=== PATIENT | male | born 1970 | race Caucasian/White ===

== ENCOUNTER → 2021-05-28 13:49 | Outpatient (CLI) | payer OTHER, SELFPAY ==
[2021-05-28 09:13] LABS: Hematocrit 41.7 % (40-54); Hemoglobin 13.6 g/dL (13.0-16.5); Mean Corp Hgb Conc 32.6 g/dL (32-36); Mean Corpuscular Hgb 29.5 pg (27.0-32.0); Mean Corpuscular Volume 90.5 fL (80-94); Mean Platelet Vol. 9.5 fl (6.2-12.0); Platelet Count 374 K/mm3 (150-450); RBC Distribution Width CV 13.1 % (11.6-14.6); RBC Distribution Width SD 43.2 fl (35.1-43.9); Red Blood Count 4.61 M/mm3 (4.6-6.2); White Blood Count 12.2 K/mm3 (4.4-11.0)
[2021-05-28 09:46] LABS: Hemoglobin A1c 10.2 % (3.8-5.6)
[2021-05-28 09:53] LABS: Anion Gap 8 (5-15); BUN 18 mg/dL (7-18); BUN/Creat Ratio 23.9 RATIO (10-20); Chloride 101 mmol/L (98-107); Creatinine, Serum 0.75 mg/dL (0.70-1.30); EST Glomerular Filtration Rate 116 mL/min (>60); Est Glom Filt Rate - Afr Amer 140 mL/min (>60); Glucose 185 mg/dL (74-106); Potassium 4.1 mmol/L (3.5-5.1); Sodium Level 137 mmol/L (136-145)
== END ==
PROVIDERS: Physician Assistant; PCP Preventive Medicine Occupational Medicine; Referring Provider Orthopaedic Surgery; Visit Provider Orthopaedic Surgery
DX: Z01.818 Encounter for other preprocedural examination (principal)
CPT/HCPCS: 36415; 80048; 83036; 85027

== ENCOUNTER → 2021-07-14 13:01 | Outpatient (CLI) | payer OTHER, SELFPAY ==
[2021-07-14 13:59] LABS: Hemoglobin A1c 8.3 % (3.8-5.6)
== END ==
LOC: LAB.FUTURE 13:03 → LAB 13:03
PROVIDERS: PCP Preventive Medicine Occupational Medicine; Referring Provider Physician Assistant; Visit Provider Physician Assistant
DX: Z01.818 Encounter for other preprocedural examination (principal)
CPT/HCPCS: 36415; 83036

== ENCOUNTER → 2021-09-25 07:26 | Outpatient (CLI) | payer OTHER, SELFPAY ==
[2021-09-25 08:27] LABS: Hemoglobin A1c 8.1 % (3.8-5.6)
== END ==
PROVIDERS: PCP Preventive Medicine Occupational Medicine; Referring Provider Physician Assistant; Visit Provider Physician Assistant
DX: E11.9 Type 2 diabetes mellitus without complications (principal); Z68.42 Body mass index [BMI] 45.0-49.9, adult
CPT/HCPCS: 36415; 83036

== ENCOUNTER → 2024-01-09 | Outpatient (CLI) | payer OTHER, SELFPAY ==
[2024-01-09 10:58] LABS: Microalbumin:Creatinine Ratio 17.5 mg/g CRE (<30 mg/g CRE)
[2024-01-09 10:59] LABS: AST(SGOT) 29 U/L (15-37); Alanine Aminotransfer ALT/SGPT 38 U/L (16-61); Albumin, Serum 3.5 g/dL (3.2-5.0); Alkaline Phosphatase 59 U/L (45-117); Anion Gap 5 (5-15); BUN 15 mg/dL (7-18); BUN/Creat Ratio 19.7 RATIO (10-20); Calcium,Total 8.9 mg/dL (8.5-10.1); Chloride 103 mmol/L (98-107); Cholesterol 204 mg/dL (200); Creatinine, Serum 0.76 mg/dL (0.70-1.30); EST Glomerular Filtration Rate 113 mL/min (>60); Est Glom Filt Rate - Afr Amer 137 mL/min (>60); Globulin 3.5 g/dL (2.2-4.2); Glucose 164 mg/dL (74-106); High Density Lipoprotein 46 mg/dL; Sodium Level 137 mmol/L (136-145); Thyroid Stim Hormone (TSH) 1.93 uIU/mL (0.358-3.74); Triglycerides 288 mg/dL; Very Low Density Lipoprotein 58 mg/dL (5-40)
== END | disposition home or self-care (01) ==
PROVIDERS: PCP Preventive Medicine Occupational Medicine; Referring Provider Internal Medicine Endocrinology, Diabetes & Metabolism; Visit Provider Internal Medicine Endocrinology, Diabetes & Metabolism
DX: I10 Essential (primary) hypertension (principal); E11.9 Type 2 diabetes mellitus without complications; E78.5 Hyperlipidemia, unspecified
CPT/HCPCS: 36415; 80053; 80061; 82043; 82570; 84443

== ENCOUNTER 2025-08-18 17:20 | Inpatient (IN) | payer OTHER, MEDICAID, SELFPAY ==
[2025-08-18] VITALS (11 sets, daily range): BP systolic 126–180; BP diastolic 68–109; PULSE 85–109; RESP 16–25; TEMP 36.6–36.8; O2SAT 94–100; BMI 44.5; BMI 43.4
--- NOTE | 2025-08-18 18:08 | EKG12_ITS ---
Test Reason : HEARTBURN Blood Pressure : */* mmHG Vent. Rate : 125 BPM Atrial Rate : 125 BPM P-R Int : 136 ms QRS Dur : 146 ms QT Int : 340 ms P-R-T Axes : 29 81 -11 degrees QTcB Int : 490 ms Sinus tachycardia Right bundle branch block T wave abnormality, consider inferior ischemia Abnormal ECG Confirmed by Atif Espinal ([id number]), supervising film or videotape editor AZALEA PRIEST ([id number]) on 08/19/2025 10:28:37 AM Referred By: ADORE/RUTHANN Confirmed By: Atif Espinal
--- NOTE | 2025-08-18 18:09 | EX.ED.DYSGE1 ---
HPI History of Present Illness Chief Complaint: General Illness Informant: patient Onset/Context/Timing Onset: Days (6) Context: Gradual Onset Timing: Continuous Quality: Thirsty Location: Generalized Worsened by: Nothing Relieved by: Nothing Narrative Narrative: Patient presents with nausea and vomiting that has been getting worse over the past 6 days. Patient states he feels very thirsty. Patient states he has been having difficulty keeping things down. Patient denies any diarrhea. Patient also admits to some shortness of breath. Patient states he has been noncompliant with his insulin. Patient denies any polyuria. Patient denies any chest pain or shortness of breath. Patient denies any fevers or chills. Patient denies any diarrhea. [facility] Medical History (Updated 08/18/25 @ 20:[address] Connie Smalls, ) Abrasion of abdominal wall, initial encounter Benign essential HTN Depression HLD (hyperlipidemia) Obesity Diabetes Other specified disorders of tendon, right hand Home Medications ?Medication ?Instructions ?Recorded ?Last Taken ?Type atorvastatin 20 mg tablet 20 mg PO DAILY 03/29/22 08/18/25 History lisinopril 20 mg tablet 20 mg PO DAILY 03/29/22 08/18/25 History metformin 1,000 mg tablet 1,000 mg PO BID #60 tabs 10/14/23 08/18/25 Rx blood-glucose sensor (FreeStyle #2 ea 03/22/25 Unknown Rx Sera 3 Sensor device) Tresiba FlexTouch U-200 200 100 unit (0.5 mL) subcut QDAY #45 05/06/25 Unknown Rx unit/mL (3 mL) subcutaneous pen mL (insulin degludec) insulin lispro 200 unit/mL (3 mL) 60 unit (0.3 mL) subcut TID #81 mL 05/06/25 Unknown Rx subcutaneous pen (Humalog KwikPen U-200 Insulin) trazodone 50 mg tablet 50 mg PO QHS PRN sleep 05/06/25 Unknown History pen needle, diabetic 32 gauge x #100 ea 07/03/25 Unknown Rx 5/32 blood-glucose sensor (FreeStyle #6 ea 07/10/25 Unknown Rx Sera 3 Plus Sensor device) glimepiride 4 mg tablet 4 mg PO DAILY 08/18/25 08/18/25 History Allergy/AdvReac Type Severity Reaction Status Date / Time loratadine (From Claritin) AdvReac Intermediate headache Verified 08/18/25 17:23 Family History Other Depression Diabetes High cholesterol Hypertension Severe allergy Surgical History H/O facial fracture repair Social History (Updated 08/18/25 @ 22:[address] 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 other: Going through divorce Smoking Status: Former smoker alcohol intake: current alcohol intake frequency: 0-2 drinks per day substance use type: does not use what type of physical activity do you participate in: other details: treadmill frequency: daily ROS ROS ED Constitutional Constitutional ED: Denies chills or fever(s) Eyes Eyes: Denies blurry vision or change in vision ENT ENT ED: Denies rhinorrhea or sore throat Cardiovascular Cardiovascular: Denies chest pain or palpitations Respiratory/Chest Respiratory/Chest: Reports dyspnea; Denies cough Gastrointestinal Gastrointestinal: Reports nausea and vomiting; Denies diarrhea Genitourinary Genitourinary ED: Denies dysuria or hematuria Musculoskeletal Musculoskeletal: Denies back pain or neck pain Integumentary Denies abscess or rash Neurologic Neurologic: Denies headache(s) or weakness Endocrine Endocrinology: Reports polydipsia Allergic/Immunologic Allergic/Immunologic ED: Denies mouth swelling or urticaria EXAM Physical Exam Const Vital Signs: 08/18/25 17:20 08/18/25 17:23 08/18/25 17:55 Temperature 98.2 F Temperature Source Oral Pulse Rate 102 H 109 H Respiratory Rate 20 H 20 H Respiratory Effort Normal Non-Labored Respiratory Pattern Normal Blood Pressure 141/68 H 169/109 H Blood Pressure Mean 92 129 Pulse Ox 97 97 Oxygen Delivery Method Room Air Room Air 08/18/25 19:44 Temperature Temperature Source Pulse Rate 95 Respiratory Rate 18 Respiratory Effort Respiratory Pattern Blood Pressure 164/97 H Blood Pressure Mean 119 Pulse Ox 98 Oxygen Delivery Method Room Air Positive well nourished and well developed Constitutional Narrative: BMI is 44.5. General Appearance ED: well developed and NAD HEENT Reports dry mucous membranes Mouth ED: Yes dry mucous membranes Mouth: dry mucous membranes Neck supple and no JVD Resp normal respiratory effort and clear to auscultation bilaterally Cardio regular rate and regular rhythm GI non-distended Palpation: soft and tender epigastric; Negative for guarding or rebound tenderness present Neuro oriented x3, CN's II-XII intact bilaterally and no sensory deficits noted Sensorium / Orientation: alert Motor Exam: strength 5/5 throughout Psych mental status grossly normal MDM MDM MDM Narrative Medical decision making narrative: Differential diagnosis includes but is not limited to diabetic ketoacidosis, hyperosmolar hyperglycemic nonketotic state, gastroenteritis, gastritis, peptic ulcer disease, pancreatitis, and viral illness. CBC will be obtained to assess for leukocytosis and anemia. Comprehensive metabolic profile will be obtained to assess for hepatic function, renal function, and electrolyte abnormality. Lipase will be obtained to assess for pancreatitis. Urinalysis will be obtained to assess for urinary tract infection and hematuria. EKG will be obtained to assess for cardiac dysrhythmia and cardiac ischemia. History & Record Review Additional record(s) reviewed:: Prior outpatient record and Prior labs Lab Data Attestation: I reviewed the patient's lab results. Lab results narrative: CBC was reviewed. There is a mild leukocytosis of 13.9. Hemoglobin was 17.2. Comprehensive metabolic profile was reviewed. Glucose was elevated at 448, CO2 was low at 12.9 and anion gap was elevated at 24. Lipase was reviewed and was normal at 24. Beta hydroxybutyrate was reviewed and was elevated at 6.5. Urinalysis was reviewed. Urine ketones were 150. There is no evidence of urinary tract infection. Labs: Laboratory Results - last 24 hr 08/18/25 08/18/25 08/18/25 18:16 18:20 20:20 WBC 13.9 H RBC 5.80 Hgb 17.2 H Hct 49.7 MCV 85.7 MCH 29.7 MCHC 34.6 RDW Std Deviation 42.3 RDW Coeff of Mica 13.6 Plt Count 413 MPV 9.5 Immature Gran % (Auto) 0.900 Neut % (Auto) 60.9 Lymph % (Auto) 27.7 Harvey % (Auto) 8.6 Eos % (Auto) 1.2 Baso % (Auto) 0.7 Absolute Neuts (auto) 8.5 H Absolute Lymphs (auto) 3.85 Nucleated RBC % 0 Sodium 131 L 133 Potassium 4.3 4.2 Chloride 94 L 94 L Carbon Dioxide 12.9 L 14.1 L Anion Gap 24 H 25 H BUN 15 Creatinine 0.99 Estim Creat Clear Calc 121.52 Est GFR (MDRD) Non-Af 89 BUN/Creatinine Ratio 14.6 Glucose 448 H Hemoglobin A1c 12.6 H Calcium 9.9 Phosphorus 3.3 Magnesium 1.9 Total Bilirubin 0.74 AST 13 ALT 12 Alkaline Phosphatase 95 Total Protein 8.0 Albumin 4.6 Globulin 3.4 Albumin/Globulin Ratio 1.4 Lipase 24 b-Hydroxybutyric mmol/L 6.5 H Urine Color Straw Urine Clarity Clear Urine pH 6.0 Ur Specific Carlock 1.025 Urine Protein 30 H Urine Glucose (UA) 1000 H Urine Ketones 150 A* Urine Occult Blood 10 H Urine Nitrite Negative Urine Bilirubin Negative Urine Urobilinogen Normal Ur Leukocyte Esterase Negative Urine RBC 0-5 SEEN Urine WBC 0-5 SEEN Ur Squamous Epith Cells 0-5 SEEN Amorphous Sediment 1+ Urine Bacteria 2+ Hyaline Casts 0-5 SEEN Coarse Granular Casts 0-5 SEEN Urine Mucus 0 SEEN ABG Data Attestation: I personally reviewed and interpreted this ABG as follows: Interpretation: Venous blood gas was obtained. pH was 7.325, pCO2 was 18.6, pO2 75.3, bicarb was low at 9.7. ABG results: ABG 08/18/25 19:28 Specimen Type FELTON Sample Site Not entered VBG pH 7.33 VBG pO2 75 H VBG HCO3 10 L VBG Total CO2 10 L VBG O2 Sat (Calc) 94 H VBG Base Excess -16 L POC Mix VBG pCO2 Pt Tmp 18.6 L* O2 Delivery Device Room Air Crit Call To/Read Back Yes Blood Gas Notified [facility] Blood [facility] Notified Time 19:30:29 EKG Initial EKG: Attestation: I personally reviewed and interpreted this EKG as follows: Interpretation: Sinus Tachycardia (125) and Non-Specific ST Changes Comments: EKG was obtained. On my independent interpretation, shows sinus tachycardia with a rate of 125. NH interval was normal at 136 ms. QRS interval was slightly prolonged at 146 ms. QTc interval was 490 ms. [place] was normal at 81. There are nonspecific ST-T wave changes noted. There is a right bundle branch block pattern noted. Prior EKG tracings: available for review Prior: Changed (Compared to EKG dated 10/05/2015, the right bundle branch block pattern is new.) Management Discussion w/another healthcare provider: Hospitalist Additional Tests and Interventions Additional Tests or Interventions: Because of the elevated blood sugar and anion gap, beta hydroxybutyrate will be obtained to assess for diabetic ketoacidosis and venous blood gas will be obtained to assess for metabolic acidosis. Treatment and Re-Evaluation :: Patient was given IV fluids. Patient was advised of his findings. Patient was advised he is in diabetic ketoacidosis. Patient was advised of the need for admission to the hospital. Patient was started on insulin drip. Case was discussed with the hospitalist. She will admit the patient to ICU. Patient understood and was agreeable with the plan. All questions were answered. Discharge Plan Dx/Rx/DC Orders Clinical Impression: Diabetic ketoacidosis, Benign essential HTN, Obesity Disposition Disposition: Acute Care Hospital [facility] Discharge Date/Time: 08/18/25 21:28
[2025-08-18] MEDS: 0.9% Normal Saline (1000mL) 1,000 ML 1000 ML IV ×2 (18:15→22:14)
[2025-08-18 18:23] LABS: Mucous, Urine 0 SEEN /hpf (<or=2+)
[2025-08-18 18:24] LABS: Color, Urine Straw (Yellow); Glucose, Dipstick 1000 mg/dl (Normal); Leukocyte Esterase-Dipstick Negative /ul (Negative); Nitrite-Dipstick Negative (Negative); Occult Blood-Urine 10 /ul (Negative); Protein-Dipstick 30 mg/dl (Negative); Specific Gravity, Urine 1.025 (1.002-1.030); Urine Bilirubin Dipstick Negative (Negative)
[2025-08-18 18:25] LABS: Hematocrit 49.7 % (40-54); Hemoglobin 17.2 g/dL (13.0-16.5); Immature Granulocytes Count 0.120 X10^3/uL (0.0-0.0); Mean Corp Hgb Conc 34.6 g/dL (32-36); Mean Corpuscular Volume 85.7 fL (80-94); Mean Platelet Vol. 9.5 fl (6.2-12.0); NRBC Flagged by Analyzer 0 % (0-5); Platelet Count 413 K/mm3 (150-450); RBC Distribution Width CV 13.6 % (11.6-14.6); RBC Distribution Width SD 42.3 fl (35.1-43.9); Red Blood Count 5.80 M/mm3 (4.6-6.2); White Blood Count 13.9 K/mm3 (4.4-11.0)
[2025-08-18 18:26] LABS: Ketone-Dipstick 150 mg/dl (Negative)
--- OUTSIDE RECORDS SUMMARY | 2025-08-18 18:32 | XMS RPT_ITS | CCD ---
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 [place] Hgoue Primary Care Provider Dr. [place] Hgoue Referring Provider [phone] Dr. Daniel Granda Attending Provider [phone] SHIRA CHAPA PA-C Attending Unavailab le JAMAICA HOGUE DO Primary Care Unavailable MYLENE ANDERSON MD Attending Unavailable JAMAICA HOGUE DO Primary Care Unavailable SHEFALI KEVIN, DR OVIDIO aDvila Attending Unavailable JAMAICA HOGUE DO Primary Care Unavailable JAMAICA HOGUE DO Primary Care Unavailable JAMAICA HOGUE DO Attending Unavailable JAMAICA HOGUE DO Primary Care Unavailable JAMAICA HOGUE DO Attending Unavailable SHEFALI KEVIN, DR OVIDIO Davila Attending Unavailable JAMAICA HOGUE DO Primary Care Unavailable SHEFALI KEVIN, DR OVIDIO Davila Attending Unavailable JAMAICA HOGUE DO Primary Care Unavailable CLYDE TUTTLE MD Attending Unavail able JAMAICA HOGUE DO Primary Care Unavailable PATRICIA PEARSON Attending Unavailable JAMAICA HOGUE DO Primary Care Unavailable Dr. [place] Hogue DO Primary Care Provider [phone] Dr. [place] Hogue DO Referring Provider Mayuri Foley Attending Provider Dr. Daniel Granda MD Attending Provider [phone] Jamaica Hogue Referring Unavailable Jamaica Hogue Primary Care Unavailable Daniel Granda Attending Unavailable Jamaica Hogue Primary Care Unavailable Mayuri Hines Attending Unavailable Jamaica Hogue Referring Unavailable Jamaica Hogue Primary Care Unavailable Daniel Granda Attending Unavailable Jamaica Hogue Referring Unavailable Jamaica Hogue Referring Unavailable Jamaica Hogue Primary Care Unavailable Daniel Granda Attending Unavailable Jamaica Hogue Referring Unavailable Ajit Montenegro Attending Unavailable Jamaica Hogue Primary Care Unavailable Jamaica Hogue Referring Unavailable Jamaica Hogue Primary Care Unavailable Ajit Montenegro Attending Unavailable Allergies Allergy Classification Reported Allergen(s) Allergy Type Date of Onset Reaction(s) Facility (17 sources) Loratadine; Translations: [loratadine] Drug Allergy 3 Headache (finding) [facility] (1 source) Loratadine Drug Allergy [address] [facility] Repository Medications Current Medications Medication Drug Class(es) Dates Sig (Normalized) Sig (Original) 0.5 ML tirzepatide 5 MG/ML Auto-Injector [Mounjaro] (3 sources) Start: 11-09-2023 inject 1 dose by subcutaneous injection every week Mounjaro 2.5 mg/0.5 mL subcutaneous solution Dose : 2.5 mg =, Subcutaneous, qWeek, rotate injection sites, # 4 EA, 0 Refill(s) Start Date: 11/09/23 Status: Ordered acetaminophen 325 mg / HYDROcodone bitartrate 5 mg oral tablet (5 sources) Opioid Agonist Start: 08-01-2024 End: 08-06-2024 take 1 tablet by mouth every six hours as needed for pain [place] 325- 5 mg oral tablet Dose = 1 tab(s), Oral, q6h, PRN for pain, X 5 day(s), # 20 tab(s), 0 Refill(s), Groin pain, 171.7 Start Date: 08/01/24 Stop Date: 08/06/24 Status: Ordered Start: 10-01-2015 End: 09-20-2022 Hydrocodone-Acetaminophen 1 TABLET tablet Discontinued 1 - 2 {tbl} PO EVERY 4 HOURS NEEDED as needed for Pain 12 0 October 05, 2015 1:00am September 20, 2022 11:19am Start: 10-01-2015 End: 09-20-2022 take 1 tablet by mouth every four hours as needed Hydrocodone-Acetaminophen Discontinued 1 - 2 TABLET PO EVERY 4 HOURS NEEDED October 05, 2015 1:00am September 20, 2022 11:19am acyclovir 0.05 mg/mg topical ointment (1 source) Herpesvirus Nucleoside Analog DNA Polymerase Inhibitor, Herpes Simplex Virus Nucleoside Analog DNA Polymerase Inhibitor, Herpes Zoster Virus Nucleoside Analog DNA Polymerase Inhibitor Start: 08-16-2023 End: 08-30-2023 acyclovir 5% topical ointment Apply 1 jeffrey, Topical, q3h, PRN cold sore outbreak, X 7 day(s), # 15 gram(s), 1 Refill(s), Pharmacy: [id number], Ointment, 181, cm, 08/16/23 13:28:00 EST, Height, 163.6, kg, 08/16/23 13:28:00 EST, Dosing Weight Start Date: 08/16/23 Stop Date: 08/30/23 Status: Ordered albuterol MDI (90 mcg/inh) CFC free inhalation aerosol (7 sources) Start: 01-19-2024 take 1 puff(s) by inhalation every four hours as needed for wheezing albuterol MDI (90 mcg/inh) CFC free inhalation aerosol 1 puff(s), Inhalation, q4h, PRN as needed for wheezing, # 8.5 gram(s), 0 Refill(s), Pharmacy: [facility] #[id number], Acute bronchitis, 180, cm, 01/19/24 9:57:00 EDT, Height, kg, 01/19/24 9:57:00 EDT, Dosing Weight Start Date: 01/19/24 Status: Ordered Quantity: 8.5 Unit: g Repeat number: 1 Indications: Acute bronchitis, unspecified; Start: 01-19-2024 take 1 puff(s) by in halation every four hours as needed for wheezing albuterol MDI (90 mcg/inh) CFC free inhalation aerosol 1 puff(s), Inhalation, q4h, PRN as needed for wheezing, # 8.5 gram(s), 0 Refill(s), Pharmacy: [facility] #[id number], Acute bronchitis, 180, cm, 01/19/24 9:57:00 EDT, Height, kg, 01/19/24 9:57:00 EDT, Dosing Weight Start Date: 01/19/24 Status: Ordered Quantity: 8.5 Unit: g Repeat number: 1 Indication: Acute bronchitis, unspecified Start: 01-19-2024 take 1 puff(s) by in halation every four hours as needed for wheezing albuterol MDI (90 mcg/inh) CFC free inhalation aerosol 1 puff(s), Inhalation, q4h, PRN as needed for wheezing, # 8.5 gram(s), 0 Refill(s), Pharmacy: [facility] #[id number], Acute bronchitis, 180, cm, 01/19/24 9:57:00 EDT, Height, kg, 01/19/24 9:57:00 EDT, Dosing Weight Start Date: 01/19/24 Status: Ordered Start: 09-28-2023 take 1 puff(s) by in halation every four hours as needed for wheezing albuterol MDI (90 mcg/inh) CFC free inhalation aerosol 1 puff(s), Inhalation, q4h, PRN as needed for wheezing, # 8.5 gram(s), 0 Refill(s), Pharmacy: [facility] #[id number], Acute bronchitis, 180, cm, 09/28/23 13:19:00 EST, Height, kg, 09/28/23 13:19:00 EST, Dosing Weight Start Date: 09/28/23 Status: Ordered azithromycin 250 mg oral tablet (2 sources) Macrolide Antimicrobial Start: 09-20-2022 End: 09-25-2022 Zithromax 250 mg oral tablet Dose : 250 mg = 1 tab(s), Oral, qDay, follow directions on Z-Erlin, X 5 day(s), # 6 tab(s), 0 Refill(s), 09/25/22 8:52:00 EST, Pharmacy: [facility] #[facility], 181, cm, 09/20/22 7:48:00 EST, Height, 158.6 Start Date: 09/20/22 Stop Date: 09/25/22 Status: Ordered Start: 06-25-2022 End: 06-30-2022 Zithromax 250 mg oral tablet Dose : 250 mg = 1 tab(s), Oral, qDay, follow directions on Z-Erlin, X 5 day(s), # 6 tab(s), 0 Refill(s), 06/30/22 8:12:00 EDT, Pharmacy: [facility] #[facility], 181, cm, 06/22/22 8:38:00 EDT, Height, 170.4 Start Date: 06/25/22 Stop Date: 06/30/22 Status: Ordered benzonatate 100 mg oral capsule (9 sources) Non-narcotic Antitussive Start: 09-28-2023 Tessalon Perles 100 mg oral capsule Dose : 100 mg = 1 cap(s), Oral, q8h, PRN as needed for cough, # 30 cap(s), 0 Refill(s), Pharmacy: [facility] #[id number], Acute bronchitis, 180, cm, 09/28/23 13:19:00 EST, Height, kg, 09/28/23 13:19:00 EST, Dosing Weight Start Date: 09/28/23 Status: Ordered Start: 06-22-2022 End: 09-29-2022 take 1-2 capsules by mouth three times daily as needed for cough benzonatate 100 mg oral capsule Take 1 - 2 capsules three times daily as needed for cough. This is to last 10 days. Start Date: 06/22/22 Status: Ordered Blood-Glucose Sensor (Freest yle Sera 3 Sensor) device (8 sources) Start: 03-22-2025 Blood-Glucose Sensor (Freestyle Sera 3 Sensor) device Active 0 .Route 2 March 22, 2025 10:02am Diabetes mellitus Type 2 diabetes mellitus without complications 1 sensor q 14 days Start: 05-16-2024 End: 03-22-2025 Blood-Glucose Sensor (Freest yle Sera 3 Sensor) device Discontinued 0 .Route 2 May 16, 2024 8:18am March 22, 2025 10:02am Diabetes mellitus Type 2 diabetes mellitus without complications 1 sensor q 14 days Start: 12-05-2023 End: 05-16-2024 Blood-Glucose Sensor (Freest yle Sera 3 Sensor) device Discontinued 0 .Route 2 December 05, 2023 10:20am May 16, 2024 8:18am Diabetes mellitus Type 2 diabetes mellitus without complications 1 sensor q 14 days Start: 12-05-2023 Blood-Glucose Sensor (Freestyle Sera 3 Sensor) device Active 0 .Route 2 December 05, 2023 10:20am 1 sensor q 14 days Start: 08-24-2023 End: 12-05-2023 Blood-Glucose Sensor (Freest yle Sera 3 Sensor) device Discontinued 0 .Route 2 August 24, 2023 12:35pm December 05, 2023 10:20am Diabetes mellitus Type 2 diabetes mellitus without complications 1 sensor q 14 days Start: 08-24-2023 End: 12-05-2023 Blood-Glucose Sensor (Freest yle Sera 3 Sensor) device Discontinued 0 .Route 2 August 24, 2023 12:35pm December 05, 2023 10:20am 1 sensor q 14 days Start: 06-20-2023 End: 08-24-2023 Blood-Glucose Sensor (Freest yle Sera 3 Sensor) device Discontinued 0 .Route 2 June 20, 2023 12:00am August 24, 2023 12:35pm Diabetes mellitus Type 2 diabetes mellitus without complications 1 sensor q 14 days Start: 06-20-2023 End: 08-24-2023 Blood-Glucose Sensor (Freest yle Sera 3 Sensor) device Discontinued 0 .Route 2 June 20, 2023 12:00am August 24, 2023 12:35pm 1 sensor q 14 days busPIRone hydrochloride 5 mg oral tablet (5 sources) Start: 05-06-2025 take 1 tablet by mouth twice daily Buspirone 5 mg tablet Active 5 mg PO TWICE A DAY May 06, 2025 12:00am Start: 08-04-2023 take 1-2 tablets by mouth twice daily, then take 1 tablet by mouth twice daily busPIRone 15 mg oral tablet 1 to 2 tab(s), Oral, BID, Start with one third tab p.o. twice daily and increase dose as tolerated., # 60 tab(s), 1 Refill(s), Pharmacy: [facility] #[id number], Anxiety state, 181, cm, 08/04/23 7:58:00 EDT, Height, kg, 08/04/23 7:58:00 EDT, Dosing Weight Start Date: 08/04/23 Status: Ordered celecoxib 200 mg oral capsule (1 source) Nonsteroidal Anti-inflammatory Drug Start: 02-14-2024 CeleBREX 200 mg oral capsule Dose : 200 mg = 1 cap(s), Oral, BID, PRN as needed for pain, # 60 cap(s), 1 Refill(s), Pharmacy: [facility] #[id number], Abdominal wall pain in right upper quadrant, 179.5, cm, 02/14/24 13:04:00 EDT, Height, kg, 02/14/24 13:04:00 EDT, Dosing Weight Start Date: 02/14/24 Status: Ordered clonazePAM 1 mg oral tablet (1 source) Benzodiazepine Start: 08-18-2023 End: 08-25-2023 clonazePAM 1 mg oral tablet Dose : 1 mg = 1 tab(s), Oral, BID, PRN Anxiety, # 14 tab(s), 0 Refill(s), Pharmacy: [facility] #[facility], Anxiety state, 181, cm, 08/16/23 13:28:00 EST, Height, 163.6, kg, 08/16/23 13:28:00 EST, Dosing Weight Start Date: 08/18/23 Stop Date: 08/25/23 Status: Ordered cyclobenzaprine hydrochloride 10 mg oral tablet (8 sources) Muscle Relaxant Start: 11-09-2023 cyclobenzaprine 10 mg oral tablet Dose : 10 mg = 1 tab(s), Oral, TID, PRN for spasm, # 30 tab(s), 0 Refill(s), Pharmacy: [facility] #[id number], Cervicalgia, 180, cm, 11/09/23 7:28:00 EST, Height, kg, 11/09/23 7:28:00 EST, Dosing Weight Start Date: 11/09/23 Status: Ordered Quantity: 30.0 Unit: tab(s) Repeat number: 1 Indications: Cervicalgia; Start: 08-10-2021 End: 08-17-2021 cyclobenzaprine 10 mg oral t ablet Dose : 10 mg = 1 tab(s), Oral, TID, X 7 day(s), # 21 tab(s), 0 Refill(s), 08/17/21 5:54:00 EST Start Date: 08/10/21 Stop Date: 08/17/21 Status: Ordered dextromethorphan hydrobromide 3 mg/ml / promethazine hydrochloride 1.25 mg/ml oral solution (1 source) Phenothiazine, Uncompetitive C-ipuhnf-S-aspartate Receptor Antagonist, Sigma-1 Agonist Start: 09-22-2022 End: 10-02-2022 take 1 dose by mouth every six hours as needed for cough dextromethorphan-promethazine 15 mg-6.25 mg/5 mL oral syrup Dose = 5 mL, Oral, q6h, PRN for cough, X 10 day(s), # 180 mL, 0 Refill(s), Pharmacy: [facility], Cough, 181, cm, 09/20/22 7:48:00 EST, Height Start Date: 09/22/22 Stop Date: 10/02/22 Status: Ordered diclofenac sodium 0.01 mg/mg topical gel (5 sources) Nonsteroidal Anti-inflammatory Drug Start: 03-04-2021 diclofenac 1% topical gel 4 = gram(s), Topical, QID, # 100 gram(s), 3 Refill(s), Pharmacy: [facility] #[facility], Gel, 182, cm, 02/10/21 16:55:00 EDT, Height, 149.5, kg, 02/10/21 16:55:00 EDT, Dosing Weight Start Date: 03/04/21 Status: Ordered Start: 03-04-2021 diclofenac 1% topical gel 4 = gram(s), Topical, QID, # 100 gram(s), 3 Refill(s), Pharmacy: [facility] #[facility], Gel, 182, cm, 02/10/21 16:55:00 EDT, Height, 149.5, kg, 02/10/21 16:55:00 EDT, Dosing Weight Start Date: 03/04/21 Status: Ordered DULoxetine 30 mg delayed release oral capsule (8 sources) Serotonin and Norepinephrine Reuptake Inhibitor Start: 02-19-2025 take 1 capsule by mouth once daily DULoxetine 30 mg oral delayed release capsule Dose : 30 mg = 1 cap(s), Oral, qDay, Take with a duloxetine 60 mg cap to equal 90 mg daily., # 90 cap(s), 1 Refill(s), Pharmacy: [facility], Major depression, recurrent, chronic, 180.5, cm, 02/18/25 16:21:00 EDT, Height, kg, 02/18/25 16:21:00 EDT, Dosing Weight Start Date: 02/19/25 Status: Ordered Quantity: 90.0 Unit: cap(s) Repeat number: 2 Indications: Major depressive disorder, recurrent, unspecified; Start: 02-19-2025 take 1 capsule by [facility] once daily DULoxetine 60 mg oral delayed release capsule Dose : 60 mg = 1 cap(s), Oral, qDay, Take with a duloxetine 30 mg cap to equal 90 mg daily., # 90 cap(s), 1 Refill(s), Pharmacy: [facility], Major depression, recurrent, chronic, 180.5, cm, 02/18/25 16:21:00 EDT, Height, kg, 02/18/25 16:21:00 EDT, Dosing Weight Start Date: 02/19/25 Status: Ordered Quantity: 90.0 Unit: cap(s) Repeat number: 2 Indications: Major depressive disorder, recurrent, unspecified; Start: 09-28-2023 DULoxetine 40 mg oral delayed release capsule Dose : 80 mg = 2 cap(s), Oral, qDay, 0 Refill(s) Start Date: 09/28/23 Status: Ordered Repeat number: 1 glimepiride 4 mg oral tablet (20 sources) Sulfonylurea Start: 04-16-2024 End: 05-21-2025 glimepiride 4 mg oral tablet Dose : 4 mg = 1 tab(s), Oral, qDay, # 100 tab(s), 3 Refill(s), Pharmacy: [facility], 179, cm, 03/26/24 14:06:00 EDT, Height, kg, 03/26/24 14:06:00 EDT, Dosing Weight Start Date: 04/16/24 Stop Date: 05/21/25 Status: Ordered Quantity: 100.0 Unit: tab(s) Repeat number: 4 Start: 10-25-2023 glimepiride 4 mg oral tablet Dose : 4 mg = 1 tab(s), Oral, qDay, # 30 tab(s), 11 Refill(s), Pharmacy: [facility] #[id number], 180, cm, 10/21/23 14:24:00 EST, Height, kg, 10/21/23 14:24:00 EST, Dosing Weight Start Date: 10/25/23 Status: Ordered Start: 11-04-2021 End: 11-04-2021 take 2 tablets by mouth once daily Glimepiride 4 mg tablet Discontinued 8 mg PO DAILY November 04, 2021 1:00am November 04, 2021 4:12pm Start: 11-04-2021 End: 10-14-2023 take 1 tablet by mouth once daily Glimepiride 4 mg tablet Discontinued 4 mg PO DAILY July 28, 2022 8:06am October 14, 2023 12:58pm Start: 11-04-2021 End: 11-04-2021 take 8 mg by mouth once daily Glimepiride Discontinued 8 MG PO DAILY November 04, 2021 1:00am November 04, 2021 4:12pm Hydrocortisone (5 sources) Corticosteroid Start: 08-21-2020 hydrocortisone 1% topical cream Apply 1 jeffrey, Topical, BID, # 14 gram(s), 0 Refill(s), Pharmacy: [facility] #[id number], Cream, 182.9, cm, 08/21/20 14:27:00 EST, Height, 143.1, kg, 08/21/20 14:27:00 EST, Dosing Weight Start Date: 08/21/20 Status: Ordered ibuprofen 600 mg oral tablet (1 source) Nonsteroidal Anti-inflammatory Drug Start: 07-20-2024 End: 08-19-2024 ibuprofen 600 mg oral tablet Dose : 600 mg = 1 tab(s), Oral, BID, PRN as needed for pain, X 30 day(s), # 60 tab(s), 0 Refill(s), 08/19/24 10:13:00 AM EST, Pharmacy: [facility], 180.3, cm, 07/20/24 9:55:00 EDT, Height, kg, 07/20/24 9:55:00 EDT, Dosing Weight Start Date: 07/20/24 Stop Date: 08/19/24 Status: Ordered 3 ml insulin degludec 200 unt/ml pen injector (5 sources) Insulin Analog Start: 02-18-2025 Tresiba FlexTo uch 200 units/mL 3 mL subcutaneous solution 100, Subcutaneous, Daily, 0 Refill(s) Start Date: 02/18/25 Status: Ordered Repeat number: 1 Start: 07-30-2024 End: 05-06-2025 Insulin Degludec (Tresiba Fl extouch U-200) 200 unit/mL (3 mL) insulin pen Active 100 U SC daily 45 May 06, 2025 3:07pm 3 ml insulin lispro 200 unt/ml pen injector (3 sources) Insulin Analog Start: 07-30-2024 End: 05-06-2025 Insulin Lispro (Humalog Kwikpen Insulin) 200 unit/mL (3 mL) insulin pen Active 60 U SC THREE TIMES A DAY 81 May 06, 2025 3:07pm 30 units with snacks Sliding Scale 180 +12; 221 20 units; 260 30 units; > 300 40 units levoFLOXacin 750 mg oral tablet (1 source) Quinolone Antimicrobial Start: 01-19-2024 End: 01-26-2024 levoFLOXacin 750 mg oral tablet Dose : 750 mg = 1 tab(s), Oral, q24h, X 7 day(s), # 7 tab(s), 0 Refill(s), 01/26/24 10:28:00 AM EDT, Pharmacy: [facility] #[id number], Sinusitis Dyspnea, 180, cm, 01/19/24 9:57:00 EDT, Height, 171.7, kg, 01/19/24 9:57:00 EDT, Dosing Weight Start Date: 01/19/24 Stop Date: 01/26/24 Status: Ordered lidocaine 0.05 mg/mg medicated patch (1 source) Antiarrhythmic, Amide Local Anesthetic Start: 12-07-2024 End: 12-14-2024 Lidoderm 5% topical patch Apply 1 patch(es), Topical, Daily, X 7 day(s), # 7 patch(es), 0 Refill(s), 174.3 Start Date: 12/07/24 Stop Date: 12/14/24 Status: Ordered Quantity: 7.0 Unit: patch(es) Repeat number: 1 lisinopril 20 mg oral tablet (19 sources) Angiotensin Converting Enzyme Inhibitor Start: 07-03-2021 End: 05-21-2025 lisinopril 20 mg oral tablet Dose : 20 mg = 1 tab(s), Oral, qDay, # 100 tab(s), 3 Refill(s), Pharmacy: [facility], 179, cm, 03/26/24 14:06:00 EDT, Height, kg, 03/26/24 14:06:00 EDT, Dosing Weight Start Date: 04/16/24 Stop Date: 05/21/25 Status: Ordered Quantity: 100.0 Unit: tab(s) Repeat number: 4 Start: 07-29-2015 End: 03-29-2022 take 2 tablets by mouth once daily Lisinopril 10 MG tablet Discontinued 20 mg PO DAILY July 29, 2015 12:00am March 29, 2022 9:08am Start: 07-29-2015 End: 03-29-2022 take 20 mg by mouth once daily Lisinopril Discontinued 20 MG PO DAILY July 29, 2015 12:00am March 29, 2022 9:08am lurasidone hydrochloride 20 mg oral tablet (1 source) Atypical Antipsychotic Start: 05-06-2025 take 1 tablet by mouth once daily in the evening Lurasidone (Latuda) 20 mg tablet Active 20 mg PO EVERY EVENING May 06, 2025 12:00am meloxicam 15 mg oral tablet (6 sources) Nonsteroidal Anti-inflammatory Drug Start: 11-09-2023 Mobic 15 mg oral tablet Dose : 15 mg = 1 tab(s), Oral, qDay, # 30 tab(s), 0 Refill(s), Pharmacy: [facility] #[id number], Strain of rotator cuff of right shoulder Cervicalgia, 180, cm, 11/09/23 7:28:00 EST, Height, kg, 11/09/23 7:28:00 EST, Dosing Weight Start Date: 11/09/23 Status: Ordered Start: 11-03-2020 End: 11-10-2020 meloxicam 7.5 mg oral tablet Dose : 7.5 mg = 1 tab(s), Oral, qDay, Take with food/milk, # 7 tab(s), 0 Refill(s) Start Date: 11/03/20 Stop Date: 11/10/20 Status: Ordered metFORMIN hydrochloride 1000 mg oral tablet (20 sources) Biguanide Start: 09-30-2023 End: 05-21-2025 take 1 tablet by mouth twice daily Metformin 1,000 mg tablet Active 1000 mg PO TWICE A DAY 60 5 October 14, 2023 1:00am Start: 09-20-2022 End: 10-14-2023 take 1 tablet by mouth twice daily Metformin 500 mg tablet,ER ibrahima.retention 24 hr Discontinued 500 mg PO TWICE A DAY September 20, 2022 1:00am October 14, 2023 12:58pm Start: 07-29-2022 metFORMIN 1000 mg oral tablet (IR) Dose : 1,000 mg = 1 tab(s), Oral, BID, # 180 tab(s), 3 Refill(s), Pharmacy: [facility], 181, cm, 06/22/22 8:38:00 EDT, Height, kg, 06/25/22 7:51:00 EDT, Dosing Weight Start Date: 07/29/22 Status: Ordered Start: 07-29-2015 End: 11-04-2021 take 1 tablet by mouth twice daily at mealtime Metformin 1,000 MG tablet Discontinued 1000 mg PO TWICE DAILY WITH MEALS July 29, 2015 12:00am November 04, 2021 4:11pm methylPREDNISolone 4 mg oral tablet (1 source) Corticosteroid Start: 01-19-2024 End: 01-25-2024 Medrol Dosepak 4 mg oral tablet 1 packet(s), Oral, qDay, as directed on package labeling, X 6 day(s), # 21 tab(s), 0 Refill(s), 01/25/24 10:28:00 AM EDT, Pharmacy: [facility] #[id number], Sinusitis Dyspnea, 180, cm, 01/19/24 9:57:00 EDT, Height, kg, 01/19/24 9:57:00 EDT, Dosing Weight Start Date: 01/19/24 Stop Date: 01/25/24 Status: Ordered Pen needles 4 mm (15 sources) Start: 04-16-2024 Pen needles 4 mm See Instructions, Dispense UltraFine 4 mm pen needles, #200, use 1 pen needle twice daily to inject insulin, # 200 EA, 3 Refill(s), Pharmacy: [facility], Uncontrolled type 2 diabetes mellitus, 179, cm, 03/26/24 14:06:00 EDT, Height, 174.9, kg, 03/26/24 14:06:00 EDT, Dosing Weight Start Date: 04/16/24 Status: Ordered Quantity: 200.0 Unit: EA Repeat number: 4 Indications: Type 2 diabetes mellitus with hyperglycemia; Start: 04-16-2024 Pen needles 4 mm See Instructions, Dispense UltraFine 4 mm pen needles, #200, use 1 pen needle twice daily to inject insulin, # 200 EA, 3 Refill(s), Pharmacy: [facility], Uncontrolled type 2 diabetes mellitus, 179, cm, 03/26/24 14:06:00 EDT, Height, 174.9, kg, 03/26/24 14:06:00 EDT, Dosing Weight Start Date: 04/16/24 Status: Ordered Quantity: 200.0 Unit: EA Repeat number: 4 Indication: Type 2 diabetes mellitus with hyperglycemia Start: 04-16-2024 Pen needles 4 mm See Instructions, Dispense UltraFine 4 mm pen needles, #200, use 1 pen needle twice daily to inject insulin, # 200 EA, 3 Refill(s), Pharmacy: [facility], Uncontrolled type 2 diabetes mellitus, 179, cm, 03/26/24 14:06:00 EDT, Height, 174.9, kg, 03/26/24 14:06:00 EDT, Dosing Weight Start Date: 04/16/24 Status: Ordered Start: 07-06-2021 Pen needles 4 mm See Instructions, Dispense UltraFine 4 mm pen needles, #200, use 1 pen needle twice daily to inject insulin, # 200 EA, 3 Refill(s), Pharmacy: [facility], Uncontrolled type 2 diabetes mellitus, 182, cm, 05/13/21 15:45:00 EDT, Height, 159.2, kg, 05/13/21 15:45:00 EDT, Dosing Weight Start Date: 07/06/21 Status: Ordered Start: 07-06-2021 Pen needles 4 mm See Instructions, Dispense UltraFine 4 mm pen needles, #200, use 1 pen needle twice daily to inject insulin, # 200 EA, 3 Refill(s), Pharmacy: [facility], Uncontrolled type 2 diabetes mellitus, 182, cm, 05/13/21 15:45:00 EDT, Height,... Start Date: 07/06/21 Status: Ordered Promethazine with Codeine 6.25 mg-10 mg/5 mL oral syrup (1 source) Start: 06-25-2022 End: 06-30-2022 take 1 dose by mouth every six hours as needed for cough Promethazine with Codeine 6.25 mg-10 mg/5 mL oral syrup Dose = 5 mL, Oral, q6h, PRN as needed for cough, not to exceed 30 mL/24 hours, X 5 day(s), # 120 mL, 0 Refill(s), Pharmacy: [facility], Cough Upper respiratory infection, 181, cm, 06/22/22 8:38:00 EDT, Height, 170.4, kg, 06/25/22 7:5... Start Date: 06/25/22 Stop Date: 06/30/22 Status: Ordered sertraline 100 mg oral tablet (10 sources) Serotonin Reuptake Inhibitor Start: 06-06-2023 sertraline 100 mg oral tablet Dose : 200 mg = 2 tab(s), Oral, Daily, # 180 tab(s), 3 Refill(s), Pharmacy: [facility], 181, cm, 06/06/23 7:55:00 EDT, Height, kg, 06/06/23 7:55:00 EDT, Dosing Weight Start Date: 06/06/23 Status: Ordered Start: 11-08-2022 sertraline 100 mg oral tablet Dose : 100 mg = 1 tab(s), Oral, Daily, # 90 tab(s), 3 Refill(s), Pharmacy: [facility], 183, cm, 11/08/22 7:57:00 EST, Height, kg, 11/08/22 7:57:00 EST, Dosing Weight Start Date: 11/08/22 Status: Ordered Start: 06-15-2022 sertraline 100 mg oral tablet Dose : 100 mg = 1 tab(s), Oral, Daily, # 90 tab(s), 3 Refill(s), Pharmacy: [facility], 180.3, cm, 05/26/22 8:20:00 EDT, Height, kg, 05/26/22 8:20:00 EDT, Dosing Weight Start Date: 06/15/22 Status: Ordered Start: 07-07-2021 sertraline 100 mg oral tablet Dose : 100 mg = 1 tab(s), Oral, Daily, # 90 tab(s), 3 Refill(s), Pharmacy: [facility], 182, cm, 05/13/21 15:45:00 EDT, Height, kg, 05/13/21 15:45:00 EDT, Dosing Weight Start Date: 07/07/21 Status: Ordered Start: 07-29-2015 take [address] [facility] once daily Sertraline 100 MG tablet Active 200 mg PO DAILY July 29, 2015 12:00am Start: 07-29-2015 take 200 mg by mouth once yana y Sertraline Active 200 MG PO DAILY July 29, 2015 12:00am sildenafil 100 mg oral tablet (9 sources) Phosphodiesterase 5 Inhibitor Start: 02-29-2020 sildenafil 100 mg oral tablet Dose : 100 mg = 1 tab(s), Oral, qDay, # 5 tab(s), 3 Refill(s), Pharmacy: [facility]/pharmacy #[id number], ED (erectile dysfunction) of organic origin, 182, cm, 02/29/20 14:46:00 EDT, Height, kg, 02/29/20 14:46:00 EDT, Dosing Weight Start Date: 02/29/20 Status: Ordered traMADol hydrochloride 50 mg oral tablet (1 source) Opioid Agonist Start: 02-17-2024 End: 02-22-2024 traMADol 50 mg oral tablet Dose : 50 mg = 1 tab(s), Oral, q6h, PRN for pain, X 5 day(s), # 20 tab(s), 0 Refill(s), 02/22/24 10:45:00 AM EDT, [facility]acy: [facility] #[id number], Abdominal wall pain in right upper quadrant, 179.5, cm, 02/14/24 13:04:00 EDT, Height, 167.5, kg, 02/14/24 13:04:00 EDT, Dosing Weight Start Date: 02/17/24 Stop Date: 02/22/24 Status: Ordered traZODone hydrochloride 50 mg oral tablet (1 source) Serotonin Reuptake Inhibitor Start: 05-06-2025 take 1 tablet by mouth at bedtime as needed Trazodone 50 mg tablet Active 50 mg PO AT BEDTIME as needed May 06, 2025 12:00am Completed/Discontinued Medications Medication Drug Class(es) Dates Sig (Normalized) Sig (Original) acetaminophen 325 mg / oxyCODONE hydrochloride 5 mg oral tablet (2 sources) Opioid Agonist Start: 03-29-2022 End: 09-20-2022 Oxycodone-Acetamino phen 5-325 mg tablet Discontinued 1 {tbl} PO 0 March 29, 2022 12:00am September 20, 2022 11:20am Start: 03-29-2022 End: 09-20-2022 Oxycodone-Acetaminophen Disc ontinued 1 TABLET PO March 29, 2022 12:00am September 20, 2022 11:20am atorvastatin 80 mg oral tablet (20 sources) HMG-CoA Reductase Inhibitor Start: 11-04-2021 End: 09-20-2022 Atorvastatin 80 mg tablet Discontinued 40 mg PO AT BEDTIME November 04, 2021 9:32am September 20, 2022 11:21am Start: 11-04-2021 End: 09-20-2022 take 40 mg by mouth at bedtime Atorvastatin Discontinu ed 40 MG PO AT BEDTIME November 04, 2021 9:32am September 20, 2022 11:21am Start: 07-03-2021 End: 05-21-2025 Atorvastatin 20 mg tablet Ac tive 20 mg PO March 29, 2022 12:00am Start: 10-01-2015 End: 11-04-2021 take 1 tablet by mouth at bedtime Atorvastatin 80 MG tablet Discontinued 80 mg PO AT BEDTIME October 01, 2015 1:00am November 04, 2021 9:34am baclofen 20 mg oral tablet (5 sources) gamma-Aminobutyric Acid-ergic Agonist Start: 12-07-2024 End: 12-12-2024 baclofen 20 mg oral tablet Dose : 20 mg = 1 tab(s), Oral, TID, # 15 tab(s), 0 Refill(s) Start Date: 12/07/24 Stop Date: 12/12/24 Status: Ordered Quantity: 15.0 Unit: tab(s) Repeat number: 1 Start: 01-07-2024 End: 01-12-2024 baclofen 20 mg oral tablet D ose : 20 mg = 1 tab(s), Oral, TID, # 15 tab(s), 0 Refill(s) Start Date: 01/07/24 Stop Date: 01/12/24 Status: Ordered dapagliflozin 10 mg oral tablet (17 sources) Sodium-Glucose Cotransporter 2 Inhibitor Start: 11-04-2021 End: 10-14-2023 take 1 tablet by mouth once daily Dapagliflozin Propanediol (Farxiga) 10 mg tablet Discontinued 10 mg PO DAILY 30 September 05, 2023 8:25am October 14, 2023 12:25pm Dulaglutide (20 sources) GLP-1 Receptor Agonist Start: 06-27-2023 End: 10-14-2023 Dulaglutide (Trulicity) 4.5 mg/0.5 mL pen injector Discontinued 4.5 mg SC EVERY WEEK 6 June 27, 2023 4:12pm October 14, 2023 12:25pm Diabetes mellitus Type 2 diabetes mellitus with hyperglycemia crm technical lead (current) use of insulin Start: 06-27-2023 End: 10-14-2023 Dulaglutide (Trulicity) 4.5 mg/0.5 mL pen injector Discontinued 4.5 MG SC EVERY WEEK 6 June 27, 2023 4:12pm October 14, 2023 12:25pm Start: 03-24-2023 End: 06-27-2023 Dulaglutide (Trulicity) 4.5 mg/0.5 mL pen injector Discontinued 4.5 mg SC EVERY WEEK 6 0 March 24, 2023 8:38am June 27, 2023 4:13pm Start: 03-24-2023 End: 06-27-2023 Dulaglutide (Trulicity) 4.5 mg/0.5 mL pen injector Discontinued 4.5 MG SC EVERY WEEK 6 March 24, 2023 8:38am June 27, 2023 4:13pm Start: 02-14-2023 End: 03-24-2023 Dulaglutide (Trulicity) 4.5 mg/0.5 mL pen injector Discontinued 4.5 mg SC EVERY WEEK 6 February 14, 2023 8:08am March 24, 2023 8:38am Start: 02-14-2023 End: 03-24-2023 Dulaglutide (Trulicity) 4.5 mg/0.5 mL pen injector Discontinued 4.5 MG SC EVERY WEEK February 14, 2023 8:08am March 24, 2023 8:38am Start: 12-20-2022 End: 02-14-2023 Dulaglutide (Trulicity) 4.5 mg/0.5 mL pen injector Discontinued 4.5 mg SC EVERY WEEK 6 1 December 20, 2022 10:22am February 14, 2023 8:08am Start: 12-20-2022 End: 02-14-2023 Dulaglutide (Trulicity) 4.5 mg/0.5 mL pen injector Discontinued 4.5 MG SC EVERY WEEK 6 December 20, 2022 10:22am February 14, 2023 8:08am Start: 12-06-2022 End: 12-20-2022 Dulaglutide (Trulicity) 4.5 mg/0.5 mL pen injector Discontinued 4.5 mg SC EVERY WEEK 6 1 December 06, 2022 8:52am December 20, 2022 10:22am Start: 12-06-2022 End: 12-20-2022 Dulaglutide (Trulicity) 4.5 mg/0.5 mL pen injector Discontinued 4.5 MG SC EVERY WEEK 6 December 06, 2022 8:52am December 20, 2022 10:22am Start: 06-05-2022 End: 12-06-2022 Dulaglutide (Trulicity) 4.5 mg/0.5 mL pen injector Discontinued 4.5 mg SC EVERY WEEK 6 1 June 05, 2022 8:43pm December 06, 2022 8:52am Start: 06-05-2022 End: 12-06-2022 Dulaglutide (Trulicity) 4.5 mg/0.5 mL pen injector Discontinued 4.5 MG SC EVERY WEEK 6 June 05, 2022 8:43pm December 06, 2022 8:52am Start: 03-29-2022 End: 06-05-2022 Dulaglutide (Trulicity) 4.5 mg/0.5 mL pen injector Discontinued 4.5 mg SC EVERY WEEK 2 March 29, 2022 12:00am June 05, 2022 8:43pm Start: 03-29-2022 End: 06-05-2022 Dulaglutide (Trulicity) 4.5 mg/0.5 mL pen injector Discontinued 4.5 MG SC EVERY WEEK 2 March 29, 2022 12:00am June 05, 2022 8:43pm Start: 02-17-2022 End: 03-29-2022 Dulaglutide (Trulicity) 3 mg /0.5 mL pen injector Discontinued 3 mg SC EVERY WEEK 6 February 17, 2022 7:35pm March 29, 2022 9:07am Start: 02-17-2022 End: 03-29-2022 Dulaglutide (Trulicity) 3 mg /0.5 mL pen injector Discontinued 3 MG SC EVERY WEEK 6 February 17, 2022 7:35pm March 29, 2022 9:07am Start: 12-03-2021 End: 02-17-2022 Dulaglutide (Trulicity) 3 mg /0.5 mL pen injector Discontinued 3 mg SC EVERY WEEK 2 December 03, 2021 1:00am February 17, 2022 7:35pm Start: 12-03-2021 End: 02-17-2022 Dulaglutide (Trulicity) 3 mg /0.5 mL pen injector Discontinued 3 MG SC EVERY WEEK 2 December 03, 2021 1:00am February 17, 2022 7:35pm Start: 10-21-2021 End: 10-16-2022 Dulaglutide (Trulicity) 1.5 mg/0.5 mL pen injector Discontinued 1.5 mg SC EVERY WEEK 2 November 04, 2021 1:00am December 03, 2021 8:53am famotidine 40 mg oral tablet (2 sources) Histamine-2 Receptor Antagonist Start: 10-05-2015 End: 09-20-2022 take 1 tablet by mouth once daily Famotidine (Pepcid) 40 MG tablet Discontinued 40 mg PO DAILY October 05, 2015 1:00am September 20, 2022 11:19am fluticasone propionate 0.05 mg/actuat metered dose nasal spray (4 sources) Corticosteroid Start: 07-20-2024 End: 08-19-2024 take 50 ug nasal route once daily in the morning Flonase 50 mcg/inh nasal spray 50 mcg Dose = 1 spray(s), Nostril, each, qAM, # 16 gram(s), 0 Refill(s), Pharmacy: [facility], Rhinitis, 180.3, cm, 07/20/24 9:55:00 EDT, Height, kg, 07/20/24 9:55:00 EDT, Dosing Weight Start Date: 07/20/24 Stop Date: 08/19/24 Status: Ordered Quantity: 16.0 Unit: g Repeat number: 1 Indications: Chronic rhinitis; gabapentin 300 mg oral capsule (2 sources) Anti-epileptic Agent Start: 05-26-2022 End: 06-25-2022 gabapentin 300 mg oral capsule Dose : 300 mg = 1 cap(s), Oral, qHS, # 30 cap(s), 0 Refill(s), Pharmacy: [facility] #[id number], Restless leg Peripheral neuropathy, 180.3, cm, 05/26/22 8:20:00 EDT, Height, 169.9 Start Date: 05/26/22 Stop Date: 06/25/22 Status: Ordered HumaLOG Mix 75/25 KwikPen 3 mL PEN (3 sources) Start: 10-21-2021 HumaLOG Mix 75/25 KwikPen 3 mL PEN See Instructions, inject 60 units in AM and 30 units in the PM, # 81 mL, 3 Refill(s), Pharmacy: [facility] #[id number], Type 2 diabetes mellitus, 181, cm, 10/21/21 8:31:00 EST, Height, kg, 10/21/21 8:31:00 EST, Dosing Weight Start Date: 10/21/21 Status: Ordered Start: 07-07-2021 End: 01-03-2022 HumaLOG Mix 75/25 KwikPen 3 mL PEN 40 unit(s), Subcutaneous, BIDAC, # 72 mL, 1 Refill(s), Pharmacy: [facility], Type 2 diabetes mellitus, 182, cm, 05/13/21 15:45:00 EDT, Height, kg, 05/13/21 15:45:00 EDT, Dosing Weight Start Date: 07/07/21 Stop Date: 01/03/22 Status: Ordered hydrOXYzine pamoate 25 mg oral capsule (2 sources) Antihistamine Start: 07-29-2015 End: 09-20-2022 take 1 capsule by mouth three times daily as needed Hydroxyzine Pamoate 25 MG capsule Discontinued 1 - 2 {tbl} PO 3 TIMES DAILY NEEDED as needed for Anxiety 30 0 July 29, 2015 10:22am September 20, 2022 11:20am 3 ml insulin lispro 50 unt/ml / insulin lispro protamine, human 50 unt/ml pen injector (20 sources) Insulin Analog Start: 07-20-2024 HumaLOG Mix 50 /50 KwikPen 3 mL PEN 90 unit(s), Subcutaneous, BID, does flucuate, 0 Refill(s) Start Date: 07/20/24 Status: Ordered Repeat number: 1 Start: 10-14-2023 End: 07-30-2024 Insulin Lispro Protamin-Lisp ro (Humalog Mix 50-50 Kwikpen) 100 unit/mL (50-50) insulin pen Discontinued 90 U SC .tid w meals 81 April 18, 2024 5:14pm July 30, 2024 11:31am Diabetes mellitus Type 2 diabetes mellitus without complications Start: 09-20-2022 End: 10-14-2023 Insulin Lispro Protamin-Lisp ro (Humalog Mix 50-50 Kwikpen) 100 unit/mL (50-50) insulin pen Discontinued 50 U SC .tid w meals 135 September 20, 2022 11:54am October 14, 2023 12:59pm Diabetes mellitus Type 2 diabetes mellitus without complications Start: 11-04-2021 End: 09-20-2022 Insulin Lispro Protamin-Lisp ro (Humalog Mix 50-50 Kwikpen) 100 unit/mL (50-50) insulin pen Discontinued 35 U SC .tid w meals 90 March 17, 2022 12:33pm September 20, 2022 11:54am Start: 11-04-2021 End: 11-04-2021 Insulin Lispro Protamin-Lisp ro 100 unit/mL (75-25) insulin pen Discontinued mL SC November 04, 2021 1:00am November 04, 2021 4:11pm Start: 10-21-2021 End: 11-04-2021 HumaLOG Mix 75/25 KwikPen 3 mL PEN 35 unit(s), Subcutaneous, TIDAC, # 1 mL, 3 Refill(s), Pharmacy: [facility] #[id number], Type 2 diabetes mellitus, 181, cm, 10/21/21 8:31:00 EST, Height, kg, 10/21/21 8:31:00 EST, Dosing Weight Start Date: 10/21/21 Status: Ordered LORazepam 1 mg oral tablet (4 sources) Benzodiazepine Start: 04-24-2025 Ativan 1 mg or al tablet Dose : 1 mg = 1 tab(s), Oral, BID, PRN as needed for anxiety, 0 Refill(s), 165.9 Start Date: 04/24/25 Status: Ordered Repeat number: 1 Start: 06-06-2023 End: 06-20-2023 LORazepam 0.5 mg oral tablet Dose : 0.5 mg = 1 tab(s), Oral, BID, Do not drive for at least 4 hours after taking a dose lorazepam., X 14 day(s), # 28 tab(s), 0 Refill(s), 06/20/23 8:43:00 AM EDT, [facility]acy: [facility] #[id number], Stress response, 181, cm, 06/06/23 7:55:00 EDT, Height, 160.3, kg, 06/06/23 7:55:00 EDT, Dosing Weight Start Date: 06/06/23 Stop Date: 06/20/23 Status: Ordered Start: 07-29-2015 take 1 mg by mouth t hree times daily as needed for anxiety Lorazepam (Ativan) 2 MG tablet Active 1 mg PO 3 TIMES DAILY NEEDED as needed for Anxiety July 29, 2015 12:00am ondansetron 4 mg disintegrating oral tablet (4 sources) Serotonin-3 Receptor Antagonist Start: 10-01-2015 End: 09-20-2022 take 1 tablet by mouth every eight hours as needed for nausea Ondansetron 4 MG tablet Discontinued 4 mg PO EVERY 8 HOURS NEEDED as needed for Nausea October 05, 2015 1:00am September 20, 2022 11:20am pioglitazone 45 mg oral tablet (7 sources) Peroxisome Proliferator Receptor alpha Agonist, Peroxisome Proliferator Receptor gamma Agonist, Thiazolidinedione Start: 11-04-2021 End: 03-29-2022 take 1 tablet by mouth once daily Pioglitazone 45 mg tablet Discontinued 45 mg PO DAILY 30 November 04, 2021 1:00am March 29, 2022 9:07am Start: 11-04-2021 End: 11-04-2021 Pioglitazone 45 mg tablet Discontinued NMA PO November 04, 2021 1:00am November 04, 2021 4:12pm Start: 07-03-2021 take 0.5 tablet by m outh once daily pioglitazone 45 mg oral tablet 0.5 tab, Oral, Daily, # 45 tab(s), 3 Refill(s), Pharmacy: [facility], 182, cm, 05/13/21 15:45:00 EDT, Height, kg, 05/13/21 15:45:00 EDT, Dosing Weight Start Date: 07/03/21 Status: Ordered Semaglutide (2 sources) Start: 12-20-2023 End: 02-04-2025 Semaglutide (Ozempic) 0.25 m g or 0.5 mg (2 mg/3 mL) pen injector Discontinued 0.25 mg SC EVERY WEEK 3 December 20, 2023 12:00am February 04, 2025 8:28am for 4 weeks Start: 12-20-2023 Semaglutide (O zempic) 0.25 mg or 0.5 mg (2 mg/3 mL) pen injector Active 0.25 MG SC EVERY WEEK 3 December 20, 2023 12:00am for 4 weeks Tirzepatide (Mounjaro) 2.5 mg/0.5 mL pen injector (2 sources) Start: 10-14-2023 End: 12-20-2023 Tirzepatide (Mounjaro) 2.5 mg/0.5 mL pen injector Discontinued 2.5 mg SC EVERY WEEK 2 04 01October 14, 2023 1:00am December 20, 2023 7:17am Start: 10-14-2023 End: 12-20-2023 Tirzepatide (Mounjaro) 2.5 m g/0.5 mL pen injector Discontinued 2.5 MG SC EVERY WEEK 12 07October 14, 2023 1:00am December 20, 2023 7:17am Problems Problem Classification Problem Date Documented Date Episodic/Chronic Abdominal pain (8 sources) Abdominal wall pain; Translations: [Lower abdominal pain] Onset: 08-01-2024 02-14-2024 Episodic Anxiety disorders (20 sources) Acute stress disorder; Translations: [Anxiety state] 06-06-2023 Chronic Diabetes mellitus with complications (19 sources) Hyperglycemia due to type 2 diabetes mellitus; Translations: [Type 2 diabetes mellitus in obese] Onset: 05-06-2025 02-14-2023 Chronic Diabetes mellitus without complication (13 sources) Type 2 diabetes mellitus; Translations: [Diabetes mellitus] Onset: 07-30-2024 05-29-2021 Chronic Diabetes mellitus without complication (2 sources) Hyperglycemia; Translations: [Hyperglycemia, unspecified] Onset: 02-07-2025 Episodic Diseases of white blood cells (8 sources) Leukocytosis 06-09-2023 Chronic Disorders of lipid metabolism (20 sources) Hyperlipidemia; Translations: [Hyperlipidemia, unspecified] Onset: 07-30-2024 06-12-2019 Chronic Essential hypertension (20 sources) Hypertensive disorder; Translations: [Benign essential hypertension] Onset: 05-06-2025 06-12-2019 Chronic Mood disorders (20 sources) Depressive disorder; Translations: [Recurrent major depression] Onset: 08-24-2023 06-12-2019 Chronic Other aftercare (1 source) crm technical lead (current) use of insulin; Translations: [crm technical lead (current) use of insulin] Onset: 05-06-2025 Episodic Other connective tissue disease (15 sources) Injury of tendon of the rotator cuff of shoulder 02-25-2021 Episodic Other connective tissue disease (15 sources) Stenosing tenosynovitis 07-15-2020 Episodic Other connective tissue disease (5 sources) Synovitis/tenosynovi tis - hand 02-29-2020 Episodic Other injuries and conditions due to external causes (3 sources) Concussion injury of body structure 03-13-2024 Episodic Other lower respiratory disease (2 sources) Cough 06-22-2022 Episodic Other male genital disorders (15 sources) 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 Chronic Other non-traumatic joint disorders (6 sources) Shoulder pain 02-10-2021 Episodic Other non-traumatic joint disorders (3 sources) Hip pain 08-07-2024 Episodic Other nutritional; endocrine; and metabolic disorders (9 sources) Obesity; Translations: [Obesity, unspecified] 06-12-2019 Chronic Other nutritional; endocrine; and metabolic disorders (1 source) Severe obesity 11-08-2022 Chronic Other nutritional; endocrine; and metabolic disorders (9 sources) Body mass index 40+ - severely obese 02-14-2023 Chronic Other nutritional; endocrine; and metabolic disorders (2 sources) Obesity, unspecified; Translations: [Obesity, unspecified] 10-14-2023 Chronic Other nutritional; endocrine; and metabolic disorders (1 source) Morbid (severe) obesity due to excess calories; Translations: [Morbid (severe) obesity due to excess calories] Onset: 05-06-2025 Chronic Other nutritional; endocrine; and metabolic disorders (1 source) Body mass index (BMI) 50.0-59.9, adult; Translations: [Body mass index [BMI] 50.0-59.9, adult] Onset: 05-06-2025 Chronic Other nutritional; endocrine; and metabolic disorders (1 source) H/O: Disorder; Translations: [Personal history of other endocrine, nutritional and metabolic disease] Onset: 02-07-2025 Episodic Other nutritional; endocrine; and metabolic disorders (1 source) Personal history of other endocrine, nutritional and metabolic disease; Translations: [Personal history of other endocrine, nutritional and metabolic disease] Onset: 02-07-2025 Episodic Other skin disorders (6 sources) Skin tag 11-08-2022 Episodic Other skin disorders (1 source) Generalized hyperhidrosis; Translations: [Generalized hyperhidrosis] Onset: 02-07-2025 Episodic Other skin disorders (1 source) Generalized hyperhidrosis; Translations: [Generalized hyperhidrosis] Onset: 02-07-2025 Episodic Other upper respiratory disease (9 sources) Allergic rhinitis 02-14-2023 Chronic Other upper respiratory infections (2 sources) Sinusitis 09-20-2022 Chronic Other upper respiratory infections (3 sources) Upper respiratory infection; Translations: [Acute upper respiratory infection] Onset: 09-22-2022 06-22-2022 Episodic Otitis media and related conditions (10 sources) Dysfunction of eustachian tube; Translations: [Perforation of tympanic membrane] 02-14-2023 Episodic Residual codes; unclassified (20 sources) Tobacco user 06-12-2019 Episodic Spondylosis; intervertebral disc disorders; other back problems (7 sources) Neck pain 11-09-2023 Episodic Suicide and intentional self-inflicted injury (4 sources) Suicidal thoughts 08-16-2023 Episodic Superficial injury; contusion (2 sources) Abrasion of abdominal wall, initial encounter; Translations: [Abrasion of abdominal wall, initial encounter] 03-28-2023 Episodic Unclassified (14 sources) Patient encounter status 10-21-2021 Unclassified (9 sources) Finding of hand region 06-06-2023 Unclassified (7 sources) Right rotator cuff strain 11-09-2023 Viral infection (8 sources) Herpes labialis 08-16-2023 Episodic Results Test Name Value Interpretation Reference Range Facility Endocrinology Visit Reporton 05-06-2025 Endocrinology Visit Report [facility] [address] [place] [address] OFFICE VISIT Date of Service: 05/06/25 MR#: [id number] Acct: [id number] Name: SAQIB DAMICO Rep #: [id number] : 1970 Provider: Jaylen Padilla Age/Sex: 55/M [place] [facility] [place] Signed Intake Vital Signs 02/04/25 08:24 05/06/25 14:23 Height 5 ft 11 in 5 ft 11 in Weight: 386 lb 377 lb BMI 53.8 52.5 BP 143/75 H 149/97 H Blood Pressure Location Lt brachial Rt brachial Position Sitting Sitting Pulse 106 H 91 Pulse Source Monitor Monitor Pulse Oximetry (%) 96 95 Oxygen Delivery Method room air room air Intake Visit Reasons: 3 M FU Chief Complaint: f/u diabetes Is patient in pain?: Yes Allergies loratadine (From [facility]) Adverse Reaction (Intermediate, Verified 05/06/25 14:28) headache Medications ???Medication ???Instructions ???Recorded ???Confirmed ???Type lorazepam 2 mg tablet (Ativan) 1 mg PO TID PRN PRN Anxiety 05/06/25 History sertraline 100 mg tablet 200 mg PO DAILY 07/29/15 05/06/25 History atorvastatin 20 mg tablet 20 mg PO 03/29/22 05/06/25 History lisinopril 20 mg tablet 20 mg PO 03/29/22 05/06/25 History metformin 1,000 mg tablet 1,000 mg PO BID #60 tabs 10/14/23 05/06/25 Rx BD Ultra-Fine Saundra Pen Needle 32 #100 ea 07/30/24 05/06/25 Rx gauge x 5/32 (pen needle, diabetic) insulin lispro 200 unit/mL (3 mL) 60 unit (0.3 mL) subcut TID #81 m L 01/15/25 05/06/25 Rx subcutaneous pen (Humalog KwikPen U-200 Insulin) Tresiba FlexTouch U-200 200 100 unit (0.5 mL) subcut QDAY #45 02/05/25 05/06/25 Rx unit/mL (3 mL) subcutaneous pen mL (insulin degludec) blood-glucose sensor (FreeStyle #2 ea 03/22/25 05/06/25 Rx Sera 3 Sensor device) buspirone 5 mg tablet 5 mg PO BID 05/06/25 05/06/25 Hist ory lurasidone 20 mg tablet (Latuda) 20 mg PO QPM 05/06/25 05/06/25 His tory trazodone 50 mg tablet 50 mg PO QHS PRN 05/06/25 05/06/25 History PFSH Medical History Obesity Diabetes Other specified disorders of tendon, right hand Surgical History H/O facial fracture repair Family History Other Depression Diabetes High cholesterol Hypertension Severe allergy Social History Smoking Status: Never smoker alcohol intake: current alcohol intake frequency: 0-2 drinks per day substance use type: does not use what type of physical activity do you participate in: other details: treadmill frequency: daily HPI HPI Chief Complaint: f/u diabetes Details: SAQIB DAMICO, is a 55 M who presents to the office today for follow up. A1C is 8.4% down from 9.7% He is taking basal bolus He is using Sera 3 CGM He is getting a divorce, he was pink slipped in [place]. He states that he supposedly took 30 ativan and a bunch of Tylenol. He doesn't really believe it happened because he doesn't remember doing it. I explained retrograde amnesia. ROS Const Constitutional: No fatigue, weight change or change in appetite Eyes Eyes: No change in vision ENT ENT: No dizziness/vertigo or difficulty swallowing Cardio Cardiology: No chest pain at rest, chest pain with exertion, shortness of breath or palpitations Musc Musculoskeletal: No abnormal gait, joint pain, numbness or tingling Neuro Neurology: Positive for memory loss; No abnormal gait, numbness or tingling Psych Psychiatric: No change in appetite, Positive for depression, Positive for irritability, Positive for memory loss and No Thoughts of harming yourself/Others Resp Respiratory: No cough, chest congestion or shortness of breath Gastro GI: No abdominal pain, constipation, diarrhea or difficulty swallowing Genitourinary Male: No burning urination Skin Skin: No itchy eyes or wounds Endo Endocrine: No fatigue or weight change Aller/Imm Allergy/Immunologic: No itchy eyes Exam Const General: cooperative, healthy appearing, comfortable, no acute distress, well developed and not cushingoid Nutritional Appearance: obese Orientation: alert, awake and oriented x3 HENMT Head: normal to inspection Ears: hearing grossly normal bilaterally Nose: external nose normal Mouth: oral mucosae normal Eyes General: appearance normal, both eyes and all related structures Alignment and Position: alignment normal Periorbital: periorbital findings normal Eyelids: eyelids normal Conjunctivae: conjunctivae normal Neck Neck: normal visual inspection Neck mass: No Chest Chest palpation inspection: normal inspection of the chest Resp Effort Inspection: n (more content not included)... Normal [facility] UFENTSon 04-25-2025 Fentanyl (u) Negative Normal Negative [facility] Comment on above: Result Comment: Test ing has been performed FOR MEDICAL PURPOSES ONLY. Performed By: #### U DRUG, UADIP #### [address] [address] #### UFENTS, UOXYS #### [place] [address] UOXYSon 04-25-2025 Oxycodone (u) Negative Normal Negative [facility] Comment on above: Result Comment: Test ing has been performed FOR MEDICAL PURPOSES ONLY. Performed By: #### U DRUG, UADIP #### [address] [address] #### UFENTS, UOXYS #### [place] [address] .Auto Diffon 04-24-2025 Basophil, Absolute 0.1 10 3/mcL Normal 0.0-0.3 [facility] Comment on above: Performed By: #### U DRUG, UADIP #### [place] [address] #### UFENTS, UOXYS #### [address] [address] Basophils/100 WBC (Bld) 0.8 % Normal 0.0-2.5 [facility] Comment on above: Performed By: #### U DRUG, UADIP #### [place] [address] #### UFENTS, UOXYS #### [address] [address] Eosinophil, Absolute 0.3 10 3/mcL Normal 0.0-0.7 [facility] Comment on above: Performed By: #### U DRUG, UADIP #### [place] [address] #### UFENTS, UOXYS #### [address] [address] Eosinophils/100 WBC (Bld) 2.0 % Normal 0.0-6.0 [facility] Comment on above: Performed By: #### U DRUG, UADIP #### [place] [address] #### UFENTS, UOXYS #### [address] [address] Lymphocyte, Absolute 3.1 10 3/mcL Normal 0.9-4.3 [facility] Comment on above: Performed By: #### U DRUG, UADIP #### [address] [address] #### UFENTS, UOXYS #### [address] [address] Lymphocytes/100 WBC (Bld) 19.5 % Low 20.0-40.0 [facility] Comment on above: Performed By: #### U DRUG, UADIP #### [place] [address] #### UFENTS, UOXYS #### [facility] [address] [place] [id number] Monocyte, Absolute 1.6 10 3/mcL High 0.1-1.4 [facility] Comment on above: Performed By: #### U DRUG, UADIP #### [address] [address] #### UFENTS, UOXYS #### [facility] [address] [place] [id number] Monocytes/100 WBC (Bld) 10.2 % Normal 2.0-13.0 [facility] Comment on above: Performed By: #### U DRUG, UADIP #### [address] [address] #### UFENTS, UOXYS #### [address] [address] Neutrophils/100 WBC (Bld) 67.5 % Normal 50.0-75.0 [facility] Comment on above: Performed By: #### U DRUG, UADIP #### [address] [address] #### UFENTS, UOXYS #### [address] [address] .GFRon 04-24-2025 Estimated Glomerular Filtration Rate 103 ml/min/1.73sqm Normal [facility] Comment on above: Result Comment: Stages of Chronic Kidney Disease (CKD) Stage Description eGFR(ml/min/1.73 sq.m.) CKD 1 Normal kidney function or >=90 normal kindney function with possible kidney damage (ex. Proteinuria) CKD 2 Kidney damage with mild loss 60-89 of kidney function CKD 3a Mild to moderate loss of kidney 45-59 function CKD 3b Moderate to severe loss of 30-44 of kindey function CKD 4 Severe loss of kidney function 15-29 CKD 5 Kidney failure <15 Note: (go live 2024) the eGFR calculation was updated to the 2020 CKD-EPI creatinine equation without a race factor to calculate the eGFR results. Performed By: #### U DRUG, UADIP #### [address] [address] #### UFENTS, UOXYS #### [address] [address] .MDWon 04-24-2025 Monocyte Distribution Width 15.95 Normal 0.00-20.00 [facility] Comment on above: Result Comment: For ED adult patients suspected of sepsis, MDW<=20.0 does not rule out sepsis or risk of sepsis Performed By: #### U DRUG, UADIP #### [place] [address] #### UFENTS, UOXYS #### [place] [address] .NEUABSon 04-24-2025 Neutrophil, Absolute 10.5 10 3/mcL High 2.3-8.1 [facility] Comment on above: Performed By: #### U DRUG, UADIP #### [place] [address] #### UFENTS, UOXYS #### [place] [address] ACETAon 04-24-2025 Acetaminophen [Mass/Vol] 0.0 ug/mL Low 10.0-30.0 [facility] Comment on above: Performed By: #### U DRUG, UADIP #### [place] [address] #### UFENTS, UOXYS #### [place] [address] Rosario 04-24-2025 Ethanol Level <3 Normal [facility] Comment on above: Performed By: #### U DRUG, UADIP #### [place] [address] #### UFENTS, UOXYS #### [place] [address] CBCon 04-24-2025 Erythrocyte distribution width (RBC) [Ratio] 13.7 % Normal 11.5-15.5 [facility] Comment on above: Performed By: #### U DRUG, UADIP #### [place] [address] #### UFENTS, UOXYS #### [address] [address] Hematocrit (Bld) [Volume fraction] 43.7 % Normal 40.0-52.0 [facility] Comment on above: Performed By: #### U DRUG, UADIP #### [place] [address] #### UFENTS, UOXYS #### [address] [address] Hgb 14.5 G/dL Normal 13.0-17.5 [facility] Comment on above: Performed By: #### U DRUG, UADIP #### [place] [address] #### UFENTS, UOXYS #### [address] [address] MCH (RBC) [Entitic mass] 29.7 pg Normal 27.0-33.0 [facility] Comment on above: Performed By: #### U DRUG, UADIP #### [place] [address] #### UFENTS, UOXYS #### [place] [address] MCHC 33.2 G/dL Normal 32.0-36.0 [facility] Comment on above: Performed By: #### U DRUG, UADIP #### [place] [address] #### UFENTS, UOXYS #### [place] [id number] MCV (RBC) [Entitic vol] 89.4 fL Normal 81.0-100.0 [facility] Comment on above: Performed By: #### U DRUG, UADIP #### [place] [address] #### UFENTS, UOXYS #### [address] [address] Platelet 402 10 3/mcL Normal 150-450 [facility] Comment on above: Performed By: #### U DRUG, UADIP #### [address] [address] #### UFENTS, UOXYS #### [address] [address] Platelet mean volume (Bld) [Entitic vol] 7.2 fL Normal 6.4-10.5 [facility] Comment on above: Performed By: #### U DRUG, UADIP #### [place] [address] #### UFENTS, UOXYS #### [place] [address] RBC 4.89 10 6/mcL Normal 4.50-6.00 [facility] Comment on above: Performed By: #### U DRUG, UADIP #### [place] [address] #### UFENTS, UOXYS #### [address] [address] WBC 15.6 10 3/mcL High 4.5-10.8 [facility] Comment on above: Performed By: #### U DRUG, UADIP #### [place] [address] #### UFENTS, UOXYS #### [address] [address] CMPon 04-24-2025 Albumin Level 4.2 G/dL Normal 3.5-5.0 [facility] Comment on above: Performed By: #### U DRUG, UADIP #### [place] [address] #### UFENTS, UOXYS #### [place] [address] Albumin/Globulin [Mass ratio] 1.2 {ratio} Normal 1.1-2.5 [facility] Comment on above: Performed By: #### U DRUG, UADIP #### [place] [address] #### UFENTS, UOXYS #### [address] [address] ALP [Catalytic activity/Vol] 66 U/L Normal 40-135 [facility] Comment on above: Performed By: #### U DRUG, UADIP #### [place] [address] #### UFENTS, UOXYS #### [address] [address] ALT [Catalytic activity/Vol] 36 U/L Normal 16-63 [facility] Comment on above: Performed By: #### U DRUG, UADIP #### [place] [address] #### UFENTS, UOXYS #### [place] [address] AST [Catalytic activity/Vol] 26 U/L Normal 10-40 [facility] Comment on above: Performed By: #### U DRUG, UADIP #### [place] [address] #### UFENTS, UOXYS #### [address] [address] Bili Total 0.8 mg/dL Normal 0.2-1.0 [facility] Comment on above: Result Comment: Use of this assay is not recommended for patients undergoing treatment with eltrombopag due to the potential for falsely elevated results. Performed By: #### U DRUG, UADIP #### [place] [address] #### UFENTS, UOXYS #### [place] [id number] BUN/Creatinine Ratio 16 ratio Normal 7-27 [facility] Comment on above: Performed By: #### U DRUG, UADIP #### [address] [address] #### UFENTS, UOXYS #### [address] [address] Calcium [Mass/Vol] 9.3 mg/dL Normal 8.4-10.2 [facility] Comment on above: Performed By: #### U DRUG, UADIP #### [place] [address] #### UFENTS, UOXYS #### [address] [address] Chloride [Moles/Vol] 100 mmol/L Normal 98-107 [facility] Comment on above: Performed By: #### U DRUG, UADIP #### [place] [address] #### UFENTS, UOXYS #### [place] [address] CO2 [Moles/Vol] 24 mmol/L Normal 22-29 [facility] Comment on above: Performed By: #### U DRUG, UADIP #### [place] [address] #### UFENTS, UOXYS #### [address] [address] Creatinine [Mass/Vol] 0.81 mg/dL Normal 0.67-1.17 [facility] Comment on above: Performed By: #### U DRUG, UADIP #### [place] [address] #### UFENTS, UOXYS #### [address] [address] Electrolyte Balance 10.0 mEq/L Normal 4.0-15.0 [facility] Comment on above: Performed By: #### U DRUG, UADIP #### [place] [address] #### UFENTS, UOXYS #### [place] [address] Globulin 3.5 G/dL Normal 2.7-4.4 [facility] Comment on above: Performed By: #### U DRUG, UADIP #### [address] [address] #### UFENTS, UOXYS #### [address] [address] Glucose [Mass/Vol] 191 mg/dL High 70-105 [facility] Comment on above: Performed By: #### U DRUG, UADIP #### [address] [address] #### UFENTS, UOXYS #### [address] [address] Potassium [Moles/Vol] 3.8 mmol/L Normal 3.5-5.1 [facility] Comment on above: Performed By: #### U DRUG, UADIP #### [address] [address] #### UFENTS, UOXYS #### [address] [address] Sodium [Moles/Vol] 134 mmol/L Low 136-145 [facility] Comment on above: Performed By: #### U DRUG, UADIP #### [address] [address] #### UFENTS, UOXYS #### [address] [address] Total Protein 7.7 G/dL Normal 6.4-8.2 [facility] Comment on above: Performed By: #### U DRUG, UADIP #### [address] [address] #### UFENTS, UOXYS #### [address] [address] Urea nitrogen [Mass/Vol] 13 mg/dL Normal 7-18 [facility] Comment on above: Performed By: #### U DRUG, UADIP #### [address] [address] #### UFENTS, UOXYS #### [place] [address] CVFLURVon 04-24-2025 FLU A PCR Negative Normal Negative [facility] Comment on above: Performed By: #### U DRUG, UADIP #### [address] [address] #### UFENTS, UOXYS #### [place] [address] FLU B PCR Negative Normal Negative [facility] Comment on above: Performed By: #### U DRUG, UADIP #### [place] [address] #### UFENTS, UOXYS #### [place] [address] RSV PCR Negative Normal Negative [facility] Comment on above: Performed By: #### U DRUG, UADIP #### [place] [address] #### UFENTS, UOXYS #### [place] [address] SARS-CoV-2 (COVID-19) RNA MALVIN+probe Ql (Unsp spec) Negative Normal Negative [facility] Comment on above: Result Comment: Resu lts from the Xpert Xpress CoV-2/Flu/RSV plus test should be correlated with the clinical history, epidemiological data, and other data available to the clinical evaluating the patient. Performance of the Xpert Xpress CoV-2/Flu/RSV plus test has only been established in nasopharyngeal swab specimen. Erroneous test results might occur from improper specimen collection, failure to follow the recommended sample collection, handling and storage procedures, technical error, or sample mix-up. False negative results may occur if a virus is present at a level below the analytical limit of detection. Viral nucleic acid may persist in vivo, independent of virus viability. Detection of analyte target(s) does not imply that the corresponding virus(es) are infectious or are the causative agents for clinical symptoms. Recent patient exposure to FluMist or other live attenuated influenza vaccines may cause inaccurate positive results. Performed By: #### U DRUG, UADIP #### [facility] [address] [place], [place] [address] #### UFENTS, UOXYS #### [address] [address] LABORATORYOrdered By: Wale Hatfield on 04-24-2025 Amphetamines Screen Ql (U) Negative *NA* (04/24/25 8:19 PM) Invalid Interpretation Code Negative AO ADM SS Appearance (U) Clear (04/24/25 8:19 PM) Normal Clear AO Auto Urine SS Barbiturates Screen Ql (U) Negative *NA* (04/24/25 8:19 PM) Invalid Interpretation Code Negative AO ADM SS Benzodiazepines Ql (U) Negative *NA* (04/24/25 8:19 PM) Invalid Interpretation Code Negative AO ADM SS Benzoylecgonine Screen Ql (U) Negative *NA* (04/24/25 8:19 PM) Invalid Interpretation Code Negative AO ADM SS Bilirubin Ql (U) Negative (04/24/25 8:19 PM) Normal Negative AO Auto Urine SS Cannabinoids Screen Ql (U) Negative *NA* (04/24/25 8:19 PM) Invalid Interpretation Code Negative AO ADM SS Color (U) Yellow (04/24/25 8:19 PM) Normal AO Auto Urine SS Glucose Test strip (U) [Mass/Vol] Negative Normal Negative AO Auto Urine SS Hemoglobin Auto test strip (U) [Mass/Vol] Negative (04/24/25 8:19 PM) Normal Negative AO Auto Urine SS Ketones Ql (U) Trace mg/dL Invalid Interpretation Code Negative AO Auto Urine SS Methadone Screen Ql (U) Negative *NA* (04/24/25 8:19 PM) Invalid Interpretation Code Negative AO ADM SS Opiates Screen Ql (U) Negative *NA* (04/24/25 8:19 PM) Invalid Interpretation Code Negative AO ADM SS Phencyclidine Ql (U) Negative *NA* (04/24/25 8:19 PM) Invalid Interpretation Code Negative AO ADM SS UA Leuk Est Negative (04/24/25 8:19 PM) Normal Negative AO Auto Urine SS UA Nitrite Negative (04/24/25 8:19 PM) Normal Negative AO Auto Urine SS UA pH 5.5 (04/24/25 8:19 PM) Normal 5.0 - 8.0 AO Auto Urine SS UA Protein Trace mg/dL Normal Negative AO Auto Urine SS UA Spec Grav 1.020 (04/24/25 8:19 PM) Normal 1.015-1.025 AO Auto Urine SS UA Specimen Type Void (04/24/25 8:19 PM) Normal AO Auto Urine SS UA Urobilinogen 0.2 E.U./dL Normal 0.2-1.0 AO Auto Urine SS Urine Drugs screened: See Below 5 (04/24/25 8:19 PM) Normal AO Chemistry S Comment on above: Interpretive Data: T his drug screen is a presumptive screening only. No confirmation will be performed unless requested. Drugs screened include: Threshold Amphetamines/Methamphetamines 1,000 ng/mL Barbiturates 200 ng/mL Benzodiazepine metabolites 200 ng/mL Cannabinoids (THC metabolites) 50 ng/mL Cocaine 300 ng/mL Opiates 300 ng/mL Methadone 300 ng/mL Phencyclidine (PCP) 25 ng/mL Testing has been performed FOR MEDICAL PURPOSES ONLY. Acetaminophen [Mass/Vol] 0.0 ug/mL Low 10.0 - 30.0 mcg/mL AO Chemistry S FLUAV RNA MALVIN+probe Ql (Resp) Negative (04/24/25 7:50 PM) Normal Negative AO Auto Urine SS FLUBV RNA MALVIN+probe Ql (Resp) Negative (04/24/25 7:50 PM) Normal Negative AO Auto Urine SS RSV RNA MALVIN+probe Ql (Resp) Negative (04/24/25 7:50 PM) Normal Negative AO Auto Urine SS SARS-CoV-2 (COVID-19) RNA MALVIN+probe Ql (Resp) Negative 7 (04/24/25 7:50 PM) Normal Negative AO Auto Urine SS Comment on above: Interpretive Data: R esults from the Xpert Xpress CoV-2/Flu/RSV plus test should be correlated with the clinical history, epidemiological data, and other data available to the clinical evaluating the patient. Performance of the Xpert Xpress CoV-2/Flu/RSV plus test has only been established in nasopharyngeal swab specimen. Erroneous test results might occur from improper specimen collection, failure to follow the recommended sample collection, handling and storage procedures, technical error, or sample mix-up. False negative results may occur if a virus is present at a level below the analytical limit of detection. Viral nucleic acid may persist in vivo, independent of virus viability. Detection of analyte target(s) does not imply that the corresponding virus(es) are infectious or are the causative agents for clinical symptoms. Recent patient exposure to FluMist or other live attenuated influenza vaccines may cause inaccurate positive results. LABORATORYOrdered By: Ren Isbell on 04-24-2025 fentaNYL Screen Ql (U) Negative 2 *NA* (04/24/25 8:19 PM) Invalid Interpretation Code Negative AH ADM SS Comment on above: Interpretive Data: T esting has been performed FOR MEDICAL PURPOSES ONLY. oxyCODONE Ql (U) Negative 3 *NA* (04/24/25 8:19 PM) Invalid Interpretation Code Negative AH ADM SS Comment on above: Interpretive Data: T esting has been performed FOR MEDICAL PURPOSES ONLY. LABORATORYOrdered By: SYSTEM SYSTEM on 04-24-2025 Albumin BCP dye [Mass/Vol] 4.2 G/dL Normal 3.5 - 5.0 G/dL AO ADM SS Albumin/Globulin [Mass ratio] 1.2 {ratio} Normal 1.1 - 2.5 ratio AO ADM SS ALP [Catalytic activity/Vol] 66 U/L Normal 40 - 135 U/L AO ADM SS ALT With P-5'-P [Catalytic activity/Vol] 36 U/L Normal 16 - 63 U/L AO ADM SS AST With P-5'-P [Catalytic activity/Vol] 26 U/L Normal 10 - 40 U/L AO ADM SS Basophils (Bld) [#/Vol] 0.1 103/mcL Normal 0.0 - 0.3 10^3/mcL AO Workflow SS Basophils/100 WBC (Bld) 0.8 % Normal 0.0 - 2.5 % AO Workflow SS Bilirubin [Mass/Vol] 0.8 mg/dL Normal 0.2 - 1 .0 mg/dL AO ADM SS Comment on above: Interpretive Data: U se of this assay is not recommended for patients undergoing treatment with eltrombopag due to the potential for falsely elevated results. Calcium [Mass/Vol] 9.3 mg/dL Normal 8.4 - 10. 2 mg/dL AO ADM SS Chloride [Moles/Vol] 100 mmol/L Normal 98 - 10 7 mmol/L AO ADM SS CO2 [Moles/Vol] 24 mmol/L Normal 22 - 29 mmol/L AO ADM SS Creatinine [Mass/Vol] 0.81 mg/dL Normal 0.67 - 1.17 mg/dL AO ADM SS Electrolyte Balance 10.0 mEq/L Normal 4.0 - 15 .0 mEq/L AO ADM SS Eosinophil, Absolute 0.3 103/mcL Normal 0.0 - 0 .7 10^3/mcL AO Workflow SS Eosinophils/100 WBC (Bld) 2.0 % Normal 0.0 - 6.0 % AO Workflow SS Erythrocyte distribution width (RBC) [Ratio] 13.7 % Normal 11.5 - 15.5 % AO Workflow SS Estimated Glomerular Filtration Rate 103 ml/min/1.73sqm Invalid Interpretation Code AO Chemistry S Comment on above: Interpretive Data: Stages of Chronic Kidney Disease (CKD) Stage Description eGFR(ml/min/1.73 sq.m.) CKD 1 Normal kidney function or >=90 normal kindney function with possible kidney damage (ex. Proteinuria) CKD 2 Kidney damage with mild loss 60-89 of kidney function CKD 3a Mild to moderate loss of kidney 45-59 function CKD 3b Moderate to severe loss of 30-44 of kindey function CKD 4 Severe loss of kidney function 15-29 CKD 5 Kidney failure <15 Note: (go live 2024) the eGFR calculation was updated to the 2020 CKD-EPI creatinine equation without a race factor to calculate the eGFR results. Ethanol [Mass/Vol] mg/dL Invalid Interpretation Code AO ADM SS Globulin 3.5 G/dL Normal 2.7 - 4.4 G/dL AO ADM SS Glucose [Mass/Vol] 191 mg/dL High 70 - 105 mg/dL AO ADM SS Hematocrit (Bld) [Volume fraction] 43.7 % Normal 40.0 - 52.0 % AO Workflow SS Hemoglobin (Bld) [Mass/Vol] 14.5 G/dL Normal 13.0 - 17.5 G/dL AO Workflow SS Lymphocytes (Bld) [#/Vol] 3.1 103/mcL Normal 0.9 - 4.3 10^3/mcL AO Workflow SS Lymphocytes/100 WBC (Bld) 19.5 % Low 20.0 - 40.0 % AO Workflow SS MCH (RBC) [Entitic mass] 29.7 pg Normal 27.0 - 33.0 pg AO Workflow SS MCHC 33.2 G/dL Normal 32.0 - 36.0 G/dL AO Workflow SS MCV (RBC) [Entitic vol] 89.4 fL Normal 81.0 - 100.0 fL AO Workflow SS Monocyte distribution width Auto (Bld) [Entitic vol] 15.95 1 Normal 0.00 - 20.00 AO Workflow SS Comment on above: Result Comment: For ED adult patients suspected of sepsis, MDW<=20.0 does not rule out sepsis or risk of sepsis Monocytes (Bld) [#/Vol] 1.6 103/mcL High 0.1 - 1.4 10^3/mcL AO Workflow SS Monocytes/100 WBC (Bld) 10.2 % Normal 2.0 - 13.0 % AO Workflow SS Neutrophils (Bld) [#/Vol] 10.5 103/mcL High 2.3 - 8.1 10^3/mcL AO Workflow SS Neutrophils/100 WBC (Bld) 67.5 % Normal 50.0 - 75.0 % AO Workflow SS Platelet mean volume (Bld) [Entitic vol] 7.2 fL Normal 6.4 - 10.5 fL AO Workflow SS Platelets (Bld) [#/Vol] 402 103/mcL Normal 150 - 450 10^3/mcL AO Workflow SS Potassium [Moles/Vol] 3.8 mmol/L Normal 3.5 - 5.1 mmol/L AO ADM SS Protein [Mass/Vol] 7.7 G/dL Normal 6.4 - 8.2 G/dL AO ADM SS RBC (Bld) [#/Vol] 4.89 106/mcL Normal 4.50 - 6.0 0 10^6/mcL AO Workflow SS Salicylates [Mass/Vol] 0.7 mg/dL Low 2.8 - 20.0 mg/dL AO ADM SS Sodium [Moles/Vol] 134 mmol/L Low 136 - 145 mmol/L AO ADM SS Urea nitrogen [Mass/Vol] 13 mg/dL Normal 7 - 18 mg/dL AO ADM SS Urea nitrogen/Creatinine [Mass ratio] 16 ratio Normal 7 - 27 ratio AO ADM SS WBC (Bld) [#/Vol] 15.6 103/mcL High 4.5 - 10.8 10^3/mcL AO Workflow SS LABORATORYOrdered By: Ananth Gil on 04-24-2025 Glucose [Mass/Vol] 180 mg/dL High 70 - 110 mg/dL [facility] 04-24-2025 Salicylate Level 0.7 mg/dL Low 2.8-20.0 [facility] Comment on above: Performed By: #### U DRUG, UADIP #### [place] [address] #### UFENTS, UOXYS #### [address] [address] UDRUGon 04-24-2025 Amphetamine (u) Negative Normal Negative [facility] Comment on above: Performed By: #### U DRUG, UADIP #### [place] [address] #### UFENTS, UOXYS #### [place] [address] Barbiturate (u) Negative Normal Negative [facility] Comment on above: Performed By: #### U DRUG, UADIP #### [place] [address] #### UFENTS, UOXYS #### [address] [address] Benzodiazepine (u) Negative Normal Negative [facility] Comment on above: Performed By: #### U DRUG, UADIP #### [place] [address] #### UFENTS, UOXYS #### [address] [address] Cannabinoid (u) Negative Normal Negative [facility] Comment on above: Performed By: #### U DRUG, UADIP #### [address] [address] #### UFENTS, UOXYS #### [address] [address] Cocaine Ql (U) Negative Normal Negative [facility] Comment on above: Performed By: #### U DRUG, UADIP #### [place] [address] #### UFENTS, UOXYS #### [address] [address] Methadone Ql (U) Negative Normal Negative [facility] Comment on above: Performed By: #### U DRUG, UADIP #### [address] [address] #### UFENTS, UOXYS #### [address] [address] Opiate (u) Negative Normal Negative [facility] Comment on above: Performed By: #### U DRUG, UADIP #### [address] [address] #### UFENTS, UOXYS #### [address] [address] PCP (u) Negative Normal Negative [facility] Comment on above: Performed By: #### U DRUG, UADIP #### [address] [address] #### UFENTS, UOXYS #### [place] [address] Urine Drugs screened: See Below [facility] Comment on above: Result Comment: This drug screen is a presumptive screening only. No confirmation will be performed unless requested. Drugs screened include: Threshold Amphetamines/Methamphetamines 1,000 ng/mL Barbiturates 200 ng/mL Benzodiazepine metabolites 200 ng/mL Cannabinoids (THC metabolites) 50 ng/mL Cocaine 300 ng/mL Opiates 300 ng/mL Methadone 300 ng/mL Phencyclidine (PCP) 25 ng/mL Testing has been performed FOR MEDICAL PURPOSES ONLY. Performed By: #### U DRUG, UADIP #### [address] [address] #### UFENTS, UOXYS #### [place] [id number] URINon 04-24-2025 Color (U) Yellow Normal [facility] Comment on above: Performed By: #### U DRUG, UADIP #### [place] [address] #### UFENTS, UOXYS #### [facility] [address] [place] [address] Glucose (U) [Mass/Vol] Negative Normal Negative [facility] Comment on above: Performed By: #### U DRUG, UADIP #### [address] [address] #### UFENTS, UOXYS #### [address] [address] Ketones Ql (U) Trace Abnormal Negative [facility] Comment on above: Performed By: #### U DRUG, UADIP #### [address] [address] #### UFENTS, UOXYS #### [address] [address] UA Appear Clear Normal Clear [facility] Comment on above: Performed By: #### U DRUG, UADIP #### [address] [address] #### UFENTS, UOXYS #### [address] [address] UA Blood Negative Normal Negative [facility] Comment on above: Performed By: #### U DRUG, UADIP #### [address] [address] #### UFENTS, UOXYS #### [address] [address] UA Leuk Est Negative Normal Negative [facility] Comment on above: Performed By: #### U DRUG, UADIP #### [address] [address] #### UFENTS, UOXYS #### [address] [address] UA Nitrite Negative Normal Negative [facility] Comment on above: Performed By: #### U DRUG, UADIP #### [address] [address] #### UFENTS, UOXYS #### [address] [address] UA pH 5.5 Normal 5.0 - 8.0 [facility] Comment on above: Performed By: #### U DRUG, UADIP #### [place] [address] #### UFENTS, UOXYS #### [place] [address] UA Protein Trace Normal Negative [facility] Comment on above: Performed By: #### U DRUG, UADIP #### [place] [address] #### UFENTS, UOXYS #### [place] [address] UA Spec Grav 1.020 Normal 1.015-1.025 [facility] Comment on above: Performed By: #### U DRUG, UADIP #### [place] [address] #### UFENTS, UOXYS #### [place] [address] UA Specimen Type Void Normal [facility] Comment on above: Performed By: #### U DRUG, UADIP #### [place] [address] #### UFENTS, UOXYS #### [place] [address] UA Urobilinogen 0.2 E.U./dL Normal 0.2-1.0 [facility] Comment on above: Performed By: #### U DRUG, UADIP #### [place] [address] #### UFENTS, UOXYS #### [place] [address] Urobilinogen (U) [Mass/Vol] Negative Normal Negative [facility] Comment on above: Performed By: #### U DRUG, UADIP #### [place] [address] #### UFENTS, UOXYS #### [address] [address] XR ANKLE AND FOOT 6 VIEWS LE FTon 04-24-2025 XR ANKLE AND FOOT 6 VIEWS LEFT ORIGINAL EXAMINATION: 3XRAY VIEWS OF THE ANKLE AND FOOT LEFT 04/24/2025 8:06 pm COMPARISON: None. HISTORY: ORDERING SYSTEM PROVIDED HISTORY: Reason for Exam: pain FINDINGS: No fracture or dislocation. Soft tissue swelling. No radiopaque foreign body. Calcaneal spurring. IMPRESSION: No fracture or dislocation. Interpreted by: Aditya Mcgee Preliminary Report By: Aditya Mcgee Electronically signed By Aditya Mcgee Dictated Date: 04/24/2025 8:16:13 PM Prelim Date: 04/24/2025 8:17:28 PM Sign Date: 04/24/2025 8:17:28 PM Ordering Provider: OVIDIO Olivas [facility] .Auto Diffon 02-07-2025 Basophil, Absolute 0.1 10 3/mcL Normal 0.0-0.3 [facility] Comment on above: Performed By: #### U DRUG, UADIP #### [address] [address] #### UFENTS, UOXYS #### [address] [address] Basophils/100 WBC (Bld) 0.7 % Normal 0.0-2.5 [facility] Comment on above: Performed By: #### U DRUG, UADIP #### [address] [address] #### UFENTS, UOXYS #### [address] [address] Eosinophil, Absolute 0.6 10 3/mcL Normal 0.0-0.7 [facility] Comment on above: Performed By: #### U DRUG, UADIP #### [address] [address] #### UFENTS, UOXYS #### [address] [address] Eosinophils/100 WBC (Bld) 4.3 % Normal 0.0-6.0 [facility] Comment on above: Performed By: #### U DRUG, UADIP #### [place] [address] #### UFENTS, UOXYS #### [address] [address] Lymphocyte, Absolute 3.8 10 3/mcL Normal 0.9-4.3 [facility] Comment on above: Performed By: #### U DRUG, UADIP #### [place] [address] #### UFENTS, UOXYS #### [address] [address] Lymphocytes/100 WBC (Bld) 29.0 % Normal 20.0-40.0 [facility] Comment on above: Performed By: #### U DRUG, UADIP #### [place] [address] #### UFENTS, UOXYS #### [address] [address] Monocyte, Absolute 1.2 10 3/mcL Normal 0.1-1.4 [facility] Comment on above: Performed By: #### U DRUG, UADIP #### [place] [address] #### UFENTS, UOXYS #### [address] [address] Monocytes/100 WBC (Bld) 9.6 % Normal 2.0-13.0 [facility] Comment on above: Performed By: #### U DRUG, UADIP #### [place] [address] #### UFENTS, UOXYS #### [address] [address] Neutrophils/100 WBC (Bld) 56.4 % Normal 50.0-75.0 [facility] Comment on above: Performed By: #### U DRUG, UADIP #### [place] [address] #### UFENTS, UOXYS #### [address] [address] .GFRon 02-07-2025 Estimated Glomerular Filtration Rate 109 ml/min/1.73sqm Normal [facility] Comment on above: Result Comment: Stages of Chronic Kidney Disease (CKD) Stage Description eGFR(ml/min/1.73 sq.m.) CKD 1 Normal kidney function or >=90 normal kindney function with possible kidney damage (ex. Proteinuria) CKD 2 Kidney damage with mild loss 60-89 of kidney function CKD 3a Mild to moderate loss of kidney 45-59 function CKD 3b Moderate to severe loss of 30-44 of kindey function CKD 4 Severe loss of kidney function 15-29 CKD 5 Kidney failure <15 Note: (go live 2024) the eGFR calculation was updated to the 2020 CKD-EPI creatinine equation without a race factor to calculate the eGFR results. Performed By: #### M DW, ANEU, GFR, CBC, ADIFF, BMP #### [address] [address] .MDWon 02-07-2025 Monocyte Distribution Width 17.69 Normal 0.00-20.00 [facility] Comment on above: Result Comment: For ED adult patients suspected of sepsis, MDW<=20.0 does not rule out sepsis or risk of sepsis Performed By: #### U DRUG, UADIP #### [place] [address] #### UFENTS, UOXYS #### [place] [address] .NEUABSon 02-07-2025 Neutrophil, Absolute 7.3 10 3/mcL Normal 2.3-8.1 [facility] Comment on above: Performed By: #### U DRUG, UADIP #### [place] [address] #### UFENTS, UOXYS #### [place] [address] ACTONon 02-07-2025 Acetone (s) Negative Normal Negative [facility] Comment on above: Performed By: #### U DRUG, UADIP #### [place] [address] #### UFENTS, UOXYS #### [address] [address] CBCon 02-07-2025 Erythrocyte distribution width (RBC) [Ratio] 14.1 % Normal 11.5-15.5 [facility] Comment on above: Performed By: #### U DRUG, UADIP #### [place] [address] #### UFENTS, UOXYS #### [place] [address] Hematocrit (Bld) [Volume fraction] 40.8 % Normal 40.0-52.0 [facility] Comment on above: Performed By: #### U DRUG, UADIP #### [place] [address] #### UFENTS, UOXYS #### [place] [address] Hgb 13.7 G/dL Normal 13.0-17.5 [facility] Comment on above: Performed By: #### U DRUG, UADIP #### [place] [address] #### UFENTS, UOXYS #### [place] [address] MCH (RBC) [Entitic mass] 30.4 pg Normal 27.0-33.0 [facility] Comment on above: Performed By: #### U DRUG, UADIP #### [place] [address] #### UFENTS, UOXYS #### [place] [address] MCHC 33.6 G/dL Normal 32.0-36.0 [facility] Comment on above: Performed By: #### U DRUG, UADIP #### [place] [address] #### UFENTS, UOXYS #### [address] [address] MCV (RBC) [Entitic vol] 90.6 fL Normal 81.0-100.0 [facility] Comment on above: Performed By: #### U DRUG, UADIP #### [place] [address] #### UFENTS, UOXYS #### [place] [address] Platelet 373 10 3/mcL Normal 150-450 [facility] Comment on above: Performed By: #### U DRUG, UADIP #### [place] [address] #### UFENTS, UOXYS #### [place] [address] Platelet mean volume (Bld) [Entitic vol] 7.4 fL Normal 6.4-10.5 [facility] Comment on above: Performed By: #### U DRUG, UADIP #### [place] [address] #### UFENTS, UOXYS #### [place] [address] RBC 4.50 10 6/mcL Normal 4.50-6.00 [facility] Comment on above: Performed By: #### U DRUG, UADIP #### [place] [address] #### UFENTS, UOXYS #### [place] [address] WBC 13.0 10 3/mcL High 4.5-10.8 [facility] Comment on above: Performed By: #### U DRUG, UADIP #### [place] [address] #### UFENTS, UOXYS #### [address] 02-07-2025 Albumin Level 4.1 G/dL Normal 3.5-5.0 [facility] Comment on above: Performed By: #### U DRUG, UADIP #### [place] [address] #### UFENTS, UOXYS #### [address] [address] Albumin/Globulin [Mass ratio] 1.1 {ratio} Normal 1.1-2.5 [facility] Comment on above: Performed By: #### U DRUG, UADIP #### [place] [address] #### UFENTS, UOXYS #### [address] [address] ALP [Catalytic activity/Vol] 90 U/L Normal 40-135 [facility] Comment on above: Performed By: #### U DRUG, UADIP #### [place] [address] #### UFENTS, UOXYS #### [address] [address] ALT [Catalytic activity/Vol] 38 U/L Normal 16-63 [facility] Comment on above: Performed By: #### U DRUG, UADIP #### [place] [address] #### UFENTS, UOXYS #### [address] [address] AST [Catalytic activity/Vol] 17 U/L Normal 10-40 [facility] Comment on above: Performed By: #### U DRUG, UADIP #### [place] [address] #### UFENTS, UOXYS #### [address] [address] Bili Total 0.4 mg/dL Normal 0.2-1.0 [facility] Comment on above: Result Comment: Use of this assay is not recommended for patients undergoing treatment with eltrombopag due to the potential for falsely elevated results. Performed By: #### U DRUG, UADIP #### [address] [address] #### UFENTS, UOXYS #### [address] [address] BUN/Creatinine Ratio 21 ratio Normal 7-27 [facility] Comment on above: Performed By: #### U DRUG, UADIP #### [place] [address] #### UFENTS, UOXYS #### [address] [address] Calcium [Mass/Vol] 9.5 mg/dL Normal 8.4-10.2 [facility] Comment on above: Performed By: #### U DRUG, UADIP #### [place] [address] #### UFENTS, UOXYS #### [address] [address] Chloride [Moles/Vol] 102 mmol/L Normal 98-107 [facility] Comment on above: Performed By: #### U DRUG, UADIP #### [place] [address] #### UFENTS, UOXYS #### [address] [address] CO2 [Moles/Vol] 29 mmol/L Normal 22-29 [facility] Comment on above: Performed By: #### U DRUG, UADIP #### [place] [address] #### UFENTS, UOXYS #### [address] [address] Creatinine [Mass/Vol] 0.70 mg/dL Normal 0.67-1.17 [facility] Comment on above: Performed By: #### U DRUG, UADIP #### [address] [address] #### UFENTS, UOXYS #### [address] [address] Electrolyte Balance 9.0 mEq/L Normal 4.0-15.0 [facility] Comment on above: Performed By: #### U DRUG, UADIP #### [address] [address] #### UFENTS, UOXYS #### [address] [address] Globulin 3.8 G/dL Normal 2.7-4.4 [facility] Comment on above: Performed By: #### U DRUG, UADIP #### [address] [address] #### UFENTS, UOXYS #### [address] [address] Glucose [Mass/Vol] 311 mg/dL High 70-105 [facility] Comment on above: Performed By: #### U DRUG, UADIP #### [place] [address] #### UFENTS, UOXYS #### [address] [address] Potassium [Moles/Vol] 4.4 mmol/L Normal 3.5-5.1 [facility] Comment on above: Performed By: #### U DRUG, UADIP #### [address] [address] #### UFENTS, UOXYS #### [address] [address] Sodium [Moles/Vol] 140 mmol/L Normal 136-145 [facility] Comment on above: Performed By: #### U DRUG, UADIP #### [address] [address] #### UFENTS, UOXYS #### [address] [address] Total Protein 7.9 G/dL Normal 6.4-8.2 [facility] Comment on above: Performed By: #### U DRUG, UADIP #### [address] [place], [place] [address] #### UFENTS, UOXYS #### [address] [address] Urea nitrogen [Mass/Vol] 15 mg/dL Normal 7-18 [facility] Comment on above: Performed By: #### U DRUG, UADIP #### [place] [address] [place], [place] [address] #### UFENTS, UOXYS #### [address] [address] LABORATORYOrdered By: Tereza Giles on 02-07-2025 Glucose [Mass/Vol] 247 mg/dL High 70 - 110 mg/dL [facility] LABORATORYOrdered By: SYSTEM SYSTEM on 02-07-2025 Albumin BCP dye [Mass/Vol] 4.1 G/dL Normal 3.5 - 5.0 G/dL AO ADM SS Albumin/Globulin [Mass ratio] 1.1 {ratio} Normal 1.1 - 2.5 ratio AO ADM SS ALP [Catalytic activity/Vol] 90 U/L Normal 40 - 135 U/L AO ADM SS ALT With P-5'-P [Catalytic activity/Vol] 38 U/L Normal 16 - 63 U/L AO ADM SS AST With P-5'-P [Catalytic activity/Vol] 17 U/L Normal 10 - 40 U/L AO ADM SS Basophils (Bld) [#/Vol] 0.1 103/mcL Normal 0.0 - 0.3 10^3/mcL AO Workflow SS Basophils/100 WBC (Bld) 0.7 % Normal 0.0 - 2.5 % AO Workflow SS Bilirubin [Mass/Vol] 0.4 mg/dL Normal 0.2 - 1 .0 mg/dL AO ADM SS Comment on above: Interpretive Data: U se of this assay is not recommended for patients undergoing treatment with eltrombopag due to the potential for falsely elevated results. Calcium [Mass/Vol] 9.5 mg/dL Normal 8.4 - 10. 2 mg/dL AO ADM SS Chloride [Moles/Vol] 102 mmol/L Normal 98 - 10 7 mmol/L AO ADM SS CO2 [Moles/Vol] 29 mmol/L Normal 22 - 29 mmol/L AO ADM SS Creatinine [Mass/Vol] 0.70 mg/dL Normal 0.67 - 1.17 mg/dL AO ADM SS Electrolyte Balance 9.0 mEq/L Normal 4.0 - 15 .0 mEq/L AO ADM SS Eosinophil, Absolute 0.6 103/mcL Normal 0.0 - 0 .7 10^3/mcL AO Workflow SS Eosinophils/100 WBC (Bld) 4.3 % Normal 0.0 - 6.0 % AO Workflow SS Erythrocyte distribution width (RBC) [Ratio] 14.1 % Normal 11.5 - 15.5 % AO Workflow SS Estimated Glomerular Filtration Rate 109 ml/min/1.73sqm Invalid Interpretation Code AO Chemistry S Comment on above: Interpretive Data: Stages of Chronic Kidney Disease (CKD) Stage Description eGFR(ml/min/1.73 sq.m.) CKD 1 Normal kidney function or >=90 normal kindney function with possible kidney damage (ex. Proteinuria) CKD 2 Kidney damage with mild loss 60-89 of kidney function CKD 3a Mild to moderate loss of kidney 45-59 function CKD 3b Moderate to severe loss of 30-44 of kindey function CKD 4 Severe loss of kidney function 15-29 CKD 5 Kidney failure <15 Note: (go live 2024) the eGFR calculation was updated to the 2020 CKD-EPI creatinine equation without a race factor to calculate the eGFR results. Globulin 3.8 G/dL Normal 2.7 - 4.4 G/dL AO ADM SS Glucose [Mass/Vol] 311 mg/dL High 70 - 105 mg/dL AO ADM SS Hematocrit (Bld) [Volume fraction] 40.8 % Normal 40.0 - 52.0 % AO Workflow SS Hemoglobin (Bld) [Mass/Vol] 13.7 G/dL Normal 13.0 - 17.5 G/dL AO Workflow SS Lipase [Catalytic activity/Vol] 34 U/L Normal 16 - 77 U/L AO ADM SS Lymphocytes (Bld) [#/Vol] 3.8 103/mcL Normal 0.9 - 4.3 10^3/mcL AO Workflow SS Lymphocytes/100 WBC (Bld) 29.0 % Normal 20.0 - 40.0 % AO Workflow SS MCH (RBC) [Entitic mass] 30.4 pg Normal 27.0 - 33.0 pg AO Workflow SS MCHC 33.6 G/dL Normal 32.0 - 36.0 G/dL AO Workflow SS MCV (RBC) [Entitic vol] 90.6 fL Normal 81.0 - 100.0 fL AO Workflow SS Monocyte distribution width Auto (Bld) [Entitic vol] 17.69 1 Normal 0.00 - 20.00 AO Workflow SS Comment on above: Result Comment: For ED adult patients suspected of sepsis, MDW<=20.0 does not rule out sepsis or risk of sepsis Monocytes (Bld) [#/Vol] 1.2 103/mcL Normal 0.1 - 1.4 10^3/mcL AO Workflow SS Monocytes/100 WBC (Bld) 9.6 % Normal 2.0 - 13.0 % AO Workflow SS Neutrophils (Bld) [#/Vol] 7.3 103/mcL Normal 2.3 - 8.1 10^3/mcL AO Workflow SS Neutrophils/100 WBC (Bld) 56.4 % Normal 50.0 - 75.0 % AO Workflow SS Platelet mean volume (Bld) [Entitic vol] 7.4 fL Normal 6.4 - 10.5 fL AO Workflow SS Platelets (Bld) [#/Vol] 373 103/mcL Normal 150 - 450 10^3/mcL AO Workflow SS Potassium [Moles/Vol] 4.4 mmol/L Normal 3.5 - 5.1 mmol/L AO ADM SS Protein [Mass/Vol] 7.9 G/dL Normal 6.4 - 8.2 G/dL AO ADM SS RBC (Bld) [#/Vol] 4.50 106/mcL Normal 4.50 - 6.0 0 10^6/mcL AO Workflow SS Sodium [Moles/Vol] 140 mmol/L Normal 136 - 145 mmol/L AO ADM SS Troponin I.cardiac DL <= 0.01 ng/mL [Mass/Vol] 13 ng/L Normal 0 - 76 ng/L AO ADM SS Comment on above: Interpretive Data: H igh Sensitive Troponin I Reference Ranges: Female: 0-51 ng/L Male: 0-76 ng/L Testing performed on [employer] using a homogeneous sandwich chemiluminescent immunoassay based on [employer] technology. Urea nitrogen [Mass/Vol] 15 mg/dL Normal 7 - 18 mg/dL AO ADM SS Urea nitrogen/Creatinine [Mass ratio] 21 ratio Normal 7 - 27 ratio AO ADM SS WBC (Bld) [#/Vol] 13.0 103/mcL High 4.5 - 10.8 10^3/mcL AO Workflow SS LABORATORYOrdered By: Nirmala Garcia on 02-07-2025 Ketones [Mass/Vol] Negative Normal Negative AO Rap id Testing SS Appearance (U) Clear (02/07/25 11:13 PM) Normal Clear AO Auto Urine SS Bilirubin Ql (U) Negative (02/07/25 11:13 PM) Normal Negative AO Auto Urine SS Color (U) Yellow (02/07/25 11:13 PM) Normal AO Auto Urine SS Glucose Test strip (U) [Mass/Vol] 500 mg/dL Invalid Interpretation Code Negative AO Auto Urine SS Hemoglobin Auto test strip (U) [Mass/Vol] Trace (02/07/25 11:13 PM) Normal Negative AO Auto Urine SS Ketones Ql (U) Negative Normal Negative AO Auto Ur ine SS UA Leuk Est Negative (02/07/25 11:13 PM) Normal Negative AO Auto Urine SS UA Nitrite Negative (02/07/25 11:13 PM) Normal Negative AO Auto Urine SS UA pH 6.0 (02/07/25 11:13 PM) Normal 5.0 - 8.0 AO Auto Urine SS UA Protein Trace mg/dL Normal Negative AO Auto Urine SS UA Spec Grav 1.015 (02/07/25 11:13 PM) Normal 1.015-1.025 AO Auto Urine SS UA Specimen Type Void (02/07/25 11:13 PM) Normal AO Auto Urine SS UA Urobilinogen 0.2 E.U./dL Normal 0.2-1.0 AO Auto Urine SS pH (Bld) 7.348 [pH] Low 7.380 - 7.460 AO Rapid Comm SS LABORATORYOrdered By: Courtney Bolivar on 02-07-2025 Glucose [Mass/Vol] 294 mg/dL High 70 - 110 mg/dL [facility] LIPon 02-07-2025 Lipase Level 34 U/L Normal 16-77 [facility] Comment on above: Performed By: #### U DRUG, UADIP #### [place] [address] #### UFENTS, UOXYS #### [address] [address] PHVon 02-07-2025 pH Venous 7.348 Low 7.380-7.460 [facility] Comment on above: Performed By: #### U DRUG, UADIP #### [address] [address] #### UFENTS, UOXYS #### [address] [address] TROPHSon 02-07-2025 High Sensitivity Troponin I 13 ng/L Normal 0-76 [facility] Comment on above: Result Comment: High Sensitive Troponin I Reference Ranges: Female: 0-51 ng/L Male: 0-76 ng/L Testing performed on [employer] using a homogeneous sandwich chemiluminescent immunoassay based on [employer] technology. Performed By: #### M DW, ANEU, GFR, CBC, ADIFF, BMP #### [address] [address] UAon 02-07-2025 Color (U) Yellow Normal [facility] Comment on above: Order Comment: manua l reading performed for urine reagent strip Performed By: #### U DRUG, UADIP #### [place] [address] #### UFENTS, UOXYS #### [address] [address] Glucose (U) [Mass/Vol] 500 mg/dL Abnormal Negative [facility] Comment on above: Order Comment: manua l reading performed for urine reagent strip Performed By: #### U DRUG, UADIP #### [address] [address] #### UFENTS, UOXYS #### [address] [address] Ketones Ql (U) Negative Normal Negative [facility] Comment on above: Order Comment: manua l reading performed for urine reagent strip Performed By: #### U DRUG, UADIP #### [place] [address] #### UFENTS, UOXYS #### [facility] [address] [place] [address] UA Appear Clear Normal Clear [facility] Comment on above: Order Comment: manua l reading performed for urine reagent strip Performed By: #### U DRUG, UADIP #### [address] [address] #### UFENTS, UOXYS #### [facility] [address] [place] [address] UA Blood Trace Normal Negative [facility] Comment on above: Order Comment: manua l reading performed for urine reagent strip Performed By: #### U DRUG, UADIP #### [address] [address] #### UFENTS, UOXYS #### [facility] [address] [place] [address] UA Leuk Est Negative Normal Negative [facility] Comment on above: Order Comment: manua l reading performed for urine reagent strip Performed By: #### U DRUG, UADIP #### [address] [address] #### UFENTS, UOXYS #### [place] [address] UA Nitrite Negative Normal Negative [facility] Comment on above: Order Comment: manua l reading performed for urine reagent strip Performed By: #### U DRUG, UADIP #### [address] [address] #### UFENTS, UOXYS #### [address] [address] UA pH 6.0 Normal 5.0 - 8.0 [facility] Comment on above: Order Comment: manua l reading performed for urine reagent strip Performed By: #### U DRUG, UADIP #### [address] [address] #### UFENTS, UOXYS #### [address] [address] UA Protein Trace Normal Negative [facility] Comment on above: Order Comment: manua l reading performed for urine reagent strip Performed By: #### U DRUG, UADIP #### [place] [address] #### UFENTS, UOXYS #### [place] [address] UA Spec Grav 1.015 Normal 1.015-1.025 [facility] Comment on above: Order Comment: manua l reading performed for urine reagent strip Performed By: #### U DRUG, UADIP #### [place] [address] #### UFENTS, UOXYS #### [place] [address] UA Specimen Type Void Normal [facility] Comment on above: Order Comment: manua l reading performed for urine reagent strip Performed By: #### U DRUG, UADIP #### [place] [address] #### UFENTS, UOXYS #### [place] [address] UA Urobilinogen 0.2 E.U./dL Normal 0.2-1.0 [facility] Comment on above: Order Comment: manua l reading performed for urine reagent strip Performed By: #### U DRUG, UADIP #### [place] [address] #### UFENTS, UOXYS #### [place] [address] Urobilinogen (U) [Mass/Vol] Negative Normal Negative [facility] Comment on above: Order Comment: manua l reading performed for urine reagent strip Performed By: #### U DRUG, UADIP #### [place] [address] #### UFENTS, UOXYS #### [place] [address] Endocrinology Visit Reporton 02-04-2025 Endocrinology Visit Report [facility] [address] [place] [address]. [address] [place] [address] OFFICE VISIT Date of Service: 02/04/25 MR#: [id number] Acct: [id number] Name: SAQIB DAMICO Rep #: [id number] : 1970 Provider: STAS martinez Age/Sex: 54/M Location: [facility] Status: Signed Intake Vital Signs 07/30/24 10:50 02/04/25 08:24 Height 5 ft 11 in 5 ft 11 in Weight: 383 lb 386 lb BMI 53.4 53.8 BP 134/78 H 143/75 H Blood Pressure Location Rt brachial Lt brachial Position Sitting Sitting Pulse 100 106 H Pulse Source Monitor Monitor Pulse Oximetry (%) 94 96 Oxygen Delivery Method room air room air Intake Visit Reasons: 6 M FU, NS 11/06 Chief Complaint: f/u diabetes Is patient in pain?: No Allergies loratadine (From Claritin) Adverse Reaction (Intermediate, Verified 02/04/25 08:27) headache Medications ???Medication ???Instructions ???Recorded ???Confirmed ???Type lorazepam 2 mg tablet (Ativan) 1 mg PO TID PRN PRN Anxiety 02/04/25 History sertraline 100 mg tablet 200 mg PO DAILY 07/29/15 02/04/25 History atorvastatin 20 mg tablet 20 mg PO 03/29/22 02/04/25 History lisinopril 20 mg tablet 20 mg PO 03/29/22 02/04/25 History metformin 1,000 mg tablet 1,000 mg PO BID #60 tabs 10/14/23 02/04/25 Rx blood-glucose sensor (FreeStyle #2 ea 05/16/24 07/30/24 Rx Sera 3 Sensor device) BD Ultra-Fine Saundra Pen Needle 32 #100 ea 07/30/24 07/30/24 Rx gauge x 5/32 (pen needle, diabetic) Tresiba FlexTouch U-200 200 100 unit (0.5 mL) subcut QDAY #18 09/17/24 02/04/25 Rx unit/mL (3 mL) subcutaneous pen mL (insulin degludec) insulin lispro 200 unit/mL (3 mL) 60 unit (0.3 mL) subcut TID #81 m L 01/15/25 02/04/25 Rx subcutaneous pen (Humalog KwikPen U-200 Insulin) [facility] Medical History Obesity Diabetes Other specified disorders of tendon, right hand Surgical History H/O facial fracture repair Family History Other Depression Diabetes High cholesterol Hypertension Severe allergy Social History Smoking Status: Never smoker alcohol intake: current alcohol intake frequency: 0-2 drinks per day substance use type: does not use what type of physical activity do you participate in: other details: treadmill frequency: daily HPI HPI Chief Complaint: f/u diabetes Details: SAQIB DAMICO, is a 54 M who presents to the office today for evaluation and management of diabetes. A1C today is 9.7%, improved slightly from 07/30/24 at 10.3%. He has gained 3 lbs since that time. He is supposed to be taking Tresiba daily, he states I don't really take it too often, maybe once a week. When asked why, he states I really don't think of it, I don't put me first. He is taking is taking lispro 30 u TIDCM +SSI. He reports compliance with meal time insulin. He states it isn't my fault that my blood sugars are high, it's my 's because of what she cooks. He has a lot of excuses as to why he is not controlling his blood sugars. He is unable to stay on topic. He admits that his asked him why he never took the insulin in the back of the fridge (Tresiba), I lied and told her it was just as needed. When he is confronted with the potential for complications d/t diabetes such as a heart attack or stroke, he points to his head and states that wont happen to me because I'm strong as a bull. BP is stable. Currently taking lisinopril 20 mg once daily. He takes a daily statin. He is due for labs. He brings papers to be completed for potential employer requesting signature of provider to state he does not have a medical condition, or physical condition, including vision impairment (not corrected), which could interfere with safe driving, passenger assistance, the provision of emergency treatment activity, or could jeopardize the health and welfare of a client and/or the general public. Denies any acute concerns. ROS Const Constitutional: No fatigue or weight change ENT ENT: No dizziness/vertigo Cardio Cardiology: No chest pain at rest, chest pain with exertion, shortness of breath or palpitations Skin Skin: No wounds Endo Endocrine: No fatigue or weight change Exam Const General: cooperative, healthy appearing, comfortable and no acute distress Nutritional Appearance: obese Orientation: alert, awake and oriented x3 HENMT Head: normal to inspection Ears: hearing grossly normal bilaterally Nose: external nose normal Face and sinus: normal facial exam Eyes General: appearance normal, both eyes and all related stru (more content not included)... Normal [facility] - Hematology and Cell countsOrdered By: Mayuri Hines on 02-04-2025 HbA1c (Bld) [Mass fraction] 9.7 % High 4.2-6.[address] [facility] .Auto Diffon 12-07-2024 Basophil, Absolute 0.2 10 3/mcL Normal 0.0-0.2 [facility] Comment on above: Performed By: #### U DRUG, UADIP #### [address] [address] #### UFENTS, UOXYS #### [address] [address] Basophils/100 WBC (Bld) 0.8 % Normal 0.0-2.5 [facility] Comment on above: Performed By: #### U DRUG, UADIP #### [address] [address] #### UFENTS, UOXYS #### [address] [address] Eosinophil, Absolute 0.8 10 3/mcL High 0.0-0.7 [facility] Comment on above: Performed By: #### U DRUG, UADIP #### [address] [address] #### UFENTS, UOXYS #### [address] [address] Eosinophils/100 WBC (Bld) 3.4 % Normal 0.0-7.0 [facility] Comment on above: Performed By: #### U DRUG, UADIP #### [address] [address] #### UFENTS, UOXYS #### [address] [address] Lymphocyte, Absolute 3.7 10 3/mcL Normal 0.9-4.3 [facility] Comment on above: Performed By: #### U DRUG, UADIP #### [place] [address] #### UFENTS, UOXYS #### [address] [address] Lymphocytes/100 WBC (Bld) 16.4 % Low 20.0-40.0 [facility] Comment on above: Performed By: #### U DRUG, UADIP #### [place] [address] #### UFENTS, UOXYS #### [address] [address] Monocyte, Absolute 1.2 10 3/mcL Normal 0.1-1.4 [facility] Comment on above: Performed By: #### U DRUG, UADIP #### [place] [address] #### UFENTS, UOXYS #### [address] [address] Monocytes/100 WBC (Bld) 5.5 % Normal 2.0-13.0 [facility] Comment on above: Performed By: #### U DRUG, UADIP #### [place] [address] #### UFENTS, UOXYS #### [address] [address] Neutrophils/100 WBC (Bld) 73.9 % Normal 50.0-75.0 [facility] Comment on above: Performed By: #### U DRUG, UADIP #### [address] [address] #### UFENTS, UOXYS #### [address] [address] .GFRon 12-07-2024 Estimated Glomerular Filtration Rate 104 ml/min/1.73sqm Normal [facility] Comment on above: Result Comment: Stages of Chronic Kidney Disease (CKD) Stage Description eGFR(ml/min/1.73 sq.m.) CKD 1 Normal kidney function or >=90 normal kindney function with possible kidney damage (ex. Proteinuria) CKD 2 Kidney damage with mild loss 60-89 of kidney function CKD 3a Mild to moderate loss of kidney 45-59 function CKD 3b Moderate to severe loss of 30-44 of kindey function CKD 4 Severe loss of kidney function 15-29 CKD 5 Kidney failure <15 Note: (go live 2024) the eGFR calculation was updated to the 2020 CKD-EPI creatinine equation without a race factor to calculate the eGFR results. Performed By: #### U DRUG, UADIP #### [address] [address] #### UFENTS, UOXYS #### [address] [address] .MDWon 12-07-2024 Monocyte Distribution Width 23.89 High 0.00-20.00 [facility] Comment on above: Result Comment: For adults in ED, MDW>20.0 may be associated with a higher risk of sepsis during the first 12hrs of hospital admission Performed By: #### U DRUG, UADIP #### [address] [address] #### UFENTS, UOXYS #### [address] [address] .NEUABSon 12-07-2024 Neutrophil, Absolute 16.5 10 3/mcL High 2.3-8.1 [facility] Comment on above: Performed By: #### U DRUG, UADIP #### [address] [address] #### UFENTS, UOXYS #### [address] [address] BMPon 12-07-2024 BUN/Creatinine Ratio 22 ratio Normal 7-27 [facility] Comment on above: Performed By: #### U DRUG, UADIP #### [place] [address] #### UFENTS, UOXYS #### [address] [address] Calcium [Mass/Vol] 9.6 mg/dL Normal 8.4-10.2 [facility] Comment on above: Performed By: #### U DRUG, UADIP #### [address] [address] #### UFENTS, UOXYS #### [address] [address] Chloride [Moles/Vol] 101 mmol/L Normal 98-107 [facility] Comment on above: Performed By: #### U DRUG, UADIP #### [place] [address] #### UFENTS, UOXYS #### [address] [address] CO2 [Moles/Vol] 25 mmol/L Normal 22-29 [facility] Comment on above: Performed By: #### U DRUG, UADIP #### [place] [address] #### UFENTS, UOXYS #### [address] [address] Creatinine [Mass/Vol] 0.82 mg/dL Normal 0.70-1.30 [facility] Comment on above: Result Comment: Test ing performed on Siemens Dimension EXL analyzer using a modified kinetic Damaris technique. Performed By: #### U DRUG, UADIP #### [place] [address] #### UFENTS, UOXYS #### [address] [address] Electrolyte Balance 9.0 mEq/L Normal 4.0-15.0 [facility] Comment on above: Performed By: #### U DRUG, UADIP #### [address] [address] #### UFENTS, UOXYS #### [address] [address] Glucose [Mass/Vol] 175 mg/dL High 70-105 [facility] Comment on above: Performed By: #### U DRUG, UADIP #### [address] [address] #### UFENTS, UOXYS #### [address] [address] Potassium [Moles/Vol] 3.9 mmol/L Normal 3.5-5.1 [facility] Comment on above: Performed By: #### U DRUG, UADIP #### [address] [address] #### UFENTS, UOXYS #### [address] [address] Sodium [Moles/Vol] 135 mmol/L Low 136-145 [facility] Comment on above: Performed By: #### U DRUG, UADIP #### [address] [address] #### UFENTS, UOXYS #### [address] [address] Urea nitrogen [Mass/Vol] 18 mg/dL Normal 7-18 [facility] Comment on above: Performed By: #### U DRUG, UADIP #### [address] [address] #### UFENTS, UOXYS #### [address] [address] CBCon 12-07-2024 Erythrocyte distribution width (RBC) [Ratio] 14.1 % Normal 11.5-15.5 [facility] Comment on above: Performed By: #### U DRUG, UADIP #### [place] [address] #### UFENTS, UOXYS #### [address] [address] Hematocrit (Bld) [Volume fraction] 42.2 % Normal 40.0-52.0 [facility] Comment on above: Performed By: #### U DRUG, UADIP #### [place] [address] #### UFENTS, UOXYS #### [place] [address] Hgb 14.3 G/dL Normal 13.0-17.5 [facility] Comment on above: Performed By: #### U DRUG, UADIP #### [place] [address] #### UFENTS, UOXYS #### [address] [address] MCH (RBC) [Entitic mass] 30.4 pg Normal 27.0-33.0 [facility] Comment on above: Performed By: #### U DRUG, UADIP #### [place] [address] #### UFENTS, UOXYS #### [place] [address] MCHC 33.9 G/dL Normal 32.0-36.0 [facility] Comment on above: Performed By: #### U DRUG, UADIP #### [place] [address] #### UFENTS, UOXYS #### [place] [id number] MCV (RBC) [Entitic vol] 89.6 fL Normal 81.0-100.0 [facility] Comment on above: Performed By: #### U DRUG, UADIP #### [place] [address] #### UFENTS, UOXYS #### [place] [address] Platelet 346 10 3/mcL Normal 150-450 [facility] Comment on above: Performed By: #### U DRUG, UADIP #### [place] [address] #### UFENTS, UOXYS #### [place] [address] Platelet mean volume (Bld) [Entitic vol] 7.0 fL Normal 6.4-10.5 [facility] Comment on above: Performed By: #### U DRUG, UADIP #### [place] [address] #### UFENTS, UOXYS #### [place] [address] RBC 4.71 10 6/mcL Normal 4.50-6.00 [facility] Comment on above: Performed By: #### U DRUG, UADIP #### [place] [address] #### UFENTS, UOXYS #### [place] [address] WBC 22.4 10 3/mcL High 4.5-10.8 [facility] Comment on above: Performed By: #### U DRUG, UADIP #### [place] [address] #### UFENTS, UOXYS #### [place] [address] CT ANGIOGRAPHY CHEST W/CONTR Lakshmi 12-07-2024 CT ANGIOGRAPHY CHEST W/CONTRAST ORIGINAL EXAMINATION: CTA OF THE CHEST 12/07/2024 9:26 pm TECHNIQUE: CTA of the chest was performed after the administration of intravenous contrast. Multiplanar reformatted images are provided for review. MIP images are provided for review. Automated exposure control, iterative reconstruction, and/or weight based adjustment of the mA/kV was utilized to reduce the radiation dose to as low as reasonably achievable. COMPARISON: Radiograph of the chest performed same day HISTORY: ORDERING SYSTEM PROVIDED HISTORY: Reason for Exam: chest pain; suspect PE FINDINGS: Suboptimal exam due to artifact from patient body habitus. Pulmonary Arteries: Pulmonary arteries are adequately opacified for evaluation. No evidence of intraluminal filling defect to suggest pulmonary embolism. Mediastinum: Coronary artery calcifications. No pericardial effusion. Nonaneurysmal thoracic aorta. No enlarged lymph nodes. Lungs/pleura: No focal consolidation or pulmonary edema. No evidence of pleural effusion or pneumothorax. Upper Abdomen: Lower density of the liver relative to the spleen which could reflect contrast bolus timing or underlying hepatic steatosis. Soft Tissues/Bones: No acute bone or soft tissue abnormality. Mild gynecomastia. IMPRESSION: No evidence of pulmonary embolism. Interpreted by: Aditya Mcgee Preliminary Report By: Aditya Mcgee Electronically signed By Aditya Mcgee Dictated Date: 12/07/2024 9:28:26 PM Prelim Date: 12/07/2024 9:31:23 PM Sign Date: 12/07/2024 9:31:23 PM Ordering Provider: OVIDIO Olivas [facility]ORY[facility]dered By: SYSTEM SYSTEM on 12-07-2024 Basophils (Bld) [#/Vol] 0.2 103/mcL Normal 0.0 - 0.2 10^3/mcL AO Workflow SS Basophils/100 WBC (Bld) 0.8 % Normal 0.0 - 2.5 % AO Workflow SS Calcium [Mass/Vol] 9.6 mg/dL Normal 8.4 - 10. 2 mg/dL AO ADM SS Chloride [Moles/Vol] 101 mmol/L Normal 98 - 10 7 mmol/L AO ADM SS CO2 [Moles/Vol] 25 mmol/L Normal 22 - 29 mmol/L AO ADM SS Creatinine [Mass/Vol] 0.82 mg/dL Normal 0.70 - 1.30 mg/dL AO ADM SS Comment on above: Interpretive Data: T esting performed on Siemens Dimension EXL analyzer using a modified kinetic Damaris technique. Electrolyte Balance 9.0 mEq/L Normal 4.0 - 15 .0 mEq/L AO ADM SS Eosinophil, Absolute 0.8 103/mcL High 0.0 - 0 .7 10^3/mcL AO Workflow SS Eosinophils/100 WBC (Bld) 3.4 % Normal 0.0 - 7.0 % AO Workflow SS Erythrocyte distribution width (RBC) [Ratio] 14.1 % Normal 11.5 - 15.5 % AO Workflow SS Estimated Glomerular Filtration Rate 104 ml/min/1.73sqm Invalid Interpretation Code AO Chemistry S Comment on above: Interpretive Data: Stages of Chronic Kidney Disease (CKD) Stage Description eGFR(ml/min/1.73 sq.m.) CKD 1 Normal kidney function or >=90 normal kindney function with possible kidney damage (ex. Proteinuria) CKD 2 Kidney damage with mild loss 60-89 of kidney function CKD 3a Mild to moderate loss of kidney 45-59 function CKD 3b Moderate to severe loss of 30-44 of kindey function CKD 4 Severe loss of kidney function 15-29 CKD 5 Kidney failure <15 Note: (go live 2024) the eGFR calculation was updated to the 2020 CKD-EPI creatinine equation without a race factor to calculate the eGFR results. Glucose [Mass/Vol] 175 mg/dL High 70 - 105 mg/dL AO ADM SS Hematocrit (Bld) [Volume fraction] 42.2 % Normal 40.0 - 52.0 % AO Workflow SS Hemoglobin (Bld) [Mass/Vol] 14.3 G/dL Normal 13.0 - 17.5 G/dL AO Workflow SS Lymphocytes (Bld) [#/Vol] 3.7 103/mcL Normal 0.9 - 4.3 10^3/mcL AO Workflow SS Lymphocytes/100 WBC (Bld) 16.4 % Low 20.0 - 40.0 % AO Workflow SS MCH (RBC) [Entitic mass] 30.4 pg Normal 27.0 - 33.0 pg AO Workflow SS MCHC 33.9 G/dL Normal 32.0 - 36.0 G/dL AO Workflow SS MCV (RBC) [Entitic vol] 89.6 fL Normal 81.0 - 100.0 fL AO Workflow SS Monocyte distribution width Auto (Bld) [Entitic vol] 23.89 1 High 0.00 - 20.00 AO Workflow SS Comment on above: Result Comment: For adults in ED, MDW>20.0 may be associated with a higher risk of sepsis during the first 12hrs of hospital admission Monocytes (Bld) [#/Vol] 1.2 103/mcL Normal 0.1 - 1.4 10^3/mcL AO Workflow SS Monocytes/100 WBC (Bld) 5.5 % Normal 2.0 - 13.0 % AO Workflow SS Neutrophils (Bld) [#/Vol] 16.5 103/mcL High 2.3 - 8.1 10^3/mcL AO Workflow SS Neutrophils/100 WBC (Bld) 73.9 % Normal 50.0 - 75.0 % AO Workflow SS Platelet mean volume (Bld) [Entitic vol] 7.0 fL Normal 6.4 - 10.5 fL AO Workflow SS Platelets (Bld) [#/Vol] 346 103/mcL Normal 150 - 450 10^3/mcL AO Workflow SS Potassium [Moles/Vol] 3.9 mmol/L Normal 3.5 - 5.1 mmol/L AO ADM SS RBC (Bld) [#/Vol] 4.71 106/mcL Normal 4.50 - 6.0 0 10^6/mcL AO Workflow SS Sodium [Moles/Vol] 135 mmol/L Low 136 - 145 mmol/L AO ADM SS Troponin I.cardiac DL <= 0.01 ng/mL [Mass/Vol] 4 ng/L Normal 0 - 76 ng/L AO ADM SS Comment on above: Interpretive Data: H igh Sensitive Troponin I Reference Ranges: Female: 0-51 ng/L Male: 0-76 ng/L Testing performed on [employer] using a homogeneous sandwich chemiluminescent immunoassay based on TagMan technology. Urea nitrogen [Mass/Vol] 18 mg/dL Normal 7 - 18 mg/dL AO ADM SS Urea nitrogen/Creatinine [Mass ratio] 22 ratio Normal 7 - 27 ratio AO ADM SS WBC (Bld) [#/Vol] 22.4 103/mcL High 4.5 - 10.8 10^3/mcL AO Workflow SS TROPHSon 12-07-2024 High Sensitivity Troponin I 4 ng/L Normal 0-76 [facility] Comment on above: Result Comment: High Sensitive Troponin I Reference Ranges: Female: 0-51 ng/L Male: 0-76 ng/L Testing performed on [employer] EXL using a homogeneous sandwich chemiluminescent immunoassay based on TagMan technology. Performed By: #### DREW SANTANADIP #### [facility] [address] [place], [place] [address] #### LENA UOXYS #### [facility] [address] [place] [id number] XR CHEST 1 VIEWon 12-07-2024 XR CHEST 1 VIEW ORIGINAL EXAMINATION: ONE XRAY VIEW OF THE CHEST 12/07/2024 8:31 pm COMPARISON: Radiograph of the chest January HISTORY: ORDERING SYSTEM PROVIDED HISTORY: Reason for Exam: Pt complains of L neck pain radiating down to his L shoulder, intermittent sharp pain. CP FINDINGS: Suboptimal exam due to patient body habitus. Cardiomediastinal silhouette is unchanged in size. Costophrenic angles are sharp. No radiographic pneumothorax. No definite focal consolidation. Osseous structures grossly unchanged. IMPRESSION: No definite focal consolidation. Interpreted by: Aditya Mcgee Preliminary Report By: Aditya Mcgee Electronically signed By Aditya Mcgee Dictated Date: 12/07/2024 8:34:39 PM Prelim Date: 12/07/2024 8:35:18 PM Sign Date: 12/07/2024 8:35:18 PM Ordering Provider: OVIDIO Olivas [facility] .Auto Diffon 08-01-2024 Basophil, Absolute 0.1 10 3/mcL Normal 0.0-0.2 [facility] Comment on above: Performed By: #### M DW, ANEU, GFR, CBC, ADIFF, BMP #### [address] [address] Basophils/100 WBC (Bld) 0.7 % Normal 0.0-2.5 [facility] Comment on above: Performed By: #### M DW, ANEU, GFR, CBC, ADIFF, BMP #### [address] [address] Eosinophil, Absolute 0.5 10 3/mcL Normal 0.0-0.7 [facility] Comment on above: Performed By: #### M DW, ANEU, GFR, CBC, ADIFF, BMP #### [address] [address] Eosinophils/100 WBC (Bld) 5.2 % Normal 0.0-7.0 [facility] Comment on above: Performed By: #### M DW, ANEU, GFR, CBC, ADIFF, BMP #### [address] [address] Lymphocyte, Absolute 3.2 10 3/mcL Normal 0.9-4.3 [facility] Comment on above: Performed By: #### M DW, ANEU, GFR, CBC, ADIFF, BMP #### [address] [address] Lymphocytes/100 WBC (Bld) 31.8 % Normal 20.0-40.0 [facility] Comment on above: Performed By: #### M DW, ANEU, GFR, CBC, ADIFF, BMP #### [address] [address] Monocyte, Absolute 0.8 10 3/mcL Normal 0.1-1.4 [facility] Comment on above: Performed By: #### M DW, ANEU, GFR, CBC, ADIFF, BMP #### [address] [address] Monocytes/100 WBC (Bld) 8.2 % Normal 2.0-13.0 [facility] Comment on above: Performed By: #### M DW, ANEU, GFR, CBC, ADIFF, BMP #### [address] [address] Neutrophils/100 WBC (Bld) 54.1 % Normal 50.0-75.0 [facility] Comment on above: Performed By: #### M DW, ANEU, GFR, CBC, ADIFF, BMP #### [address] [address] .GFRon 08-01-2024 GFR 122 ml/min/1.73sqm Normal [facility] Comment on above: Result Comment: GFR Population mean for , Non- Americans Ages 20-29 = 116 mL/min/1.73 sq.m. Ages 30-39 = 107 mL/min/1.73 sq.m. Ages 40-49 = 99 mL/min/1.73 sq.m. Ages 50-59 = 93 mL/min/1.73 sq.m. Ages 60-69 = 85 mL/min/1.73 sq.m. Ages 70+ = 75 mL/min/1.73 sq.m. Chronic Kidney Disease: Less than 60 mL/min/1.73 square meters End Stage Renal Disease: Less than 15 mL/min/1.73 square meters Performed By: #### M DW, ANEU, GFR, CBC, ADIFF, BMP #### [address] [address] GFR Non- 100 ml/min/1.73sqm Normal [facility] Comment on above: Result Comment: GFR Population mean for , Non- Americans Ages 20-29 = 116 mL/min/1.73 sq.m. Ages 30-39 = 107 mL/min/1.73 sq.m. Ages 40-49 = 99 mL/min/1.73 sq.m. Ages 50-59 = 93 mL/min/1.73 sq.m. Ages 60-69 = 85 mL/min/1.73 sq.m. Ages 70+ = 75 mL/min/1.73 sq.m. Chronic Kidney Disease: Less than 60 mL/min/1.73 square meters End Stage Renal Disease: Less than 15 mL/min/1.73 square meters Performed By: #### M DW, ANEU, GFR, CBC, ADIFF, BMP #### [place] [address] .MDWon 08-01-2024 Monocyte Distribution Width 15.37 Normal 0.00-20.00 [facility] Comment on above: Result Comment: For ED adult patients suspected of sepsis, MDW<=20.0 does not rule out sepsis or risk of sepsis Performed By: #### M DW, ANEU, GFR, CBC, ADIFF, BMP #### [address] [address] .NEUABSon 08-01-2024 Neutrophil, Absolute 5.4 10 3/mcL Normal 2.3-8.1 [facility] Comment on above: Performed By: #### M DW, ANEU, GFR, CBC, ADIFF, BMP #### [address] [address] BMPon 08-01-2024 BUN/Creatinine Ratio 18 ratio Normal 7-27 [facility] Comment on above: Order Comment: Hemol yzed Performed By: #### M DW, ANEU, GFR, CBC, ADIFF, BMP #### [place] [address] Calcium [Mass/Vol] 9.2 mg/dL Normal 8.4-10.2 [facility] Comment on above: Order Comment: Hemol yzed Performed By: #### M DW, ANEU, GFR, CBC, ADIFF, BMP #### [place] [address] Chloride [Moles/Vol] 96 mmol/L Low 98-107 [facility] Comment on above: Order Comment: Hemol yzed Performed By: #### M DW, ANEU, GFR, CBC, ADIFF, BMP #### [place] [address] CO2 [Moles/Vol] 30 mmol/L High 22-29 [facility] Comment on above: Order Comment: Hemol yzed Performed By: #### M DW, ANEU, GFR, CBC, ADIFF, BMP #### [place] [address] Creatinine [Mass/Vol] 0.80 mg/dL Normal 0.70-1.30 [facility] Comment on above: Order Comment: Hemol yzed Result Comment: Test ing performed on Siemens Dimension EXL analyzer using a modified kinetic Damaris technique. Performed By: #### M DW, ANEU, GFR, CBC, ADIFF, BMP #### [place] [address] Electrolyte Balance 7.0 mEq/L Normal 4.0-15.0 [facility] Comment on above: Order Comment: Hemol yzed Performed By: #### M DW, ANEU, GFR, CBC, ADIFF, BMP #### [place] [address] Glucose [Mass/Vol] 201 mg/dL High 70-105 [facility] Comment on above: Order Comment: Hemol yzed Performed By: #### M DW, ANEU, GFR, CBC, ADIFF, BMP #### [address] [address] Potassium [Moles/Vol] 4.4 mmol/L Normal 3.5-5.1 [facility] Comment on above: Order Comment: Hemol yzed Performed By: #### M DW, ANEU, GFR, CBC, ADIFF, BMP #### [address] [address] Sodium [Moles/Vol] 133 mmol/L Low 136-145 [facility] Comment on above: Order Comment: Hemol yzed Performed By: #### M DW, ANEU, GFR, CBC, ADIFF, BMP #### [place] [address] Urea nitrogen [Mass/Vol] 14 mg/dL Normal 7-18 [facility] Comment on above: Order Comment: Hemol yzed Performed By: #### M DW, ANEU, GFR, CBC, ADIFF, BMP #### [address] [address] CBCon 08-01-2024 Erythrocyte distribution width (RBC) [Ratio] 13.9 % Normal 11.5-15.5 [facility] Comment on above: Performed By: #### M DW, ANEU, GFR, CBC, ADIFF, BMP #### [address] [address] Hematocrit (Bld) [Volume fraction] 41.3 % Normal 40.0-52.0 [facility] Comment on above: Performed By: #### M DW, ANEU, GFR, CBC, ADIFF, BMP #### [address] [address] Hgb 14.1 G/dL Normal 13.0-17.5 [facility] Comment on above: Performed By: #### M DW, ANEU, GFR, CBC, ADIFF, BMP #### [address] [address] MCH (RBC) [Entitic mass] 30.7 pg Normal 27.0-33.0 [facility] Comment on above: Performed By: #### M DW, ANEU, GFR, CBC, ADIFF, BMP #### [place] [address] MCHC 34.1 G/dL Normal 32.0-36.0 [facility] Comment on above: Performed By: #### M DW, ANEU, GFR, CBC, ADIFF, BMP #### [address] [address] MCV (RBC) [Entitic vol] 89.8 fL Normal 81.0-100.0 [facility] Comment on above: Performed By: #### M DW, ANEU, GFR, CBC, ADIFF, BMP #### [place] [address] Platelet 301 10 3/mcL Normal 150-450 [facility] Comment on above: Performed By: #### M DW, ANEU, GFR, CBC, ADIFF, BMP #### [place] [address] Platelet mean volume (Bld) [Entitic vol] 7.4 fL Normal 6.4-10.5 [facility] Comment on above: Performed By: #### M DW, ANEU, GFR, CBC, ADIFF, BMP #### [place] [id number] RBC 4.60 10 6/mcL Normal 4.50-6.00 [facility] Comment on above: Performed By: #### M DW, ANEU, GFR, CBC, ADIFF, BMP #### [place] [id number] WBC 9.9 10 3/mcL Normal 4.5-10.8 [facility] Comment on above: Performed By: #### M DW, ANEU, GFR, CBC, ADIFF, BMP #### [place] [address] [address] ABDOMEN/PELVIS W/O CONTRA STon 08-01-2024 CT ABDOMEN/PELVIS W/O CONTRAST ORIGINAL HISTORY: Pain COMPARISON: 20 Feb 2024 TECHNIQUE: CT of the abdomen and pelvis with sagittal and coronal reconstructions. This exam was performed according to our departmental dose optimization program, and includes the following measures where applicable: automated exposure control, adjustment of the mAs and/or kVp according to patient size and/or exam, and an iterative reconstruction algorithm. FINDINGS: The study is limited by habitus, low CT dose and poor signal to noise ratio. Within the limits of the examination the abdominal organs are unremarkable in appearance. Bowel is poorly evaluated in the absence of oral contrast. A normal appendix is identified. There is no free fluid. IMPRESSION: No significant interval change. Interpreted by: Isaias Triana MD Preliminary Report By: Isaias Triana MD Electronically signed By Isaias Triana MD Dictated Date: 08/01/2024 11:20:57 AM Prelim Date: 08/01/2024 11:22:42 AM Sign Date: 08/01/2024 11:22:42 AM Ordering Provider: CLYDE Olivas [facility]dered By: SYSTEM SYSTEM on 08-01-2024 Calcium [Mass/Vol] 9.2 mg/dL Normal 8.4 - 10. 2 mg/dL AO ADM SS Chloride [Moles/Vol] 96 mmol/L Low 98 - 10 7 mmol/L AO ADM SS CO2 [Moles/Vol] 30 mmol/L High 22 - 29 mmol/L AO ADM SS Creatinine [Mass/Vol] 0.80 mg/dL Normal 0.70 - 1.30 mg/dL AO ADM SS Comment on above: Interpretive Data: T esting performed on Siemens Dimension EXL analyzer using a modified kinetic Dmaaris technique. Electrolyte Balance 7.0 mEq/L Normal 4.0 - 15 .0 mEq/L AO ADM SS GFR/1.73 sq M.predicted among blacks MDRD (S/P/Bld) [Vol rate/Area] 122 ml/min/1.73sqm Invalid Interpretation Code AO Chemistry S Comment on above: Interpretive Data: GFR Population mean for , Non- Americans Ages 20-29 = 116 mL/min/1.73 sq.m. Ages 30-39 = 107 mL/min/1.73 sq.m. Ages 40-49 = 99 mL/min/1.73 sq.m. Ages 50-59 = 93 mL/min/1.73 sq.m. Ages 60-69 = 85 mL/min/1.73 sq.m. Ages 70+ = 75 mL/min/1.73 sq.m. Chronic Kidney Disease: Less than 60 mL/min/1.73 square meters End Stage Renal Disease: Less than 15 mL/min/1.73 square meters GFR/1.73 sq M.predicted among non-blacks MDRD (S/P/Bld) [Vol rate/Area] 100 ml/min/1.73sqm Invalid Interpretation Code AO Chemistry S Comment on above: Interpretive Data: GFR Population mean for , Non- Americans Ages 20-29 = 116 mL/min/1.73 sq.m. Ages 30-39 = 107 mL/min/1.73 sq.m. Ages 40-49 = 99 mL/min/1.73 sq.m. Ages 50-59 = 93 mL/min/1.73 sq.m. Ages 60-69 = 85 mL/min/1.73 sq.m. Ages 70+ = 75 mL/min/1.73 sq.m. Chronic Kidney Disease: Less than 60 mL/min/1.73 square meters End Stage Renal Disease: Less than 15 mL/min/1.73 square meters Glucose [Mass/Vol] 201 mg/dL High 70 - 105 mg/dL AO ADM SS Potassium [Moles/Vol] 4.4 mmol/L Normal 3.5 - 5.1 mmol/L AO ADM SS Sodium [Moles/Vol] 133 mmol/L Low 136 - 145 mmol/L AO ADM SS Urea nitrogen [Mass/Vol] 14 mg/dL Normal 7 - 18 mg/dL AO ADM SS Urea nitrogen/Creatinine [Mass ratio] 18 ratio Normal 7 - 27 ratio AO ADM SS Basophils (Bld) [#/Vol] 0.1 103/mcL Normal 0.0 - 0.2 10^3/mcL AO Workflow SS Basophils/100 WBC (Bld) 0.7 % Normal 0.0 - 2.5 % AO Workflow SS Eosinophil, Absolute 0.5 103/mcL Normal 0.0 - 0 .7 10^3/mcL AO Workflow SS Eosinophils/100 WBC (Bld) 5.2 % Normal 0.0 - 7.0 % AO Workflow SS Erythrocyte distribution width (RBC) [Ratio] 13.9 % Normal 11.5 - 15.5 % AO Workflow SS Hematocrit (Bld) [Volume fraction] 41.3 % Normal 40.0 - 52.0 % AO Workflow SS Hemoglobin (Bld) [Mass/Vol] 14.1 G/dL Normal 13.0 - 17.5 G/dL AO Workflow SS Lymphocytes (Bld) [#/Vol] 3.2 103/mcL Normal 0.9 - 4.3 10^3/mcL AO Workflow SS Lymphocytes/100 WBC (Bld) 31.8 % Normal 20.0 - 40.0 % AO Workflow SS MCH (RBC) [Entitic mass] 30.7 pg Normal 27.0 - 33.0 pg AO Workflow SS MCHC 34.1 G/dL Normal 32.0 - 36.0 G/dL AO Workflow SS MCV (RBC) [Entitic vol] 89.8 fL Normal 81.0 - 100.0 fL AO Workflow SS Monocyte distribution width Auto (Bld) [Entitic vol] 15.37 1 Normal 0.00 - 20.00 AO Workflow SS Comment on above: Result Comment: For ED adult patients suspected of sepsis, MDW<=20.0 does not rule out sepsis or risk of sepsis Monocytes (Bld) [#/Vol] 0.8 103/mcL Normal 0.1 - 1.4 10^3/mcL AO Workflow SS Monocytes/100 WBC (Bld) 8.2 % Normal 2.0 - 13.0 % AO Workflow SS Neutrophils (Bld) [#/Vol] 5.4 103/mcL Normal 2.3 - 8.1 10^3/mcL AO Workflow SS Neutrophils/100 WBC (Bld) 54.1 % Normal 50.0 - 75.0 % AO Workflow SS Platelet mean volume (Bld) [Entitic vol] 7.4 fL Normal 6.4 - 10.5 fL AO Workflow SS Platelets (Bld) [#/Vol] 301 103/mcL Normal 150 - 450 10^3/mcL AO Workflow SS RBC (Bld) [#/Vol] 4.60 106/mcL Normal 4.50 - 6.0 0 10^6/mcL AO Workflow SS WBC (Bld) [#/Vol] 9.9 103/mcL Normal 4.5 - 10.8 10^3/mcL AO Workflow SS Endocrinology Visit Reporton 07-30-2024 Endocrinology Visit Report [facility] [address] [place] [address]. [address] [place], [place] [id number] OFFICE VISIT Date of Service: 07/30/24 MR#: [id number] Acct: [id number] Name: SAQIB DAMICO Rep #: [id number] : 1970 Provider: Jaylen Padilla Age/Sex: 54/M Location: [facility] Status: Signed Intake Vital Signs 01/09/24 08:04 07/30/24 10:50 Height 5 ft 11 in 5 ft 11 in Weight: 385 lb 383 lb BMI 53.6 53.4 BP 149/82 H 134/78 H Blood Pressure Location Lt brachial Rt brachial Position Sitting Sitting Pulse 76 100 Pulse Source Monitor Monitor Temp 98.5 F Temp Source Temporal Pulse Oximetry (%) 95 94 Oxygen Delivery Method room air room air Intake Visit Reasons: 3 M FU Chief Complaint: f/u diabetes Is patient in pain?: No Allergies loratadine (From ClareTutor) Adverse Reaction (Intermediate, Verified 06/20/23 08:15) headache Medications ???Medication ???Instructions ???Recorded ???Confirmed ???Type lorazepam 2 mg tablet (Ativan) 1 mg PO TID PRN PRN Anxiety 07/29/15 07/30/24 History sertraline 100 mg tablet 200 mg PO DAILY 07/29/15 07/30/24 History atorvastatin 20 mg tablet 20 mg PO 03/29/22 07/30/24 History lisinopril 20 mg tablet 20 mg PO 03/29/22 07/30/24 History metformin 1,000 mg tablet 1,000 mg PO BID #60 tabs 10/14/23 07/30/24 Rx semaglutide 0.25 mg or 0.5 mg (2 0.25 mg (0.368 mL) subcut QWEEK #3 12/20/23 07/30/24 Rx mg/3 mL) subcutaneous pen injector mL (Ozempic) blood-glucose sensor (FreeStyle #2 ea 05/16/24 07/30/24 Rx Sera 3 Sensor device) BD Ultra-Fine Saundra Pen Needle 32 #100 ea 07/30/24 07/30/24 Rx gauge x 5/32 (pen needle, diabetic) Tresiba FlexTouch U-200 200 100 unit (0.5 mL) subcut QDAY #18 07/30/24 07/30/24 Rx unit/mL (3 mL) subcutaneous pen mL (insulin degludec) insulin lispro 200 unit/mL (3 mL) 60 unit (0.3 mL) subcut TID #42 mL 07/30/24 07/30/24 Rx subcutaneous pen (Humalog KwikPen U-200 Insulin) [facility] Medical History Obesity Diabetes Other specified disorders of tendon, right hand Surgical History H/O facial fracture repair Family History Other Depression Diabetes High cholesterol Hypertension Severe allergy Social History Smoking Status: Never smoker alcohol intake: current alcohol intake frequency: 0-2 drinks per day substance use type: does not use what type of physical activity do you participate in: other details: treadmill frequency: daily HPI HPI Chief Complaint: f/u diabetes Details: SAQIB DAMICO, is a 54 M who presents to the office today for follow up. A1C is 10.3% He is taking Humalog 50-50. He isn't having a regular schedule so his insulin isn't fitting his day. He is under a lot of stress. He is under the care of a psychiatrist. He is changing jobs. He is wearing Sera CGM. Upload shows GMI of 8.0% MOst of his sugars are over 180. ROS Const Constitutional: No fatigue, weight change or change in appetite Eyes Eyes: No change in vision ENT ENT: No dizziness/vertigo or difficulty swallowing Cardio Cardiology: No chest pain at rest, chest pain with exertion, shortness of breath or palpitations Musc Musculoskeletal: No abnormal gait, joint pain, numbness or tingling Neuro Neurology: No abnormal gait, memory loss, numbness or tingling Psych Psychiatric: Positive for anxiety, No change in appetite, Positive for depression, No memory loss and No Thoughts of harming yourself/Others Resp Respiratory: No cough, chest congestion or shortness of breath Gastro GI: No abdominal pain, constipation, diarrhea or difficulty swallowing Genitourinary Male: No burning urination Skin Skin: No itchy eyes or wounds Endo Endocrine: No fatigue or weight change Aller/Imm Allergy/Immunologic: No itchy eyes Exam Const General: cooperative, healthy appearing, comfortable, no acute distress, well developed and not cushingoid Nutritional Appearance: well nourished and obese Orientation: alert, awake and oriented x3 HENMT Head: normal to inspection Ears: hearing grossly normal bilaterally Nose: external nose normal Mouth: oral mucosae normal Eyes General: appearance normal, both eyes and all related structures Alignment and Position: alignment normal Periorbital: periorbital findings normal Eyelids: eyelids normal Conjunctivae: conjunctivae normal Neck Neck: normal visual inspection Neck mass: No Thyroid: thyroid normal Chest Chest palpation inspection: normal inspection of the chest Resp Effort Inspection: normal respiratory effort, able to speak in comp (more content not included)... Normal [facility] Office Visit Reporton 2023 Office Visit Report [facility] [address] [place] [address] OFFICE VISIT Date of Service: 07/13/24 MR#: [id number] Acct: [id number] Patient: SAQIB DAMICO Rep #: [id number] : 1970 Provider: DOMINIC Simmons Age/Sex: 54/M Location: [facility] Status: Signed Intake Vital Signs 01/09/24 08:04 Height 5 ft 11 in Weight: 385 lb BMI 53.6 BP 149/82 H Blood Pressure Location Lt brachial Position Sitting Pulse 76 Pulse Source Monitor Temp 98.5 F Temp Source Temporal Pulse Oximetry (%) 95 Oxygen Delivery Method room air 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 CT ABDOMEN/PELVIS W/CONTRAST on 02-21-2024 CT ABDOMEN/PELVIS W/CONTRAST ORIGINAL EXAMINATION: CT OF THE ABDOMEN AND PELVIS WITH CONTRAST 02/20/2024 12:00 pm TECHNIQUE: CT of the abdomen and pelvis was performed with the administration of intravenous contrast. Multiplanar reformatted images are provided for review. Automated exposure control, iterative reconstruction, and/or weight based adjustment of the mA/kV was utilized to reduce the radiation dose to as low as reasonably achievable. COMPARISON: August 10, 2021 HISTORY: ORDERING SYSTEM PROVIDED HISTORY: Reason for Exam: Pain right upper quadrant, focused into the abdominal wall, worse with cough FINDINGS: Minor degenerative changes are noted in the spine. No other osseous abnormality identified. The lung bases are unremarkable. Images are compromised by streak artifact related to patient body habitus. Allowing for this, liver, spleen, adrenal glands and pancreas are unremarkable. No significant renal finding. No adenopathy, free air or free fluid is evident. The urinary bladder is grossly normal. No GI tract abnormality is visible. Portions of the abdominal wall are excluded from the field of view related to body habitus and technique. I do not definitely identify a body wall abnormality. No additional contributory finding. IMPRESSION: No acute abnormality identified on this exam. Interpreted by: Atif Black MD Preliminary Report By: Atif Black MD Electronically signed By Atif Black MD Dictated Date: 02/21/2024 10:20:27 AM Prelim Date: 02/21/2024 10:25:47 AM Sign Date: 02/21/2024 10:25:47 AM Ordering Provider: [facility] ([place]) XR CHEST 2 VIEWSon XR CHEST 2 VIEWS ORIGINAL EXAMINATION: TWO XRAY VIEWS OF THE CHEST01/19/2024 10:58 am COMPARISON: 01/07/2024 HISTORY: ORDERING SYSTEM PROVIDED HISTORY: Reason for Exam: SOB at rest FINDINGS: The exam is rotated. The heart size is normal. There is no pulmonary consolidation. No pneumothorax or pleural effusion. No aggressive osseous lesions identified.Mild degenerative spurring seen in the spine.Mild T12 compression deformity is unchanged. Asymmetric calcification seen at the 1st costochondral cartilage. IMPRESSION: 1. No acute radiographic findings. 2. Mild T12 compression deformity is unchanged. Interpreted by: Andrea Arevalo MD Preliminary Report By: Andrea Arevalo MD Electronically signed By Andrea Arevalo MD Dictated Date: 01/19/2024 11:45:40 AM Prelim Date: 01/19/2024 11:58:14 AM Sign Date: 01/19/2024 11:58:14 AM Ordering Provider: SHIRA CHAPA [facility] ([place]) Basophil percentageOrdered B y: Daniel Granda on 01-09-2024 Bilirubin [Mass/Vol] 0.40 mg/dL 0.20-1.00 [facility] Comment on above: For patients on eltr ombopag therapy, use of Dimension Cidra TBIL is not recommended. Chloride [Moles/Vol] 103 mmol/L 98-107 [facility] Cholesterol [Mass/Vol] 204 mg/dL <200 [facility] Comment on above: <200 mg/dL Desirable 200-240 mg/dL Borderline >240 mg/dL High Risk Glucose [Mass/Vol] 164 mg/dL 74-106 [facility] Comment on above: Fasting Glucose resu lt greater than or equal to 126 mg/dL suggests DIABETES MELLITUS per A.D.A. criteria. Potassium [Moles/Vol] 4.0 mmol/L 3.5-5.1 [facility] Protein [Mass/Vol] 7.0 g/dL 6.4-8.2 [facility] Sodium [Moles/Vol] 137 mmol/L 136-145 [facility] Triglyceride [Mass/Vol] 288 mg/dL <[address] [facility] Comment on above: The drugs N-Acetylcy steine and Metamizole may falsely depress this assay.Serum Triglycerides Reference Interval Normal <150 mg/dL Borderline high 150 - 199 mg/dL High 200 - 499 mg/dL Very High > or = 500 mg/dL Laboratory - Chemistry and C hemistry - challengeOrdered By: Daniel Granda on 01-09-2024 Albumin/Globulin [Mass ratio] 1.0 {ratio} 0.9-2.[address] [facility] ALP [Catalytic activity/Vol] 59 U/L 45-[address] [facility] ALT [Catalytic activity/Vol] 38 U/L 16-[address] [facility] Cholesterol in HDL [Mass/Vol] 46 mg/dL >[address] [facility] Comment on above: The drugs N-Acetylcy steine and Metamizole may falsely depress this assay. Reference Range HDL <40 mg/dL Low HDL Cholesterol HDL >or= 60 mg/dL High HDL Cholesterol Cholesterol in LDL [Mass/Vol] 100 mg/dL 0-[address] [facility] CO2 [Moles/Vol] 29.0 mmol/L 21.0-32.[address] [facility] Globulin (S) [Mass/Vol] 3.5 g/dL 2.2-4.[address] [facility] Urea nitrogen/Creatinine [Mass ratio] 19.7 mg/mg 10-[address] [facility] Laboratory - Hematology and Cell countson 01-09-2024 HbA1c (Bld) [Mass fraction] 9.3 % 4.2-6.[address] [facility] No Panel InformationOrdered By: Daniel Granda on 01-09-2024 Estimated GFR (MDRD) Amer 137 mL/min >[address] [facility] Comment on above: GFR Calc Estimated GFR (MDRD) Non-Af Amer 113 mL/min >[address] [facility] Comment on above: Non- GFR Calc Urine Microalbumin/Creatinin e Ratio 17.5 mg/g CRE <[address] [facility] VLDL Cholesterol 58 mg/dL 5-[address] [facility] Serum or plasma calcium carroll urement (mass/volume)Ordered By: Daniel Granda on 01-09-2024 Calcium [Mass/Vol] 8.9 mg/dL 8.5-10.1 [facility] Serum or plasma creatinine m easurement (mass/volume)Ordered By: Daniel Granda on 01-09-2024 Creatinine [Mass/Vol] 0.76 mg/dL 0.70-1.30 [facility] Comment on above: The validity of the calculated GFR & GFRAA in patients over 70 years has not been determined. Clinical correlation is essential. Serum or plasma thyroid stim ulating hormone (TSH) measurement (units/volume)Ordered By: Daniel Granda on 01-09-2024 TSH Qn 1.93 uIU/mL 0.358-3.[address] [facility] Serum or plasma urea nitroge n measurement (mass/volume)Ordered By: Daniel Granda on 01-09-2024 Urea nitrogen [Mass/Vol] 15 mg/dL 7-[address] [facility] Thin prep Papanicolaou smear with manual screeningOrdered By: Daniel Granda on 01-09-2024 Thin prep Papanicolaou smear with manual screening 3.5 g/dL 3.2-5.[address] [facility] Thin prep Papanicolaou smear with manual screening 29 U/L 15-[address] [facility] Thin prep Papanicolaou smear with manual screening 5 5-[address] [facility] Thin prep Papanicolaou smear with manual screening 14.0 mg/L NO RANGE EST. [facility] Urine creatinine measurement (mass/volume)Ordered By: Daniel Granda on 01-09-2024 Creatinine (U) [Mass/Vol] 80.00 mg/dL NO RANGE EST. [facility] .Auto Diffon 01-07-2024 Basophil, Absolute 0.1 10 3/mcL Normal 0.0-0.2 [facility] ([place]) Comment on above: Performed By: #### M ALBR #### [address] [address] Basophils/100 WBC (Bld) 0.9 % Normal 0.0-2.5 [facility] ([place]) Comment on above: Performed By: #### M ALBR #### [address] [address] Eosinophil, Absolute 0.8 10 3/mcL High 0.0-0.4 [facility] ([place]) Comment on above: Performed By: #### M ALBR #### [address] [address] Eosinophils/100 WBC (Bld) 6.4 % Normal 0.0-7.0 [facility] ([place]) Comment on above: Performed By: #### M ALBR #### [address] [address] Lymphocyte, Absolute 4.8 10 3/mcL High 0.8-3.9 [facility] ([place]) Comment on above: Performed By: #### M ALBR #### [address] [address] Lymphocytes/100 WBC (Bld) 41.1 % Normal 10.0-50.0 [facility] ([place]) Comment on above: Performed By: #### M ALBR #### [address] [address] Monocyte, Absolute 1.1 10 3/mcL High 0.2-1.0 [facility] ([place]) Comment on above: Performed By: #### M ALBR #### [address] [address] Monocytes/100 WBC (Bld) 9.4 % Normal 1.7-13.0 [facility] ([place]) Comment on above: Performed By: #### M ALBR #### [address] [address] Neutrophils/100 WBC (Bld) 42.2 % Normal 37.0-80.0 [facility] ([place]) Comment on above: Performed By: #### M ALBR #### [address] [address] .GFRon 01-07-2024 GFR Non- 76 ml/min/1.73sqm Normal [facility] ([place]) Comment on above: Result Comment: GFR Population mean for , Non- Americans Ages 20-29 = 116 mL/min/1.73 sq.m. Ages 30-39 = 107 mL/min/1.73 sq.m. Ages 40-49 = 99 mL/min/1.73 sq.m. Ages 50-59 = 93 mL/min/1.73 sq.m. Ages 60-69 = 85 mL/min/1.73 sq.m. Ages 70+ = 75 mL/min/1.73 sq.m. Chronic Kidney Disease: Less than 60 mL/min/1.73 square meters End Stage Renal Disease: Less than 15 mL/min/1.73 square meters Performed By: #### M ALBR #### [address] [address] GFR 92 ml/min/1.73sqm Normal [facility] ([place]) Comment on above: Result Comment: GFR Population mean for , Non- Americans Ages 20-29 = 116 mL/min/1.73 sq.m. Ages 30-39 = 107 mL/min/1.73 sq.m. Ages 40-49 = 99 mL/min/1.73 sq.m. Ages 50-59 = 93 mL/min/1.73 sq.m. Ages 60-69 = 85 mL/min/1.73 sq.m. Ages 70+ = 75 mL/min/1.73 sq.m. Chronic Kidney Disease: Less than 60 mL/min/1.73 square meters End Stage Renal Disease: Less than 15 mL/min/1.73 square meters Performed By: #### M ALBR #### [place] [id number] .MDWon 01-07-2024 Monocyte Distribution Width 17.66 Normal 0.00-20.00 [facility] ([place]) Comment on above: Result Comment: For ED adult patients suspected of sepsis, MDW<=20.0 does not rule out sepsis or risk of sepsis Performed By: #### M ALBR #### [place] [address] .NEUABSon 01-07-2024 Neutrophil, Absolute 4.9 10 3/mcL Normal 2.9-6.2 [facility] ([place]) Comment on above: Performed By: #### M ALBR #### [place] [address] CBCon 01-07-2024 Erythrocyte distribution width (RBC) [Ratio] 14.4 % Normal 11.5-14.5 [facility] ([place]) Comment on above: Performed By: #### M ALBR #### [place] [address] Hematocrit (Bld) [Volume fraction] 40.0 % Low 42.0-52.0 [facility] ([place]) Comment on above: Performed By: #### M ALBR #### [place] [address] Hgb 13.7 G/dL Low 14.0-18.0 [facility] ([place]) Comment on above: Performed By: #### M ALBR #### [place] [id number] MCH (RBC) [Entitic mass] 30.3 pg Normal 27.0-31.2 [facility] ([place]) Comment on above: Performed By: #### M ALBR #### [place] [address] MCHC 34.4 G/dL Normal 31.8-35.4 [facility] ([place]) Comment on above: Performed By: #### M ALBR #### [place] [id number] MCV (RBC) [Entitic vol] 88.1 fL Normal 80.0-94.0 [facility] ([place]) Comment on above: Performed By: #### M ALBR #### [place] [address] Platelet 309 10 3/mcL Normal 130-400 [facility] ([place]) Comment on above: Performed By: #### M ALBR #### [place] [address] Platelet mean volume (Bld) [Entitic vol] 7.3 fL Low 7.4-10.4 [facility] ([place]) Comment on above: Performed By: #### M ALBR #### [place] [address] RBC 4.54 10 6/mcL Normal 4.04-6.13 [facility] ([place]) Comment on above: Performed By: #### M ALBR #### [place] [address] WBC 11.7 10 3/mcL High 4.6-10.8 [facility] ([place]) Comment on above: Performed By: #### M ALBR #### [place] [address] CMPon 01-07-2024 Albumin Level 3.5 G/dL Normal 3.5-5.0 [facility] ([place]) Comment on above: Performed By: #### M ALBR #### [facility] [address] [place], [place] [address] Albumin/Globulin [Mass ratio] 1.1 {ratio} Normal 1.1-2.5 [facility] ([place]) Comment on above: Performed By: #### M ALBR #### [place] [id number] ALP [Catalytic activity/Vol] 82 U/L Normal 40-135 [facility] ([place]) Comment on above: Performed By: #### M ALBR #### [address] [address] ALT [Catalytic activity/Vol] 39 U/L Normal 16-63 [facility] ([place]) Comment on above: Performed By: #### M ALBR #### [place] [id number] AST [Catalytic activity/Vol] 26 U/L Normal 10-40 [facility] ([place]) Comment on above: Performed By: #### M ALBR #### [place] [id number] Bili Total 0.3 mg/dL Normal 0.2-1.0 [facility] ([place]) Comment on above: Result Comment: Use of this assay is not recommended for patients undergoing treatment with eltrombopag due to the potential for falsely elevated results. Performed By: #### M ALBR #### [place] [id number] BUN/Creatinine Ratio 21 ratio Normal 7-27 [facility] ([place]) Comment on above: Performed By: #### M ALBR #### [place] [id number] Calcium [Mass/Vol] 8.9 mg/dL Normal 8.4-10.2 [facility] ([place]) Comment on above: Performed By: #### M ALBR #### [place] [id number] Chloride [Moles/Vol] 100 mmol/L Normal 98-107 [facility] ([place]) Comment on above: Performed By: #### M ALBR #### [place] [id number] CO2 [Moles/Vol] 29 mmol/L Normal 22-29 [facility] ([place]) Comment on above: Performed By: #### M ALBR #### [place] [id number] Creatinine [Mass/Vol] 1.02 mg/dL Normal 0.70-1.30 [facility] ([place]) Comment on above: Performed By: #### M ALBR #### [place] [address] Electrolyte Balance 8.0 mEq/L Normal 4.0-15.0 On license of [facility] ([place]) Comment on above: Performed By: #### M ALBR #### [place] [address] Globulin 3.2 G/dL Normal [facility] ([place]) Comment on above: Performed By: #### M ALBR #### [place] [address] Glucose [Mass/Vol] 289 mg/dL High 70-105 [facility] ([place]) Comment on above: Performed By: #### M ALBR #### [place] [address] Potassium [Moles/Vol] 4.5 mmol/L Normal 3.5-5.1 [facility] ([place]) Comment on above: Performed By: #### M ALBR #### [place] [address] Sodium [Moles/Vol] 137 mmol/L Normal 136-145 [facility] ([place]) Comment on above: Performed By: #### M ALBR #### [place] [address] Total Protein 6.7 G/dL Normal 6.4-8.2 [facility] ([place]) Comment on above: Performed By: #### M ALBR #### [place] [id number] Urea nitrogen [Mass/Vol] 21 mg/dL High 7-18 [facility] ([place]) Comment on above: Performed By: #### M ALBR #### [place] [address] LABORATORYOrdered By: SYSTEM SYSTEM on 01-07-2024 Albumin BCP dye [Mass/Vol] 3.5 G/dL Normal 3.5 - 5.0 G/dL AO ADM SS Albumin/Globulin [Mass ratio] 1.1 {ratio} Normal 1.1 - 2.5 ratio AO ADM SS ALP [Catalytic activity/Vol] 82 U/L Normal 40 - 135 U/L AO ADM SS ALT With P-5'-P [Catalytic activity/Vol] 39 U/L Normal 16 - 63 U/L AO ADM SS AST With P-5'-P [Catalytic activity/Vol] 26 U/L Normal 10 - 40 U/L AO ADM SS Basophil, Absolute 0.1 103/mcL Normal 0.0 - 0.2 10^3/mcL AO Workflow SS Basophils/100 WBC (Bld) 0.9 % Normal 0.0 - 2.5 % AO Workflow SS Bilirubin [Mass/Vol] 0.3 mg/dL Normal 0.2 - 1 .0 mg/dL AO ADM SS Comment on above: Interpretive Data: U se of this assay is not recommended for patients undergoing treatment with eltrombopag due to the potential for falsely elevated results. Calcium [Mass/Vol] 8.9 mg/dL Normal 8.4 - 10. 2 mg/dL AO ADM SS Chloride [Moles/Vol] 100 mmol/L Normal 98 - 10 7 mmol/L AO ADM SS CO2 [Moles/Vol] 29 mmol/L Normal 22 - 29 mmol/L AO ADM SS Creatinine [Mass/Vol] 1.02 mg/dL Normal 0.70 - 1.30 mg/dL AO ADM SS Electrolyte Balance 8.0 mEq/L Normal 4.0 - 15 .0 mEq/L AO ADM SS Eosinophil, Absolute 0.8 103/mcL High 0.0 - 0 .4 10^3/mcL AO Workflow SS Eosinophils/100 WBC (Bld) 6.4 % Normal 0.0 - 7.0 % AO Workflow SS Erythrocyte distribution width (RBC) [Ratio] 14.4 % Normal 11.5 - 14.5 % AO Workflow SS GFR/1.73 sq M.predicted among blacks MDRD (S/P/Bld) [Vol rate/Area] 92 ml/min/1.73sqm Invalid Interpretation Code AO Chemistry S Comment on above: Interpretive Data: GFR Population mean for , Non- Americans Ages 20-29 = 116 mL/min/1.73 sq.m. Ages 30-39 = 107 mL/min/1.73 sq.m. Ages 40-49 = 99 mL/min/1.73 sq.m. Ages 50-59 = 93 mL/min/1.73 sq.m. Ages 60-69 = 85 mL/min/1.73 sq.m. Ages 70+ = 75 mL/min/1.73 sq.m. Chronic Kidney Disease: Less than 60 mL/min/1.73 square meters End Stage Renal Disease: Less than 15 mL/min/1.73 square meters GFR/1.73 sq M.predicted among non-blacks MDRD (S/P/Bld) [Vol rate/Area] 76 ml/min/1.73sqm Invalid Interpretation Code AO Chemistry S Comment on above: Interpretive Data: GFR Population mean for , Non- Americans Ages 20-29 = 116 mL/min/1.73 sq.m. Ages 30-39 = 107 mL/min/1.73 sq.m. Ages 40-49 = 99 mL/min/1.73 sq.m. Ages 50-59 = 93 mL/min/1.73 sq.m. Ages 60-69 = 85 mL/min/1.73 sq.m. Ages 70+ = 75 mL/min/1.73 sq.m. Chronic Kidney Disease: Less than 60 mL/min/1.73 square meters End Stage Renal Disease: Less than 15 mL/min/1.73 square meters Globulin 3.2 G/dL Invalid Interpretation Code AO ADM SS Glucose [Mass/Vol] 289 mg/dL High 70 - 105 mg/dL AO ADM SS Hematocrit (Bld) [Volume fraction] 40.0 % Low 42.0 - 52.0 % AO Workflow SS Hemoglobin (Bld) [Mass/Vol] 13.7 G/dL Low 14.0 - 18.0 G/dL AO Workflow SS Lipase [Catalytic activity/Vol] 46 U/L Normal 16 - 77 U/L AO ADM SS Lymphocyte, Absolute 4.8 103/mcL High 0.8 - 3 .9 10^3/mcL AO Workflow SS Lymphocytes/100 WBC (Bld) 41.1 % Normal 10.0 - 50.0 % AO Workflow SS MCH (RBC) [Entitic mass] 30.3 pg Normal 27.0 - 31.2 pg AO Workflow SS MCHC 34.4 G/dL Normal 31.8 - 35.4 G/dL AO Workflow SS MCV (RBC) [Entitic vol] 88.1 fL Normal 80.0 - 94.0 fL AO Workflow SS Monocyte distribution width Auto (Bld) [Entitic vol] 17.66 1 Normal 0.00 - 20.00 AO Workflow SS Comment on above: Result Comment: For ED adult patients suspected of sepsis, MDW<=20.0 does not rule out sepsis or risk of sepsis Monocyte, Absolute 1.1 103/mcL High 0.2 - 1.0 10^3/mcL AO Workflow SS Monocytes/100 WBC (Bld) 9.4 % Normal 1.7 - 13.0 % AO Workflow SS Neutrophil, Absolute 4.9 103/mcL Normal 2.9 - 6 .2 10^3/mcL AO Workflow SS Neutrophils/100 WBC (Bld) 42.2 % Normal 37.0 - 80.0 % AO Workflow SS Platelet mean volume (Bld) [Entitic vol] 7.3 fL Low 7.4 - 10.4 fL AO Workflow SS Platelets (Bld) [#/Vol] 309 103/mcL Normal 130 - 400 10^3/mcL AO Workflow SS Potassium [Moles/Vol] 4.5 mmol/L Normal 3.5 - 5.1 mmol/L AO ADM SS Protein [Mass/Vol] 6.7 G/dL Normal 6.4 - 8.2 G/dL AO ADM SS RBC (Bld) [#/Vol] 4.54 106/mcL Normal 4.04 - 6.1 3 10^6/mcL AO Workflow SS Sodium [Moles/Vol] 137 mmol/L Normal 136 - 145 mmol/L AO ADM SS Troponin I.cardiac DL <= 0.01 ng/mL [Mass/Vol] 6 ng/L Normal 0 - 76 ng/L AO ADM SS Comment on above: Interpretive Data: H igh Sensitive Troponin I Reference Ranges: Female: 0-51 ng/L Male: 0-76 ng/L Testing performed on [employer] using a homogeneous sandwich chemiluminescent immunoassay based on [employer] technology. Urea nitrogen [Mass/Vol] 21 mg/dL High 7 - 18 mg/dL AO ADM SS Urea nitrogen/Creatinine [Mass ratio] 21 ratio Normal 7 - 27 ratio AO ADM SS WBC (Bld) [#/Vol] 11.7 103/mcL High 4.6 - 10.8 10^3/mcL AO Workflow SS LIPon 01-07-2024 Lipase Level 46 U/L Normal 16-77 [facility] ([place]) Comment on above: Performed By: #### M ALBR #### [address] [address] TROPHSon 01-07-2024 High Sensitivity Troponin I 6 ng/L Normal 0-76 [facility] ([place]) Comment on above: Result Comment: High Sensitive Troponin I Reference Ranges: Female: 0-51 ng/L Male: 0-76 ng/L Testing performed on [employer] using a homogeneous sandwich chemiluminescent immunoassay based on [employer] technology. Performed By: #### M ALBR #### [place] [address] XR CHEST 2 VIEWSon XR CHEST 2 VIEWS ORIGINAL EXAMINATION: TWO XRAY VIEWS OF THE CHEST01/07/2024 9:26 pm COMPARISON: Chest x-ray 08/23/2023 HISTORY: ORDERING SYSTEM PROVIDED HISTORY: Reason for Exam: Rt CP FINDINGS: No focal consolidation or pulmonary edema. No pleural effusion or visible pneumothorax. The cardiomediastinal silhouette is within normal limits. The bony thorax appears intact. IMPRESSION: No acute cardiopulmonary process. Preliminary Report was Dictated by a Resident I have personally reviewed all of the images of this examination and agree with the resident findings and interpretation. Interpreted by: Mario Lira MD Preliminary Report By: Leandro Powell Electronically signed By Mario Lira MD Dictated Date: 01/07/2024 9:30:47 PM Prelim Date: 01/07/2024 9:34:26 PM Sign Date: 01/07/2024 9:49:14 PM Ordering Provider: OVIDIO Olivas [facility] ([place]) Laboratory - Hematology and Cell countson 10-14-2023 HbA1c (Bld) [Mass fraction] 9.7 % 4.2-6.[address] [facility] Rosario 08-24-2023 Ethanol Level <3 Normal 0-3 [facility] ([place]) Comment on above: Performed By: #### M ALBR #### [facility] [address] [place] [id number] 08-24-2023 SARS-CoV-2 (COVID-19) RNA MALVIN+probe Ql (Unsp spec) Negative Normal Negative [facility] ([place]) Comment on above: Performed By: #### U DRUG #### [address] [address] SARS-CoV-2 (COVID-19) RNA MALVIN+probe Ql (Unsp spec) Normal [facility] ([place]) Comment on above: Result Comment: Nega tive results do not preclude SARS-CoV-2 infection and should not be used as the sole basis for patient management decisions. Negative results must be combined with clinical observations, patient history, and epidemiological information. There is a risk of false negative values resulting from improperly collected, transported, or handled specimens. There is a risk of false negative values due to the presence of sequence variants in the pathogen targets of the assay, procedural errors, amplification inhibitors in specimens, or inadequate numbers of organisms for amplification. SAIGE SARS-CoV-2 Assay is a Real-Time reverse-transcriptase polymerase chain reaction (RT-PCR) based qualitative in vitro diagnostic test intended for the qualitative detection of nucleic acid from the SARS-CoV-2 in nasopharyngeal swab specimens collected from individuals suspected of COVID-19 by their healthcare provider. Testing is limited to laboratories certified under the Clinical Laboratory Improvement Amendments of 1988 (CLIA), 42 U.S.C. ?263a, to perform moderate and high complexity tests. COVID-19 Int Performed By: #### U DRUG #### [address] [address] TROPHSon 08-24-2023 Troponin I High Sensitivity <4.0 Normal 0.0-76.2 [facility] ([place]) Comment on above: Performed By: #### U DRUG #### [address] [address] UDRUGon 08-24-2023 Amphetamine (u) Negative Normal Negative [facility] ([place]) Comment on above: Performed By: #### U DRUG #### [address] [address] Barbiturate (u) Negative Normal Negative [facility] ([place]) Comment on above: Performed By: #### U DRUG #### [address] [address] Benzodiazepine (u) Positive Abnormal Negative [facility] ([place]) Comment on above: Performed By: #### U DRUG #### [address] [address] Cannabinoid (u) Negative Normal Negative [facility] ([place]) Comment on above: Performed By: #### U DRUG #### [address] [address] Cocaine Ql (U) Negative Normal Negative [facility] ([place]) Comment on above: Performed By: #### U DRUG #### [place] [address] Methadone Ql (U) Negative Normal Negative [facility] ([place]) Comment on above: Performed By: #### U DRUG #### [place] [address]647 Opiate (u) Negative Normal Negative [facility] ([place]) Comment on above: Performed By: #### U DRUG #### [address] [address] PCP (u) Negative Normal Negative [facility] ([place]) Comment on above: Performed By: #### U DRUG #### [place] [address] Urine Drugs screened: See Below Normal [facility] ([place]) Comment on above: Result Comment: This drug screen is a presumptive screening only. No confirmation will be performed unless requested. Drugs screened include: Threshold Amphetamines/Methamphetamines 1,000 ng/mL Barbiturates 200 ng/mL Benzodiazepine metabolites 200 ng/mL Cannabinoids (THC metabolites) 50 ng/mL Cocaine 300 ng/mL Opiates 300 ng/mL Methadone 300 ng/mL Phencyclidine (PCP) 25 ng/mL Testing has been performed FOR MEDICAL PURPOSES ONLY. Performed By: #### U DRUG #### [place] [id number] XR CHEST 1 VIEWon 08-24-2023 XR CHEST 1 VIEW ORIGINAL EXAMINATION: ONE XRAY VIEW OF THE CHEST08/23/2023 10:06 pm COMPARISON: August 10, 2021 HISTORY: ORDERING SYSTEM PROVIDED HISTORY: Reason for Exam: chest pain FINDINGS: The cardiomediastinal contours are stable. There is no consolidation, vascular congestion, pleural effusion, or pneumothorax. There are no acute abnormalities to osseous structures. IMPRESSION: No acute radiographic findings. Interpreted by: Mario Pringle DO Preliminary Report By: Mario Pringle DO Electronically signed By Mario Pringle DO Dictated Date: 08/23/2023 10:10:05 PM Prelim Date: 08/23/2023 10:11:33 PM Sign Date: 08/23/2023 10:11:33 PM Ordering Provider: SONIA Olivas [facility] ([place]) .Auto Diffon 08-23-2023 Basophil, Absolute 0.1 10 3/mcL Normal 0.0-0.2 [facility] ([place]) Comment on above: Performed By: #### U DRUG #### [address] [address] Basophils/100 WBC (Bld) 0.8 % Normal 0.0-2.5 [facility] ([place]) Comment on above: Performed By: #### U DRUG #### [address] [address] Eosinophil, Absolute 0.7 10 3/mcL High 0.0-0.4 [facility] ([place]) Comment on above: Performed By: #### U DRUG #### [address] [address] Eosinophils/100 WBC (Bld) 4.6 % Normal 0.0-7.0 [facility] ([place]) Comment on above: Performed By: #### U DRUG #### [address] [address] Lymphocyte, Absolute 5.0 10 3/mcL High 0.8-3.9 [facility] ([place]) Comment on above: Performed By: #### U DRUG #### [address] [address] Lymphocytes/100 WBC (Bld) 31.0 % Normal 10.0-50.0 [facility] ([place]) Comment on above: Performed By: #### U DRUG #### [address] [address] Monocyte, Absolute 1.4 10 3/mcL High 0.2-1.0 [facility] ([place]) Comment on above: Performed By: #### U DRUG #### [address] [address] Monocytes/100 WBC (Bld) 8.5 % Normal 1.7-13.0 [facility] ([place]) Comment on above: Performed By: #### U DRUG #### [address] [address] Neutrophils/100 WBC (Bld) 55.1 % Normal 37.0-80.0 [facility] ([place]) Comment on above: Performed By: #### U DRUG #### [address] [address] .GFRon 08-23-2023 GFR 86 ml/min/1.73sqm Normal [facility] ([place]) Comment on above: Result Comment: GFR Population mean for , Non- Americans Ages 20-29 = 116 mL/min/1.73 sq.m. Ages 30-39 = 107 mL/min/1.73 sq.m. Ages 40-49 = 99 mL/min/1.73 sq.m. Ages 50-59 = 93 mL/min/1.73 sq.m. Ages 60-69 = 85 mL/min/1.73 sq.m. Ages 70+ = 75 mL/min/1.73 sq.m. Chronic Kidney Disease: Less than 60 mL/min/1.73 square meters End Stage Renal Disease: Less than 15 mL/min/1.73 square meters Performed By: #### U DRUG #### [address] [address] GFR Non- 71 ml/min/1.73sqm Normal [facility] ([place]) Comment on above: Result Comment: GFR Population mean for , Non- Americans Ages 20-29 = 116 mL/min/1.73 sq.m. Ages 30-39 = 107 mL/min/1.73 sq.m. Ages 40-49 = 99 mL/min/1.73 sq.m. Ages 50-59 = 93 mL/min/1.73 sq.m. Ages 60-69 = 85 mL/min/1.73 sq.m. Ages 70+ = 75 mL/min/1.73 sq.m. Chronic Kidney Disease: Less than 60 mL/min/1.73 square meters End Stage Renal Disease: Less than 15 mL/min/1.73 square meters Performed By: #### U DRUG #### [address] [address] .MDWon 08-23-2023 Monocyte Distribution Width 19.87 Normal 0.00-20.00 [facility] ([place]) Comment on above: Result Comment: For ED adult patients suspected of sepsis, MDW<=20.0 does not rule out sepsis or risk of sepsis Performed By: #### U DRUG #### [address] [address] .NEUABSon 08-23-2023 Neutrophil, Absolute 8.9 10 3/mcL High 2.9-6.2 [facility] ([place]) Comment on above: Performed By: #### U DRUG #### [address] [address] CBCon 08-23-2023 Erythrocyte distribution width (RBC) [Ratio] 14.8 % High 11.5-14.5 [facility] ([place]) Comment on above: Performed By: #### U DRUG #### [address] [address] Hematocrit (Bld) [Volume fraction] 44.4 % Normal 42.0-52.0 [facility] ([place] Comment on above: Performed By: #### U DRUG #### [address] [address] Hgb 14.6 G/dL Normal 14.0-18.0 [facility] ([place]) Comment on above: Performed By: #### U DRUG #### [address] [address] MCH (RBC) [Entitic mass] 28.5 pg Normal 27.0-31.2 [facility] ([place]) Comment on above: Performed By: #### U DRUG #### [address] [address] MCHC 32.8 G/dL Normal 31.8-35.4 [facility] ([place]) Comment on above: Performed By: #### U DRUG #### [address] [address] MCV (RBC) [Entitic vol] 86.8 fL Normal 80.0-94.0 [facility] ([place]) Comment on above: Performed By: #### U DRUG #### [address] [address] Platelet 329 10 3/mcL Normal 130-400 [facility] ([place]) Comment on above: Performed By: #### U DRUG #### [address] [address] Platelet mean volume (Bld) [Entitic vol] 7.2 fL Low 7.4-10.4 [facility] ([place]) Comment on above: Performed By: #### U DRUG #### [address] [address] RBC 5.11 10 6/mcL Normal 4.04-6.13 [facility] ([place]) Comment on above: Performed By: #### U DRUG #### [address] [address] WBC 16.1 10 3/mcL High 4.6-10.8 [facility] ([place] Comment on above: Performed By: #### U DRUG #### [address] [address] CMPon 08-23-2023 Albumin Level 4.0 G/dL Normal 3.5-5.0 [facility] ([place]) Comment on above: Performed By: #### U DRUG #### [address] [address] Albumin/Globulin [Mass ratio] 1.1 {ratio} Normal 1.1-2.5 [facility] ([place]) Comment on above: Performed By: #### U DRUG #### [address] [address] ALP [Catalytic activity/Vol] 110 U/L Normal 40-135 [facility] ([place]) Comment on above: Performed By: #### U DRUG #### [address] [address] ALT [Catalytic activity/Vol] 42 U/L Normal 16-63 [facility] ([place]) Comment on above: Performed By: #### U DRUG #### [address] [address] AST [Catalytic activity/Vol] 32 U/L Normal 10-40 [facility] ([place]) Comment on above: Performed By: #### U DRUG #### [address] [address] Bili Total 0.6 mg/dL Normal 0.2-1.0 [facility] ([place]) Comment on above: Result Comment: Use of this assay is not recommended for patients undergoing treatment with eltrombopag due to the potential for falsely elevated results. Performed By: #### U DRUG #### [address] [address] BUN/Creatinine Ratio 19 ratio Normal 7-27 [facility] ([place]) Comment on above: Performed By: #### U DRUG #### [address] [address] Calcium [Mass/Vol] 9.5 mg/dL Normal 8.4-10.2 [facility] ([place]) Comment on above: Performed By: #### U DRUG #### [address] [address] Chloride [Moles/Vol] 99 mmol/L Normal 98-107 [facility] ([place]) Comment on above: Performed By: #### U DRUG #### [address] [address] CO2 [Moles/Vol] 28 mmol/L Normal 22-29 [facility] ([place]) Comment on above: Performed By: #### U DRUG #### [address] [address] Creatinine [Mass/Vol] 1.08 mg/dL Normal 0.70-1.30 [facility] ([place]) Comment on above: Performed By: #### U DRUG #### [address] [address] Electrolyte Balance 7.0 mEq/L Normal 4.0-15.0 On license of [facility] ([place]) Comment on above: Performed By: #### U DRUG #### [address] [address] Globulin 3.7 G/dL Normal [facility] ([place]) Comment on above: Performed By: #### U DRUG #### [address] [address] Glucose [Mass/Vol] 267 mg/dL High 70-105 [facility] ([place]) Comment on above: Performed By: #### U DRUG #### [address] [address] Potassium [Moles/Vol] 5.2 mmol/L High 3.5-5.1 [facility] ([place]) Comment on above: Performed By: #### U DRUG #### [address] [address] Sodium [Moles/Vol] 134 mmol/L Low 136-145 [facility] ([place]) Comment on above: Performed By: #### U DRUG #### [address] [address] Total Protein 7.7 G/dL Normal 6.4-8.2 [facility] ([place]) Comment on above: Performed By: #### U DRUG #### [address] [address] Urea nitrogen [Mass/Vol] 21 mg/dL High 7-18 [facility] ([place]) Comment on above: Performed By: #### U DRUG #### [facility] [address] [place], [place] [address] LABORATORYOrdered By: Nirmala Garcia on 08-23-2023 Amphetamines Screen Ql (U) Negative *NA* (08/23/23 11:11 PM) Invalid Interpretation Code Negative AO ADM SS Barbiturates Screen Ql (U) Negative *NA* (08/23/23 11:11 PM) Invalid Interpretation Code Negative AO ADM SS Benzodiazepines Ql (U) Positive *ABN* (08/23/23 11:11 PM) Invalid Interpretation Code Negative AO ADM SS Benzoylecgonine Screen Ql (U) Negative *NA* (08/23/23 11:11 PM) Invalid Interpretation Code Negative AO ADM SS Cannabinoids Screen Ql (U) Negative *NA* (08/23/23 11:11 PM) Invalid Interpretation Code Negative AO ADM SS Methadone Screen Ql (U) Negative *NA* (08/23/23 11:11 PM) Invalid Interpretation Code Negative AO ADM SS Opiates Screen Ql (U) Negative *NA* (08/23/23 11:11 PM) Invalid Interpretation Code Negative AO ADM SS Phencyclidine Ql (U) Negative *NA* (08/23/23 11:11 PM) Invalid Interpretation Code Negative AO ADM SS Urine Drugs screened: See Below 3 (08/23/23 11:11 PM) Normal AO Chemistry S Comment on above: Interpretive Data: T his drug screen is a presumptive screening only. No confirmation will be performed unless requested. Drugs screened include: Threshold Amphetamines/Methamphetamines 1,000 ng/mL Barbiturates 200 ng/mL Benzodiazepine metabolites 200 ng/mL Cannabinoids (THC metabolites) 50 ng/mL Cocaine 300 ng/mL Opiates 300 ng/mL Methadone 300 ng/mL Phencyclidine (PCP) 25 ng/mL Testing has been performed FOR MEDICAL PURPOSES ONLY. SARS-CoV-2 (COVID-19) RNA MALVIN+probe Ql (Resp) Negative results do not preclude SARS-CoV-2 infection and should not be used as the sole basis for patient management decisions. Negative results must be combined with clinical observations, patient history, and epidemiological information.There is a risk of false negative values resulting from improperly collected, transported, or handled specimens.There is a risk of false negative values due to the presence of sequence variants in the pathogen targets of the assay, procedural errors, amplification inhibitors in specimens, or inadequate numbers of organisms for amplification.SAIGE SARS-CoV-2 Assay is a Real-Time reverse-transcriptase polymerase chain reaction (RT-PCR) based qualitative in vitro diagnostic test intended for the qualitative detection of nucleic acid from the SARS-CoV-2 in nasopharyngeal swab specimens collected from individuals suspected of COVID-19 by their healthcare provider. Testing is limited to laboratories certified under the Clinical Laboratory Improvement Amendments of 1988 (CLIA), 42 U.S.C. 263a, to perform moderate and high complexity tests. Normal AO Auto Urine SS LABORATORYOrdered By: SYSTEM SYSTEM on 08-23-2023 Ethanol [Mass/Vol] mg/dL Normal 0 - 3 mg/dL AO AD M SS Troponin I.cardiac DL <= 0.01 ng/mL [Mass/Vol] ng/L Normal 0.0 - 76.2 ng/L AO ADM SS Albumin BCP dye [Mass/Vol] 4.0 G/dL Normal 3.5 - 5.0 G/dL AO ADM SS Albumin/Globulin [Mass ratio] 1.1 {ratio} Normal 1.1 - 2.5 ratio AO ADM SS ALP [Catalytic activity/Vol] 110 U/L Normal 40 - 135 U/L AO ADM SS ALT With P-5'-P [Catalytic activity/Vol] 42 U/L Normal 16 - 63 U/L AO ADM SS AST With P-5'-P [Catalytic activity/Vol] 32 U/L Normal 10 - 40 U/L AO ADM SS Basophil, Absolute 0.1 103/mcL Normal 0.0 - 0.2 10^3/mcL AO Workflow SS Basophils/100 WBC (Bld) 0.8 % Normal 0.0 - 2.5 % AO Workflow SS Bilirubin [Mass/Vol] 0.6 mg/dL Normal 0.2 - 1 .0 mg/dL AO ADM SS Comment on above: Interpretive Data: U se of this assay is not recommended for patients undergoing treatment with eltrombopag due to the potential for falsely elevated results. Calcium [Mass/Vol] 9.5 mg/dL Normal 8.4 - 10. 2 mg/dL AO ADM SS Chloride [Moles/Vol] 99 mmol/L Normal 98 - 10 7 mmol/L AO ADM SS CO2 [Moles/Vol] 28 mmol/L Normal 22 - 29 mmol/L AO ADM SS Creatinine [Mass/Vol] 1.08 mg/dL Normal 0.70 - 1.30 mg/dL AO ADM SS Electrolyte Balance 7.0 mEq/L Normal 4.0 - 15 .0 mEq/L AO ADM SS Eosinophil, Absolute 0.7 103/mcL High 0.0 - 0 .4 10^3/mcL AO Workflow SS Eosinophils/100 WBC (Bld) 4.6 % Normal 0.0 - 7.0 % AO Workflow SS Erythrocyte distribution width (RBC) [Ratio] 14.8 % High 11.5 - 14.5 % AO Workflow SS GFR/1.73 sq M.predicted among blacks MDRD (S/P/Bld) [Vol rate/Area] 86 ml/min/1.73sqm Invalid Interpretation Code AO Chemistry S Comment on above: Interpretive Data: GFR Population mean for , Non- Americans Ages 20-29 = 116 mL/min/1.73 sq.m. Ages 30-39 = 107 mL/min/1.73 sq.m. Ages 40-49 = 99 mL/min/1.73 sq.m. Ages 50-59 = 93 mL/min/1.73 sq.m. Ages 60-69 = 85 mL/min/1.73 sq.m. Ages 70+ = 75 mL/min/1.73 sq.m. Chronic Kidney Disease: Less than 60 mL/min/1.73 square meters End Stage Renal Disease: Less than 15 mL/min/1.73 square meters GFR/1.73 sq M.predicted among non-blacks MDRD (S/P/Bld) [Vol rate/Area] 71 ml/min/1.73sqm Invalid Interpretation Code AO Chemistry S Comment on above: Interpretive Data: GFR Population mean for , Non- Americans Ages 20-29 = 116 mL/min/1.73 sq.m. Ages 30-39 = 107 mL/min/1.73 sq.m. Ages 40-49 = 99 mL/min/1.73 sq.m. Ages 50-59 = 93 mL/min/1.73 sq.m. Ages 60-69 = 85 mL/min/1.73 sq.m. Ages 70+ = 75 mL/min/1.73 sq.m. Chronic Kidney Disease: Less than 60 mL/min/1.73 square meters End Stage Renal Disease: Less than 15 mL/min/1.73 square meters Globulin 3.7 G/dL Invalid Interpretation Code AO ADM SS Glucose [Mass/Vol] 267 mg/dL High 70 - 105 mg/dL AO ADM SS Hematocrit (Bld) [Volume fraction] 44.4 % Normal 42.0 - 52.0 % AO Workflow SS Hemoglobin (Bld) [Mass/Vol] 14.6 G/dL Normal 14.0 - 18.0 G/dL AO Workflow SS Lymphocyte, Absolute 5.0 103/mcL High 0.8 - 3 .9 10^3/mcL AO Workflow SS Lymphocytes/100 WBC (Bld) 31.0 % Normal 10.0 - 50.0 % AO Workflow SS Magnesium [Mass/Vol] 2.0 mg/dL Normal 1.8 - 2 .4 mg/dL AO ADM SS MCH (RBC) [Entitic mass] 28.5 pg Normal 27.0 - 31.2 pg AO Workflow SS MCHC 32.8 G/dL Normal 31.8 - 35.4 G/dL AO Workflow SS MCV (RBC) [Entitic vol] 86.8 fL Normal 80.0 - 94.0 fL AO Workflow SS Monocyte distribution width Auto (Bld) [Entitic vol] 19.87 1 Normal 0.00 - 20.00 AO Workflow SS Comment on above: Result Comment: For ED adult patients suspected of sepsis, MDW<=20.0 does not rule out sepsis or risk of sepsis Monocyte, Absolute 1.4 103/mcL High 0.2 - 1.0 10^3/mcL AO Workflow SS Monocytes/100 WBC (Bld) 8.5 % Normal 1.7 - 13.0 % AO Workflow SS Neutrophil, Absolute 8.9 103/mcL High 2.9 - 6 .2 10^3/mcL AO Workflow SS Neutrophils/100 WBC (Bld) 55.1 % Normal 37.0 - 80.0 % AO Workflow SS Platelet mean volume (Bld) [Entitic vol] 7.2 fL Low 7.4 - 10.4 fL AO Workflow SS Platelets (Bld) [#/Vol] 329 103/mcL Normal 130 - 400 10^3/mcL AO Workflow SS Potassium [Moles/Vol] 5.2 mmol/L High 3.5 - 5.1 mmol/L AO ADM SS Protein [Mass/Vol] 7.7 G/dL Normal 6.4 - 8.2 G/dL AO ADM SS RBC (Bld) [#/Vol] 5.11 106/mcL Normal 4.04 - 6.1 3 10^6/mcL AO Workflow SS Sodium [Moles/Vol] 134 mmol/L Low 136 - 145 mmol/L AO ADM SS Troponin I.cardiac DL <= 0.01 ng/mL [Mass/Vol] 5.1 ng/L Normal 0.0 - 76.2 ng/L AO ADM SS Urea nitrogen [Mass/Vol] 21 mg/dL High 7 - 18 mg/dL AO ADM SS Urea nitrogen/Creatinine [Mass ratio] 19 ratio Normal 7 - 27 ratio AO ADM SS WBC (Bld) [#/Vol] 16.1 103/mcL High 4.6 - 10.8 10^3/mcL AO Workflow SS MGon 08-23-2023 Magnesium [Mass/Vol] 2.0 mg/dL Normal 1.8-2.4 [facility] ([place]) Comment on above: Performed By: #### U DRUG #### [address] [address] TROPHSon 08-23-2023 Troponin I High Sensitivity 5.1 ng/L Normal 0.0-76.2 [facility] ([place]) Comment on above: Performed By: #### M ALBR #### [address] [address] .Auto Diffon 06-08-2023 Basophil, Absolute 0.1 10 3/mcL Normal 0.0-0.2 [facility] ([place]) Comment on above: Performed By: #### C MP, ANEU, TSH, GFR, LIPID, ADIFF, PSA, CBC #### [address] [address] Basophils/100 WBC (Bld) 0.6 % Normal 0.0-2.5 [facility] ([place]) Comment on above: Performed By: #### C MP, ANEU, TSH, GFR, LIPID, ADIFF, PSA, CBC #### [address] [address] Eosinophil, Absolute 0.7 10 3/mcL High 0.0-0.4 [facility] ([place]) Comment on above: Performed By: #### C MP, ANEU, TSH, GFR, LIPID, ADIFF, PSA, CBC #### [address] [address] Eosinophils/100 WBC (Bld) 3.7 % Normal 0.0-7.0 [facility] ([place]) Comment on above: Performed By: #### C MP, ANEU, TSH, GFR, LIPID, ADIFF, PSA, CBC #### [address] [address] Lymphocyte, Absolute 6.5 10 3/mcL High 0.8-3.9 [facility] ([place]) Comment on above: Performed By: #### C MP, ANEU, TSH, GFR, LIPID, ADIFF, PSA, CBC #### [address] [address] Lymphocytes/100 WBC (Bld) 34.5 % Normal 10.0-50.0 [facility] ([place]) Comment on above: Performed By: #### C MP, ANEU, TSH, GFR, LIPID, ADIFF, PSA, CBC #### [address] [id number] Monocyte, Absolute 1.6 10 3/mcL High 0.2-1.0 [facility] ([place]) Comment on above: Performed By: #### C MP, ANEU, TSH, GFR, LIPID, ADIFF, PSA, CBC #### [address] [address] Monocytes/100 WBC (Bld) 8.7 % Normal 1.7-13.0 [facility] ([place]) Comment on above: Performed By: #### C MP, ANEU, TSH, GFR, LIPID, ADIFF, PSA, CBC #### [address] [address] Neutrophils/100 WBC (Bld) 52.5 % Normal 37.0-80.0 [facility] ([place]) Comment on above: Performed By: #### C MP, ANEU, TSH, GFR, LIPID, ADIFF, PSA, CBC #### [address] [address] .GFRon 06-08-2023 GFR 122 ml/min/1.73sqm Normal [facility] ([place]) Comment on above: Result Comment: GFR Population mean for , Non- Americans Ages 20-29 = 116 mL/min/1.73 sq.m. Ages 30-39 = 107 mL/min/1.73 sq.m. Ages 40-49 = 99 mL/min/1.73 sq.m. Ages 50-59 = 93 mL/min/1.73 sq.m. Ages 60-69 = 85 mL/min/1.73 sq.m. Ages 70+ = 75 mL/min/1.73 sq.m. Chronic Kidney Disease: Less than 60 mL/min/1.73 square meters End Stage Renal Disease: Less than 15 mL/min/1.73 square meters Performed By: #### C MP, ANEU, TSH, GFR, LIPID, ADIFF, PSA, CBC #### [address] [address] GFR Non- 101 ml/min/1.73sqm Normal [facility] ([place]) Comment on above: Result Comment: GFR Population mean for , Non- Americans Ages 20-29 = 116 mL/min/1.73 sq.m. Ages 30-39 = 107 mL/min/1.73 sq.m. Ages 40-49 = 99 mL/min/1.73 sq.m. Ages 50-59 = 93 mL/min/1.73 sq.m. Ages 60-69 = 85 mL/min/1.73 sq.m. Ages 70+ = 75 mL/min/1.73 sq.m. Chronic Kidney Disease: Less than 60 mL/min/1.73 square meters End Stage Renal Disease: Less than 15 mL/min/1.73 square meters Performed By: #### C MP, ANEU, TSH, GFR, LIPID, ADIFF, PSA, CBC #### [address] [address] .NEUABSon 06-08-2023 Neutrophil, Absolute 9.9 10 3/mcL High 2.9-6.2 [facility] ([place]) Comment on above: Performed By: #### C MP, ANEU, TSH, GFR, LIPID, ADIFF, PSA, CBC #### [address] [address] CBCon 06-08-2023 Erythrocyte distribution width (RBC) [Ratio] 14.7 % High 11.5-14.5 [facility] ([place]) Comment on above: Performed By: #### C MP, ANEU, TSH, GFR, LIPID, ADIFF, PSA, CBC #### [place] [address] Hematocrit (Bld) [Volume fraction] 45.2 % Normal 42.0-52.0 [facility] ([place]) Comment on above: Performed By: #### C MP, ANEU, TSH, GFR, LIPID, ADIFF, PSA, CBC #### [place] [address] Hgb 15.3 G/dL Normal 14.0-18.0 [facility] ([place]) Comment on above: Performed By: #### C MP, ANEU, TSH, GFR, LIPID, ADIFF, PSA, CBC #### [place] [address] MCH (RBC) [Entitic mass] 29.3 pg Normal 27.0-31.2 [facility] ([place]) Comment on above: Performed By: #### C MP, ANEU, TSH, GFR, LIPID, ADIFF, PSA, CBC #### [place] [address] MCHC 33.8 G/dL Normal 31.8-35.4 [facility] ([place]) Comment on above: Performed By: #### C MP, ANEU, TSH, GFR, LIPID, ADIFF, PSA, CBC #### [place] [address] MCV (RBC) [Entitic vol] 86.7 fL Normal 80.0-94.0 [facility] ([place]) Comment on above: Performed By: #### C MP, ANEU, TSH, GFR, LIPID, ADIFF, PSA, CBC #### [place] [address] Platelet 403 10 3/mcL High 130-400 [facility] ([place]) Comment on above: Performed By: #### C MP, ANEU, TSH, GFR, LIPID, ADIFF, PSA, CBC #### [place] [address] Platelet mean volume (Bld) [Entitic vol] 7.7 fL Normal 7.4-10.4 [facility] ([place]) Comment on above: Performed By: #### C MP, ANEU, TSH, GFR, LIPID, ADIFF, PSA, CBC #### [place] [id number] RBC 5.21 10 6/mcL Normal 4.04-6.13 [facility] ([place]) Comment on above: Performed By: #### C MP, ANEU, TSH, GFR, LIPID, ADIFF, PSA, CBC #### [place] [address] WBC 18.9 10 3/mcL High 4.6-10.8 [facility] ([place]) Comment on above: Performed By: #### C MP, ANEU, TSH, GFR, LIPID, ADIFF, PSA, CBC #### [address] [address] CMPon 06-08-2023 Albumin Level 4.3 G/dL Normal 3.5-5.0 [facility] ([place]) Comment on above: Performed By: #### C MP, ANEU, TSH, GFR, LIPID, ADIFF, PSA, CBC #### [place] [id number] Albumin/Globulin [Mass ratio] 1.1 {ratio} Normal 1.1-2.5 [facility] ([place]) Comment on above: Performed By: #### C MP, ANEU, TSH, GFR, LIPID, ADIFF, PSA, CBC #### [place] [id number] ALP [Catalytic activity/Vol] 92 U/L Normal 40-135 [facility] ([place]) Comment on above: Performed By: #### C MP, ANEU, TSH, GFR, LIPID, ADIFF, PSA, CBC #### [place] [address] ALT [Catalytic activity/Vol] 39 U/L Normal 16-63 [facility] ([place]) Comment on above: Performed By: #### C MP, ANEU, TSH, GFR, LIPID, ADIFF, PSA, CBC #### [address] [address] AST [Catalytic activity/Vol] 20 U/L Normal 10-40 [facility] ([place]) Comment on above: Performed By: #### C MP, ANEU, TSH, GFR, LIPID, ADIFF, PSA, CBC #### [address] [address] Bili Total 0.4 mg/dL Normal 0.2-1.0 [facility] ([place]) Comment on above: Result Comment: Use of this assay is not recommended for patients undergoing treatment with eltrombopag due to the potential for falsely elevated results. Performed By: #### C MP, ANEU, TSH, GFR, LIPID, ADIFF, PSA, CBC #### [place] [id number] BUN/Creatinine Ratio 26 ratio Normal 7-27 [facility] ([place]) Comment on above: Performed By: #### C MP, ANEU, TSH, GFR, LIPID, ADIFF, PSA, CBC #### [address] [address] Calcium [Mass/Vol] 9.6 mg/dL Normal 8.4-10.2 [facility] ([place]) Comment on above: Performed By: #### C MP, ANEU, TSH, GFR, LIPID, ADIFF, PSA, CBC #### [address] [address] Chloride [Moles/Vol] 100 mmol/L Normal 98-107 [facility] ([place]) Comment on above: Performed By: #### C MP, ANEU, TSH, GFR, LIPID, ADIFF, PSA, CBC #### [address] [address] CO2 [Moles/Vol] 27 mmol/L Normal 22-29 [facility] ([place]) Comment on above: Performed By: #### C MP, ANEU, TSH, GFR, LIPID, ADIFF, PSA, CBC #### [address] [address] Creatinine [Mass/Vol] 0.80 mg/dL Normal 0.70-1.30 [facility] ([place]) Comment on above: Performed By: #### C MP, ANEU, TSH, GFR, LIPID, ADIFF, PSA, CBC #### [address] [address] Electrolyte Balance 12.0 mEq/L Normal 4.0-15.0 On license of [facility] ([place]) Comment on above: Performed By: #### C MP, ANEU, TSH, GFR, LIPID, ADIFF, PSA, CBC #### [address] [address] Globulin 3.8 G/dL Normal [facility] ([place]) Comment on above: Performed By: #### C MP, ANEU, TSH, GFR, LIPID, ADIFF, PSA, CBC #### [place] [id number] Glucose [Mass/Vol] 59 mg/dL Low 70-105 [facility] ([place]) Comment on above: Performed By: #### C MP, ANEU, TSH, GFR, LIPID, ADIFF, PSA, CBC #### [place] [id number] Potassium [Moles/Vol] 4.6 mmol/L Normal 3.5-5.1 [facility] ([place]) Comment on above: Performed By: #### C MP, ANEU, TSH, GFR, LIPID, ADIFF, PSA, CBC #### [place] [id number] Sodium [Moles/Vol] 139 mmol/L Normal 136-145 [facility] ([place]) Comment on above: Performed By: #### C MP, ANEU, TSH, GFR, LIPID, ADIFF, PSA, CBC #### [place] [id number] Total Protein 8.1 G/dL Normal 6.4-8.2 [facility] ([place]) Comment on above: Performed By: #### C MP, ANEU, TSH, GFR, LIPID, ADIFF, PSA, CBC #### [address] [address] Urea nitrogen [Mass/Vol] 21 mg/dL High 7-18 [facility] ([place]) Comment on above: Performed By: #### C MP, ANEU, TSH, GFR, LIPID, ADIFF, PSA, CBC #### [address] [address] LABORATORYOrdered By: Case Gomez on 06-08-2023 Albumin DL <= 20 mg/L (U) [Mass/Vol] 1458 mcg/dL Invalid Interpretation Code AO ADM SS Albumin/Creatinine DL <= 20 mg/L (U) [Mass ratio] 16 mcg/mg Invalid Interpretation Code 0 - 30 mcg/mg AO ADM SS Creatinine (U) [Mass/Vol] 88.4 mg/dL Invalid Interpretation Code 39.0 - 259.0 mg/dL AO ADM SS LABORATORYOrdered By: SYSTEM SYSTEM on 06-08-2023 Albumin BCP dye [Mass/Vol] 4.3 G/dL Invalid Interpretation Code 3.5 - 5.0 G/dL AO ADM SS Albumin/Globulin [Mass ratio] 1.1 {ratio} Invalid Interpretation Code 1.1 - 2.5 ratio AO ADM SS ALP [Catalytic activity/Vol] 92 U/L Invalid Interpretation Code 40 - 135 U/L AO ADM SS ALT With P-5'-P [Catalytic activity/Vol] 39 U/L Invalid Interpretation Code 16 - 63 U/L AO ADM SS AST With P-5'-P [Catalytic activity/Vol] 20 U/L Invalid Interpretation Code 10 - 40 U/L AO ADM SS Basophil, Absolute 0.1 103/mcL Invalid Interpretation Code 0.0 - 0.2 10^3/mcL AO Workflow SS Basophils/100 WBC (Bld) 0.6 % Invalid Interpretation Code 0.0 - 2.5 % AO Workflow SS Bilirubin [Mass/Vol] 0.4 mg/dL Invalid Interpretation Code 0.2 - 1.0 mg/dL AO ADM SS Comment on above: Interpretive Data: U se of this assay is not recommended for patients undergoing treatment with eltrombopag due to the potential for falsely elevated results. Calcium [Mass/Vol] 9.6 mg/dL Invalid Interpretation Code 8.4 - 10.2 mg/dL AO ADM SS Chloride [Moles/Vol] 100 mmol/L Invalid Interpretation Code 98 - 107 mmol/L AO ADM SS CO2 [Moles/Vol] 27 mmol/L Invalid Interpretation Code 22 - 29 mmol/L AO ADM SS Creatinine [Mass/Vol] 0.80 mg/dL Invalid Interpretation Code 0.70 - 1.30 mg/dL AO ADM SS Electrolyte Balance 12.0 mEq/L Invalid Interpretation Code 4.0 - 15.0 mEq/L AO ADM SS Eosinophil, Absolute 0.7 103/mcL Invalid Interpretation Code 0.0 - 0.4 10^3/mcL AO Workflow SS Eosinophils/100 WBC (Bld) 3.7 % Invalid Interpretation Code 0.0 - 7.0 % AO Workflow SS Erythrocyte distribution width (RBC) [Ratio] 14.7 % Invalid Interpretation Code 11.5 - 14.5 % AO Workflow SS GFR/1.73 sq M.predicted among blacks MDRD (S/P/Bld) [Vol rate/Area] 122 ml/min/1.73sqm Invalid Interpretation Code AO Chemistry S Comment on above: Interpretive Data: GFR Population mean for , Non- Americans Ages 20-29 = 116 mL/min/1.73 sq.m. Ages 30-39 = 107 mL/min/1.73 sq.m. Ages 40-49 = 99 mL/min/1.73 sq.m. Ages 50-59 = 93 mL/min/1.73 sq.m. Ages 60-69 = 85 mL/min/1.73 sq.m. Ages 70+ = 75 mL/min/1.73 sq.m. Chronic Kidney Disease: Less than 60 mL/min/1.73 square meters End Stage Renal Disease: Less than 15 mL/min/1.73 square meters GFR/1.73 sq M.predicted among non-blacks MDRD (S/P/Bld) [Vol rate/Area] 101 ml/min/1.73sqm Invalid Interpretation Code AO Chemistry S Comment on above: Interpretive Data: GFR Population mean for , Non- Americans Ages 20-29 = 116 mL/min/1.73 sq.m. Ages 30-39 = 107 mL/min/1.73 sq.m. Ages 40-49 = 99 mL/min/1.73 sq.m. Ages 50-59 = 93 mL/min/1.73 sq.m. Ages 60-69 = 85 mL/min/1.73 sq.m. Ages 70+ = 75 mL/min/1.73 sq.m. Chronic Kidney Disease: Less than 60 mL/min/1.73 square meters End Stage Renal Disease: Less than 15 mL/min/1.73 square meters Globulin 3.8 G/dL Invalid Interpretation Code AO ADM SS Glucose [Mass/Vol] 59 mg/dL Invalid Interpretation Code 70 - 105 mg/dL AO ADM SS Hematocrit (Bld) [Volume fraction] 45.2 % Invalid Interpretation Code 42.0 - 52.0 % AO Workflow SS Hemoglobin (Bld) [Mass/Vol] 15.3 G/dL Invalid Interpretation Code 14.0 - 18.0 G/dL AO Workflow SS Lymphocyte, Absolute 6.5 103/mcL Invalid Interpretation Code 0.8 - 3.9 10^3/mcL AO Workflow SS Lymphocytes/100 WBC (Bld) 34.5 % Invalid Interpretation Code 10.0 - 50.0 % AO Workflow SS MCH (RBC) [Entitic mass] 29.3 pg Invalid Interpretation Code 27.0 - 31.2 pg AO Workflow SS MCHC 33.8 G/dL Invalid Interpretation Code 31.8 - 35.4 G/dL AO Workflow SS MCV (RBC) [Entitic vol] 86.7 fL Invalid Interpretation Code 80.0 - 94.0 fL AO Workflow SS Monocyte, Absolute 1.6 103/mcL Invalid Interpretation Code 0.2 - 1.0 10^3/mcL AO Workflow SS Monocytes/100 WBC (Bld) 8.7 % Invalid Interpretation Code 1.7 - 13.0 % AO Workflow SS Neutrophil, Absolute 9.9 103/mcL Invalid Interpretation Code 2.9 - 6.2 10^3/mcL AO Workflow SS Neutrophils/100 WBC (Bld) 52.5 % Invalid Interpretation Code 37.0 - 80.0 % AO Workflow SS Platelet mean volume (Bld) [Entitic vol] 7.7 fL Invalid Interpretation Code 7.4 - 10.4 fL AO Workflow SS Platelets (Bld) [#/Vol] 403 103/mcL Invalid Interpretation Code 130 - 400 10^3/mcL AO Workflow SS Potassium [Moles/Vol] 4.6 mmol/L Invalid Interpretation Code 3.5 - 5.1 mmol/L AO ADM SS Prostate specific Ag [Mass/Vol] 1.24 ng/mL Invalid Interpretation Code 0.00 - 4.00 ng/mL AO ADM SS Protein [Mass/Vol] 8.1 G/dL Invalid Interpretation Code 6.4 - 8.2 G/dL AO ADM SS RBC (Bld) [#/Vol] 5.21 106/mcL Invalid Interpretation Code 4.04 - 6.13 10^6/mcL AO Workflow SS Sodium [Moles/Vol] 139 mmol/L Invalid Interpretation Code 136 - 145 mmol/L AO ADM SS TSH Qn 3.82 m[IU]/L Invalid Interpretation Code 0.36 - 3.74 mcIU/mL AO ADM SS Urea nitrogen [Mass/Vol] 21 mg/dL Invalid Interpretation Code 7 - 18 mg/dL AO ADM SS Urea nitrogen/Creatinine [Mass ratio] 26 ratio Invalid Interpretation Code 7 - 27 ratio AO ADM SS WBC (Bld) [#/Vol] 18.9 103/mcL Invalid Interpretation Code 4.6 - 10.8 10^3/mcL AO Workflow SS LABORATORYOrdered By: Ana Rodriguez on 06-08-2023 Cholesterol [Mass/Vol] 218 mg/dL Invalid Interpretation Code 0 - 200 mg/dL AO ADM SS Comment on above: Interpretive Data: C holesterol Reference Interval: Less than 200 Desirable 200-239 Borderline high risk 240 and above High risk Cholesterol in HDL [Mass/Vol] 45 mg/dL Invalid Interpretation Code 40 - 60 mg/dL AO ADM SS Cholesterol in LDL [Mass/Vol] 113 mg/dL Invalid Interpretation Code 0 - 130 mg/dL AO ADM SS Triglyceride [Mass/Vol] 298 mg/dL Invalid Interpretation Code 0 - 150 mg/dL AO ADM SS Comment on above: Interpretive Data: T riglyceride Reference Interval: Less than 150 Normal 150-199 Borderline high risk 200-499 High risk 500 or higher Very high risk LIPIDon 06-08-2023 Cholesterol [Mass/Vol] 218 mg/dL High 0-200 [facility] ([place]) Comment on above: Result Comment: Chol esterol Reference Interval: Less than 200 Desirable 200-239 Borderline high risk 240 and above High risk Performed By: #### U DRUG #### [address] [place], [place] [address] Cholesterol in HDL [Mass/Vol] 45 mg/dL Normal 40-60 [facility] ([place]) Comment on above: Performed By: #### U DRUG #### [address] [place] [id number] [place], [place] [address] Cholesterol in LDL [Mass/Vol] 113 mg/dL Normal 0-130 [facility] ([place]) Comment on above: Performed By: #### U DRUG #### [place] [id number] [place], [place] [address] Triglyceride [Mass/Vol] 298 mg/dL High 0-150 [facility] ([place]) Comment on above: Result Comment: Trig lyceride Reference Interval: Less than 150 Normal 150-199 Borderline high risk 200-499 High risk 500 or higher Very high risk Performed By: #### U DRUG #### [place] [id number] [place], [place] [address] MALBRon 06-08-2023 U Creatinine 88.4 mg/dL Normal 39.0-259.0 [facility] ([place]) Comment on above: Performed By: #### M ALBR #### [address] [address] U Microalb 1458 mcg/dL Normal [facility] ([place]) Comment on above: Performed By: #### M ALBR #### [place] [address] U Ratio Alb/Cre 16 mcg/mg Normal 0-30 [facility] ([place]) Comment on above: Performed By: #### M ALBR #### [place] [address] PSAon 06-08-2023 Prostate Specific Antigen 1.24 ng/mL Normal 0.00-4.00 [facility] ([place]) Comment on above: Performed By: #### C MP, ANEU, TSH, GFR, LIPID, ADIFF, PSA, CBC #### [place] [address] TSHon 06-08-2023 TSH Qn 3.82 m[IU]/L High 0.36-3.74 [facility] ([place]) Comment on above: Performed By: #### C MP, ANEU, TSH, GFR, LIPID, ADIFF, PSA, CBC #### [place] [address] LABORATORYOrdered By: SYSTEM SYSTEM on 12-08-2022 Albumin BCP dye [Mass/Vol] 4.0 G/dL Invalid Interpretation Code 3.5 - 5.0 G/dL AO ADM SS Albumin/Globulin [Mass ratio] 1.2 {ratio} Invalid Interpretation Code 1.1 - 2.5 ratio AO ADM SS ALP [Catalytic activity/Vol] 89 U/L Invalid Interpretation Code 40 - 135 U/L AO ADM SS ALT With P-5'-P [Catalytic activity/Vol] 47 U/L Invalid Interpretation Code 16 - 63 U/L AO ADM SS AST With P-5'-P [Catalytic activity/Vol] 23 U/L Invalid Interpretation Code 10 - 40 U/L AO ADM SS Bilirubin [Mass/Vol] 0.4 mg/dL Invalid Interpretation Code 0.2 - 1.0 mg/dL AO ADM SS Calcium [Mass/Vol] 9.4 mg/dL Invalid Interpretation Code 8.4 - 10.2 mg/dL AO ADM SS Chloride [Moles/Vol] 100 mmol/L Invalid Interpretation Code 98 - 107 mmol/L AO ADM SS CO2 [Moles/Vol] 28 mmol/L Invalid Interpretation Code 22 - 29 mmol/L AO ADM SS Creatinine [Mass/Vol] 0.72 mg/dL Invalid Interpretation Code 0.70 - 1.30 mg/dL AO ADM SS Electrolyte Balance 8.0 mEq/L Invalid Interpretation Code 4.0 - 15.0 mEq/L AO ADM SS GFR 138 ml/min/1.73sqm Invalid Interpretation Code AO Chemistry S GFR Non- 114 ml/min/1.73sqm Invalid Interpretation Code AO Chemistry S Globulin 3.3 G/dL Invalid Interpretation Code AO ADM SS Glucose [Mass/Vol] 167 mg/dL Invalid Interpretation Code 70 - 105 mg/dL AO ADM SS Potassium [Moles/Vol] 4.7 mmol/L Invalid Interpretation Code 3.5 - 5.1 mmol/L AO ADM SS Prostate specific Ag [Mass/Vol] 0.81 ng/mL Invalid Interpretation Code 0.00 - 4.00 ng/mL AO ADM SS Protein [Mass/Vol] 7.3 G/dL Invalid Interpretation Code 6.4 - 8.2 G/dL AO ADM SS Sodium [Moles/Vol] 136 mmol/L Invalid Interpretation Code 136 - 145 mmol/L AO ADM SS Urea nitrogen [Mass/Vol] 18 mg/dL Invalid Interpretation Code 7 - 18 mg/dL AO ADM SS Urea nitrogen/Creatinine [Mass ratio] 25 ratio Invalid Interpretation Code 7 - 27 ratio AO ADM SS LABORATORYOrdered By: Ana Rodriguez on 12-08-2022 Cholesterol [Mass/Vol] 145 mg/dL Invalid Interpretation Code 0 - 200 mg/dL AO ADM SS Cholesterol in HDL [Mass/Vol] 30 mg/dL Invalid Interpretation Code 40 - 60 mg/dL AO ADM SS Cholesterol in LDL [Mass/Vol] 82 mg/dL Invalid Interpretation Code 0 - 130 mg/dL AO ADM SS Triglyceride [Mass/Vol] 166 mg/dL Invalid Interpretation Code 0 - 150 mg/dL AO ADM SS LABORATORYOrdered By: Corrina best on 06-22-2022 Adenovirus DNA MALVIN+non-probe Ql (Nph) Not Detected *NA* (06/22/22 1:34 PM) Invalid Interpretation Code Not Detected AH Auto Viro/Sero SS ADMITTED TO INTENSIVE CARE UNIT FOR CONDITION OF INTEREST:FIND:PT:^LINDA ENT:ORD: No (06/22/22 1:34 PM) Invalid Interpretation Code AH Auto Viro/Sero SS B. parapertussis [id number] DNA MALVIN+non-probe Ql (Nph) Not Detected *NA* (06/22/22 1:34 PM) Invalid Interpretation Code Not Detected AH Auto Viro/Sero SS B. pertussis toxin promoter region MALVIN+non-probe Ql (Nph) Not Detected *NA* (06/22/22 1:34 PM) Invalid Interpretation Code Not Detected AH Auto Viro/Sero SS C. pneumoniae DNA MALVIN+non-probe Ql (Nph) Not Detected *NA* (06/22/22 1:34 PM) Invalid Interpretation Code Not Detected AH Auto Viro/Sero SS EMPLOYED IN A HEALTHCARE SETTING:FIND:PT:^PATIE NT:ORD: No (06/22/22 1:34 PM) Invalid Interpretation Code AH Auto Viro/Sero SS FIRST TEST FOR CONDITION OF INTEREST:FIND:PT:^LINDA ENT:ORD: Unknown (06/22/22 1:34 PM) Invalid Interpretation Code AH Auto Viro/Sero SS FLUAV RNA MALVIN+non-probe Ql (Nph) Not Detected *NA* (06/22/22 1:34 PM) Invalid Interpretation Code Not Detected AH Auto Viro/Sero SS FLUBV RNA MALVIN+non-probe Ql (Nph) Not Detected *NA* (06/22/22 1:34 PM) Invalid Interpretation Code Not Detected Auto Viro/Sero SS HAS SYMPTOMS RELATED TO CONDITION OF INTEREST:FIND:PT:^LINDA ENT:ORD: Yes (06/22/22 1:34 PM) Invalid Interpretation Code Auto Viro/Sero SS hMPV RNA MALVIN+non-probe Ql (Nph) Not Detected *NA* (06/22/22 1:34 PM) Invalid Interpretation Code Not Detected Auto Viro/Sero SS Illness or injury onset date and time [id number] Invalid Interpretation Code Auto Viro/Sero SS M. pneumoniae DNA MALVIN+non-probe Ql (Nph) Not Detected *NA* (06/22/22 1:34 PM) Invalid Interpretation Code Not Detected Auto Viro/Sero SS Parainfluenza virus 1 RNA MALVIN+non-probe Ql (Nph) Not Detected *NA* (06/22/22 1:34 PM) Invalid Interpretation Code Not Detected Auto Viro/Sero SS Parainfluenza virus 2 RNA MALVIN+non-probe Ql (Nph) Not Detected *NA* (06/22/22 1:34 PM) Invalid Interpretation Code Not Detected Auto Viro/Sero SS Parainfluenza virus 3 RNA MALVIN+non-probe Ql (Nph) Not Detected *NA* (06/22/22 1:34 PM) Invalid Interpretation Code Not Detected Auto Viro/Sero SS Parainfluenza virus 4 RNA MALVIN+non-probe Ql (Nph) Not Detected *NA* (06/22/22 1:34 PM) Invalid Interpretation Code Not Detected AH Auto Viro/Sero SS Patient was hospitalized because of this condition No (06/22/22 1:34 PM) Invalid Interpretation Code Auto Viro/Sero SS status Not (06/22/22 1:34 PM) Invalid Interpretation Code AH Auto Viro/Sero SS RESIDES IN A CONGREGATE CARE SETTING:FIND:PT:^PATIE NT:ORD: No (06/22/22 1:34 PM) Invalid Interpretation Code Auto Viro/Sero SS Rhinovirus+Enterovirus RNA MALVIN+non-probe Ql (Nph) Detected *ABN* (06/22/22 1:34 PM) Invalid Interpretation Code Not Detected AH Auto Viro/Sero SS RSV RNA MALVIN+non-probe Ql (Nph) Not Detected *NA* (06/22/22 1:34 PM) Invalid Interpretation Code Not Detected AH Auto Viro/Sero SS SARS-CoV-2 (COVID-19) RNA MALVIN+probe Ql (Resp) Not Detected *NA* (06/22/22 1:34 PM) Invalid Interpretation Code Not Detected AH Auto Viro/Sero SS LABORATORYOrdered By: Anup Almazan on 10-28-2021 Albumin BCP dye [Mass/Vol] 4.1 G/dL Invalid Interpretation Code 3.5 - 5.0 G/dL AO ADM SS Albumin DL <= 20 mg/L (U) [Mass/Vol] 2078 mcg/dL Invalid Interpretation Code AO ADM SS Albumin/Creatinine DL <= 20 mg/L (U) [Mass ratio] 14 mcg/mg Invalid Interpretation Code 0 - 30 mcg/mg AO ADM SS Albumin/Globulin [Mass ratio] 1.2 {ratio} Invalid Interpretation Code 1.1 - 2.5 ratio AO ADM SS ALP [Catalytic activity/Vol] 74 U/L Invalid Interpretation Code 40 - 135 U/L AO ADM SS ALT With P-5'-P [Catalytic activity/Vol] 36 U/L Invalid Interpretation Code 16 - 63 U/L AO ADM SS AST With P-5'-P [Catalytic activity/Vol] 15 U/L Invalid Interpretation Code 10 - 40 U/L AO ADM SS Bilirubin [Mass/Vol] 0.6 mg/dL Invalid Interpretation Code 0.2 - 1.0 mg/dL AO ADM SS Calcium [Mass/Vol] 9.3 mg/dL Invalid Interpretation Code 8.4 - 10.2 mg/dL AO ADM SS Chloride [Moles/Vol] 96 mmol/L Invalid Interpretation Code 98 - 107 mmol/L AO ADM SS Cholesterol [Mass/Vol] 179 mg/dL Invalid Interpretation Code 0 - 200 mg/dL AO ADM SS Cholesterol in HDL [Mass/Vol] 38 mg/dL Invalid Interpretation Code 40 - 60 mg/dL AO ADM SS Cholesterol in LDL [Mass/Vol] 112 mg/dL Invalid Interpretation Code 0 - 130 mg/dL AO ADM SS CO2 [Moles/Vol] 27 mmol/L Invalid Interpretation Code 22 - 29 mmol/L AO ADM SS Creatinine (U) [Mass/Vol] 146.7 mg/dL Invalid Interpretation Code 39.0 - 259.0 mg/dL AO ADM SS Creatinine [Mass/Vol] 0.75 mg/dL Invalid Interpretation Code 0.70 - 1.30 mg/dL AO ADM SS Electrolyte Balance 11.0 mEq/L Invalid Interpretation Code 4.0 - 15.0 mEq/L AO ADM SS Globulin 3.3 G/dL Invalid Interpretation Code AO ADM SS Glucose [Mass/Vol] 172 mg/dL Invalid Interpretation Code 70 - 105 mg/dL AO ADM SS Potassium [Moles/Vol] 4.3 mmol/L Invalid Interpretation Code 3.5 - 5.1 mmol/L AO ADM SS Prostate specific Ag [Mass/Vol] 0.95 ng/mL Invalid Interpretation Code 0.00 - 4.00 ng/mL AO ADM SS Protein [Mass/Vol] 7.4 G/dL Invalid Interpretation Code 6.4 - 8.2 G/dL AO ADM SS Sodium [Moles/Vol] 134 mmol/L Invalid Interpretation Code 136 - 145 mmol/L AO ADM SS Triglyceride [Mass/Vol] 145 mg/dL Invalid Interpretation Code 0 - 150 mg/dL AO ADM SS Urea nitrogen [Mass/Vol] 17 mg/dL Invalid Interpretation Code 7 - 18 mg/dL AO ADM SS Urea nitrogen/Creatinine [Mass ratio] 23 ratio Invalid Interpretation Code 7 - 27 ratio AO ADM SS LABORATORYOrdered By: SYSTEM SYSTEM on 10-28-2021 GFR 133 ml/min/1.73sqm Invalid Interpretation Code AO Chemistry S GFR Non- 109 ml/min/1.73sqm Invalid Interpretation Code AO Chemistry S LABORATORYOrdered By: Ana Rodriguez on 10-28-2021 HbA1c (Bld) [Mass fraction] 8.7 % Invalid Interpretation Code 4.3 - 6.4 % AO ADM SS Vital Signs Date Time Vital Sign Value Performing Clinician Facility 05-06-2025 14:-0400 Body height 180.[address] Jamaica Hogue DO Work Phone: [facility] 05-06-2025 14:23-0400 Body mass index (BMI) [Ratio] 52.5 kg/m2 Dr. Jamaica Hogue DO Work Phone: [facility] 05-06-2025 14:23-0400 Body weight [address] Jamaica Hogue DO Work Phone: [facility] 05-06-2025 14:23-0400 Diastolic blood pressure 97 mm[Hg] Dr. Jamaica Hogue DO Work Phone: [facility] 05-06-2025 14:23-0400 Heart rate 91 /min Dr. Jamaica Hogue DO Work Phone: [facility] 05-06-2025 14:23-0400 SaO2% (BldA) [Mass fraction] 95 % Dr. Jamaica Hogue DO Work Phone: [facility] 05-06-2025 14:23-0400 Systolic blood pressure 149 mm[Hg] Dr. Jamaica Hogue DO Work Phone: [facility] 02-08-2025 00:46-0400 Diastolic Blood Pressure Non-Invasive 96 mm[Hg] NIDAL CHOUJAA DO [facility] 02-08-2025 00:46-0400 Heart rate 97 /min NIDAL CHOUJAA DO [facility] 02-08-2025 00:46-0400 Respiratory rate 22 /min NIDAL CHOUJAA DO [facility] 02-08-2025 00:46-0400 Systolic Blood Pressure Non-Invasive 153 mm[Hg] NIDAL CHOUJAA DO [facility] 02-07-2025 22:57-0400 Blood Pressure Location NIDAL CHOUJAA DO [facility] 02-07-2025 22:57-0400 Blood Pressure Method NIDAL CHOUJAA DO [facility] 02-07-2025 22:57-0400 Body height 182.9 cm NIDAL CHOUJAA DO [facility] 02-07-2025 22:57-0400 Body temperature 98.24 [degF] NIDAL CHOUJAA DO [facility] 02-07-2025 22:57-0400 Body weight 179.5 kg NIDAL CHOUJAA DO [facility] 02-07-2025 22:57-0400 Diastolic Blood Pressure Non-Invasive 126 mm[Hg] NIDAL CHOUJAA DO [facility] 02-07-2025 22:57-0400 Heart rate 114 /min NIDAL CHOUJAA DO [facility] 02-07-2025 22:57-0400 Respiratory rate 20 /min NIDAL CHOUJAA DO [facility] 02-07-2025 22:57-0400 Systolic Blood Pressure Non-Invasive 143 mm[Hg] NIDAL CHOUJAA DO [facility] 02-04-2025 08:24-0400 Body mass index (BMI) [Ratio] 53.8 kg/m2 Dr. Jamaica Hogue DO Work Phone: [facility] 02-04-2025 08:24-0400 Body weight 175.[address] Jamaica Hogue DO Work Phone: [facility] 02-04-2025 08:24-0400 Diastolic blood pressure 75 mm[Hg] Dr. Jamaica Hogue DO Work Phone: [facility] 02-04-2025 08:24-0400 Heart rate 106 /min Dr. Jamaica Hogue DO Work Phone: [facility] 02-04-2025 08:24-0400 SaO2% (BldA) [Mass fraction] 96 % Dr. Jamaica Hogue DO Work Phone: [facility] 02-04-2025 08:24-0400 Systolic blood pressure 143 mm[Hg] Dr. Jamaica Hogue DO Work Phone: [facility] 12-07-2024 22:08-0500 Diastolic Blood Pressure Non-Invasive 89 mm[Hg] DR OVIDIO MEEHAN DO [facility] 12-07-2024 22:08-0500 Heart rate 102 /min DR OVIDIO MEEHAN DO [facility] 12-07-2024 22:08-0500 Respiratory rate 20 /min DR OVIDIO MEEHAN DO [facility] 12-07-2024 22:08-0500 Systolic Blood Pressure Non-Invasive 136 mm[Hg] DR OVIDIO MEEHAN DO [facility] 12-07-2024 20:45-0500 Diastolic Blood Pressure Non-Invasive 99 mm[Hg] DR OVIDIO MEEHAN DO [facility] 12-07-2024 20:45-0500 Heart rate 103 /min DR OVIDIO MEEHAN DO [facility] 12-07-2024 20:45-0500 Systolic Blood Pressure Non-Invasive 153 mm[Hg] DR OVIDIO MEEHAN DO [facility] 12-07-2024 19:44-0500 Body weight 174.[address] OVIDIO MEEHAN DO [facility] 12-07-2024 19:44-0500 Diastolic Blood Pressure Non-Invasive 108 mm[Hg] DR OVIDIO MEEHAN DO [facility] 12-07-2024 19:44-0500 Heart rate 111 /min DR OVIDIO MEEHAN DO [facility] 12-07-2024 19:44-0500 Respiratory rate 20 /min DR OVIDIO MEEHAN DO [facility] 12-07-2024 19:44-0500 Systolic Blood Pressure Non-Invasive 174 mm[Hg] DR OVIDIO MEEHAN DO [facility] 08-01-2024 11:56-0400 Blood Pressure Location CLYDE TUTTLE MD [facility] 08-01-2024 11:56-0400 Blood Pressure Method CLYDE TUTTLE MD [facility] 08-01-2024 11:56-0400 Diastolic Blood Pressure Non-Invasive 84 mm[Hg] CLYDE TUTTLE MD [facility] 08-01-2024 11:56-0400 Heart rate 82 /min CLYDE TUTTLE MD [facility] 08-01-2024 11:56-0400 Respiratory rate 18 /min CLYDE TUTTLE MD [facility] 08-01-2024 11:56-0400 Systolic Blood Pressure Non-Invasive 137 mm[Hg] CLYDE TUTTLE MD [facility] 08-01-2024 09:44-0400 Blood Pressure Location CLYDE TUTTLE MD [facility] 08-01-2024 09:44-0400 Blood Pressure Method CLYDE TUTTLE MD [facility] 08-01-2024 09:44-0400 Body temperature 98.42 [degF] CLYDE TUTTLE MD [facility] 08-01-2024 09:44-0400 Diastolic Blood Pressure Non-Invasive 87 mm[Hg] CLYDE TUTTLE MD [facility] 08-01-2024 09:44-0400 Heart rate 96 /min CLYDE TUTTLE MD [facility] 08-01-2024 09:44-0400 Respiratory rate 18 /min CLYDE TUTTLE MD [facility] 08-01-2024 09:44-0400 Systolic Blood Pressure Non-Invasive 144 mm[Hg] CLYDE TUTTLE MD [facility] 01-09-2024 08:04-0400 Body height 180.[address] Jamaica Hogue Work Phone: [facility] 01-09-2024 08:04-0400 Body mass index (BMI) [Ratio] 53.6 kg/m2 Dr. Jamaica Hogue Work Phone: [facility] 01-09-2024 08:04-0400 Body temperature 98.5 [degF] Dr. Jamaica Hogue Work Phone: [facility] 01-09-2024 08:04-0400 Body weight 174.[address] Jamaica Hogue Work Phone: [facility] 01-09-2024 08:04-0400 Diastolic blood pressure 82 mm[Hg] Dr. Jamaica Hogue Work Phone: [facility] 01-09-2024 08:04-0400 Heart rate 76 /min Dr. Jamaica Hogue Work Phone: [facility] 01-09-2024 08:04-0400 SaO2% (BldA) [Mass fraction] 95 % Dr. Jamaica Hogue Work Phone: [facility] 01-09-2024 08:04-0400 Systolic blood pressure 149 mm[Hg] Dr. Jamaica Hogue Work Phone: [facility] 01-07-2024 22:06-0400 Diastolic Blood Pressure Non-Invasive 72 mm[Hg] DR OVIDIO MEEHAN DO [facility] 01-07-2024 22:06-0400 Heart rate 74 /min DR OVIDIO MEEHAN DO [facility] 01-07-2024 22:06-0400 Respiratory rate 18 /min DR OVIDIO MEEHAN DO [facility] 01-07-2024 22:06-0400 Systolic Blood Pressure Non-Invasive 142 mm[Hg] DR OVIDIO MEEHAN DO [facility] 01-07-2024 20:40-0400 Body temperature 97.88 [degF] DR OVIDIO MEEHAN DO [facility] 01-07-2024 20:40-0400 Diastolic Blood Pressure Non-Invasive 74 mm[Hg] DR OVIDIO MEEHAN DO [facility] 01-07-2024 20:40-0400 Heart rate 80 /min DR OVIDIO MEEHAN DO [facility] 01-07-2024 20:40-0400 Respiratory rate 18 /min DR OVIDIO MEEHAN DO [facility] 01-07-2024 20:40-0400 Systolic Blood Pressure Non-Invasive 135 mm[Hg] DR OVIDIO MEEHAN DO [facility] 10-14-2023 11:15-0500 Body mass index (BMI) [Ratio] 51.6 kg/m2 Dr. Jamaica Hogue Work Phone: [facility] 10-14-2023 11:15-0500 Body temperature 98.8 [degF] Dr. Jamaica Hogue Work Phone: [facility] 10-14-2023 11:15-0500 Body weight 167.[address] Jamaica Hogue Work Phone: [facility] 10-14-2023 11:15-0500 Diastolic blood pressure 80 mm[Hg] Dr. Jamaica Hogue Work Phone: [facility] 10-14-2023 11:15-0500 Heart rate 78 /min Dr. Jamaica Hogue Work Phone: [facility] 10-14-2023 11:15-0500 Respiratory rate 18 /min Dr. Jamaica Hogue Work Phone: [facility] 10-14-2023 11:15-0500 SaO2% (BldA) [Mass fraction] 97 % Dr. Jamaica Hogue Work Phone: [facility] 10-14-2023 11:15-0500 Systolic blood pressure 136 mm[Hg] Dr. Jamaica Hogue Work Phone: [facility] 08-24-2023 09:30-0500 Blood Pressure Location MYLENE ANDERSON MD [facility] 08-24-2023 09:30-0500 Blood Pressure Method MYLENE ANDERSON MD [facility] 08-24-2023 09:30-0500 Diastolic Blood Pressure Non-Invasive 76 mm[Hg] MYLENE ANDERSON MD [facility] 08-24-2023 09:30-0500 Heart rate 74 /min MYLENE ANDERSON MD [facility] 08-24-2023 09:30-0500 Respiratory rate 18 /min MYLENE ANDERSON MD [facility] 08-24-2023 09:30-0500 Systolic Blood Pressure Non-Invasive 130 mm[Hg] MYLENE ANDERSON MD [facility] 08-24-2023 06:30-0500 Blood Pressure Cuff Size MYLENE ANDERSON MD [facility] 08-24-2023 06:30-0500 Blood Pressure Location MYLENE ANDERSON MD [facility] 08-24-2023 06:30-0500 Blood Pressure Method MYLENE ANDERSON MD [facility] 08-24-2023 06:30-0500 Diastolic Blood Pressure Non-Invasive 71 mm[Hg] MYLENE ANDERSON MD [facility] 08-24-2023 06:30-0500 Heart rate 70 /min MYLENE ANDERSON MD [facility] 08-24-2023 06:30-0500 Respiratory rate 16 /min MYLENE ANDERSON MD [facility] 08-24-2023 06:30-0500 Systolic Blood Pressure Non-Invasive 128 mm[Hg] MYLENE ANDERSON MD [facility] 08-23-2023 23:05-0500 Blood Pressure Cuff Size MYLENE ANDERSON MD [facility] 08-23-2023 23:05-0500 Blood Pressure Location MYLENE ANDERSON MD [facility] 08-23-2023 23:05-0500 Blood Pressure Method MYLENE ANDERSON MD [facility] 08-23-2023 23:05-0500 Diastolic Blood Pressure Non-Invasive 75 mm[Hg] MYLENE ANDERSON MD [facility] 08-23-2023 23:05-0500 Heart rate 78 /min MYLENE ANDERSON MD [facility] 08-23-2023 23:05-0500 Respiratory rate 18 /min MYLENE ANDERSON MD [facility] 08-23-2023 23:05-0500 Systolic Blood Pressure Non-Invasive 139 mm[Hg] MYLENE ANDERSON MD [facility] 08-23-2023 21:14-0500 Blood Pressure Cuff Size MYLENE ANDERSON MD [facility] 08-23-2023 21:14-0500 Body height 182.9 cm MYLENE ANDERSON MD [facility] 08-23-2023 21:14-0500 Body temperature 98.42 [degF] MYLENE ANDERSON MD [facility] 08-23-2023 21:14-0500 Body weight 154.5 kg MYLENE ANDERSON MD [facility] 08-23-2023 21:14-0500 Heart rate 95 /min MYLENE ANDERSON MD [facility] 08-23-2023 21:14-0500 Reason For Taking VItal Signs MYLENE ANDERSON MD [facility] 09-22-2022 19:35-0500 Body temperature 98.42 [degF] JANETTE MAGAÑAT DO [facility] 09-22-2022 19:35-0500 Diastolic Blood Pressure Non-Invasive 66 1 JANETTE FROMMELT DO [facility] 09-22-2022 19:35-0500 Heart rate 82 /min JANETTE FROMMELT DO [facility] 09-22-2022 19:35-0500 Respiratory rate 18 /min JANETTE FROMMELT DO [facility] 09-22-2022 19:35-0500 Systolic Blood Pressure Non-Invasive 116 1 JANETTE AGEE DO [facility] 08-10-2021 06:05-0400 Diastolic blood pressure 80 mm[Hg] SUNI MULLINS MD [facility] 08-10-2021 06:05-0400 Heart rate 80 /min SUNI MULLINS MD [facility] 08-10-2021 06:05-0400 Respiratory rate 18 /min SUNI MULLINS MD [facility] 08-10-2021 06:05-0400 Systolic blood pressure 164 mm[Hg] SUNI MULLINS MD [facility] 08-10-2021 04:29-0400 Body temperature 99.32 [degF] SUNI MULLINS MD [facility] 08-10-2021 04:29-0400 Diastolic blood pressure 110 mm[Hg] SUNI MULLINS MD [facility] 08-10-2021 04:29-0400 Heart rate 71 /min SUNI MULLINS MD [facility] 08-10-2021 04:29-0400 Mean blood pressure 136 mm[Hg] SUNI MULLINS MD [facility] 08-10-2021 04:29-0400 Respiratory rate 23 /min SUNI MULLINS MD [facility] 08-10-2021 04:29-0400 Systolic blood pressure 187 mm[Hg] SUNI MULLINS MD [facility] Encounters Encounter Date Encounter Type Care Provider Facility Start: 05-06-2025 End: 05-06-[address] Daniel Granda MD -[facility] Work Phone: Start: 05-06-2025 End: 05-06-[address] Jamaica Hogue DO Work Phone: -[facility] Start: 04-24-2025 End: 04-25-2025 Emergency department patient visit DR OVIDIO MEEHAN DO [facility] Start: 02-07-2025 End: 02-08-2025 Emergency department patient visit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 healthcare provider if you are not able to eat. Check your blood or urine for ketones as directed. Call your provider if your blood sugar and ketones don't go back to your target range. If the value is high, take your diabetes medicines as prescribed. And check your blood sugar more often. Doses of medicines such as insulin can be increased slightly if blood sugars stay high. But your provider must approve this. Preventing high blood sugar To help keep your blood sugar from getting too high: Control stress. When you're ill, follow your sick-day plan. Follow your meal plan. Eat only the amount of food on your meal plan. Stick to your exercise plan. Take your insulin or diabetes medicines as directed by your healthcare team. Also test your blood sugar as directed. If the plan is not working for you, discuss it with your healthcare provider. Other things to do Carry a medical ID card or a [employer] drive. Or wear a medical alert bracelet or necklace. It should say that you have diabetes. It should also say what to do in case you pass out or go into a coma. Make sure family, friends, and coworkers know the signs of high blood sugar. Tell them what to do if your blood sugar gets very high and you can t help yourself. Talk with your healthcare team about other things you can do to prevent high blood sugar. Special note: Drink plenty of sugar-free and caffeine-free liquids when you feel symptoms of hyperglycemia. Call your healthcare provider if you keep having episodes of high blood sugar. [phone] [employer]. [address] [place] [address], [place] [address]. All rights reserved. This information is not intended as a substitute for professional medical care. Always follow yourhealthcare professional's instructions. Additional Information VACCINATE! IT SAVES LIVES! Members of the community who have not yet received the COVID-19 vaccine and would like to receive it can visit one of [facility] vaccine clinics. There are many vaccine clinic locations within the [facility]. For locations and available times, please visit www.gettheshot.coronavirus.[place].gov/. It is important to note that some COVID mobile vaccine clinics are held outdoors and may be canceled in rainy or stormy conditions. To learn more about pediatric vaccinations (ages 5-11), we invite you to visit the [facility] webpage. https://www.[email or web address].org/pages/7224-Ecwzo-Agovcuzhxnm-Uisoktvizy-Zqlnq-Sfs stions.htmlTo learn more about the COVID-19 vaccine, we invite you to visit the CDC website for a list of frequently asked questions. https://www.cdc.gov/coronavirus/2019-ncov/vaccines/faq.html [facility] Patient Portal Access Instructions: Stay connected with your healthcare team and access your personal medical information anytime with the [facility] Patient Portal. If you would like a full copy of your medical records please contact the [facility] Medical Records Department Tuesday through Tuesday between 8a.m. and 4:30p.m. Please follow the directions below to access the portal: 1.Access the email account you provided upon registration to the [facility].2.Look for an invitation email from [facility].3.Open the email and access the invitation link: Accept Invitation to [facility]4.Fill in the required sánchez to create your account. Sign into [email or web address] with your username and password that you created in the above steps to stay up to date. You can then view a summary of results, a summary of your visits, and the ability to download your summaries to your computer or send the information securely to a physician. Remember that your healthcare information is confidential, so carefully consider who you will allow to register on the [facility] Patient Portal for access to your information. You can also access the [facility] Patient Portal on the [employer] jeffrey. Simply click on Health Records under [facility] and then click on the [facility] logo. HOW TO SAFELY DISPOSE OF PRESCRIPTION MEDICATIONS Please use one of the following methods to safely dispose of your unused medications. 1.Use a drug disposal kit: the drug disposal pouch allows you to safely discard your old and unuseddrugs. Ask your nurse to give you one when you are discharged.2.Visit a local take-back location: Many local pharmacies and police departments have programs that collect old and unwanted prescriptiondrugs. Call your local pharmacy or go to http://bit.Recondo/5K8Zm4x to find one close to you.3.Make use of household items: Use cat litter or old coffee grounds to dispose medications if other options arenot available. Mix your drugs with these household products, seal them in an airtight container andthrow it into the garbage. Call [facility]: [phone] to be sure your drugs can be disposed of in this way. Some medicines may require a different approach.4.Never flush your medications down the toilet. IF YOU HAVE BEEN PRESCRIBED AN OPIOIDS FOR PAIN If you have been prescribed an opioid (such as hydrocodone, oxycodone or morphine), it is critical to understand the possible side effects and risks of opioid pain medications. Even when taken as directed, opioids can have several side effects including: Tolerance, meaning you might need to take more of a medication for the same pain relief. Nausea, vomiting and/or constipation. Sleepiness, dizziness, dry mouth, confusion, depression or itching. Physical dependence, meaning you have withdrawal symptoms when a medication is stopped ? this can develop within a few days. KNOW YOUR RESPONSIBILITIES It is important to know exactly how much and how often to take the opioid pain medications you are prescribed. Never take opioids in higher amounts or more often than prescribed. Do not combine opioids with alcohol or other drugs that cause drowsiness, such as benzodiazepines, also known as benzos,including diazepam and alprazolam, muscle relaxants or sleep aids. Never sell or share prescriptionopioids. This is illegal. Store opioids in a secure place and out of reach of others (including children, family, friends and visitors). The last page(s) of this document has been signed and retained as a CHART COPY Signatures Patient Education Materials High Blood Sugar (Hyperglycemia) Medication Leaflets My discharge plan and instructions have been reviewed and explained to me and I,SAQIB DAMICO understand my current condition and have read and understand these discharge instructions. I have received a written copy of the plan/instructions. If I have questions, I am aware that I should contact my doctor. 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 The interpretation of this patient's EKG contributed directly to the care and management of this patient. Electronic Signature: PATRICIA PEARSON DO 02/07/2025 23:19:45 [facility]04-28-2025 Evaluation note* Diagnosis Onset Date Resolution Status Admit Date Benign essential HTN chronic Apri l 2024 8:07am Diabetes chronic February 04 8:07am HLD (hyperlipidemia) chronic Apri l 2024 8:07am Obesity chronic February 04 8:07am Benign essential HTN chronic May 06, 2025 2:23pm Depression chronic May 06 2:23pm Diabetes chronic May 06 2:23pm HLD (hyperlipidemia) chronic May 06, 2025 2:23pm Obesity chronic May 06 2:23pm [facility] Work Phone: [phone]) 757-638102-28-2025 Hospital Discharge instructions Patient Education 12/07/2024 21:47:44 Chest Wall Pain, Costochondritis Chest Wall Pain: Costochondritis The chest pain that you have had today is caused by costochondritis. This condition is caused by aninflammation of the cartilage joining your ribs to your breastbone. It is not caused by heart or lung problems. Your healthcare team has made sure that the chest pain you feel is not from a life threatening cause of chest pain such as heart attack, collapsed lung, blood clot in the lung, tear in the aorta, or esophageal rupture. The inflammation may have been brought on by a blow to the chest, lifting heavy objects, intense exercise, or an illness that made you cough and sneeze a lot. It often occurs during times of emotional stress. It can be painful, but it is not dangerous. It usually goesaway in 1 to 2 weeks. But it may happen again. Rarely, a more serious condition may cause symptoms similar to costochondritis. That s why it s important to watch for the warning signs listed below. Home care Follow these guidelines when caring for yourself at home: If you feel that emotional stress is a cause of your condition, try to figure out the sources of that stress. It may not be obvious. Learn ways to deal with the stress in your life. This can include regular exercise, muscle relaxation, meditation, or simply taking time out for yourself. You may use acetaminophen, ibuprofen, or naproxen to control pain, unless another pain medicine wasprescribed. If you have liver or kidney disease or ever had a stomach ulcer, talk with your healthcare provider before using these medicines. You can also help ease pain by using a hot, wet compress or heating pad. Use this with or without amedicated skin cream that helps relieves pain. Do stretching exercise as advised by your provider. Take any prescribed medicines as directed. Follow-up care Follow up with your healthcare provider, or as advised, if you do not start to get better in the next 2 days. When to seek medical advice Call your healthcare provider right away if any of these occur: A change in the type of pain. Call if it feels different, becomes more serious, lasts longer, or spreads into your shoulder, arm, neck, jaw, or back. Shortness of breath or pain gets worse when you breathe Weakness, dizziness, or fainting Cough with dark-colored sputum (phlegm) or blood Abdominal pain Dark red or black stools Fever of 100.4 F (38 C) or higher, or as directed by your healthcare provider [id number] [employer]. [address] [place] [address]. All rights reserved. This information is not intended as a substitute for professional medical care. Always follow yourhealthcare professional's instructions. Follow Up Care 12/07/2024 19:31:45 With:JAMAICA HOGUE DO Address: [address] [place] [address] [place] [phone] When:2-4 days [facility] 02-28-2025 Note Discharge Instructions Thank you for allowing [facility] to assist you with your healthcare needs. The following is importantdischarge information regarding your hospital visit. What to Do Next Instructions from Your Care Team No qualifying data available. Post Acute Orders No qualifying data available. You Need to Schedule the Following Appointments Follow Up with JAMAICA HOGUE DO When:Within 2-4 days Where:[address] [facility] [facility] [place] [phone] Allergies Claritin Headache Medications Please ask your primary doctor or pharmacist before taking any other medication not listed, including over the counter drugs, herbal medications, vitamins and or supplements as they may interact withyour home medications. What How Much When Why Instructions Last Dose New baclofen (baclofen 20 mg oral tablet) 1 tab(s) by mouth Three (3) times a day Duration: 5 Days Printed Prescription New lidocaine topical (Lidoderm 5% topical patch) 1 patch(es) Topical Every day Duration: 7 Days Printed Prescription Unchanged albuterol (albuterol MDI (90 mcg/ inh) CFC free inhalation aerosol) 1 puff(s) by inhalation Every 4 hours as needed for as needed for wheezing Acute bronchitis Unchanged atorvastatin (atorvastatin 20 mg oral tablet) 1 tab(s) by mouth Once a day Duration: 100 Days Unchanged cyclobenzaprine (cyclobenzaprine 10 mg oral tablet) 1 tab(s) by mouth Three (3) times a day as needed for for spasm Cervicalgia Unchanged DME (Pen needles 4 mm) See instructions Uncontrolled type 2 diabetes mellitus Dispense UltraFine 4 mm pen needles, #200, use 1 pen needle twice daily to inject insulin Unchanged DULoxetine (DULoxetine 40 mg oral delayed release capsule) 2 cap by mouth Once a day Unchanged fluticasone nasal (Flonase 50 mcg/ inh nasal spray) 1 spray(s) each nostril Once a day (in the morning) Rhinitis Duration: 30 Days Unchanged glimepiride (glimepiride 4 mg oral tablet) 1 tab(s) by mouth Once a day Duration: 100 Days Unchanged insulin lispro-insulin lispro protamine (Humalog Mix) (HumaLOG Mix 50/ 50 KwikPen 3 mL PEN) 90 unit(s) Subcutaneous Two (2) times a day does flucuate Unchanged lisinopril (lisinopril 20 mg oral tablet) 1 tab(s) by mouth Once a day Duration: 100 Days Unchanged metFORMIN (metFORMIN 1000 mg oral tablet (IR)) 1 tab(s) by mouth Two (2) times a day Duration: 100 Days Please take this list to your next doctor s visit. Bring all medications you take, including over the counter medications, herbals and other supplements with you to your doctor s visit. Patients and families are reminded to discard old lists and to update any records with all medication providers or retail pharmacies. Education Materials Chest Wall Pain: Costochondritis The chest pain that you have had today is caused by costochondritis. This condition is caused by aninflammation of the cartilage joining your ribs to your breastbone. It is not caused by heart or lung problems. Your healthcare team has made sure that the chest pain you feel is not from a life threatening cause of chest pain such as heart attack, collapsed lung, blood clot in the lung, tear in the aorta, or esophageal rupture. The inflammation may have been brought on by a blow to the chest, lifting heavy objects, intense exercise, or an illness that made you cough and sneeze a lot. It often occurs during times of emotional stress. It can be painful, but it is not dangerous. It usually goesaway in 1 to 2 weeks. But it may happen again. Rarely, a more serious condition may cause symptoms similar to costochondritis. That s why it s important to watch for the warning signs listed below. Home care Follow these guidelines when caring for yourself at home: If you feel that emotional stress is a cause of your condition, try to figure out the sources of that stress. It may not be obvious. Learn ways to deal with the stress in your life. This can include regular exercise, muscle relaxation, meditation, or simply taking time out for yourself. You may use acetaminophen, ibuprofen, or naproxen to control pain, unless another pain medicine wasprescribed. If you have liver or kidney disease or ever had a stomach ulcer, talk with your healthcare provider before using these medicines. You can also help ease pain by using a hot, wet compress or heating pad. Use this with or without amedicated skin cream that helps relieves pain. Do stretching exercise as advised by your provider. Take any prescribed medicines as directed. Follow-up care Follow up with your healthcare provider, or as advised, if you do not start to get better in the next 2 days. When to seek medical advice Call your healthcare provider right away if any of these occur: A change in the type of pain. Call if it feels different, becomes more serious, lasts longer, or spreads into your shoulder, arm, neck, jaw, or back. Shortness of breath or pain gets worse when you breathe Weakness, dizziness, or fainting Cough with dark-colored sputum (phlegm) or blood Abdominal pain Dark red or black stools Fever of 100.4 F (38 C) or higher, or as directed by your healthcare provider [id number] [employer]. [address] [place] [address], [place] [address]. All rights reserved. This information is not intended as a substitute for professional medical care. Always follow yourhealthcare professional's instructions. Additional Information VACCINATE! IT SAVES LIVES! Members of the community who have not yet received the COVID-19 vaccine and would like to receive it can visit one of [facility] vaccine clinics. There are many vaccine clinic locations within the [facility]. For locations and available times, please visit www.gettheshot.coronavirus.[place].gov/. It is important to note that some COVID mobile vaccine clinics are held outdoors and may be canceled in rainy or stormy conditions. To learn more about pediatric vaccinations (ages 5-11), we invite you to visit the [facility] webpage. https://www.[facility].org/pages/2428-Bjjqz-Jrnpbjcysep-Csnxviogcw-Kgkmd-Qnk stions.htmlTo learn more about the COVID-19 vaccine, we invite you to visit the CDC website for a list of frequently asked questions. https://www.cdc.gov/coronavirus/2019-ncov/vaccines/faq.html [facility] Patient Portal Access Instructions: Stay connected with your healthcare team and access your personal medical information anytime with the [facility] Patient Portal. If you would like a full copy of your medical records please contact the [facility] Medical Records Department Tuesday through Tuesday between 8a.m. and 4:30p.m. Please follow the directions below to access the portal: 1.Access the email account you provided upon registration to the hospital.2.Look for an invitation email from [facility].3.Open the email and access the invitation link: Accept Invitation to [facility].Fill in the required sánchez to create your account. Sign into [email or web address] with your username and password that you created in the above steps to stay up to date. You can then view a summary of results, a summary of your visits, and the ability to download your summaries to your computer or send the information securely to a physician. Remember that your healthcare information is confidential, so carefully consider who you will allow to register on the [facility] Patient Portal for access to your information. You can also access the [facility] Patient Portal on the [employer] jeffrey. Simply click on Health Records under [employer] and then click on the [employer] logo. HOW TO SAFELY DISPOSE OF PRESCRIPTION MEDICATIONS Please use one of the following methods to safely dispose of your unused medications. 1.Use a drug disposal kit: the drug disposal pouch allows you to safely discard your old and unuseddrugs. Ask your nurse to give you one when you are discharged.2.Visit a local take-back location: Many local pharmacies and police departments have programs that collect old and unwanted prescriptiondrugs. Call your local pharmacy or go to http://Solavista.Recondo/6X9Jd9f to find one close to you.3.Make use of household items: Use cat litter or old coffee grounds to dispose medications if other options arenot available. Mix your drugs with these household products, seal them in an airtight container andthrow it into the garbage. Call [facility]: [phone] to be sure your drugs can be disposed of in this way. Some medicines may require a different approach.4.Never flush your medications down the toilet. IF YOU HAVE BEEN PRESCRIBED AN OPIOIDS FOR PAIN If you have been prescribed an opioid (such as hydrocodone, oxycodone or morphine), it is critical to understand the possible side effects and risks of opioid pain medications. Even when taken as directed, opioids can have several side effects including: Tolerance, meaning you might need to take more of a medication for the same pain relief. Nausea, vomiting and/or constipation. Sleepiness, dizziness, dry mouth, confusion, depression or itching. Physical dependence, meaning you have withdrawal symptoms when a medication is stopped ? this can develop within a few days. KNOW YOUR RESPONSIBILITIES It is important to know exactly how much and how often to take the opioid pain medications you are prescribed. Never take opioids in higher amounts or more often than prescribed. Do not combine opioids with alcohol or other drugs that cause drowsiness, such as benzodiazepines, also known as benzos,including diazepam and alprazolam, muscle relaxants or sleep aids. Never sell or share prescriptionopioids. This is illegal. Store opioids in a secure place and out of reach of others (including children, family, friends and visitors). The last page(s) of this document has been signed and retained as a CHART COPY Signatures Patient Education Materials Chest Wall Pain, Costochondritis Medication Leaflets My discharge plan and instructions have been reviewed and explained to me and I,MARGAUX SAQIB understand my current condition and have read and understand these discharge instructions. I have received a written copy of the plan/instructions. If I have questions, I am aware that I should contact my doctor. 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 Multiplanar reformatted images are provided for review. MIP images are provided for review. Automated exposure control, iterative reconstruction, and/or weight based adjustment of the mA/kV was utilized to reduce the radiation dose to as low as reasonably achievable. COMPARISON: Radiograph of the chest performed same day HISTORY: ORDERING SYSTEM PROVIDED HISTORY: Reason for Exam: chest pain; suspect PE FINDINGS: Suboptimal exam due to artifact from patient body habitus. Pulmonary Arteries: Pulmonary arteries are adequately opacified for evaluation. No evidence of intraluminal filling defect to suggest pulmonary embolism. Mediastinum: Coronary artery calcifications. No pericardial effusion. Nonaneurysmal thoracic aorta. No enlarged lymph nodes. Lungs/pleura: No focal consolidation or pulmonary edema. No evidence of pleural effusion or pneumothorax. Upper Abdomen: Lower density of the liver relative to the spleen which could reflect contrast bolus timing or underlying hepatic steatosis. Soft Tissues/Bones: No acute bone or soft tissue abnormality. Mild gynecomastia. IMPRESSION: No evidence of pulmonary embolism. Interpreted by: Aditya Mcgee Preliminary Report By: Aditya Mcgee Electronically signed By Aditya Mcgee Dictated Date: 12/07/2024 9:28:26 PM Prelim Date: 12/07/2024 9:31:23 PM Sign Date: 12/07/2024 9:31:23 PM Ordering Provider: [facility]02-28-2025 Note* Exam Date Time Procedure Performing Provider Status 12/07/24 8:30 PM XR Chest 1 View ADITYA MCGEE MD; [facility] (Verified) [id number] ORIGINAL EXAMINATION: ONE XRAY VIEW OF THE CHEST 12/07/2024 8:31 pm COMPARISON: Radiograph of the chest January HISTORY: ORDERING SYSTEM PROVIDED HISTORY: Reason for Exam: Pt complains of L neck pain radiating down to his L shoulder, intermittent sharp pain. CP FINDINGS: Suboptimal exam due to patient body habitus. Cardiomediastinal silhouette is unchanged in size. Costophrenic angles are sharp. No radiographic pneumothorax. No definite focal consolidation. Osseous structures grossly unchanged. IMPRESSION: No definite focal consolidation. Interpreted by: Aditya Mcgee Preliminary Report By: Aditya Mcgee Electronically signed By Aditya Mcgee Dictated Date: 12/07/2024 8:34:39 PM Prelim Date: 12/07/2024 8:35:18 PM Sign Date: 12/07/2024 8:35:18 PM Ordering Provider: [facility]02-28-2025 Note* Exam Date Time Procedure Performing Provider Status 12/07/24 8:04 PM EKG [ED AO] - OVIDIO BARNES DO; Au (Verified) ECG Final Report Sinus rhythm Nonspecific intraventricular conduction delay Anteroseptal infarct, age indeterminate Lateral leads are also involved Baseline wander in lead(s) I,II,aVR Compared to ECG at 01/07/2024 20:57:13 Electronic Signature: OVIDIO MEEHAN DO 12/07/2024 20:24:16 [facility]10-23-2024 Hospital Discharge instructions Patient Education 08/01/2024 11:30:21 Groin Strain Groin Strain (Adult) A groin strain is a stretching or partial tearing of the muscle in the lower belly (abdomen) or upper thigh. This may happen because of too much coughing, heavy lifting, or active sports. The pain may last for several days or weeks, depending on how bad the stretch or tear is. It will generally getbetter with rest, ice, and anti-inflammatory medicines. A groin strain can lead to a groin hernia. This is also called an inguinal hernia. A hernia is a complete tear of the abdominal muscle. This allows fat or the intestines to bulge out and create a visible bump just above the thigh crease. This is a more serious problem and may need surgery to repairit. When you lie down, the bump should get smaller or disappear completely. If it doesn t, and you are not able to flatten it with your hand, you need medical attention right away. Home care Don t do any heavy lifting, straining, or any activities that cause groin pain. You may use lwin-tqu-jgqbcyg pain medicine to control pain, unless another pain medicine was prescribed. If you have chronic liver or kidney disease or ever had a stomach ulcer or GI (gastrointestinal) bleeding, talk with your healthcare provider before using these medicines. Follow-up care Follow up with your healthcare provider, or as advised. Make an appointment with your healthcare provider if you develop a bump in the area of the groin strain. When to seek medical advice Call your healthcare provider right away if any of these occur: Increasing pain in the area of the groin strain Tender bump just above the groin crease that does not flatten when you lie down or press on it Overall abdominal swelling or pain Fever of 100.4 F (38 C) or above lasting for 24 to 48 hours Chills Repeated vomiting Pain that moves to the lower right abdomen, just below the waistline, or spreads to the back [id number] [employer]. [address] [place] [address], [place] [address]. All rights reserved. This information is not intended as a substitute for professional medical care. Always follow yourhealthcare professional's instructions. Follow Up Care 08/01/2024 09:34:02 With:JAMAICA HOGUE DO Address: [address] [place] [phone] [phone] When:2-4 days [facility] 10-23-2024 Note Discharge Instructions Thank you for allowing [facility] to assist you with your healthcare needs. The following is importantdischarge information regarding your hospital visit. Diagnosis from Today's Visit Groin pain What to Do Next Instructions from Your Care Team No qualifying data available. Post Acute Orders No qualifying data available. You Need to Schedule the Following Appointments Follow Up with JAMAICA HOGUE DO When:Within 2-4 days Where:[address] [place] [phone] Allergies Claritin Headache Medications Please ask your primary doctor or pharmacist before taking any other medication not listed, including over the counter drugs, herbal medications, vitamins and or supplements as they may interact withyour home medications. What How Much When Why Instructions Last Dose New acetaminophen-hydrocodone ([place] 325- 5 mg oral tablet) 1 tab(s) by mouth Every 6 hours as needed for for pain Groin pain Duration: 5 Days Printed Prescription Unchanged albuterol (albuterol MDI (90 mcg/ inh) CFC free inhalation aerosol) 1 puff(s) by inhalation Every 4 hours as needed for as needed for wheezing Acute bronchitis Unchanged atorvastatin (atorvastatin 20 mg oral tablet) 1 tab(s) by mouth Once a day Duration: 100 Days Unchanged cyclobenzaprine (cyclobenzaprine 10 mg oral tablet) 1 tab(s) by mouth Three (3) times a day as needed for for spasm Cervicalgia Unchanged DME (Pen needles 4 mm) See instructions Uncontrolled type 2 diabetes mellitus Dispense UltraFine 4 mm pen needles, #200, use 1 pen needle twice daily to inject insulin Unchanged DULoxetine (DULoxetine 40 mg oral delayed release capsule) 2 cap by mouth Once a day Unchanged fluticasone nasal (Flonase 50 mcg/ inh nasal spray) 1 spray(s) each nostril Once a day (in the morning) Rhinitis Duration: 30 Days Unchanged glimepiride (glimepiride 4 mg oral tablet) 1 tab(s) by mouth Once a day Duration: 100 Days Unchanged ibuprofen (ibuprofen 600 mg oral tablet) 1 tab(s) by mouth Two (2) times a day as needed for as needed for pain Duration: 30 Days Unchanged insulin lispro-insulin lispro protamine (Humalog Mix) (HumaLOG Mix 50/ 50 KwikPen 3 mL PEN) 90 unit(s) Subcutaneous Two (2) times a day does flucuate Unchanged lisinopril (lisinopril 20 mg oral tablet) 1 tab(s) by mouth Once a day Duration: 100 Days Unchanged metFORMIN (metFORMIN 1000 mg oral tablet (IR)) 1 tab(s) by mouth Two (2) times a day Duration: 100 Days Please take this list to your next doctor s visit. Bring all medications you take, including over the counter medications, herbals and other supplements with you to your doctor s visit. Patients and families are reminded to discard old lists and to update any records with all medication providers or retail pharmacies. Medication Leaflets acetaminophen and hydrocodone (a SEET a MIN oh fen and shane LIN done) Verdrocet What is the most important information I should know about acetaminophen and hydrocodone? MISUSE OF OPIOID MEDICINE CAN CAUSE ADDICTION, OVERDOSE, OR . Keep the medication in a place where others cannot get to it. Taking opioid medicine during may cause life-threatening withdrawal symptoms in the . Fatal side effects can occur if you use opioid medicine with alcohol, or with other drugs that cause drowsiness or slow your breathing. Stop taking this medicine and call your doctor right away if you have skin redness or a rash that spreads and causes blistering and peeling. What is acetaminophen and hydrocodone? Acetaminophen and hydrocodone is a combination medicine used to relieve moderate to severe pain. Acetaminophen and hydrocodone contains an opioid medicine, and may be habit-forming. Acetaminophen and hydrocodone may also be used for purposes not listed in this medication guide. What should I discuss with my healthcare provider before taking acetaminophen and hydrocodone? You should not use this medicine if you are allergic to acetaminophen or hydrocodone, or if you have: severe asthma or breathing problems; or a blockage in your stomach or intestines. Tell your doctor if you have ever had: breathing problems, sleep apnea (breathing stops during sleep); liver disease; a drug or alcohol addiction; kidney disease; a head injury or seizures; urination problems; or problems with your thyroid, pancreas, or gallbladder. If you use opioid medicine while you are , your baby could become dependent on the drug. This can cause life-threatening withdrawal symptoms in the baby after it is born. Babies born dependent on opioids may need medical treatment for several weeks. Ask a doctor before using opioid medicine if you are . Tell your doctor if you notice severe drowsiness or slow breathing in the nursing baby. How should I take acetaminophen and hydrocodone? Follow all directions on your prescription label. Never take this medicine in larger amounts, or for longer than prescribed. An overdose can damage your liver or cause . Tell your doctor if you feel an increased urge to use more of this medicine. Never share this medicine with another person, especially someone with a history of drug abuse or addiction. MISUSE CAN CAUSE ADDICTION, OVERDOSE, OR . Keep the medicine in a place where others cannot get to it. Selling or giving away this medicine is against the law. Measure liquid medicine carefully. Use the dosing syringe provided, or use a medicine dose-measuring device (not a kitchen spoon). If you need surgery or medical tests, tell the doctor ahead of time that you are using this medicine. You should not stop using this medicine suddenly. Follow your doctor's instructions about taperingyour dose. Store at room temperature away from moisture and heat. Keep track of your medicine. You should be aware if anyone is using it improperly or without a prescription. Do not keep leftover opioid medication. Just one dose can cause in someone using this medicine accidentally or improperly. Ask your pharmacist where to locate a drug take-back disposal program.If there is no take-back program, flush the unused medicine down the toilet. What happens if I miss a dose? Since this medicine is used for pain, you are not likely to miss a dose. Skip any missed dose if itis almost time for your next dose. Do not use two doses at one time. What happens if I overdose? Seek emergency medical attention or call the Poison Help line at . An overdose of this medicine can be fatal, especially in a child or other person using the medicine without a prescription. Overdose symptoms may include nausea, vomiting, sweating, severe drowsiness, pinpoint pupils, slow breathing, or no breathing. Your doctor may recommend you get naloxone (a medicine to reverse an opioid overdose) and keep it with you at all times. A person caring for you can give the naloxone if you stop breathing or don't wake up. Your caregiver must still get emergency medical help and may need to perform CPR (cardiopulmonary resuscitation) on you while waiting for help to arrive. Anyone can buy naloxone from a pharmacy or local health department. Make sure any person caring foryou knows where you keep naloxone and how to use it. What should I avoid while taking acetaminophen and hydrocodone? Avoid driving or operating machinery until you know how this medicine will affect you. Dizziness ordrowsiness can cause falls, accidents, or severe injuries. Do not drink alcohol. Dangerous side effects or could occur. Ask a doctor or pharmacist before using any other medicine that may contain acetaminophen (sometimes abbreviated as APAP). Taking certain medications together can lead to a fatal overdose. What are the possible side effects of acetaminophen and hydrocodone? Get emergency medical help if you have signs of an allergic reaction: hives; difficulty breathing; swelling of your face, lips, tongue, or throat. Opioid medicine can slow or stop your breathing, and may occur. A person caring for you should give naloxone and/or seek emergency medical attention if you have slow breathing with long pauses,blue colored lips, or if you are hard to wake up. In rare cases, acetaminophen may cause a severe skin reaction that can be fatal. This could occur even if you have taken acetaminophen in the past and had no reaction. Stop taking this medicine and call your doctor right away if you have skin redness or a rash that spreads and causes blistering andpeeling. Call your doctor at once if you have: noisy breathing, sighing, shallow breathing, breathing that stops; a light-headed feeling, like you might pass out; liver problems--nausea, upper stomach pain, tiredness, loss of appetite, dark urine, bina-colored stools, jaundice (yellowing of the skin or eyes); low cortisol levels-- nausea, vomiting, loss of appetite, dizziness, worsening tiredness or weakness; o high levels of serotonin in the body--agitation, hallucinations, fever, sweating, shivering, fast heart rate, muscle stiffness, twitching, loss of coordination, nausea, vomiting, diarrhea. Serious breathing problems may be more likely in older adults and in those who are debilitated or have wasting syndrome or chronic breathing disorders. Common side effects include: dizziness, drowsiness, feeling tired; nausea, vomiting, stomach pain; constipation; or headache. This is not a complete list of side effects and others may occur. Call your doctor for medical advice about side effects. You may report side effects to FDA at 2-031-JCZ-7372. What other drugs will affect acetaminophen and hydrocodone? You may have breathing problems or withdrawal symptoms if you start or stop taking certain other medicines. Tell your doctor if you also use an antibiotic, antifungal medication, heart or blood pressure medication, seizure medication, or medicine to treat HIV or hepatitis C. Opioid medication can interact with many other drugs and cause dangerous side effects or . Be sure your doctor knows if you also use: cold or allergy medicines, bronchodilator asthma/COPD medication, or a diuretic ('water pill'); medicines for motion sickness, irritable bowel syndrome, or overactive bladder; other opioids--opioid pain medicine or prescription cough medicine; a sedative like Valium--diazepam, alprazolam, lorazepam, Xanax, Klonopin, Versed, and others; drugs that make you sleepy or slow your breathing--a sleeping pill, muscle relaxer, medicine to treat mood disorders or mental illness; drugs that affect serotonin levels in your body--a stimulant, or medicine for depression, Parkinson's disease, migraine headaches, serious infections, or nausea and vomiting. This list is not complete. Other drugs may affect acetaminophen and hydrocodone, including prescription and qzxm-fzh-fikftfb medicines, vitamins, and herbal products. Not all possible interactions are listed here. Where can I get more information? Your doctor or pharmacist can provide more information about acetaminophen and hydrocodone. Remember, keep this and all other medicines out of the reach of children, never share your medicines with others, and use this medication only for the indication prescribed. Every effort has been made to ensure that the information provided by [employer]. ('[employer]') is accurate, up-to-date, and complete, but no guarantee is made to that effect. Drug information contained herein may be time sensitive. [employer] information has been compiled for use by healthcare practitioners and consumers in the [place] and therefore [employer] does not warrant that uses outside of the [place] are appropriate, unless specifically indicated otherwise. [employer] drug information does not endorse drugs, diagnose patients or recommend therapy. [employer] drug information isan informational resource designed to assist licensed healthcare practitioners in caring for their p atients and/or to serve consumers viewing this service as a supplement to, and not a substitute for, the expertise, skill, knowledge and judgment of healthcare practitioners. The absence of a warningfor a given drug or drug combination in no way should be construed to indicate that the drug or drug combination is safe, effective or appropriate for any given patient. [employer] does not assume any responsibility for any aspect of healthcare administered with the aid of information [employer] provides. The information contained herein is not intended to cover all possible uses, directions, precautions, warnings, drug interactions, allergic reactions, or adverse effects. If you have questions about the drugs you are taking, check with your doctor, nurse or pharmacist. Copyright 4600-4519 [facility] [employer]. Version: 19.02. Revision Date: 01/17/2024. Education Materials Groin Strain (Adult) A groin strain is a stretching or partial tearing of the muscle in the lower belly (abdomen) or upper thigh. This may happen because of too much coughing, heavy lifting, or active sports. The pain may last for several days or weeks, depending on how bad the stretch or tear is. It will generally getbetter with rest, ice, and anti-inflammatory medicines. A groin strain can lead to a groin hernia. This is also called an inguinal hernia. A hernia is a complete tear of the abdominal muscle. This allows fat or the intestines to bulge out and create a visible bump just above the thigh crease. This is a more serious problem and may need surgery to repairit. When you lie down, the bump should get smaller or disappear completely. If it doesn t, and you are not able to flatten it with your hand, you need medical attention right away. Home care Don t do any heavy lifting, straining, or any activities that cause groin pain. You may use trja-svp-tukbjcj pain medicine to control pain, unless another pain medicine was prescribed. If you have chronic liver or kidney disease or ever had a stomach ulcer or GI (gastrointestinal) bleeding, talk with your healthcare provider before using these medicines. Follow-up care Follow up with your healthcare provider, or as advised. Make an appointment with your healthcare provider if you develop a bump in the area of the groin strain. When to seek medical advice Call your healthcare provider right away if any of these occur: Increasing pain in the area of the groin strain Tender bump just above the groin crease that does not flatten when you lie down or press on it Overall abdominal swelling or pain Fever of 100.4 F (38 C) or above lasting for 24 to 48 hours Chills Repeated vomiting Pain that moves to the lower right abdomen, just below the waistline, or spreads to the back [phone] [employer]. [address] [place] [address], [place] [address]. All rights reserved. This information is not intended as a substitute for professional medical care. Always follow yourhealthcare professional's instructions. Additional Information VACCINATE! IT SAVES LIVES! Members of the community who have not yet received the COVID-19 vaccine and would like to receive it can visit one of [facility] vaccine clinics. There are many vaccine clinic locations within the [facility]. For locations and available times, please visit [email or web address]/. It is important to note that some COVID mobile vaccine clinics are held outdoors and may be canceled in rainy or stormy conditions. To learn more about pediatric vaccinations (ages 5-11), we invite you to visit the [facility] webpage. [email or web address]/[email or web address] [email or web address] learn more about the COVID-19 vaccine, we invite you to visit the CDC website for a list of frequently asked questions. https://www.cdc.gov/coronavirus/2019-ncov/vaccines/faq.html [facility] Patient Portal Access Instructions: Stay connected with your healthcare team and access your personal medical information anytime with the [facility] Patient Portal. If you would like a full copy of your medical records please contact the [facility] Medical Records Department Tuesday through Tuesday between 8a.m. and 4:30p.m. Please follow the directions below to access the portal: 1.Access the email account you provided upon registration to the [facility].2.Look for an invitation email from [facility].3.Open the email and access the invitation link: Accept Invitation to [facility]4.Fill in the required sánchez to create your account. Sign into [email or web address] with your username and password that you created in the above steps to stay up to date. You can then view a summary of results, a summary of your visits, and the ability to download your summaries to your computer or send the information securely to a physician. Remember that your healthcare information is confidential, so carefully consider who you will allow to register on the [facility] Patient Portal for access to your information. You can also access the [facility] Patient Portal on the [employer]. Simply click on Health Records under [employer] and then click on the [employer] logo. HOW TO SAFELY DISPOSE OF PRESCRIPTION MEDICATIONS Please use one of the following methods to safely dispose of your unused medications. 1.Use a drug disposal kit: the drug disposal pouch allows you to safely discard your old and unuseddrugs. Ask your nurse to give you one when you are discharged.2.Visit a local take-back location: Many local pharmacies and police departments have programs that collect old and unwanted prescriptiondrugs. Call your local pharmacy or go to http://Solavista.Recondo/0W0Mh0v to find one close to you.3.Make use of household items: Use cat litter or old coffee grounds to dispose medications if other options arenot available. Mix your drugs with these household products, seal them in an airtight container andthrow it into the garbage. Call [facility]: [phone] to be sure your drugs can be disposed of in this way. Some medicines may require a different approach.4.Never flush your medications down the toilet. IF YOU HAVE BEEN PRESCRIBED AN OPIOIDS FOR PAIN If you have been prescribed an opioid (such as hydrocodone, oxycodone or morphine), it is critical to understand the possible side effects and risks of opioid pain medications. Even when taken as directed, opioids can have several side effects including: Tolerance, meaning you might need to take more of a medication for the same pain relief. Nausea, vomiting and/or constipation. Sleepiness, dizziness, dry mouth, confusion, depression or itching. Physical dependence, meaning you have withdrawal symptoms when a medication is stopped ? this can develop within a few days. KNOW YOUR RESPONSIBILITIES It is important to know exactly how much and how often to take the opioid pain medications you are prescribed. Never take opioids in higher amounts or more often than prescribed. Do not combine opioids with alcohol or other drugs that cause drowsiness, such as benzodiazepines, also known as benzos,including diazepam and alprazolam, muscle relaxants or sleep aids. Never sell or share prescriptionopioids. This is illegal. Store opioids in a secure place and out of reach of others (including children, family, friends and visitors). The last page(s) of this document has been signed and retained as a CHART COPY Signatures Patient Education Materials Groin Strain Medication Leaflets acetaminophen and hydrocodone My discharge plan and instructions have been reviewed and explained to me and I,SAQIB DAMICO understand my current condition and have read and understand these discharge instructions. I have received a written copy of the plan/instructions. If I have questions, I am aware that I should contact my d octor. 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 This exam was performed according to our departmental dose optimization program, and includes the following measures where applicable: automated exposure control, adjustment of the mAs and/or kVp according to patient size and/or exam, and an iterative reconstruction algorithm. FINDINGS: The study is limited by habitus, low CT dose and poor signal to noise ratio. Within the limits of the examination the abdominal organs are unremarkable in appearance. Bowel is poorly evaluated in the absence of oral contrast. A normal appendix is identified. There is no free fluid. IMPRESSION: No significant interval change. Interpreted by: Isaias Trinaa MD Preliminary Report By: Isaias Triana MD Electronically signed By Isaias Triana MD Dictated Date: 08/01/2024 11:20:57 AM Prelim Date: 08/01/2024 11:22:42 AM Sign Date: 08/01/2024 11:22:42 AM [facility]ing [facility] Evaluation + Plan note Future Scheduled Tests Laboratory* Creatinine 02/14/24 Radiology* US Abdomen Complete 03/15/24 * XR Pelvis 1 or 2 Views 08/07/24 * XR Hip 2-3 Views Left 08/07/24 [facility] 04-11-2024 Note ORIGINAL EXAMINATION: TWO XRAY VIEWS OF THE CHEST01/19/2024 10:58 am COMPARISON: 01/07/2024 HISTORY: ORDERING SYSTEM PROVIDED HISTORY: Reason for Exam: SOB at rest FINDINGS: The exam is rotated. The heart size is normal. There is no pulmonary consolidation. No pneumothorax or pleural effusion. No aggressive osseous lesions identified.Mild degenerative spurring seen in the spine.Mild T12 compression deformity is unchanged. Asymmetric calcification seen at the 1st costochondral cartilage. IMPRESSION: 1. No acute radiographic findings. 2. Mild T12 compression deformity is unchanged. Interpreted by: Andrea Arevalo MD Preliminary Report By: Andrea Arevalo MD Electronically signed By Andrea Arevalo MD Dictated Date: 01/19/2024 11:45:40 AM Prelim Date: 01/19/2024 11:58:14 AM Sign Date: 01/19/2024 11:58:14 AM [facility] Discharge instructions Patient Education 01/07/2024 21:47:11 Chest Wall Pain, Costochondritis Chest Wall Pain: Costochondritis The chest pain that you have had today is caused by costochondritis. This condition is caused by aninflammation of the cartilage joining your ribs to your breastbone. It is not caused by heart or lung problems. Your healthcare team has made sure that the chest pain you feel is not from a life threatening cause of chest pain such as heart attack, collapsed lung, blood clot in the lung, tear in the aorta, or esophageal rupture. The inflammation may have been brought on by a blow to the chest, lifting heavy objects, intense exercise, or an illness that made you cough and sneeze a lot. It often occurs during times of emotional stress. It can be painful, but it is not dangerous. It usually goesaway in 1 to 2 weeks. But it may happen again. Rarely, a more serious condition may cause symptoms similar to costochondritis. That s why it s important to watch for the warning signs listed below. Home care Follow these guidelines when caring for yourself at home: If you feel that emotional stress is a cause of your condition, try to figure out the sources of that stress. It may not be obvious. Learn ways to deal with the stress in your life. This can include regular exercise, muscle relaxation, meditation, or simply taking time out for yourself. You may use acetaminophen, ibuprofen, or naproxen to control pain, unless another pain medicine wasprescribed. If you have liver or kidney disease or ever had a stomach ulcer, talk with your healthcare provider before using these medicines. You can also help ease pain by using a hot, wet compress or heating pad. Use this with or without amedicated skin cream that helps relieves pain. Do stretching exercise as advised by your provider. Take any prescribed medicines as directed. Follow-up care Follow up with your healthcare provider, or as advised, if you do not start to get better in the next 2 days. When to seek medical advice Call your healthcare provider right away if any of these occur: A change in the type of pain. Call if it feels different, becomes more serious, lasts longer, or spreads into your shoulder, arm, neck, jaw, or back. Shortness of breath or pain gets worse when you breathe Weakness, dizziness, or fainting Cough with dark-colored sputum (phlegm) or blood Abdominal pain Dark red or black stools Fever of 100.4 F (38 C) or higher, or as directed by your healthcare provider [phone] [employer]. [address] [place] [address], [place] [id number]. All rights reserved. This information is not intended as a substitute for professional medical care. Always follow yourhealthcare professional's instructions. Follow Up Care 01/07/2024 20:29:08 With:JAMAICA HOGUE DO Address: [address] [place] [phone] When:2-4 days [facility] 03-30-2024 Note Discharge Instructions Thank you for allowing [facility] to assist you with your healthcare needs. The following is importantdischarge information regarding your hospital visit. Diagnosis from Today's Visit Abdominal pain Diarrhea What to Do Next Instructions from Your Care Team No qualifying data available. Post Acute Orders No qualifying data available. You Need to Schedule the Following Appointments Follow Up with JAMAICA HOGUE DO When Within 2-4 days Where: [address] [place] [phone] Allergies Claritin (Headache) Medications Please ask your primary doctor or pharmacist before taking any other medication not listed, including over the counter drugs, herbal medications, vitamins and or supplements as they may interact withyour home medications. What How Much When Why Instructions Last Dose New baclofen (baclofen 20 mg oral tablet) 1 tab(s) by mouth Three (3) times a day Duration: 5 Days Printed Prescription Unchanged albuterol (albuterol MDI (90 mcg/ inh) CFC free inhalation aerosol) 1 puff(s) by inhalation Every 4 hours as needed for as needed for wheezing Acute bronchitis Unchanged atorvastatin (atorvastatin 20 mg oral tablet) 1 tab(s) by mouth Once a day Duration: 100 Days Unchanged benzonatate (Tessalon Perles 100 mg oral capsule) 1 cap by mouth Every 8 hours as needed for as needed for cough Acute bronchitis Unchanged busPIRone (busPIRone 15 mg oral tablet) 1 to 2 tab(s) by mouth Two (2) times a day Anxiety state Start with one third tab p.o. twice daily and increase dose as tolerated. Unchanged cyclobenzaprine (cyclobenzaprine 10 mg oral tablet) 1 tab(s) by mouth Three (3) times a day as needed for for spasm Cervicalgia Unchanged dapagliflozin (Farxiga 10 mg oral tablet) Unchanged DME (Pen needles 4 mm) See instructions Uncontrolled type 2 diabetes mellitus Dispense UltraFine 4 mm pen needles, #200, use 1 pen needle twice daily to inject insulin Unchanged DULoxetine (DULoxetine 40 mg oral delayed release capsule) 1 cap by mouth Once a day Unchanged glimepiride (glimepiride 4 mg oral tablet) 1 tab(s) by mouth Once a day Unchanged insulin lispro-insulin lispro protamine (Humalog Mix) (HumaLOG Mix 75/ 25 KwikPen 3 mL PEN) 35 unit(s) Subcutaneous Three (3) times a day before meals Type 2 diabetes mellitus Unchanged lisinopril (lisinopril 20 mg oral tablet) 1 tab(s) by mouth Once a day Unchanged meloxicam (Mobic 15 mg oral tablet) 1 tab(s) by mouth Once a day Strain of rotator cuff of right shoulder Cervicalgia Unchanged metFORMIN (metFORMIN 1000 mg oral tablet (IR)) 1 tab(s) by mouth Two (2) times a day Duration: 100 Days Unchanged sildenafil (sildenafil 100 mg oral tablet) 1 tab(s) by mouth Once a day ED (erectile dysfunction) of organic origin Unchanged tirzepatide (Mounjaro 2.5 mg/ 0.5 mL subcutaneous solution) 2.5 Milligram Subcutaneous Every week rotate injection sites Please take this list to your next doctor s visit. Bring all medications you take, including over the counter medications, herbals and other supplements with you to your doctor s visit. Patients and families are reminded to discard old lists and to update any records with all medication providers or retail pharmacies. Education Materials Chest Wall Pain: Costochondritis The chest pain that you have had today is caused by costochondritis. This condition is caused by aninflammation of the cartilage joining your ribs to your breastbone. It is not caused by heart or lung problems. Your healthcare team has made sure that the chest pain you feel is not from a life threatening cause of chest pain such as heart attack, collapsed lung, blood clot in the lung, tear in the aorta, or esophageal rupture. The inflammation may have been brought on by a blow to the chest, lifting heavy objects, intense exercise, or an illness that made you cough and sneeze a lot. It often occurs during times of emotional stress. It can be painful, but it is not dangerous. It usually goesaway in 1 to 2 weeks. But it may happen again. Rarely, a more serious condition may cause symptoms similar to costochondritis. That s why it s important to watch for the warning signs listed below. Home care Follow these guidelines when caring for yourself at home: If you feel that emotional stress is a cause of your condition, try to figure out the sources of that stress. It may not be obvious. Learn ways to deal with the stress in your life. This can include regular exercise, muscle relaxation, meditation, or simply taking time out for yourself. You may use acetaminophen, ibuprofen, or naproxen to control pain, unless another pain medicine wasprescribed. If you have liver or kidney disease or ever had a stomach ulcer, talk with your healthcare provider before using these medicines. You can also help ease pain by using a hot, wet compress or heating pad. Use this with or without amedicated skin cream that helps relieves pain. Do stretching exercise as advised by your provider. Take any prescribed medicines as directed. Follow-up care Follow up with your healthcare provider, or as advised, if you do not start to get better in the next 2 days. When to seek medical advice Call your healthcare provider right away if any of these occur: A change in the type of pain. Call if it feels different, becomes more serious, lasts longer, or spreads into your shoulder, arm, neck, jaw, or back. Shortness of breath or pain gets worse when you breathe Weakness, dizziness, or fainting Cough with dark-colored sputum (phlegm) or blood Abdominal pain Dark red or black stools Fever of 100.4 F (38 C) or higher, or as directed by your healthcare provider [phone] [employer]. [address] [place] [address]. All rights reserved. This information is not intended as a substitute for professional medical care. Always follow yourhealthcare professional's instructions. Additional Information VACCINATE! IT SAVES LIVES! Members of the community who have not yet received the COVID-19 vaccine and would like to receive it can visit one of [facility] vaccine clinics. There are many vaccine clinic locations within the [facility]. For locations and available times, please visit [email or web address]/. It is important to note that some COVID mobile vaccine clinics are held outdoors and may be canceled in rainy or stormy conditions. To learn more about pediatric vaccinations (ages 5-11), we invite you to visit the [facility] webpage. [email or web address] [email or web address] learn more about the COVID-19 vaccine, we invite you to visit the CDC website for a list of frequently asked questions. https://www.cdc.gov/coronavirus/2019-ncov/vaccines/faq.html [facility] Patient Portal Access Instructions: Stay connected with your healthcare team and access your personal medical information anytime with the [facility] Patient Portal. If you would like a full copy of your medical records please contact the [facility] Medical Records Department Tuesday through Tuesday between 8a.m. and 4:30p.m. Please follow the directions below to access the portal: 1.Access the email account you provided upon registration to the [facility].2.Look for an invitation email from [facility].3.Open the email and access the invitation link: Accept Invitation to [facility]4.Fill in the required sánchez to create your account. Sign into www.[email or web address] with your username and password that you created in the above steps to stay up to date. You can then view a summary of results, a summary of your visits, and the ability to download your summaries to your computer or send the information securely to a physician. Remember that your healthcare information is confidential, so carefully consider who you will allow to register on the [facility] Patient Portal for access to your information. You can also access the [facility] Patient Portal on the VPEP. Simply click on Health Records under [employer] and then click on the Optony logo. HOW TO SAFELY DISPOSE OF PRESCRIPTION MEDICATIONS Please use one of the following methods to safely dispose of your unused medications. 1.Use a drug disposal kit: the drug disposal pouch allows you to safely discard your old and unuseddrugs. Ask your nurse to give you one when you are discharged.2.Visit a local take-back location: Many local pharmacies and police departments have programs that collect old and unwanted prescriptiondrugs. Call your local pharmacy or go to http://bit.Recondo/8W6Qc5b to find one close to you.3.Make use of household items: Use cat litter or old coffee grounds to dispose medications if other options arenot available. Mix your drugs with these household products, seal them in an airtight container andthrow it into the garbage. Call [facility]: [phone] to be sure your drugs can be disposed of in this way. Some medicines may require a different approach.4.Never flush your medications down the toilet. IF YOU HAVE BEEN PRESCRIBED AN OPIOIDS FOR PAIN If you have been prescribed an opioid (such as hydrocodone, oxycodone or morphine), it is critical to understand the possible side effects and risks of opioid pain medications. Even when taken as directed, opioids can have several side effects including: Tolerance, meaning you might need to take more of a medication for the same pain relief. Nausea, vomiting and/or constipation. Sleepiness, dizziness, dry mouth, confusion, depression or itching. Physical dependence, meaning you have withdrawal symptoms when a medication is stopped ? this can develop within a few days. KNOW YOUR RESPONSIBILITIES It is important to know exactly how much and how often to take the opioid pain medications you are prescribed. Never take opioids in higher amounts or more often than prescribed. Do not combine opioids with alcohol or other drugs that cause drowsiness, such as benzodiazepines, also known as benzos,including diazepam and alprazolam, muscle relaxants or sleep aids. Never sell or share prescriptionopioids. This is illegal. Store opioids in a secure place and out of reach of others (including children, family, friends and visitors). The last page(s) of this document has been signed and retained as a CHART COPY Signatures Patient Education Materials Chest Wall Pain, Costochondritis Medication Leaflets My discharge plan and instructions have been reviewed and explained to me and IMARGAUX JOHN F understand my current condition and have read and understand these discharge instructions. I have received a written copy of the plan/instructions. If I have questions, I am aware that I should contact my d juanor. 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 No pleural effusion or visible pneumothorax. The cardiomediastinal silhouette is within normal limits. The bony thorax appears intact. IMPRESSION: No acute cardiopulmonary process. Preliminary Report was Dictated by a Resident I have personally reviewed all of the images of this examination and agree with the resident findings and interpretation. Interpreted by: Mario Lira MD Preliminary Report By: Leandro Powell Electronically signed By Mario Lira MD Dictated Date: 01/07/2024 9:30:47 PM Prelim Date: 01/07/2024 9:34:26 PM Sign Date: 01/07/2024 9:49:14 PM [facility]ing [facility] Note Sinus rhythm Right bundle branch block Compared to ECG at 08/23/2023 21:17:47 Electronic Signature: OVIDIO MEEHAN DO 01/07/2024 21:00:14[facility] 11-14-2023 Hospital Discharge instructions Follow Up Care 08/23/2023 21:13:14 With:JAMAICA HOGUE Address: [address] [place] [phone] Business (1) When:2-4 days Comments:Schedule appointment as soon as possibleReturn to ED if symptoms worsenFollow up for outpatient stress testing and echocardiagram asapTake a baby aspirin daily pending testing results [facility] 11-14-2023 SARS-CoV-2 (COVID-19) RNA MALVIN+probe Ql (Nph) Negative (08/23/23 10:43 PM)AO Auto Urine [id number] Note ORIGINAL EXAMINATION: ONE XRAY VIEW OF THE CHEST08/23/2023 10:06 pm COMPARISON: August 10, 2021 HISTORY: ORDERING SYSTEM PROVIDED HISTORY: Reason for Exam: chest pain FINDINGS: The cardiomediastinal contours are stable. There is no consolidation, vascular congestion, pleural effusion, or pneumothorax. There are no acute abnormalities to osseous structures. IMPRESSION: No acute radiographic findings. Interpreted by: Mario Pringle DO Preliminary Report By: Mario Pringle DO Electronically signed By Mario Pringle DO Dictated Date: 08/23/2023 10:10:05 PM Prelim Date: 08/23/2023 10:11:33 PM Sign Date: 08/23/2023 10:11:33 PM [facility]ing [facility] NoteSinus rhythm Right bundle branch block SEE DICTATION Electronic Signature: SONIA SOSA MD 08/23/2023 21:32:40[facility] 09-21-2023 Evaluation + Plan note Future Scheduled Tests Laboratory* Complete Blood Count 06/30/23 [facility] 12-14-2022 Hospital Discharge instructions Patient Education 09/22/2022 19:56:20 URI, Viral, No Abx (Adult) Viral Upper Respiratory Illness (Adult) You have a viral upper respiratory illness (URI), which is another term for the common cold. This illness is contagious during the first few days. It is spread through the air by coughing and sneezing. It may also be spread by direct contact (touching the sick person and then touching your own eyes, nose, or mouth). Frequent handwashing will decrease risk of spread. Most viral illnesses go away within 7 to 10 days with rest and simple home remedies. Sometimes the illness may last for several weeks. Antibiotics will not kill a virus, and they are generally not prescribed for this condition. Home care If symptoms are severe, rest at home for the first 2 to 3 days. When you resume activity, don't letyourself get too tired. Don't smoke. If you need help stopping, talk with your healthcare provider. Avoid being exposed to cigarette smoke (yours or others ). You may use acetaminophen or ibuprofen to control pain and fever, unless another medicine was prescribed. If you have chronic liver or kidney disease, have ever had a stomach ulcer or gastrointestinal bleeding, or are taking blood-thinning medicines, talk with your healthcare provider before using these medicines. Aspirin should never be given to anyone under 18 years of age who is ill with a viral infection or fever. It may cause severe liver or brain damage. Your appetite may be poor, so a light diet is fine. Stay well hydrated by drinking 6 to 8 glasses of fluids per day (water, soft drinks, juices, tea, or soup). Extra fluids will help loosen secretions in the nose and lungs. Ymki-aay-bjspwsn cold medicines will not shorten the length of time you re sick, but they may be helpful for the following symptoms: cough, sore throat, and nasal and sinus congestion. If you take prescription medicines, ask your healthcare provider or pharmacist which iftl-nfo-zkgqrco medicines are safe to use. (Note: Don't use decongestants if you have high blood pressure.) Follow-up care Follow up with your healthcare provider, or as advised. When to seek medical advice Call your healthcare provider right away if any of these occur: Cough with lots of colored sputum (mucus) Severe headache; face, neck, or ear pain Difficulty swallowing due to throat pain Fever of 100.4 F (38 C) or higher, or as directed by your healthcare provider Call 911 Call 911 if any of these occur: Chest pain, shortness of breath, wheezing, or difficulty breathing Coughing up blood Very severe pain with swallowing, especially if it goes along with a muffled voice [phone] [employer]. [address] [place] [address], [place] [address]. All rights reserved. This information is not intended as a substitute for professional medical care. Always follow yourhealthcare professional's instructions. Follow Up Care 09/22/2022 19:29:43 With:JAMAICA HOGUE DO Address: [address] [place] [phone] When:2-4 days [facility] 12-14-2022 Note Discharge Instructions Thank you for allowing [facility] to assist you with your healthcare needs. The following is importantdischarge information regarding your hospital visit. Diagnosis from Today's Visit URI - Upper respiratory infection Cough What to Do Next Instructions from Your Care Team No qualifying data available. Post Acute Orders No qualifying data available. You Need to Schedule the Following Appointments Follow Up with JAMAICA HOGUE DO When Within 2-4 days Where: [address] [place] [phone] Allergies Claritin (Headache) Medications Please ask your primary doctor or pharmacist before taking any other medication not listed, including over the counter drugs, herbal medications, vitamins and or supplements as they may interact withyour home medications. What How Much When Why Instructions Last Dose Changed benzonatate (benzonatate 100 mg oral capsule) Take 1 - 2 capsules three times daily as needed for cough. This is to last 10 days. Changed benzonatate (Tessalon Perles 100 mg oral capsule) 1 cap by mouth Three (3) times a day URI - Upper respiratory infection Duration: 7 Days Printed Prescription Unchanged atorvastatin (atorvastatin 20 mg oral tablet) 1 tab(s) by mouth Once a day Unchanged azithromycin (Zithromax 250 mg oral tablet) 1 tab(s) by mouth Once a day Duration: 5 Days follow directions on Z-Erlin Unchanged dapagliflozin (Farxiga 10 mg oral tablet) Unchanged dextromethorphan-promethazine (dextromethorphan-promethazine 15 mg- 6.25 mg/ 5 mL oral syrup) 5 Milliliter by mouth Every 6 hours as needed for for cough Cough Duration: 10 Days Unchanged diclofenac topical (diclofenac 1% topical gel) 4 gram(s) Topical Four (4) times a day Torn rotator cuff Unchanged DME (Pen needles 4 mm) See instructions Uncontrolled type 2 diabetes mellitus Dispense UltraFine 4 mm pen needles, #200, use 1 pen needle twice daily to inject insulin Unchanged dulaglutide (Trulicity Pen 1.5 mg/ 0.5 mL subcutaneous solution) 1.5 Milligram Subcutaneous Every week Duration: 90 Days Unchanged gabapentin (gabapentin 300 mg oral capsule) 1 cap by mouth Daily at bedtime Restless leg Peripheral neuropathy Duration: 30 Days Unchanged glimepiride (glimepiride 4 mg oral tablet) 1 tab(s) by mouth Once a day Unchanged hydrocortisone topical (hydrocortisone 1% topical cream) 1 application Topical Two (2) times a day Unchanged insulin lispro-insulin lispro protamine (Humalog Mix) (HumaLOG Mix 75/ 25 KwikPen 3 mL PEN) 35 unit(s) Subcutaneous Three (3) times a day before meals Type 2 diabetes mellitus Unchanged lisinopril (lisinopril 20 mg oral tablet) See instructions TAKE 1 TABLET BY MOUTH EVERY DAY Unchanged metFORMIN (metFORMIN 1000 mg oral tablet (IR)) 1 tab(s) by mouth Two (2) times a day Unchanged sertraline (sertraline 100 mg oral tablet) 1 tab(s) by mouth Every day Unchanged sildenafil (sildenafil 100 mg oral tablet) 1 tab(s) by mouth Once a day ED (erectile dysfunction) of organic origin Please take this list to your next doctor s visit. Bring all medications you take, including over the counter medications, herbals and other supplements with you to your doctor s visit. Patients and families are reminded to discard old lists and to update any records with all medication providers or retail pharmacies. Education Materials Viral Upper Respiratory Illness (Adult) You have a viral upper respiratory illness (URI), which is another term for the common cold. This illness is contagious during the first few days. It is spread through the air by coughing and sneezing. It may also be spread by direct contact (touching the sick person and then touching your own eyes, nose, or mouth). Frequent handwashing will decrease risk of spread. Most viral illnesses go away within 7 to 10 days with rest and simple home remedies. Sometimes the illness may last for several weeks. Antibiotics will not kill a virus, and they are generally not prescribed for this condition. Home care If symptoms are severe, rest at home for the first 2 to 3 days. When you resume activity, don't letyourself get too tired. Don't smoke. If you need help stopping, talk with your healthcare provider. Avoid being exposed to cigarette smoke (yours or others ). You may use acetaminophen or ibuprofen to control pain and fever, unless another medicine was prescribed. If you have chronic liver or kidney disease, have ever had a stomach ulcer or gastrointestinal bleeding, or are taking blood-thinning medicines, talk with your healthcare provider before using these medicines. Aspirin should never be given to anyone under 18 years of age who is ill with a viral infection or fever. It may cause severe liver or brain damage. Your appetite may be poor, so a light diet is fine. Stay well hydrated by drinking 6 to 8 glasses of fluids per day (water, soft drinks, juices, tea, or soup). Extra fluids will help loosen secretions in the nose and lungs. Nzeq-est-rzifcnw cold medicines will not shorten the length of time you re sick, but they may be helpful for the following symptoms: cough, sore throat, and nasal and sinus congestion. If you take prescription medicines, ask your healthcare provider or pharmacist which hrgs-mcj-fzfzxan medicines are safe to use. (Note: Don't use decongestants if you have high blood pressure.) Follow-up care Follow up with your healthcare provider, or as advised. When to seek medical advice Call your healthcare provider right away if any of these occur: Cough with lots of colored sputum (mucus) Severe headache; face, neck, or ear pain Difficulty swallowing due to throat pain Fever of 100.4 F (38 C) or higher, or as directed by your healthcare provider Call 911 Call 911 if any of these occur: Chest pain, shortness of breath, wheezing, or difficulty breathing Coughing up blood Very severe pain with swallowing, especially if it goes along with a muffled voice [phone] [employer]. [address] [place] [address]. All rights reserved. This information is not intended as a substitute for professional medical care. Always follow yourhealthcare professional's instructions. Additional Information VACCINATE! IT SAVES LIVES! Members of the community who have not yet received the COVID-19 vaccine and would like to receive it can visit one of [facility] vaccine clinics. There are many vaccine clinic locations within the [facility]. For locations and available times, please visit [email or web address]. It is important to note that some COVID mobile vaccine clinics are held outdoors and may be canceled in rainy orstormy conditions. To learn more about pediatric vaccinations (ages 5-11), we invite you to visit the [facility] webpage. [email or web address]/[email or web address] [email or web address].htmlTo learn more about the COVID-19 vaccine, we invite you to visit the [place] website for a list of frequently asked questions. [email or web address] [facility] Patient Portal Access Instructions: Stay connected with your healthcare team and access your personal medical information anytime with the [facility] [facility] Patient [facility]. If you would like a full copy of your medical records please contact the [facility] Medical Records Department Tuesday through Tuesday between 8a.m. and 4:30p.m. Please follow the directions below to access the portal: 1.Access the email account you provided upon registration to the [facility].2.Look for an invitation email from [facility].3.Open the email and access the invitation link: Accept Invitation to [facility] [facility]4.Fill in the required sánchez to create your account. Sign into [email or web address] with your username and password that you created in the above steps to stay up to date. You can then view a summary of results, a summary of your visits, and the ability to download your summaries to your computer or send the information securely to a physician. Remember that your healthcare information is confidential, so carefully consider who you will allow to register on the [facility] [facility] Patient Portal for access to your information. You can also access the [place] [facility] Patient Portal on the GrowYo jeffrey. Simply click on Health Records under [employer] and then click on the [facility] logo. HOW TO SAFELY DISPOSE OF PRESCRIPTION MEDICATIONS Please use one of the following methods to safely dispose of your unused medications. 1.Use a drug disposal kit: the drug disposal pouch allows you to safely discard your old and unuseddrugs. Ask your nurse to give you one when you are discharged.2.Visit a local take-back location: Many local pharmacies and police departments have programs that collect old and unwanted prescriptiondrugs. Call your local pharmacy or go to http://bit.Recondo/0A6Wd2m to find one close to you.3.Make use of household items: Use cat litter or old coffee grounds to dispose medications if other options arenot available. Mix your drugs with these household products, seal them in an airtight container andthrow it into the garbage. Call [facility]: [phone] to be sure your drugs can be disposed of in this way. Some medicines may require a different approach.4.Never flush your medications down the toilet. IF YOU HAVE BEEN PRESCRIBED AN OPIOIDS FOR PAIN If you have been prescribed an opioid (such as hydrocodone, oxycodone or morphine), it is critical to understand the possible side effects and risks of opioid pain medications. Even when taken as directed, opioids can have several side effects including: Tolerance, meaning you might need to take more of a medication for the same pain relief. Nausea, vomiting and/or constipation. Sleepiness, dizziness, dry mouth, confusion, depression or itching. Physical dependence, meaning you have withdrawal symptoms when a medication is stopped ? this can develop within a few days. KNOW YOUR RESPONSIBILITIES It is important to know exactly how much and how often to take the opioid pain medications you are prescribed. Never take opioids in higher amounts or more often than prescribed. Do not combine opioids with alcohol or other drugs that cause drowsiness, such as benzodiazepines, also known as benzos,including diazepam and alprazolam, muscle relaxants or sleep aids. Never sell or share prescriptionopioids. This is illegal. Store opioids in a secure place and out of reach of others (including children, family, friends and visitors). The last page(s) of this document has been signed and retained as a CHART COPY Signatures Patient Education Materials URI, Viral, No Abx (Adult) Medication Leaflets My discharge plan and instructions have been reviewed and explained to me and I,COONESAQIB understand my current condition and have read and understand these discharge instructions. I have received a written copy of the plan/instructions. If I have questions, I am aware that I should contact my doctor. 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 It is also called a pulled muscle.The abdomen is protected by a thick wall of muscle in the front and sides. These muscles help with twisting and bending forward. Too much coughing, lifting heavy objects, or sudden jerking movements can sometimes cause a muscle strain in the abdomen. This causes pain that is worse when you move. The area may also feel tender or look swollen and bruised. Home care Apply an ice pack over the injured area for 15 to 20 minutes every 3 to 6 hours. Do this for the first 24 to 48 hours. You can make an ice pack by filling a plastic bag that seals at the top with icecubes and then wrapping it with a thin towel. Be careful not to injure your skin with the ice treatments. Ice should never be applied directly to skin. Continue the use of ice packs for relief of pain and swelling as needed. After 48 hours, apply heat (warm shower or warm bath) for 15 to 20 minutesseveral times a day, or alternate ice and heat. You may use nlhz-ros-btophao pain medicine to control pain, unless another pain medicine was prescribed. If you have liver or kidney disease, a stomach ulcer or gastrointestinal bleeding, talk with your healthcare provider before using these medicines. Follow-up care Follow up with your healthcare provider, or as advised. Call 911 Call 911 if you have: Weakness, lightheaded, or faint Chest pain When to seek medical advice Call your healthcare provider right away if any of these occur: Pain gets worse or moves to the right lower abdomen, just below the waistline Fever of 100.4 F (38 C) or higher, or chills, or as directed by your healthcare provider Vomiting Severe abdominal pain that spreads to the back or toward the groin Blood in the urine Unexpected vaginal bleeding in women [phone] [employer]. [address] [place] [address], [place] [address]. All rights reserved. This information is not intended as a substitute for professional medical care. Always follow yourhealthcare professional's instructions. Follow Up Care 08/10/2021 04:18:03 With:JAMAICA HOGUE DO Address: [phone] When:2-4 days [facility] [employer]ation + Plan note Future Appointments Appointment Date:09/29/2021 09:30:00 AM Scheduled Provider:JAMAICA HOGUE DO Location:[facility] Appointment Type:PC OV Future Scheduled Tests Laboratory* A1C Hemoglobin 11/21/20 * Lipid Profile 11/21/20 * Complete Metabolic Panel 11/21/20 Radiology* XR Orbits Minimum 4 Views 02/20/21 * XR Shoulder Minimum 2 Views Left 02/10/21 [facility] Medical Navigationaluation + Plan note Future Appointments Appointment Date:01/20/2022 08:00:00 AM Scheduled Provider:JAMAICA HOGUE DO Location:[facility] Appointment Type:PC OV Future Scheduled Tests Laboratory* Lipid Profile 11/21/20 * Complete Metabolic Panel 11/21/20 Radiology* XR Orbits Minimum 4 Views 02/20/21 * XR Shoulder Minimum 2 Views Left 02/10/21 [facility] Medical Navigationaluation + Plan note Future Appointments Appointment Date:07/19/2022 08:00:00 AM Scheduled Provider:JAMAICA HOGUE DO Location:[facility] Appointment Type:PC OV Future Scheduled Tests Laboratory* Folate Level 05/26/22 * Iron Level 05/26/22 * Vitamin B12 Level 05/26/22 * Vitamin D Level 05/26/22 Radiology* XR Hip Minimum 2 Views Right 05/26/22 * XR Spine Lumbar AP/LAT 05/26/22 [facility] Medical Navigationaluation + Plan note Future Appointments Appointment Date:11/08/2022 08:00:00 AM Scheduled Provider:JAMAICA HOGUE DO Location:[facility] Appointment Type:PC OV Future Scheduled Tests Laboratory* Folate Level 05/26/22 * Iron Level 05/26/22 * Vitamin B12 Level 05/26/22 * Vitamin D Level 05/26/22 Radiology* XR Hip Minimum 2 Views Right 05/26/22 * XR Spine Lumbar AP/LAT 05/26/22 [facility] Evaluation + Plan note Future Appointments Appointment Date:06/06/2023 08:00:00 AM Scheduled Provider:JAMAICA HOGUE DO Location:[facility] Appointment Type:PC OV Future Scheduled Tests Laboratory* Microalbumin Level Urine 11/08/22 Radiology* XR Hip Minimum 2 Views Right 05/26/22 * XR Spine Lumbar AP/LAT 05/26/22 [facility] Evaluation + Plan note Future Appointments Appointment Date:09/05/2023 09:30:00 AM Scheduled Provider:JAMAICA HOGUE DO Location:[facility] Appointment Type:PC OV Follow Up Future Scheduled Tests Laboratory* Microalbumin Level Urine 11/08/22 [facility] Evaluation + Plan note Future Appointments Appointment Date:09/05/2023 09:30:00 AM Scheduled Provider:JAMAICA HOGUE DO Location:[facility] Appointment Type:PC OV Follow Up Appointment Date:09/06/2023 08:30:00 AM Scheduled Provider:AJMAICA HOGUE DO Location:[facility] Appointment Type:PC OV Future Scheduled Tests Laboratory* Complete Blood Count 06/30/23 * Microalbumin Level Urine 11/08/22 [facility] Evaluation + Plan note Future Appointments Appointment Date:03/26/2024 02:30:00 PM Scheduled Provider:JAMAICA HOGUE DO Location:[facility] Appointment Type:PC OV Follow Up Future Scheduled Tests Laboratory* Creatinine 02/14/24 * Complete Blood Count 06/30/23 [facility] Evaluation + Plan note Future Appointments Appointment Date:09/24/2024 02:30:00 PM Scheduled Provider:JAMAICA HOGUE DO Location:[facility] Appointment Type:PC OV Future Scheduled Tests Laboratory* Creatinine 02/14/24 Radiology* US Abdomen Complete 03/15/24 [facility] Evaluation + Plan note Future Appointments Appointment Date:05/15/2025 04:30:00 PM Scheduled Provider:ABISAI RODRIGUEZ Location:[facility] Appointment Type:PC OV Controlled Medication Future Scheduled Tests Radiology* XR Pelvis 1 or 2 Views 08/07/24 * XR Hip 2-3 Views Left 08/07/24 [facility] Evaluation note* Diagnosis Onset Date Resolution Status Benign essential HTN chronic Diabetes chronic HLD (hyperlipidemia) chronic Obesity chronic Benign essential HTN chronic Diabetes chronic HLD (hyperlipidemia) chronic Obesity [facility] Work Phone: Hospital course Narrative No data available for this section [facility] Discharge instructions No data available for this section [facility] Progress note No data available for this section [facility] Reason for referral (narrative)No [facility]: [facility]* GAMALIEL Ramos: PERFORM Event Display: Patient Summary Documents Authored Date: [id number] [facility] summary note* GAMALIEL Ramos: PERFORM Event Display: Patient Summary Documents Authored Date: [id number] [facility] Summary Purpose Family History Relationship Condition Age at Onset Recorded Date/T rhoda Not Specified Severe allergy Unknown Diabetes mellitus Unknown High blood cholesterol Unknown Depression Unknown Hypertension Unknown No Family History Records Found Advance Directives No Advanced Directives Records Found Advance Directive Response Recorded Date/ Time Living Will No October 13 4:15pm Power of Sewer Inspector No Sonya 4th, 2 024 4:15pm Chief Complaint and Reason for Visit Chief Complaint 4 M FU, Cx 09/26 3 M FU, RS 11/14 Reason for Visit Benign essential HTN Diabetes HLD (hyperlipidemia) Obesity Benign essential HTN Diabetes HLD (hyperlipidemia) Obesity Chief Complaint Admit Date 6 M FU, NS 11/06February 04, 2025 8:0 7am 3 M FU May 06, 2025 2:23 pm Reason for Visit Admit Date Benign essential HTN February 04, 2025 8: 07am Diabetes February 04, 2025 8:0 7am HLD (hyperlipidemia) February 04, 2025 8: 07am Obesity February 04, 2025 8:0 7am Benign essential HTN May 06, 2025 2:2 3pm Depression May 06, 2025 2:23 pm Diabetes May 06, 2025 2:23 pm HLD (hyperlipidemia) May 06, 2025 2:2 3pm Obesity May 06, 2025 2:23 pm Additional Source Comments Care Team (unrecognized sect ion and content) Care Team Personnel Name: JAMAICA HOGUE DO Position: P4 Physician - Primary Care Med Service: Active Provider Member Role: Primary Care Physician Address: Address: [address] [place] [address] Care Team Related Persons Name: SHIVA DAMICO Care Team Personnel Name: JAMAICA HOGUE DO Position: P4 Physician - Primary Care Member Role: Primary Care Physician Address: Address: [address] [place] [address] Name: JANETTE AGEE DO Position: ED Physician Member Role: Attending Physician Address: Address: [address] [place] [address] Name: Jacquelyn Deleon RN Position: AO RN Member Role: ED RN Care Team Related Persons Name: SHIVA DAMICO Care Team Personnel Name: JAMAICA HOGUE DO Position: P4 Physician - Primary Care Member Role: Primary Care Physician Address: Address: [address] [place] [address] Care Team Related Persons Name: SHIVA DAMICO Patient Care team informatio n (unrecognized section and content) Team Status: Active Member Role Status Dates Dr. Amos Obrien MD Family Provider Active Dr. [place] Hogue DO Primary Care Provider Active Team Status: Inactive Member Role Status Dates Dr. [place] Hogue DO Primary Care Provider, Referri ng Provider Active Dr. aDniel Granda MD Attending Provider Active Team Status: Inactive Member Role Status Dates Dr. [place] Hogue DO Primary Care Provider Active Dr. Daniel Granda MD Attending Provider, Referring Provi erica Active Team Status: Active Member Role/Relationship Status Dates Dr. Amos Obrien MD Family Provider Active Dr. [place] Hogue DO Primary Care Provider Active Team Status: Inactive Member Role/Relationship Status Dates Dr. [place] Hogue DO Primary Care Provider Active Start: February 04, 2025 End: February 04, 2025 Dr. [place] Hogue DO Referring Provider Active Start: February 04, 2025 End: February 04, 2025 STAS Young Attending Provider Active Start: February 04, 2025 End: February 04, 2025 Team Status: Inactive Member Role/Relationship Status Dates Dr. [place] Hogue DO Primary Care Provider Active Start: May 06, 2025 End: May 06, 2025 Dr. [place] Hogue DO Referring Provider Active Start: May 06, 2025 End: May 06, 2025 Dr. Daniel Granda MD Attending Provider Active Sta rt: May 06, 2025 End: May 06, 2025 (unrecognized sect ion and content) No Status Records FoundNo Status Records FoundNo Status Records FoundNo Status Records Found INFORMATION SOURCE (unrecogn ized section and content) DATE CREATED AUTHOR 08/30/2023 [facility] DATE CREATED AUTHOR AUTHOR'S ORGANIZ ATION 03/04/[address] [facility] ([place]) DATE CREATED AUTHOR AUTHOR'S ORGANIZ ATION 05/01/2025 [facility] DATE CREATED AUTHOR AUTHOR'S ORGANIZ ATION 05/07/2025 [facility] Goals (unrecognized section and content) Goals may be documented in a n alternate section FOR RECORDS PERTAINING TO PATIENTS WHO ARE OR HAVE BEEN ENROLLED IN A CHEMICAL DEPENDENCY/SUBSTANCEABUSE PROGRAM, SOME INFORMATION MAY BE OMITTED. This clinical summary was aggregated from multiple sources. Caution should be exercised in using it in the provision of clinical care. This summary normalizes information from multiple sources, and as a consequence, information in this document may materially change the coding, format and clinical context of patient data. In addition, data may be omitted in some cases. CLINICAL DECISIONS SHOULD BE BASED ON THE PRIMARY CLINICAL RECORDS. [facility] [employer] [facility]. provides no warranty or guarantee of the accuracy or completeness of information in this document.
[2025-08-18 18:35] LABS: Red Blood Cells-Urine 0-5 SEEN /hpf (0-5); Squamous Epithelial Cells - UA 0-5 SEEN /hpf (0-5)
[2025-08-18 18:53] LABS: AST(SGOT) 13 U/L (<=37); Alanine Aminotransfer ALT/SGPT 12 U/L (<=46); Albumin, Serum 4.6 g/dL (3.5-5.0); Alkaline Phosphatase 95 U/L (40-129); Anion Gap 24 (5-15); BUN 15 mg/dL (4-19); BUN/Creat Ratio 14.6 RATIO (10-20); Calcium,Total 9.9 mg/dL (7.6-11.0); Carbon Dioxide 12.9 mmol/L (21.0-32.0); Chloride 94 mmol/L (98-108); Estimated Creatinine Clearance 121.52 ml/min (50-250); Globulin 3.4 g/dL (2.2-4.2); Glucose 448 mg/dL (70-99); Lipase 24 U/L (13-75); Potassium 4.3 mmol/L (3.3-5.1)
[2025-08-18 19:33] LABS: SITE Not entered; VBG BASE EXCESS -16 mmol/L (-1.0-3.5); VBG PO2 75 mmHg (25-40); VBG SO2 94 % (50-70); VBG TCO2 10 mmol/L (23-33)
[2025-08-18 19:54] LABS: BETA-HYDROXYBUTYRATE 6.5 mmol/L (0.0-0.3)
--- NOTE | 2025-08-18 20:44 | PCM.HP.STD ---
HPI - General General Date of Admission: 08/18/25 Date of Service: 08/18/25 Chief Complaint: Abdominal pain/nausea/vomiting HPI Narrative SAQIB DAMICO, is a 55 M who present to the emergency department [facility] on 08/18/2025 with a chief complaint of abdominal pain and nausea and vomiting. Patient states it has been about 2 to 4 weeks since he has been consistently taking his medications including his insulin. He reported about the last week he has developed gradually worsening abdominal pain nausea and vomiting. He states he has been very thirsty and having polyuria and polydipsia. He has had trouble keeping things down intermittently because of this. He has had no change in his bowel movements. He has had no sick contacts. He has no chest pain or shortness of breath. He did indicate he is going through a pretty messy divorce currently and it sounds that he is very stressed about this. He stopped taking his medications in general due to the stressors but has no intent to hurt himself. Vital signs on presentation showed temperature of 98.2, heart rate 102, respiratory 20, blood pressure was 141/68 and pulse ox with 97% on room air. CBC showed a white count of 13.9 with an erythrocytosis having a hemoglobin of 17.2. Differential was normal. Chemistry panel showed mild hyponatremia with a sodium of 131, chloride of 94, serum bicarb was 12.4 with an anion gap of 24. Renal function was normal. Blood glucose was 448. Liver functions were unremarkable. Lipase was normal at 24. Beta-hydroxybutyrate was 6.5. VBG showed a pH of 7.33. Urine had large ketones and was consistent with dehydration showing a specific gravity of 1.025. Was not consistent with infection. He was started on aggressive IV fluids with 2 L boluses in the emergency department and an insulin drip was initiated. Anticipated length of stay is greater than 2 midnights. [facility] Medical History (Updated 08/18/25 @ 20:[address] Connie Smalls DO) Abrasion of abdominal wall, initial encounter Benign essential HTN Depression HLD (hyperlipidemia) Obesity Diabetes Other specified disorders of tendon, right hand Home Medications ?Medication ?Instructions ?Recorded ?Last Taken ?Type atorvastatin 20 mg tablet 20 mg PO DAILY 03/29/22 08/18/25 History lisinopril 20 mg tablet 20 mg PO DAILY 03/29/22 08/18/25 History metformin 1,000 mg tablet 1,000 mg PO BID #60 tabs 10/14/23 08/18/25 Rx blood-glucose sensor (FreeStyle #2 ea 03/22/25 Unknown Rx Sera 3 Sensor device) Tresiba FlexTouch U-200 200 100 unit (0.5 mL) subcut QDAY #45 05/06/25 Unknown Rx unit/mL (3 mL) subcutaneous pen mL (insulin degludec) insulin lispro 200 unit/mL (3 mL) 60 unit (0.3 mL) subcut TID #81 mL 05/06/25 Unknown Rx subcutaneous pen (Humalog KwikPen U-200 Insulin) trazodone 50 mg tablet 50 mg PO QHS PRN sleep 05/06/25 Unknown History pen needle, diabetic 32 gauge x #100 ea 07/03/25 Unknown Rx blood-glucose sensor (FreeStyle #6 ea 07/10/25 Unknown Rx Sera 3 Plus Sensor device) glimepiride 4 mg tablet 4 mg PO DAILY 08/18/25 08/18/25 History Allergy/AdvReac Type Severity Reaction Status Date / Time loratadine (From Claritin) AdvReac Intermediate headache Verified 08/18/25 17:23 Family History Other Depression Diabetes High cholesterol Hypertension Severe allergy Surgical History H/O facial fracture repair Social History (Updated 08/18/25 @ 22:[address] 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 other: Going through divorce Smoking Status: Former smoker alcohol intake: current alcohol intake frequency: 0-2 drinks per day substance use type: does not use what type of physical activity do you participate in: other details: treadmill frequency: daily ROS Constitutional Constitutional: Reports fatigue and weakness; Denies anorexia, change in weight, chills, fever(s), malaise, night sweats or other Eyes Eyes: Reports blurry vision; Denies change in eye color, change in vision, discharge from eye(s), double vision, erythema, eye pain, loss of vision or other ENT HEENT: Denies abnormal hearing, dysphagia, ear pain, epistaxis, headache(s), hearing loss, nasal congestion, nasal discharge, post nasal drip, sinus pressure, sore throat or other Cardiovascular Cardiovascular: Denies chest pain, claudication, dyspnea on exertion, edema, lightheadedness, orthopnea, palpitations, paroxysmal nocturnal dyspnea, rapid heart rate, syncope or other Respiratory/Chest Respiratory/Chest: Denies cough, dyspnea, excessive phlegm production, hemoptysis, productive cough, shortness of breath at rest, shortness of breath with exertion, wheezing or other Gastrointestinal Gastrointestinal: Reports abdominal pain and nausea; Denies coffee ground emesis, constipation, diarrhea, dyspepsia, hematemesis, hematochezia, loose stools, melena, vomiting or other Genitourinary Genitourinary: Denies burning urination, difficulty urinating, dysuria, hematuria, nocturia, urinary frequency, urinary hesitancy, urinary incontinence, urinary urgency or other Musculoskeletal Musculoskeletal: Reports joint pain and joint stiffness; Denies arthralgias, back pain, joint swelling, myalgias, neck pain or other Neurologic Neurologic: Denies abnormal gait, abnormal speech, confusion, disequilibrium, dizziness, focal weakness, headache(s), numbness, paresthesias, seizure-like activity, seizures, syncope, tingling, tremor(s) or other Psychiatric Psychiatric: Denies anxiety, depression, homicidal ideation, suicidal ideation or other Endocrine Endocrinology: Reports polydipsia and polyuria; Denies change in body appearance, cold intolerance, excessive sweating, heat intolerance or other Hematologic/Lymphatic Hematologic/Lymphatic: Denies anemia, easy bleeding, easy bruising, lymphadenopathy or other Allergic/Immunologic Allergic/Immunologic: Denies rhinitis, hives, eczemia, asthma or other Vital Signs Vital Signs Vital Signs: 08/18/25 17:20 08/18/25 17:23 08/18/25 17:55 Temperature 98.2 F Temperature Source Oral Pulse Rate 102 H 109 H Respiratory Rate 20 H 20 H Respiratory Effort Normal Non-Labored Respiratory Pattern Normal Blood Pressure 141/68 H 169/109 H Blood Pressure Mean 92 129 Pulse Ox 97 97 Oxygen Delivery Method Room Air Room Air 08/18/25 19:44 Temperature Temperature Source Pulse Rate 95 Respiratory Rate 18 Respiratory Effort Respiratory Pattern Blood Pressure 164/97 H Blood Pressure Mean 119 Pulse Ox 98 Oxygen Delivery Method Room Air Weight Weight: 144.838 kg Body Mass Index (BMI) 44.5 Physical Exam Const alert, oriented x3, no apparent distress and well nourished; Negative for average body habitus or healthy appearing Constitutional Narrative: Talkative, morbidly obese, white male, sitting up on the edge of the bed, appears comfortable at this time, does not look toxic General Appearance: cooperative HEENT normocephalic, head/scalp atraumatic and hearing grossly normal bilaterally HEENT Narrative: Dry mucous membranes, Mallampati is 3-4, no thrush, dentition is good Eyes EOMs intact bilaterally and conjunctivae normal Eyes Narrative: No scleral icterus Neck supple Neck Narrative: Neck is short and thick, trachea midline Resp normal respiratory effort, no retractions, no use of accessory muscles and clear to auscultation bilaterally Auscultation: Negative for rales, rhonchi or wheezes Cardio regular rate, regular rhythm, S1 normal heart sound, S2 normal heart sound, no murmurs, no rub, no gallops and no clicks GI normal to inspection, nondistended, normoactive bowel sounds, soft to palpation and non-tender GI Narrative: Large protuberant abdomen Extremity no clubbing, cyanosis or edema Extremity Narrative: 2+ pedal and radial pulses Neuro moves all extremities and no focal motor deficits Speech: speech normal Psych affect normal Psych Narrative: Very pleasant, interacts appropriately Results Lab / Micro Data 08/18/25 18:20 08/18/25 20:20 Labs: Laboratory Results - last 24 hr 08/18/25 18:16: Urine Color Straw, Urine Clarity Clear, Urine pH 6.0, Ur Specific [place] 1.025, Urine Protein 30 H, Urine Glucose (UA) 1000 H, Urine Ketones 150 A*, Urine Occult Blood 10 H, Urine Nitrite Negative, Urine Bilirubin Negative, Urine Urobilinogen Normal, Ur Leukocyte Esterase Negative, Urine RBC 0-5 SEEN, Urine WBC 0-5 SEEN, Ur Squamous Epith Cells 0-5 SEEN, Amorphous Sediment 1+, Urine Bacteria 2+, Hyaline Casts 0-5 SEEN, Coarse Granular Casts 0-5 SEEN, Urine Mucus 0 SEEN 08/18/25 18:20: WBC 13.9 H, RBC 5.80, Hgb 17.2 H, Hct 49.7, MCV 85.7, MCH 29.7, MCHC 34.6, RDW Std Deviation 42.3, RDW Coeff of Mica 13.6, Plt Count 413, MPV 9.5, Immature Gran % (Auto) 0.900, Neut % (Auto) 60.9, Lymph % (Auto) 27.7, [place] % (Auto) 8.6, Eos % (Auto) 1.2, Baso % (Auto) 0.7, Absolute Neuts (auto) 8.5 H, Absolute Lymphs (auto) 3.85, Nucleated RBC % 0, Sodium 131 L, Potassium 4.3, Chloride 94 L, Carbon Dioxide 12.9 L, Anion Gap 24 H, BUN 15, Creatinine 0.99, Estim Creat Clear Calc 121.52, Est GFR (MDRD) Non-Af 89, BUN/Creatinine Ratio 14.6, Glucose 448 H, Calcium 9.9, Total Bilirubin 0.74, AST 13, ALT 12, Alkaline Phosphatase 95, Total Protein 8.0, Albumin 4.6, Globulin 3.4, Albumin/Globulin Ratio 1.4, Lipase 24, b-Hydroxybutyric mmol/L 6.5 H ABG Data ABG results: ABG 08/18/25 19:28 Specimen Type FELTON Sample Site Not entered VBG pH 7.33 VBG pO2 75 H VBG HCO3 10 L VBG Total CO2 10 L VBG O2 Sat (Calc) 94 H VBG Base Excess -16 L POC Mix VBG pCO2 Pt Tmp 18.6 L* O2 Delivery Device Room Air Crit Call To/Read Back Yes Blood Gas Notified Whom Jayy Blood Gas Notified Time 19:30:29 Assessment & Plan Assessment/Plan (1) DKA (diabetic ketoacidoses): (2) Leukocytosis: (3) Erythrocytosis: (4) Noncompliance with medication regimen: PLAN: Plan DKA secondary to medication noncompliance - Mild with a serum bicarb of 12.9 on presentation, anion gap of 25 and a VBG but showed a pH of 7.33, beta hydroxybutyrate was 6.5 - Start insulin drip - Aggressive IV fluids - DKA protocol in place - Will recheck beta-hydroxybutyrate once gap closes and transition to subcu insulin - Check hemoglobin A1c - N.p.o. with okay for ice chips at this time Leukocytosis/erythrocytosis - Suspect related to volume contraction - Aggressive IV fluids per DKA protocol in place - Repeat lab in a.m. - No signs of infection Essential hypertension with elevated blood pressure - Continue home lisinopril - Assess needs for up titration - As needed hydralazine available for systolic blood pressure greater than 140 DM-2 - Hold home oral agents - Hold home insulin - Will transition to subcu insulin after DKA is resolved - Check hemoglobin A1c - N.p.o. for now Hyperlipidemia - Continue home atorvastatin Morbid obesity - BMI is 43.4 - Recommend weight loss - Complicates treatment, prognosis, outcomes DVT prophylaxis - Subcu Lovenox twice daily 40 mg CODE STATUS - Full code Charges/Coding Visit Charges Inpatient E&M: 49477 Init Hosp L2
[2025-08-18 20:58] LABS: Magnesium 1.9 mg/dL (1.5-2.2)
[2025-08-18] MEDS: Insulin Lispro 100 UNIT in 0.9% Normal Saline (100mL Bag) 99 ML 8.7 UNIT CONT INF (21:00)
[2025-08-18 21:18] LABS: Anion Gap 25 (5-15); Carbon Dioxide 14.1 mmol/L (21.0-32.0); Chloride 94 mmol/L (98-108); Potassium 4.2 mmol/L (3.3-5.1)
--- OUTSIDE RECORDS SUMMARY | 2025-08-18 21:26 | XMS RPT_ITS | CCD ---
Author Organization [facility] Care Team Providers Care Lease Administration Supervisor Name Role Phone JAMAICA HOGUE DO Primary Care Physician HANNAH STEELE Attending Unavailable HANNAH STEELE Admitting Unavailable JAMAICA HOGUE Primary Care Unavailable AGA DANIEL Consulting Unavailable Dr. Jamaica Hogue Primary Care Provider Dr. Jamaica Hogue Referring Provider Dr. Daniel Granda Attending Provider SHIRA CHAPA PA-C Attending Unavailab le JAMAICA [...] Jamaica Hogue DO Primary Care Provider [phone] Dr. Jamaica Hogue DO Referring Provider Mayuri Foley Attending Provider Dr. Daniel Granda MD Attending Provider [phone] Jamaica Hogue Referring Unavailable Jamaica Hogue Primary [...] Translations: [loratadine] Drug Allergy 3 Headache (finding) [facility] (1 source) Loratadine Drug Allergy 5 [facility] Repository Medications Current Medications Medication Drug [...] every six hours as needed for pain [place] 325- 5 mg oral tablet Dose = [...] day(s), # 15 gram(s), 1 Refill(s), Pharmacy: [facility], Ointment, 181, cm, 08/16/23 13:28:00 EST, [...] wheezing, # 8.5 gram(s), 0 Refill(s), Pharmacy: [facility] #[id number], Acute bronchitis, 180, cm, 01/19/24 9:57:00 EDT, [...] wheezing, # 8.5 gram(s), 0 Refill(s), Pharmacy: [facility] #[id number], Acute bronchitis, 180, cm, 01/19/24 9:57:00 EDT, [...] wheezing, # 8.5 gram(s), 0 Refill(s), Pharmacy: [facility] #[id number], Acute bronchitis, 180, cm, 01/19/24 9:57:00 EDT, Height, kg, 01/19/24 9:57:00 EDT, Dosing Weight Start Date: 01/19/24 Status: Ordered Start: 09-28-2023 take 1 puff(s) by in halation every four hours as needed for wheezing albuterol MDI (90 mcg/inh) CFC free inhalation aerosol 1 puff(s), Inhalation, q4h, PRN as needed for wheezing, # 8.5 gram(s), 0 Refill(s), Pharmacy: [facility] #[id number], Acute bronchitis, 180, cm, 09/28/23 13:19:00 EST, Height, kg, 09/28/23 13:19:00 EST, Dosing Weight Start Date: 09/28/23 Status: Ordered azithromycin 250 mg oral tablet (2 sources) Macrolide Antimicrobial Start: 09-20-2022 End: 09-25-2022 Zithromax 250 mg oral tablet Dose : 250 mg = 1 tab(s), Oral, qDay, follow directions on Z-Erlin, X 5 day(s), # 6 tab(s), 0 Refill(s), 09/25/22 8:52:00 EST, Pharmacy: [facility], 181, cm, 09/20/22 7:48:00 EST, Height, 158.6 Start Date: 09/20/22 Stop Date: 09/25/22 Status: Ordered Start: 06-25-2022 End: 06-30-2022 Zithromax 250 mg oral tablet Dose : 250 mg = 1 tab(s), Oral, qDay, follow directions on Z-Erlin, X 5 day(s), # 6 tab(s), 0 Refill(s), 06/30/22 8:12:00 EDT, Pharmacy: [facility], 181, cm, 06/22/22 8:38:00 EDT, Height, 170.4 Start Date: 06/25/22 Stop Date: 06/30/22 Status: Ordered benzonatate 100 mg oral capsule (9 sources) Non-narcotic Antitussive Start: 09-28-2023 Tessalon Perles 100 mg oral capsule Dose : 100 mg = 1 cap(s), Oral, q8h, PRN as needed for cough, # 30 cap(s), 0 Refill(s), Pharmacy: [facility] #[id number], Acute bronchitis, 180, cm, 09/28/23 13:19:00 EST, [...] # 60 tab(s), 1 Refill(s), Pharmacy: [facility] #[id number], Anxiety state, 181, cm, 08/04/23 7:58:00 EDT, Height, kg, 08/04/23 7:58:00 EDT, Dosing Weight Start Date: 08/04/23 Status: Ordered celecoxib 200 mg oral capsule (1 source) Nonsteroidal Anti-inflammatory Drug Start: 02-14-2024 CeleBREX 200 mg oral capsule Dose : 200 mg = 1 cap(s), Oral, BID, PRN as needed for pain, # 60 cap(s), 1 Refill(s), [facility]acy: [facility] #[id number], Abdominal wall pain in right upper quadrant, 179.5, cm, 02/14/24 13:04:00 EDT, Height, kg, 02/14/24 13:04:00 EDT, Dosing Weight Start Date: 02/14/24 Status: Ordered clonazePAM 1 mg oral tablet (1 source) Benzodiazepine Start: 08-18-2023 End: 08-25-2023 clonazePAM 1 mg oral tablet Dose : 1 mg = 1 tab(s), Oral, BID, PRN Anxiety, # 14 tab(s), 0 Refill(s), Pharmacy: [facility], Anxiety state, 181, cm, 08/16/23 13:28:00 EST, Height, 163.6, kg, 08/16/23 13:28:00 EST, Dosing Weight Start Date: 08/18/23 Stop Date: 08/25/23 Status: Ordered cyclobenzaprine hydrochloride 10 mg oral tablet (8 sources) Muscle Relaxant Start: 11-09-2023 cyclobenzaprine 10 mg oral tablet Dose : 10 mg = 1 tab(s), Oral, TID, PRN for spasm, # 30 tab(s), 0 Refill(s), Pharmacy: [facility] #[id number], Cervicalgia, 180, cm, 11/09/23 7:28:00 EST, Height, [...] mg/ml oral solution (1 source) Phenothiazine, Uncompetitive Y-wmvjfj-W-aspartate Receptor Antagonist, Sigma-1 Agonist Start: 09-22-2022 End: 10-02-2022 take 1 dose by mouth every six hours as needed for cough dextromethorphan-promethazine 15 mg-6.25 mg/5 mL oral syrup Dose = 5 mL, Oral, q6h, PRN for cough, X 10 day(s), # 180 mL, 0 Refill(s), Pharmacy: [facility], Cough, 181, cm, 09/20/22 7:48:00 EST, Height Start Date: 09/22/22 Stop Date: 10/02/22 Status: Ordered diclofenac sodium 0.01 mg/mg topical gel (5 sources) Nonsteroidal Anti-inflammatory Drug Start: 03-04-2021 diclofenac 1% topical gel 4 = gram(s), Topical, QID, # 100 gram(s), 3 Refill(s), Pharmacy: [facility], Gel, 182, cm, 02/10/21 16:55:00 EDT, Height, 149.5, kg, 02/10/21 16:55:00 EDT, Dosing Weight Start Date: 03/04/21 Status: Ordered Start: 03-04-2021 diclofenac 1% topical gel 4 = gram(s), Topical, QID, # 100 gram(s), 3 Refill(s), Pharmacy: [facility], Gel, 182, cm, 02/10/21 16:55:00 EDT, [...] unspecified; Start: 02-19-2025 take 1 capsule by [facility] once daily DULoxetine 60 mg oral delayed release capsule Dose : 60 mg = 1 cap(s), Oral, qDay, Take with a duloxetine 30 mg cap to equal 90 mg daily., # 90 cap(s), 1 Refill(s), Pharmacy: [facility], Major depression, recurrent, chronic, 180.5, [...] qDay, # 100 tab(s), 3 Refill(s), Pharmacy: [facility], 179, cm, 03/26/24 14:06:00 EDT, Height, kg, 03/26/24 14:06:00 EDT, Dosing Weight Start Date: 04/16/24 Stop Date: 05/21/25 Status: Ordered Quantity: 100.0 Unit: tab(s) Repeat number: 4 Start: 10-25-2023 glimepiride 4 mg oral tablet Dose : 4 mg = 1 tab(s), Oral, qDay, # 30 tab(s), 11 Refill(s), Pharmacy: [facility] #[id number], 180, cm, 10/21/23 14:24:00 EST, Height, kg, [...] BID, # 14 gram(s), 0 Refill(s), Pharmacy: [facility]/pharmacy #[id number], Cream, 182.9, cm, 08/21/20 14:27:00 [...] 0 Refill(s), 08/19/24 10:13:00 AM EST, Pharmacy: [facility], 180.3, cm, 07/20/24 9:55:00 EDT, Height, kg, [...] 0 Refill(s), 01/26/24 10:28:00 AM EDT, Pharmacy: [facility] #[id number], Sinusitis Dyspnea, 180, cm, 01/19/24 9:57:00 EDT, [...] 30 tab(s), 0 Refill(s), [facility]acy: [facility] #[id number], Strain of rotator cuff of right shoulder [...] BID, # 180 tab(s), 3 Refill(s), Pharmacy: [facility], 181, cm, 06/22/22 8:38:00 EDT, [...] 01/25/24 10:28:00 AM EDT, Pharmacy: [facility] #[id number], Sinusitis Dyspnea, 180, cm, 01/19/24 9:57:00 EDT, Height, kg, 01/19/24 9:57:00 EDT, Dosing Weight Start Date: 01/19/24 Stop Date: 01/25/24 Status: Ordered Pen needles 4 mm (15 sources) Start: 04-16-2024 Pen needles 4 mm See Instructions, Dispense UltraFine 4 mm pen needles, #200, use 1 pen needle twice daily to inject insulin, # 200 EA, 3 Refill(s), Pharmacy: [facility], Uncontrolled type 2 diabetes mellitus, [...] insulin, # 200 EA, 3 Refill(s), Pharmacy: [facility], Uncontrolled type 2 diabetes mellitus, [...] insulin, # 200 EA, 3 Refill(s), Pharmacy: [facility], Uncontrolled type 2 diabetes mellitus, 179, cm, 03/26/24 14:06:00 EDT, Height, 174.9, kg, 03/26/24 14:06:00 EDT, Dosing Weight Start Date: 04/16/24 Status: Ordered Start: 07-06-2021 Pen needles 4 mm See Instructions, Dispense UltraFine 4 mm pen needles, #200, use 1 pen needle twice daily to inject insulin, # 200 EA, 3 Refill(s), Pharmacy: [facility], Uncontrolled type 2 diabetes mellitus, 182, cm, 05/13/21 15:45:00 EDT, Height, 159.2, kg, 05/13/21 15:45:00 EDT, Dosing Weight Start Date: 07/06/21 Status: Ordered Start: 07-06-2021 Pen needles 4 mm See Instructions, Dispense UltraFine 4 mm pen needles, #200, use 1 pen needle twice daily to inject insulin, # 200 EA, 3 Refill(s), Pharmacy: [facility], Uncontrolled type 2 diabetes mellitus, [...] day(s), # 120 mL, 0 Refill(s), Pharmacy: [facility], Cough Upper respiratory infection, 181, cm, 06/22/22 8:38:00 EDT, Height, 170.4, kg, 06/25/22 7:5... Start Date: 06/25/22 Stop Date: 06/30/22 Status: Ordered sertraline 100 mg oral tablet (10 sources) Serotonin Reuptake Inhibitor Start: 06-06-2023 sertraline 100 mg oral tablet Dose : 200 mg = 2 tab(s), Oral, Daily, # 180 tab(s), 3 Refill(s), Pharmacy: [facility], 181, cm, 06/06/23 7:55:00 EDT, Height, kg, 06/06/23 7:55:00 EDT, Dosing Weight Start Date: 06/06/23 Status: Ordered Start: 11-08-2022 sertraline 100 mg oral tablet Dose : 100 mg = 1 tab(s), Oral, Daily, # 90 tab(s), 3 Refill(s), Pharmacy: [facility], 183, cm, 11/08/22 7:57:00 EST, Height, kg, 11/08/22 7:57:00 EST, Dosing Weight Start Date: 11/08/22 Status: Ordered Start: 06-15-2022 sertraline 100 mg oral tablet Dose : 100 mg = 1 tab(s), Oral, Daily, # 90 tab(s), 3 Refill(s), Pharmacy: [facility], 180.3, cm, 05/26/22 8:20:00 EDT, Height, kg, 05/26/22 8:20:00 EDT, Dosing Weight Start Date: 06/15/22 Status: Ordered Start: 07-07-2021 sertraline 100 mg oral tablet Dose : 100 mg = 1 tab(s), Oral, Daily, # 90 tab(s), 3 Refill(s), Pharmacy: [facility], 182, cm, 05/13/21 15:45:00 EDT, Height, kg, 05/13/21 15:45:00 EDT, Dosing Weight Start Date: 07/07/21 Status: Ordered Start: 07-29-2015 take 2 tablets by mo [facility] once daily Sertraline 100 MG tablet Active [...] qDay, # 5 tab(s), 3 Refill(s), Pharmacy: [facility]/pharmacy #[id number], ED (erectile dysfunction) of organic [...] 02/22/24 10:45:00 AM EDT, Pharmacy: [facility] #[id number], Abdominal wall pain in right upper quadrant, [...] mellitus Type 2 diabetes mellitus with hyperglycemia 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, Rhinitis, 180.3, cm, 07/20/24 9:55:00 EDT, Height, [...] qHS, # 30 cap(s), 0 Refill(s), Pharmacy: [facility], Restless leg Peripheral neuropathy, 180.3, cm, 05/26/22 8:20:00 EDT, Height, 169.9 Start Date: 05/26/22 Stop Date: 06/25/22 Status: Ordered HumaLOG Mix 75/25 KwikPen 3 mL PEN (3 sources) Start: 10-21-2021 HumaLOG Mix 75/25 KwikPen 3 mL PEN See Instructions, inject 60 units in AM and 30 units in the PM, # 81 mL, 3 Refill(s), Pharmacy: [facility], Type 2 diabetes mellitus, 181, cm, 10/21/21 8:31:00 EST, Height, kg, 10/21/21 8:31:00 EST, Dosing Weight Start Date: 10/21/21 Status: Ordered Start: 07-07-2021 End: 01-03-2022 HumaLOG Mix 75/25 KwikPen 3 mL PEN 40 unit(s), Subcutaneous, BIDAC, # 72 mL, 1 Refill(s), Pharmacy: [facility], Type 2 diabetes mellitus, 182, [...] TIDAC, # 1 mL, 3 Refill(s), Pharmacy: [facility], Type 2 diabetes mellitus, 181, cm, [...] 06/20/23 8:43:00 AM EDT, Pharmacy: [facility] #[id number], Stress response, 181, cm, 06/06/23 7:55:00 EDT, [...] 08-24-2023 06-12-2019 Chronic Other aftercare (1 source) 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 [facility] [place] [address] OFFICE VISIT Date of Service: 05/06/25 MR#: [id number] Acct: [id number] Name: SAQIB DAMICO Rep #: [id number] : 1970 Provider: Jaylen Padilla Age/Sex: 55/M [place] [facility] [place]: Signed Intake Vital Signs 02/04/25 08:24 [...] patient in pain?: Yes Allergies loratadine (From ClarJet) Adverse Reaction (Intermediate, Verified 05/06/25 14:28) headache [...] a divorce, he was pink slipped in [place]. He states that he supposedly took 30 [...] Inspection: n (more content not included)... Normal [facility] UFENTSon 04-25-2025 Fentanyl (u) Negative Normal Negative [facility] Comment on above: Result Comment: Test ing has been performed FOR MEDICAL PURPOSES ONLY. Performed By: #### U DRUG, UADIP #### [address] [address] #### UFENTS, UOXYS #### [place] [address] UOXYSon 04-25-2025 Oxycodone (u) Negative Normal Negative [facility] Comment on above: Result Comment: Test ing has been performed FOR MEDICAL PURPOSES ONLY. Performed By: #### U DRUG, UADIP #### [address] [address] #### UFENTS, UOXYS #### [place] [address] .Auto Diffon 04-24-2025 Basophil, Absolute 0.1 10 3/mcL Normal 0.0-0.3 [facility] Comment on above: Performed By: #### U DRUG, UADIP #### [place] [address] #### UFENTS, UOXYS #### [address] [address] Basophils/100 WBC (Bld) 0.8 % Normal 0.0-2.5 [facility] Comment on above: Performed By: #### U DRUG, UADIP #### [place] [address] #### UFENTS, UOXYS #### [address] [address] Eosinophil, Absolute 0.3 10 3/mcL Normal 0.0-0.7 [facility] Comment on above: Performed By: #### U DRUG, UADIP #### [place] [address] #### UFENTS, UOXYS #### [address] [address] Eosinophils/100 WBC (Bld) 2.0 % Normal 0.0-6.0 [facility] Comment on above: Performed By: #### U DRUG, UADIP #### [place] [address] #### UFENTS, UOXYS #### [address] [address] Lymphocyte, Absolute 3.1 10 3/mcL Normal 0.9-4.3 [facility] Comment on above: Performed By: #### U DRUG, UADIP #### [address] [address] #### UFENTS, UOXYS #### [address] [address] Lymphocytes/100 WBC (Bld) 19.5 % Low 20.0-40.0 [facility] Comment on above: Performed By: #### U DRUG, UADIP #### [place] [address] #### UFENTS, UOXYS #### [facility] [address] [place] [address] Monocyte, Absolute 1.6 10 3/mcL High 0.1-1.4 [facility] Comment on above: Performed By: #### U DRUG, UADIP #### [address] [address] #### UFENTS, UOXYS #### [facility] [address] [place] [address] Monocytes/100 WBC (Bld) 10.2 % Normal 2.0-13.0 [facility] Comment on above: Performed By: #### U DRUG, UADIP #### [address] [address] #### UFENTS, UOXYS #### [address] [address] Neutrophils/100 WBC (Bld) 67.5 % Normal 50.0-75.0 [facility] Comment on above: Performed By: #### U DRUG, UADIP #### [address] [address] #### UFENTS, UOXYS #### [address] [address] .GFRon 04-24-2025 Estimated Glomerular Filtration Rate 103 ml/min/1.73sqm Normal [facility] Comment on above: Result Comment: Stages of [...] Performed By: #### U DRUG, UADIP #### [address] [address] #### UFENTS, UOXYS #### [address] [address] .MDWon 04-24-2025 Monocyte Distribution Width 15.95 Normal 0.00-20.00 [facility] Comment on above: Result Comment: For ED adult patients suspected of sepsis, MDW<=20.0 does not rule out sepsis or risk of sepsis Performed By: #### U DRUG, UADIP #### [place] [address] #### UFENTS, UOXYS #### [place] [address] .NEUABSon 04-24-2025 Neutrophil, Absolute 10.5 10 3/mcL High 2.3-8.1 [facility] Comment on above: Performed By: #### U DRUG, UADIP #### [place] [address] #### UFENTS, UOXYS #### [place] [address] ACETAon 04-24-2025 Acetaminophen [Mass/Vol] 0.0 ug/mL Low 10.0-30.0 [facility] Comment on above: Performed By: #### U DRUG, UADIP #### [place] [address] #### UFENTS, UOXYS #### [place] [address] Rosario 04-24-2025 Ethanol Level <3 Normal [facility] Comment on above: Performed By: #### U DRUG, UADIP #### [place] [address] #### UFENTS, UOXYS #### [place] [address] CBCon 04-24-2025 Erythrocyte distribution width (RBC) [Ratio] 13.7 % Normal 11.5-15.5 [facility] Comment on above: Performed By: #### U DRUG, UADIP #### [place] [address] #### UFENTS, UOXYS #### [address] [address] Hematocrit (Bld) [Volume fraction] 43.7 % Normal 40.0-52.0 [facility] Comment on above: Performed By: #### U DRUG, UADIP #### [place] [address] #### UFENTS, UOXYS #### [address] [address] Hgb 14.5 G/dL Normal 13.0-17.5 [facility] Comment on above: Performed By: #### U DRUG, UADIP #### [place] [address] #### UFENTS, UOXYS #### [address] [address] MCH (RBC) [Entitic mass] 29.7 pg Normal 27.0-33.0 [facility] Comment on above: Performed By: #### U DRUG, UADIP #### [place] [address] #### UFENTS, UOXYS #### [place] [address] MCHC 33.2 G/dL Normal 32.0-36.0 [facility] Comment on above: Performed By: #### U DRUG, UADIP #### [place] [address] #### UFENTS, UOXYS #### [place] [id number] MCV (RBC) [Entitic vol] 89.4 fL Normal 81.0-100.0 [facility] Comment on above: Performed By: #### U DRUG, UADIP #### [place] [address] #### UFENTS, UOXYS #### [address] [address] Platelet 402 10 3/mcL Normal 150-450 [facility] Comment on above: Performed By: #### U DRUG, UADIP #### [address] [address] #### UFENTS, UOXYS #### [address] [address] Platelet mean volume (Bld) [Entitic vol] 7.2 fL Normal 6.4-10.5 [facility] Comment on above: Performed By: #### U DRUG, UADIP #### [place] [address] #### UFENTS, UOXYS #### [place] [address] RBC 4.89 10 6/mcL Normal 4.50-6.00 [facility] Comment on above: Performed By: #### U DRUG, UADIP #### [place] [address] #### UFENTS, UOXYS #### [address] [address] WBC 15.6 10 3/mcL High 4.5-10.8 [facility] Comment on above: Performed By: #### U DRUG, UADIP #### [place] [address] #### UFENTS, UOXYS #### [address] [address] CMPon 04-24-2025 Albumin Level 4.2 G/dL Normal 3.5-5.0 [facility] Comment on above: Performed By: #### U DRUG, UADIP #### [place] [address] #### UFENTS, UOXYS #### [place] [address] Albumin/Globulin [Mass ratio] 1.2 {ratio} Normal 1.1-2.5 [facility] Comment on above: Performed By: #### U DRUG, UADIP #### [place] [address] #### UFENTS, UOXYS #### [address] [address] ALP [Catalytic activity/Vol] 66 U/L Normal 40-135 [facility] Comment on above: Performed By: #### U DRUG, UADIP #### [place] [address] #### UFENTS, UOXYS #### [address] [address] ALT [Catalytic activity/Vol] 36 U/L Normal 16-63 [facility] Comment on above: Performed By: #### U DRUG, UADIP #### [place] [address] #### UFENTS, UOXYS #### [place] [address] AST [Catalytic activity/Vol] 26 U/L Normal 10-40 [facility] Comment on above: Performed By: #### U DRUG, UADIP #### [place] [address] #### UFENTS, UOXYS #### [address] [address] Bili Total 0.8 mg/dL Normal 0.2-1.0 [facility] Comment on above: Result Comment: Use of this assay is not recommended for patients undergoing treatment with eltrombopag due to the potential for falsely elevated results. Performed By: #### U DRUG, UADIP #### [place] [address] #### UFENTS, UOXYS #### [place] [id number] BUN/Creatinine Ratio 16 ratio Normal 7-27 [facility] Comment on above: Performed By: #### U DRUG, UADIP #### [address] [address] #### UFENTS, UOXYS #### [address] [address] Calcium [Mass/Vol] 9.3 mg/dL Normal 8.4-10.[address] [facility] Comment on above: Performed By: #### U DRUG, UADIP #### [place] [address] #### UFENTS, UOXYS #### [address] [address] Chloride [Moles/Vol] 100 mmol/L Normal 98-107 [facility] Comment on above: Performed By: #### U DRUG, UADIP #### [place] [address] #### UFENTS, UOXYS #### [place] [address] CO2 [Moles/Vol] 24 mmol/L Normal 22-29 [facility] Comment on above: Performed By: #### U DRUG, UADIP #### [place] [address] #### UFENTS, UOXYS #### [address] [address] Creatinine [Mass/Vol] 0.81 mg/dL Normal 0.67-1.17 [facility] Comment on above: Performed By: #### U DRUG, UADIP #### [place] [address] #### UFENTS, UOXYS #### [address] [address] Electrolyte Balance 10.0 mEq/L Normal 4.0-15.0 [facility] Comment on above: Performed By: #### U DRUG, UADIP #### [place] [address] #### UFENTS, UOXYS #### [place] [address] Globulin 3.5 G/dL Normal 2.7-4.4 [facility] Comment on above: Performed By: #### U DRUG, UADIP #### [address] [address] #### UFENTS, UOXYS #### [address] [address] Glucose [Mass/Vol] 191 mg/dL High 70-[address] [facility] Comment on above: Performed By: #### U DRUG, UADIP #### [address] [address] #### UFENTS, UOXYS #### [address] [address] Potassium [Moles/Vol] 3.8 mmol/L Normal 3.5-5.1 [facility] Comment on above: Performed By: #### U DRUG, UADIP #### [address] [address] #### UFENTS, UOXYS #### [address] [address] Sodium [Moles/Vol] 134 mmol/L Low 136-[address] [facility] Comment on above: Performed By: #### U DRUG, UADIP #### [address] [address] #### UFENTS, UOXYS #### [address] [address] Total Protein 7.7 G/dL Normal 6.4-8.2 [facility] Comment on above: Performed By: #### U DRUG, UADIP #### [address] [address] #### UFENTS, UOXYS #### [address] [address] Urea nitrogen [Mass/Vol] 13 mg/dL Normal 7-18 [facility] Comment on above: Performed By: #### U DRUG, UADIP #### [address] [address] #### UFENTS, UOXYS #### [place] [address] CVFLURVon 04-24-2025 FLU A PCR Negative Normal Negative [facility] Comment on above: Performed By: #### U DRUG, UADIP #### [address] [address] #### UFENTS, UOXYS #### [place] [address] FLU B PCR Negative Normal Negative [facility] Comment on above: Performed By: #### U DRUG, UADIP #### [place] [address] #### UFENTS, UOXYS #### [place] [address] RSV PCR Negative Normal Negative [facility] Comment on above: Performed By: #### U DRUG, UADIP #### [place] [address] #### UFENTS, UOXYS #### [place] [address] SARS-CoV-2 (COVID-19) RNA MALVIN+probe Ql (Unsp spec) Negative Normal Negative [facility] Comment on above: Result Comment: Resu lts [...] Performed By: #### U DRUG, UADIP #### [facility] [address] [place], [place] [address] #### UFENTS, UOXYS #### [address] [address] LABORATORYOrdered By: Wale Hatfield on 04-24-2025 Amphetamines [...] 180 mg/dL High 70 - 110 mg/dL [facility] 04-24-2025 Salicylate Level 0.7 mg/dL Low 2.8-20.0 [facility] Comment on above: Performed By: #### U DRUG, UADIP #### [place] [address] #### UFENTS, UOXYS #### [address] [address] UDRUGon 04-24-2025 Amphetamine (u) Negative Normal Negative [facility] Comment on above: Performed By: #### U DRUG, UADIP #### [place] [address] #### UFENTS, UOXYS #### [place] [address] Barbiturate (u) Negative Normal Negative [facility] Comment on above: Performed By: #### U DRUG, UADIP #### [place] [address] #### UFENTS, UOXYS #### [address] [address] Benzodiazepine (u) Negative Normal Negative [facility] Comment on above: Performed By: #### U DRUG, UADIP #### [place] [address] #### UFENTS, UOXYS #### [address] [address] Cannabinoid (u) Negative Normal Negative [facility] Comment on above: Performed By: #### U DRUG, UADIP #### [address] [address] #### UFENTS, UOXYS #### [address] [address] Cocaine Ql (U) Negative Normal Negative [facility] Comment on above: Performed By: #### U DRUG, UADIP #### [place] [id number] #### UFENTS, UOXYS #### [address] [address] Methadone Ql (U) Negative Normal Negative [facility] Comment on above: Performed By: #### U DRUG, UADIP #### [address] [address] #### UFENTS, UOXYS #### [address] [address] Opiate (u) Negative Normal Negative [facility] Comment on above: Performed By: #### U DRUG, UADIP #### [address] [address] #### UFENTS, UOXYS #### [address] [address] PCP (u) Negative Normal Negative [facility] Comment on above: Performed By: #### U DRUG, UADIP #### [address] [address] #### UFENTS, UOXYS #### [place] [address] Urine Drugs screened: See Below [facility] Comment on above: Result Comment: This drug [...] Performed By: #### U DRUG, UADIP #### [address] [address] #### UFENTS, UOXYS #### [place] [id number] URINon 04-24-2025 Color (U) Yellow Normal [facility] Comment on above: Performed By: #### U DRUG, UADIP #### [place] [address] #### UFENTS, UOXYS #### [facility] [address] [place] [address] Glucose (U) [Mass/Vol] Negative Normal Negative [facility] Comment on above: Performed By: #### U DRUG, UADIP #### [address] [address] #### UFENTS, UOXYS #### [address] [address] Ketones Ql (U) Trace Abnormal Negative [facility] Comment on above: Performed By: #### U DRUG, UADIP #### [address] [address] #### UFENTS, UOXYS #### [address] [address] UA Appear Clear Normal Clear [facility] Comment on above: Performed By: #### U DRUG, UADIP #### [address] [address] #### UFENTS, UOXYS #### [address] [address] UA Blood Negative Normal Negative [facility] Comment on above: Performed By: #### U DRUG, UADIP #### [address] [address] #### UFENTS, UOXYS #### [address] [address] UA Leuk Est Negative Normal Negative [facility] Comment on above: Performed By: #### U DRUG, UADIP #### [address] [address] #### UFENTS, UOXYS #### [address] [address] UA Nitrite Negative Normal Negative [facility] Comment on above: Performed By: #### U DRUG, UADIP #### [address] [address] #### UFENTS, UOXYS #### [address] [address] UA pH 5.5 Normal 5.0 - 8.0 [facility] Comment on above: Performed By: #### U DRUG, UADIP #### [place] [address] #### UFENTS, UOXYS #### [place] [address] UA Protein Trace Normal Negative [facility] Comment on above: Performed By: #### U DRUG, UADIP #### [place] [address] #### UFENTS, UOXYS #### [place] [address] UA Spec Grav 1.020 Normal 1.015-1.025 [facility] Comment on above: Performed By: #### U DRUG, UADIP #### [place] [address] #### UFENTS, UOXYS #### [place] [address] UA Specimen Type Void Normal [facility] Comment on above: Performed By: #### U DRUG, UADIP #### [place] [address] #### UFENTS, UOXYS #### [place] [address] UA Urobilinogen 0.2 E.U./dL Normal 0.2-1.0 [facility] Comment on above: Performed By: #### U DRUG, UADIP #### [place] [address] #### UFENTS, UOXYS #### [place] [address] Urobilinogen (U) [Mass/Vol] Negative Normal Negative [facility] Comment on above: Performed By: #### U DRUG, UADIP #### [place] [address] #### UFENTS, UOXYS #### [address] [address] XR ANKLE AND FOOT 6 VIEWS LE [...] 04/24/2025 8:17:28 PM Ordering Provider: OVIDIO Olivas [facility] .Auto Diffon 02-07-2025 Basophil, Absolute 0.1 10 3/mcL Normal 0.0-0.3 [facility] Comment on above: Performed By: #### U DRUG, UADIP #### [address] [address] #### UFENTS, UOXYS #### [address] [address] Basophils/100 WBC (Bld) 0.7 % Normal 0.0-2.5 [facility] Comment on above: Performed By: #### U DRUG, UADIP #### [address] [address] #### UFENTS, UOXYS #### [address] [address] Eosinophil, Absolute 0.6 10 3/mcL Normal 0.0-0.7 [facility] Comment on above: Performed By: #### U DRUG, UADIP #### [address] [address] #### UFENTS, UOXYS #### [address] [address] Eosinophils/100 WBC (Bld) 4.3 % Normal 0.0-6.0 [facility] Comment on above: Performed By: #### U DRUG, UADIP #### [place] [address] #### UFENTS, UOXYS #### [address] [address] Lymphocyte, Absolute 3.8 10 3/mcL Normal 0.9-4.3 [facility] Comment on above: Performed By: #### U DRUG, UADIP #### [place] [address] #### UFENTS, UOXYS #### [address] [address] Lymphocytes/100 WBC (Bld) 29.0 % Normal 20.0-40.0 [facility] Comment on above: Performed By: #### U DRUG, UADIP #### [place] [address] #### UFENTS, UOXYS #### [address] [address] Monocyte, Absolute 1.2 10 3/mcL Normal 0.1-1.4 [facility] Comment on above: Performed By: #### U DRUG, UADIP #### [place] [address] #### UFENTS, UOXYS #### [address] [address] Monocytes/100 WBC (Bld) 9.6 % Normal 2.0-13.0 [facility] Comment on above: Performed By: #### U DRUG, UADIP #### [place] [address] #### UFENTS, UOXYS #### [address] [address] Neutrophils/100 WBC (Bld) 56.4 % Normal 50.0-75.0 [facility] Comment on above: Performed By: #### U DRUG, UADIP #### [place] [address] #### UFENTS, UOXYS #### [address] [address] .GFRon 02-07-2025 Estimated Glomerular Filtration Rate 109 ml/min/1.73sqm Normal [facility] Comment on above: Result Comment: Stages of [...] DW, ANEU, GFR, CBC, ADIFF, BMP #### [address] [address] .MDWon 02-07-2025 Monocyte Distribution Width 17.69 Normal 0.00-20.00 [facility] Comment on above: Result Comment: For ED adult patients suspected of sepsis, MDW<=20.0 does not rule out sepsis or risk of sepsis Performed By: #### U DRUG, UADIP #### [place] [address] #### UFENTS, UOXYS #### [place] [address] .NEUABSon 02-07-2025 Neutrophil, Absolute 7.3 10 3/mcL Normal 2.3-8.1 [facility] Comment on above: Performed By: #### U DRUG, UADIP #### [place] [address] #### UFENTS, UOXYS #### [place] [address] ACTONon 02-07-2025 Acetone (s) Negative Normal Negative [facility] Comment on above: Performed By: #### U DRUG, UADIP #### [place] [address] #### UFENTS, UOXYS #### [address] [address] CBCon 02-07-2025 Erythrocyte distribution width (RBC) [Ratio] 14.1 % Normal 11.5-15.5 [facility] Comment on above: Performed By: #### U DRUG, UADIP #### [place] [address] #### UFENTS, UOXYS #### [place] [address] Hematocrit (Bld) [Volume fraction] 40.8 % Normal 40.0-52.0 [facility] Comment on above: Performed By: #### U DRUG, UADIP #### [place] [address] #### UFENTS, UOXYS #### [place] [address] Hgb 13.7 G/dL Normal 13.0-17.5 [facility] Comment on above: Performed By: #### U DRUG, UADIP #### [place] [address] #### UFENTS, UOXYS #### [place] [address] MCH (RBC) [Entitic mass] 30.4 pg Normal 27.0-33.0 [facility] Comment on above: Performed By: #### U DRUG, UADIP #### [place] [address] #### UFENTS, UOXYS #### [place] [address] MCHC 33.6 G/dL Normal 32.0-36.0 [facility] Comment on above: Performed By: #### U DRUG, UADIP #### [place] [address] #### UFENTS, UOXYS #### [address] [address] MCV (RBC) [Entitic vol] 90.6 fL Normal 81.0-100.0 [facility] Comment on above: Performed By: #### U DRUG, UADIP #### [place] [address] #### UFENTS, UOXYS #### [place] [address] Platelet 373 10 3/mcL Normal 150-450 [facility] Comment on above: Performed By: #### U DRUG, UADIP #### [place] [address] #### UFENTS, UOXYS #### [place] [address] Platelet mean volume (Bld) [Entitic vol] 7.4 fL Normal 6.4-10.5 [facility] Comment on above: Performed By: #### U DRUG, UADIP #### [place] [address] #### UFENTS, UOXYS #### [place] [address] RBC 4.50 10 6/mcL Normal 4.50-6.00 [facility] Comment on above: Performed By: #### U DRUG, UADIP #### [place] [address] #### UFENTS, UOXYS #### [place] [address] WBC 13.0 10 3/mcL High 4.5-10.8 [facility] Comment on above: Performed By: #### U DRUG, UADIP #### [place] [address] #### UFENTS, UOXYS #### [address] 02-07-2025 Albumin Level 4.1 G/dL Normal 3.5-5.0 [facility] Comment on above: Performed By: #### U DRUG, UADIP #### [place] [address] #### UFENTS, UOXYS #### [address] [address] Albumin/Globulin [Mass ratio] 1.1 {ratio} Normal 1.1-2.5 [facility] Comment on above: Performed By: #### U DRUG, UADIP #### [place] [address] #### UFENTS, UOXYS #### [address] [address] ALP [Catalytic activity/Vol] 90 U/L Normal 40-135 [facility] Comment on above: Performed By: #### U DRUG, UADIP #### [place] [address] #### UFENTS, UOXYS #### [address] [address] ALT [Catalytic activity/Vol] 38 U/L Normal 16-63 [facility] Comment on above: Performed By: #### U DRUG, UADIP #### [place] [address] #### UFENTS, UOXYS #### [address] [address] AST [Catalytic activity/Vol] 17 U/L Normal 10-40 [facility] Comment on above: Performed By: #### U DRUG, UADIP #### [place] [address] #### UFENTS, UOXYS #### [address] [address] Bili Total 0.4 mg/dL Normal 0.2-1.0 [facility] Comment on above: Result Comment: Use of this assay is not recommended for patients undergoing treatment with eltrombopag due to the potential for falsely elevated results. Performed By: #### U DRUG, UADIP #### [address] [address] #### UFENTS, UOXYS #### [address] [address] BUN/Creatinine Ratio 21 ratio Normal 7-27 [facility] Comment on above: Performed By: #### U DRUG, UADIP #### [place] [address] #### UFENTS, UOXYS #### [address] [address] Calcium [Mass/Vol] 9.5 mg/dL Normal 8.4-10.[address] [facility] Comment on above: Performed By: #### U DRUG, UADIP #### [place] [address] #### UFENTS, UOXYS #### [address] [address] Chloride [Moles/Vol] 102 mmol/L Normal 98-107 [facility] Comment on above: Performed By: #### U DRUG, UADIP #### [place] [address] #### UFENTS, UOXYS #### [address] [address] CO2 [Moles/Vol] 29 mmol/L Normal 22-29 [facility] Comment on above: Performed By: #### U DRUG, UADIP #### [place] [address] #### UFENTS, UOXYS #### [address] [address] Creatinine [Mass/Vol] 0.70 mg/dL Normal 0.67-1.17 [facility] Comment on above: Performed By: #### U DRUG, UADIP #### [address] [address] #### UFENTS, UOXYS #### [address] [address] Electrolyte Balance 9.0 mEq/L Normal 4.0-15.0 [facility] Comment on above: Performed By: #### U DRUG, UADIP #### [address] [address] #### UFENTS, UOXYS #### [address] [address] Globulin 3.8 G/dL Normal 2.7-4.4 [facility] Comment on above: Performed By: #### U DRUG, UADIP #### [address] [address] #### UFENTS, UOXYS #### [address] [address] Glucose [Mass/Vol] 311 mg/dL High 70-[address] [facility] Comment on above: Performed By: #### U DRUG, UADIP #### [place] [address] #### UFENTS, UOXYS #### [address] [address] Potassium [Moles/Vol] 4.4 mmol/L Normal 3.5-5.1 [facility] Comment on above: Performed By: #### U DRUG, UADIP #### [address] [address] #### UFENTS, UOXYS #### [address] [address] Sodium [Moles/Vol] 140 mmol/L Normal 136-[address] [facility] Comment on above: Performed By: #### U DRUG, UADIP #### [address] [address] #### UFENTS, UOXYS #### [address] [address] Total Protein 7.9 G/dL Normal 6.4-8.2 [facility] Comment on above: Performed By: #### U DRUG, UADIP #### [address] [place], [place] [address] #### UFENTS, UOXYS #### [address] [address] Urea nitrogen [Mass/Vol] 15 mg/dL Normal 7-18 [facility] Comment on above: Performed By: #### U DRUG, UADIP #### [place] [address] [place], [place] [address] #### UFENTS, UOXYS #### [address] [address] LABORATORYOrdered By: Tereza Giles on 02-07-2025 Glucose [Mass/Vol] 247 mg/dL High 70 - 110 mg/dL [facility] LABORATORYOrdered By: SYSTEM SYSTEM on 02-07-2025 Albumin [...] ng/L Male: 0-76 ng/L Testing performed on [employer] using a homogeneous sandwich chemiluminescent immunoassay based on [employer] technology. Urea nitrogen [Mass/Vol] 15 mg/dL Normal [...] 294 mg/dL High 70 - 110 mg/dL [facility] LIPon 02-07-2025 Lipase Level 34 U/L Normal 16-77 [facility] Comment on above: Performed By: #### U DRUG, UADIP #### [place] [address] #### UFENTS, UOXYS #### [address] [address] PHVon 02-07-2025 pH Venous 7.348 Low 7.380-7.460 [facility] Comment on above: Performed By: #### U DRUG, UADIP #### [address] [address] #### UFENTS, UOXYS #### [address] [address] TROPHSon 02-07-2025 High Sensitivity Troponin I 13 ng/L Normal 0-76 [facility] Comment on above: Result Comment: High Sensitive Troponin I Reference Ranges: Female: 0-51 ng/L Male: 0-76 ng/L Testing performed on [employer] using a homogeneous sandwich chemiluminescent immunoassay based on Bevalley technology. Performed By: #### M DW, ANEU, GFR, CBC, ADIFF, BMP #### [address] [address] UAon 02-07-2025 Color (U) Yellow Normal [facility] Comment on above: Order Comment: manua l reading performed for urine reagent strip Performed By: #### U DRUG, UADIP #### [place] [address] #### UFENTS, UOXYS #### [address] [address] Glucose (U) [Mass/Vol] 500 mg/dL Abnormal Negative [facility] Comment on above: Order Comment: manua l reading performed for urine reagent strip Performed By: #### U DRUG, UADIP #### [address] [address] #### UFENTS, UOXYS #### [address] [address] Ketones Ql (U) Negative Normal Negative [facility] Comment on above: Order Comment: manua l reading performed for urine reagent strip Performed By: #### U DRUG, UADIP #### [place] [address] #### UFENTS, UOXYS #### [facility] [address] [place] [address] UA Appear Clear Normal Clear [facility] Comment on above: Order Comment: manua l reading performed for urine reagent strip Performed By: #### U DRUG, UADIP #### [address] [address] #### UFENTS, UOXYS #### [facility] [address] [place] [address] UA Blood Trace Normal Negative [facility] Comment on above: Order Comment: manua l reading performed for urine reagent strip Performed By: #### U DRUG, UADIP #### [address] [address] #### UFENTS, UOXYS #### [facility] [address] [place] [address] UA Leuk Est Negative Normal Negative [facility] Comment on above: Order Comment: manua l reading performed for urine reagent strip Performed By: #### U DRUG, UADIP #### [address] [address] #### UFENTS, UOXYS #### [place] [address] UA Nitrite Negative Normal Negative [facility] Comment on above: Order Comment: manua l reading performed for urine reagent strip Performed By: #### U DRUG, UADIP #### [address] [address] #### UFENTS, UOXYS #### [address] [address] UA pH 6.0 Normal 5.0 - 8.0 [facility] Comment on above: Order Comment: manua l reading performed for urine reagent strip Performed By: #### U DRUG, UADIP #### [address] [address] #### UFENTS, UOXYS #### [address] [address] UA Protein Trace Normal Negative [facility] Comment on above: Order Comment: manua l reading performed for urine reagent strip Performed By: #### U DRUG, UADIP #### [place] [address] #### UFENTS, UOXYS #### [place] [address] UA Spec Grav 1.015 Normal 1.015-1.025 [facility] Comment on above: Order Comment: manua l reading performed for urine reagent strip Performed By: #### U DRUG, UADIP #### [place] [address] #### UFENTS, UOXYS #### [place] [address] UA Specimen Type Void Normal [facility] Comment on above: Order Comment: manua l reading performed for urine reagent strip Performed By: #### U DRUG, UADIP #### [place] [address] #### UFENTS, UOXYS #### [place] [address] UA Urobilinogen 0.2 E.U./dL Normal 0.2-1.0 [facility] Comment on above: Order Comment: manua l reading performed for urine reagent strip Performed By: #### U DRUG, UADIP #### [place] [address] #### UFENTS, UOXYS #### [place] [address] Urobilinogen (U) [Mass/Vol] Negative Normal Negative [facility] Comment on above: Order Comment: manua l reading performed for urine reagent strip Performed By: #### U DRUG, UADIP #### [place] [address] #### UFENTS, UOXYS #### [place] [address] Endocrinology Visit Reporton 02-04-2025 Endocrinology Visit Report [facility] [address] [place] [address]. [address] [place] [address] OFFICE VISIT Date of Service: 02/04/25 MR#: [id number] Acct: [id number] Name: SAQIB DAMICO Rep #: [id number] : 1970 Provider: STAS martinez Age/Sex: 54/M Location[place] [facility] Status: Signed Intake Vital Signs 07/30/24 10:50 [...] Rx subcutaneous pen (Humalog KwikPen U-200 Insulin) [facility] Medical History Obesity Diabetes Other specified disorders [...] related stru (more content not included)... Normal [facility] - Hematology and Cell countsOrdered By: Mayuri Hines on 02-04-2025 HbA1c (Bld) [Mass fraction] 9.7 % High 4.2-6.3 [facility] .Auto Diffon 12-07-2024 Basophil, Absolute 0.2 10 3/mcL Normal 0.0-0.2 [facility] Comment on above: Performed By: #### U DRUG, UADIP #### [address] [address] #### UFENTS, UOXYS #### [address] [address] Basophils/100 WBC (Bld) 0.8 % Normal 0.0-2.5 [facility] Comment on above: Performed By: #### U DRUG, UADIP #### [address] [address] #### UFENTS, UOXYS #### [address] [address] Eosinophil, Absolute 0.8 10 3/mcL High 0.0-0.7 [facility] Comment on above: Performed By: #### U DRUG, UADIP #### [address] [address] #### UFENTS, UOXYS #### [address] [address] Eosinophils/100 WBC (Bld) 3.4 % Normal 0.0-7.0 [facility] Comment on above: Performed By: #### U DRUG, UADIP #### [address] [address] #### UFENTS, UOXYS #### [address] [address] Lymphocyte, Absolute 3.7 10 3/mcL Normal 0.9-4.3 [facility] Comment on above: Performed By: #### U DRUG, UADIP #### [place] [address] #### UFENTS, UOXYS #### [address] [address] Lymphocytes/100 WBC (Bld) 16.4 % Low 20.0-40.0 [facility] Comment on above: Performed By: #### U DRUG, UADIP #### [place] [address] #### UFENTS, UOXYS #### [address] [address] Monocyte, Absolute 1.2 10 3/mcL Normal 0.1-1.4 [facility] Comment on above: Performed By: #### U DRUG, UADIP #### [place] [address] #### UFENTS, UOXYS #### [address] [address] Monocytes/100 WBC (Bld) 5.5 % Normal 2.0-13.0 [facility] Comment on above: Performed By: #### U DRUG, UADIP #### [place] [address] #### UFENTS, UOXYS #### [address] [address] Neutrophils/100 WBC (Bld) 73.9 % Normal 50.0-75.0 [facility] Comment on above: Performed By: #### U DRUG, UADIP #### [address] [address] #### UFENTS, UOXYS #### [address] [address] .GFRon 12-07-2024 Estimated Glomerular Filtration Rate 104 ml/min/1.73sqm Normal [facility] Comment on above: Result Comment: Stages of [...] Performed By: #### U DRUG, UADIP #### [address] [address] #### UFENTS, UOXYS #### [address] [address] .MDWon 12-07-2024 Monocyte Distribution Width 23.89 High 0.00-20.00 [facility] Comment on above: Result Comment: For adults in ED, MDW>20.0 may be associated with a higher risk of sepsis during the first 12hrs of hospital admission Performed By: #### U DRUG, UADIP #### [address] [address] #### UFENTS, UOXYS #### [address] [address] .NEUABSon 12-07-2024 Neutrophil, Absolute 16.5 10 3/mcL High 2.3-8.1 [facility] Comment on above: Performed By: #### U DRUG, UADIP #### [address] [address] #### UFENTS, UOXYS #### [address] [address] BMPon 12-07-2024 BUN/Creatinine Ratio 22 ratio Normal 7-27 [facility] Comment on above: Performed By: #### U DRUG, UADIP #### [place] [address] #### UFENTS, UOXYS #### [address] [address] Calcium [Mass/Vol] 9.6 mg/dL Normal 8.4-10.[address] [facility] Comment on above: Performed By: #### U DRUG, UADIP #### [address] [address] #### UFENTS, UOXYS #### [address] [address] Chloride [Moles/Vol] 101 mmol/L Normal 98-107 [facility] Comment on above: Performed By: #### U DRUG, UADIP #### [place] [address] #### UFENTS, UOXYS #### [address] [address] CO2 [Moles/Vol] 25 mmol/L Normal 22-29 [facility] Comment on above: Performed By: #### U DRUG, UADIP #### [place] [address] #### UFENTS, UOXYS #### [address] [address] Creatinine [Mass/Vol] 0.82 mg/dL Normal 0.70-1.30 [facility] Comment on above: Result Comment: Test ing performed on [employer] Dimension EXL analyzer using a modified kinetic Damaris technique. Performed By: #### U DRUG, UADIP #### [place] [address] #### UFENTS, UOXYS #### [address] [address] Electrolyte Balance 9.0 mEq/L Normal 4.0-15.0 [facility] Comment on above: Performed By: #### U DRUG, UADIP #### [address] [address] #### UFENTS, UOXYS #### [address] [address] Glucose [Mass/Vol] 175 mg/dL High 70-[address] [facility] Comment on above: Performed By: #### U DRUG, UADIP #### [address] [address] #### UFENTS, UOXYS #### [address] [address] Potassium [Moles/Vol] 3.9 mmol/L Normal 3.5-5.1 [facility] Comment on above: Performed By: #### U DRUG, UADIP #### [address] [address] #### UFENTS, UOXYS #### [address] [address] Sodium [Moles/Vol] 135 mmol/L Low 136-[address] [facility] Comment on above: Performed By: #### U DRUG, UADIP #### [address] [address] #### UFENTS, UOXYS #### [address] [address] Urea nitrogen [Mass/Vol] 18 mg/dL Normal 7-18 [facility] Comment on above: Performed By: #### U DRUG, UADIP #### [address] [address] #### UFENTS, UOXYS #### [address] [address] CBCon 12-07-2024 Erythrocyte distribution width (RBC) [Ratio] 14.1 % Normal 11.5-15.5 [facility] Comment on above: Performed By: #### U DRUG, UADIP #### [place] [address] #### UFENTS, UOXYS #### [address] [address] Hematocrit (Bld) [Volume fraction] 42.2 % Normal 40.0-52.0 [facility] Comment on above: Performed By: #### U DRUG, UADIP #### [place] [address] #### UFENTS, UOXYS #### [place] [address] Hgb 14.3 G/dL Normal 13.0-17.5 [facility] Comment on above: Performed By: #### U DRUG, UADIP #### [place] [address] #### UFENTS, UOXYS #### [address] [address] MCH (RBC) [Entitic mass] 30.4 pg Normal 27.0-33.0 [facility] Comment on above: Performed By: #### U DRUG, UADIP #### [place] [address] #### UFENTS, UOXYS #### [place] [address] MCHC 33.9 G/dL Normal 32.0-36.0 [facility] Comment on above: Performed By: #### U DRUG, UADIP #### [place] [address] #### UFENTS, UOXYS #### [place] [id number] MCV (RBC) [Entitic vol] 89.6 fL Normal 81.0-100.0 [facility] Comment on above: Performed By: #### U DRUG, UADIP #### [place] [address] #### UFENTS, UOXYS #### [place] [address] Platelet 346 10 3/mcL Normal 150-450 [facility] Comment on above: Performed By: #### U DRUG, UADIP #### [place] [address] #### UFENTS, UOXYS #### [place] [address] Platelet mean volume (Bld) [Entitic vol] 7.0 fL Normal 6.4-10.5 [facility] Comment on above: Performed By: #### U DRUG, UADIP #### [place] [address] #### UFENTS, UOXYS #### [place] [address] RBC 4.71 10 6/mcL Normal 4.50-6.00 [facility] Comment on above: Performed By: #### U DRUG, UADIP #### [place] [address] #### UFENTS, UOXYS #### [place] [address] WBC 22.4 10 3/mcL High 4.5-10.8 [facility] Comment on above: Performed By: #### U DRUG, UADIP #### [place] [address] #### UFENTS, UOXYS #### [place] [address] [address] ANGIOGRAPHY CHEST W/CONTR Lakshmi 12-07-2024 CT [...] 12/07/2024 9:31:23 PM Ordering Provider: OVIDIO Olivas [facility] LABORATORYOrdered By: SYSTEM SYSTEM on 12-07-2024 Basophils [...] ng/L Male: 0-76 ng/L Testing performed on [employer] using a homogeneous sandwich chemiluminescent immunoassay based on [employer] technology. Urea nitrogen [Mass/Vol] 18 mg/dL Normal 7 - 18 mg/dL AO ADM SS Urea nitrogen/Creatinine [Mass ratio] 22 ratio Normal 7 - 27 ratio AO ADM SS WBC (Bld) [#/Vol] 22.4 103/mcL High 4.5 - 10.8 10^3/mcL AO Workflow SS TROPHSon 12-07-2024 High Sensitivity Troponin I 4 ng/L Normal 0-76 [facility] Comment on above: Result Comment: High Sensitive Troponin I Reference Ranges: Female: 0-51 ng/L Male: 0-76 ng/L Testing performed on [employer] using a homogeneous sandwich chemiluminescent immunoassay based on [employer] technology. Performed By: #### DREW SANTANADIP #### [facility] [address] [place], [place] [address] #### LENA UOXYS #### [facility] [address] [place] [id number] XR CHEST 1 VIEWon 12-07-2024 XR CHEST [...] 12/07/2024 8:35:18 PM Ordering Provider: OVIDIO Olivas [facility] .Auto Diffon 08-01-2024 Basophil, Absolute 0.1 10 3/mcL Normal 0.0-0.2 [facility] Comment on above: Performed By: #### M DW, ANEU, GFR, CBC, ADIFF, BMP #### [address] [address] Basophils/100 WBC (Bld) 0.7 % Normal 0.0-2.5 [facility] Comment on above: Performed By: #### M DW, ANEU, GFR, CBC, ADIFF, BMP #### [address] [address] Eosinophil, Absolute 0.5 10 3/mcL Normal 0.0-0.7 [facility] Comment on above: Performed By: #### M DW, ANEU, GFR, CBC, ADIFF, BMP #### [address] [address] Eosinophils/100 WBC (Bld) 5.2 % Normal 0.0-7.0 [facility] Comment on above: Performed By: #### M DW, ANEU, GFR, CBC, ADIFF, BMP #### [address] [address] Lymphocyte, Absolute 3.2 10 3/mcL Normal 0.9-4.3 [facility] Comment on above: Performed By: #### M DW, ANEU, GFR, CBC, ADIFF, BMP #### [address] [address] Lymphocytes/100 WBC (Bld) 31.8 % Normal 20.0-40.0 [facility] Comment on above: Performed By: #### M DW, ANEU, GFR, CBC, ADIFF, BMP #### [address] [address] Monocyte, Absolute 0.8 10 3/mcL Normal 0.1-1.4 [facility] Comment on above: Performed By: #### M DW, ANEU, GFR, CBC, ADIFF, BMP #### [address] [address] Monocytes/100 WBC (Bld) 8.2 % Normal 2.0-13.0 [facility] Comment on above: Performed By: #### M DW, ANEU, GFR, CBC, ADIFF, BMP #### [address] [address] Neutrophils/100 WBC (Bld) 54.1 % Normal 50.0-75.0 [facility] Comment on above: Performed By: #### M DW, ANEU, GFR, CBC, ADIFF, BMP #### [address] [address] .GFRon 08-01-2024 GFR 122 ml/min/1.73sqm Normal [facility] Comment on above: Result Comment: GFR Population [...] DW, ANEU, GFR, CBC, ADIFF, BMP #### [address] [address] GFR Non- 100 ml/min/1.73sqm Normal [facility] Comment on above: Result Comment: GFR Population [...] DW, ANEU, GFR, CBC, ADIFF, BMP #### [place] [address] .MDWon 08-01-2024 Monocyte Distribution Width 15.37 Normal 0.00-20.00 [facility] Comment on above: Result Comment: For ED adult patients suspected of sepsis, MDW<=20.0 does not rule out sepsis or risk of sepsis Performed By: #### M DW, ANEU, GFR, CBC, ADIFF, BMP #### [address] [address] .NEUABSon 08-01-2024 Neutrophil, Absolute 5.4 10 3/mcL Normal 2.3-8.1 [facility] Comment on above: Performed By: #### M DW, ANEU, GFR, CBC, ADIFF, BMP #### [address] [address] BMPon 08-01-2024 BUN/Creatinine Ratio 18 ratio Normal 7-27 [facility] Comment on above: Order Comment: Hemol yzed Performed By: #### M DW, ANEU, GFR, CBC, ADIFF, BMP #### [place] [address] Calcium [Mass/Vol] 9.2 mg/dL Normal 8.4-10.[address] [facility] Comment on above: Order Comment: Hemol yzed Performed By: #### M DW, ANEU, GFR, CBC, ADIFF, BMP #### [place] [address] Chloride [Moles/Vol] 96 mmol/L Low 98-107 [facility] Comment on above: Order Comment: Hemol yzed Performed By: #### M DW, ANEU, GFR, CBC, ADIFF, BMP #### [place] [address] CO2 [Moles/Vol] 30 mmol/L High 22-29 [facility] Comment on above: Order Comment: Hemol yzed Performed By: #### M DW, ANEU, GFR, CBC, ADIFF, BMP #### [place] [address] Creatinine [Mass/Vol] 0.80 mg/dL Normal 0.70-1.30 [facility] Comment on above: Order Comment: Hemol yzed Result Comment: Test ing performed on Siemens Dimension EXL analyzer using a modified kinetic Damaris technique. Performed By: #### M DW, ANEU, GFR, CBC, ADIFF, BMP #### [place] [address] Electrolyte Balance 7.0 mEq/L Normal 4.0-15.0 [facility] Comment on above: Order Comment: Hemol yzed Performed By: #### M DW, ANEU, GFR, CBC, ADIFF, BMP #### [place] [address] Glucose [Mass/Vol] 201 mg/dL High 70-[address] [facility] Comment on above: Order Comment: Hemol yzed Performed By: #### M DW, ANEU, GFR, CBC, ADIFF, BMP #### [address] [address] Potassium [Moles/Vol] 4.4 mmol/L Normal 3.5-5.1 [facility] Comment on above: Order Comment: Hemol yzed Performed By: #### M DW, ANEU, GFR, CBC, ADIFF, BMP #### [address] [address] Sodium [Moles/Vol] 133 mmol/L Low 136-[address] [facility] Comment on above: Order Comment: Hemol yzed Performed By: #### M DW, ANEU, GFR, CBC, ADIFF, BMP #### [place] [address] Urea nitrogen [Mass/Vol] 14 mg/dL Normal 7-18 [facility] Comment on above: Order Comment: Hemol yzed Performed By: #### M DW, ANEU, GFR, CBC, ADIFF, BMP #### [address] [address] CBCon 08-01-2024 Erythrocyte distribution width (RBC) [Ratio] 13.9 % Normal 11.5-15.5 [facility] Comment on above: Performed By: #### M DW, ANEU, GFR, CBC, ADIFF, BMP #### [address] [address] Hematocrit (Bld) [Volume fraction] 41.3 % Normal 40.0-52.0 [facility] Comment on above: Performed By: #### M DW, ANEU, GFR, CBC, ADIFF, BMP #### [address] [address] Hgb 14.1 G/dL Normal 13.0-17.5 [facility] Comment on above: Performed By: #### M DW, ANEU, GFR, CBC, ADIFF, BMP #### [address] [address] MCH (RBC) [Entitic mass] 30.7 pg Normal 27.0-33.0 [facility] Comment on above: Performed By: #### M DW, ANEU, GFR, CBC, ADIFF, BMP #### [place] [address] MCHC 34.1 G/dL Normal 32.0-36.0 [facility] Comment on above: Performed By: #### M DW, ANEU, GFR, CBC, ADIFF, BMP #### [address] [address] MCV (RBC) [Entitic vol] 89.8 fL Normal 81.0-100.0 [facility] Comment on above: Performed By: #### M DW, ANEU, GFR, CBC, ADIFF, BMP #### [place] [address] Platelet 301 10 3/mcL Normal 150-450 [facility] Comment on above: Performed By: #### M DW, ANEU, GFR, CBC, ADIFF, BMP #### [place] [address] Platelet mean volume (Bld) [Entitic vol] 7.4 fL Normal 6.4-10.5 [facility] Comment on above: Performed By: #### M DW, ANEU, GFR, CBC, ADIFF, BMP #### [place] [id number] RBC 4.60 10 6/mcL Normal 4.50-6.00 [facility] Comment on above: Performed By: #### M DW, ANEU, GFR, CBC, ADIFF, BMP #### [place] [id number] WBC 9.9 10 3/mcL Normal 4.5-10.8 [facility] Comment on above: Performed By: #### M DW, ANEU, GFR, CBC, ADIFF, BMP #### [place] [address] CT ABDOMEN/PELVIS W/O CONTRA STon 08-01-2024 CT [...] 08/01/2024 11:22:42 AM Ordering Provider: CLYDE Olivas [facility] LABORATORYOrdered By: SYSTEM SYSTEM on 08-01-2024 Calcium [...] a modified kinetic Damaris technique. Electrolyte Balance 7.0 mEq/L Normal 4.0 [...] Endocrinology Visit Reporton 07-30-2024 Endocrinology Visit Report [facility] [address] [place] [address]. [address] [place], [place] [id number] OFFICE VISIT Date of Service: 07/30/24 MR#: [id number] Acct: [id number] Name: SAQIB DAMICO Rep #: [id number] : 1970 Provider: Jaylen Padilla Age/Sex: 54/M Location: [facility] Status: Signed Intake Vital Signs 01/09/24 08:04 [...] patient in pain?: No Allergies loratadine (From ClarJet) Adverse Reaction (Intermediate, Verified 06/20/23 08:15) headache [...] Rx subcutaneous pen (Humalog KwikPen U-200 Insulin) [facility] Medical History Obesity Diabetes Other specified disorders [...] in comp (more content not included)... Normal [facility] Office Visit Reporton 2023 Office Visit Report [facility] [address] [place] [address] OFFICE VISIT Date of Service: 07/13/24 MR#: [id number] Acct: [id number] Patient: SAQIB DAMICO Rep #: [id number] : 1970 Provider: DOMINIC Simmons Age/Sex: 54/M Location[place] [facility] Status: Signed Intake Vital Signs 01/09/24 08:04 [...] Cosigner Signature: Date (if applicable) CC: Normal [facility] CT ABDOMEN/PELVIS W/CONTRAST on 02-21-2024 CT [...] Sign Date: 02/21/2024 10:25:47 AM Ordering Provider: [facility] ([place] XR CHEST 2 VIEWSon XR CHEST 2 [...] 01/19/2024 11:58:14 AM Ordering Provider: SHIRA CHAPA [facility] ([place]) Basophil percentageOrdered B y: Daniel Granda on 01-09-2024 Bilirubin [Mass/Vol] 0.40 mg/dL 0.20-1.00 [facility] Comment on above: For patients on eltr ombopag therapy, use of Dimension [place] TBIL is not recommended. Chloride [Moles/Vol] 103 mmol/L 98-107 [facility] Cholesterol [Mass/Vol] 204 mg/dL <200 [facility] Comment on above: <200 mg/dL Desirable 200-240 mg/dL Borderline >240 mg/dL High Risk Glucose [Mass/Vol] 164 mg/dL 74-106 [facility] Comment on above: Fasting Glucose resu lt greater than or equal to 126 mg/dL suggests DIABETES MELLITUS per A.D.A. criteria. Potassium [Moles/Vol] 4.0 mmol/L 3.5-5.1 [facility] Protein [Mass/Vol] 7.0 g/dL 6.4-8.2 [facility] Sodium [Moles/Vol] 137 mmol/L 136-145 [facility] Triglyceride [Mass/Vol] 288 mg/dL <199 [facility] Comment on above: The drugs N-Acetylcy steine and Metamizole may falsely depress this assay.Serum Triglycerides Reference Interval Normal <150 mg/dL Borderline high 150 - 199 mg/dL High 200 - 499 mg/dL Very High > or = 500 mg/dL Laboratory - Chemistry and C hemistry - challengeOrdered By: Daniel Granda on 01-09-2024 Albumin/Globulin [Mass ratio] 1.0 {ratio} 0.9-2.4 [facility] ALP [Catalytic activity/Vol] 59 U/L 45-117 [facility] ALT [Catalytic activity/Vol] 38 U/L 16-61 [facility] Cholesterol in HDL [Mass/Vol] 46 mg/dL >40 [facility] Comment on above: The drugs N-Acetylcy steine and Metamizole may falsely depress this assay. Reference Range HDL <40 mg/dL Low HDL Cholesterol HDL >or= 60 mg/dL High HDL Cholesterol Cholesterol in LDL [Mass/Vol] 100 mg/dL 0-130 [facility] CO2 [Moles/Vol] 29.0 mmol/L 21.0-32.0 [facility] Globulin (S) [Mass/Vol] 3.5 g/dL 2.2-4.2 [facility] Urea nitrogen/Creatinine [Mass ratio] 19.7 mg/mg 10-20 [facility] Laboratory - Hematology and Cell countson 01-09-2024 HbA1c (Bld) [Mass fraction] 9.3 % 4.2-6.3 [facility] No Panel InformationOrdered By: Daniel Granda on 01-09-2024 Estimated GFR (MDRD) Amer 137 mL/min >60 [facility] Comment on above: GFR Calc Estimated GFR (MDRD) Non-Af Amer 113 mL/min >60 [facility] Comment on above: Non- GFR Calc Urine Microalbumin/Creatinin e Ratio 17.5 mg/g CRE <30 [facility] VLDL Cholesterol 58 mg/dL 5-40 [facility] Serum or plasma calcium carroll urement (mass/volume)Ordered By: Daniel Granda on 01-09-2024 Calcium [Mass/Vol] 8.9 mg/dL 8.5-10.1 [facility] Serum or plasma creatinine m easurement (mass/volume)Ordered By: Daniel Granda on 01-09-2024 Creatinine [Mass/Vol] 0.76 mg/dL 0.70-1.30 [facility] Comment on above: The validity of the calculated GFR & GFRAA in patients over 70 years has not been determined. Clinical correlation is essential. Serum or plasma thyroid stim ulating hormone (TSH) measurement (units/volume)Ordered By: Daniel Granda on 01-09-2024 TSH Qn 1.93 uIU/mL 0.358-3.74 [facility] Serum or plasma urea nitroge n measurement (mass/volume)Ordered By: Daniel Granda on 01-09-2024 Urea nitrogen [Mass/Vol] 15 mg/dL 7-18 [facility] Thin prep Papanicolaou smear with manual screeningOrdered By: Daniel Granda on 01-09-2024 Thin prep Papanicolaou smear with manual screening 3.5 g/dL 3.2-5.0 [facility] Thin prep Papanicolaou smear with manual screening 29 U/L 15-37 [facility] Thin prep Papanicolaou smear with manual screening 5 5-15 [facility] Thin prep Papanicolaou smear with manual screening 14.0 mg/L NO RANGE EST. [facility] Urine creatinine measurement (mass/volume)Ordered By: Daniel Granda on 01-09-2024 Creatinine (U) [Mass/Vol] 80.00 mg/dL NO RANGE EST. [facility] .Auto Diffon 01-07-2024 Basophil, Absolute 0.1 10 3/mcL Normal 0.0-0.2 [facility] ([place]) Comment on above: Performed By: #### M ALBR #### [address] [address] Basophils/100 WBC (Bld) 0.9 % Normal 0.0-2.5 [facility] ([place]) Comment on above: Performed By: #### M ALBR #### [address] [address] Eosinophil, Absolute 0.8 10 3/mcL High 0.0-0.4 [facility] ([place]) Comment on above: Performed By: #### M ALBR #### [address] [address] Eosinophils/100 WBC (Bld) 6.4 % Normal 0.0-7.0 [facility] ([place]) Comment on above: Performed By: #### M ALBR #### [address] [address] Lymphocyte, Absolute 4.8 10 3/mcL High 0.8-3.9 [facility] ([place]) Comment on above: Performed By: #### M ALBR #### [address] [address] Lymphocytes/100 WBC (Bld) 41.1 % Normal 10.0-50.0 [facility] ([place]) Comment on above: Performed By: #### M ALBR #### [address] [address] Monocyte, Absolute 1.1 10 3/mcL High 0.2-1.0 [facility] ([place]) Comment on above: Performed By: #### M ALBR #### [address] [address] Monocytes/100 WBC (Bld) 9.4 % Normal 1.7-13.0 [facility] ([place]) Comment on above: Performed By: #### M ALBR #### [address] [address] Neutrophils/100 WBC (Bld) 42.2 % Normal 37.0-80.0 [facility] ([place]) Comment on above: Performed By: #### M ALBR #### [address] [address] .GFRon 01-07-2024 GFR Non- 76 ml/min/1.73sqm Normal [facility] ([place]) Comment on above: Result Comment: [...] meters Performed By: #### M ALBR #### [address] [address] GFR 92 ml/min/1.73sqm Normal [facility] ([place]) Comment on above: Result Comment: [...] meters Performed By: #### M ALBR #### [place] [id number] .MDWon 01-07-2024 Monocyte Distribution Width 17.66 Normal 0.00-20.00 [facility] ([place]) Comment on above: Result Comment: For ED adult patients suspected of sepsis, MDW<=20.0 does not rule out sepsis or risk of sepsis Performed By: #### M ALBR #### [place] [address] .NEUABSon 01-07-2024 Neutrophil, Absolute 4.9 10 3/mcL Normal 2.9-6.2 [facility] ([place]) Comment on above: Performed By: #### M ALBR #### [place] [address] CBCon 01-07-2024 Erythrocyte distribution width (RBC) [Ratio] 14.4 % Normal 11.5-14.5 [facility] ([place]) Comment on above: Performed By: #### M ALBR #### [place] [address] Hematocrit (Bld) [Volume fraction] 40.0 % Low 42.0-52.0 [facility] ([place]) Comment on above: Performed By: #### M ALBR #### [place] [address] Hgb 13.7 G/dL Low 14.0-18.0 [facility] ([place]) Comment on above: Performed By: #### M ALBR #### [place] [id number] MCH (RBC) [Entitic mass] 30.3 pg Normal 27.0-31.2 [facility] ([place]) Comment on above: Performed By: #### M ALBR #### [place] [address] MCHC 34.4 G/dL Normal 31.8-35.4 [facility] ([place] Comment on above: Performed By: #### M ALBR #### [place] [id number] MCV (RBC) [Entitic vol] 88.1 fL Normal 80.0-94.0 [facility] ([place] Comment on above: Performed By: #### M ALBR #### [place] [address] Platelet 309 10 3/mcL Normal 130-400 [facility] ([place] Comment on above: Performed By: #### M ALBR #### [place] [address] Platelet mean volume (Bld) [Entitic vol] 7.3 fL Low 7.4-10.4 [facility] ([place]) Comment on above: Performed By: #### M ALBR #### [place] [address] RBC 4.54 10 6/mcL Normal 4.04-6.13 [facility] ([place]) Comment on above: Performed By: #### M ALBR #### [place] [address] WBC 11.7 10 3/mcL High 4.6-10.8 [facility] ([place] Comment on above: Performed By: #### M ALBR #### [place] [address] CMPon 01-07-2024 Albumin Level 3.5 G/dL Normal 3.5-5.0 [facility] ([place]) Comment on above: Performed By: #### M ALBR #### [facility] [address] [place], [place] [address] Albumin/Globulin [Mass ratio] 1.1 {ratio} Normal 1.1-2.5 [facility] ([place]) Comment on above: Performed By: #### M ALBR #### [place] [id number] ALP [Catalytic activity/Vol] 82 U/L Normal 40-135 [facility] ([place] Comment on above: Performed By: #### M ALBR #### [address] [address] ALT [Catalytic activity/Vol] 39 U/L Normal 16-63 [facility] ([place] Comment on above: Performed By: #### M ALBR #### [place] [id number] AST [Catalytic activity/Vol] 26 U/L Normal 10-40 [facility] ([place] Comment on above: Performed By: #### M ALBR #### [place] [id number] Bili Total 0.3 mg/dL Normal 0.2-1.0 [facility] ([place]) Comment on above: Result Comment: Use of this assay is not recommended for patients undergoing treatment with eltrombopag due to the potential for falsely elevated results. Performed By: #### M ALBR #### [place] [id number] BUN/Creatinine Ratio 21 ratio Normal 7-27 [facility] ([place] Comment on above: Performed By: #### M ALBR #### [place] [id number] Calcium [Mass/Vol] 8.9 mg/dL Normal 8.4-10.2 [facility] ([place]) Comment on above: Performed By: #### M ALBR #### [place] [id number] Chloride [Moles/Vol] 100 mmol/L Normal 98-107 [facility] ([place] Comment on above: Performed By: #### M ALBR #### [place] [id number] CO2 [Moles/Vol] 29 mmol/L Normal 22-29 [facility] ([place] Comment on above: Performed By: #### M ALBR #### [place] [id number] Creatinine [Mass/Vol] 1.02 mg/dL Normal 0.70-1.30 [facility] ([place]) Comment on above: Performed By: #### M ALBR #### [place] [address] Electrolyte Balance 8.0 mEq/L Normal 4.0-15.0 [facility] ([place]) Comment on above: Performed By: #### M ALBR #### [place] [address] Globulin 3.2 G/dL Normal [facility] ([place]) Comment on above: Performed By: #### M ALBR #### [place] [address] Glucose [Mass/Vol] 289 mg/dL High 70-105 [facility] ([place] Comment on above: Performed By: #### M ALBR #### [place] [address] Potassium [Moles/Vol] 4.5 mmol/L Normal 3.5-5.1 [facility] ([place]) Comment on above: Performed By: #### M ALBR #### [place] [address] Sodium [Moles/Vol] 137 mmol/L Normal 136-145 [facility] ([place]) Comment on above: Performed By: #### M ALBR #### [place] [address] Total Protein 6.7 G/dL Normal 6.4-8.2 [facility] ([place] Comment on above: Performed By: #### M ALBR #### [place] [id number] Urea nitrogen [Mass/Vol] 21 mg/dL High 7-18 [facility] ([place] Comment on above: Performed By: #### M ALBR #### [place] [address] LABORATORYOrdered By: SYSTEM SYSTEM on 01-07-2024 Albumin [...] ng/L Male: 0-76 ng/L Testing performed on [employer] using a homogeneous sandwich chemiluminescent immunoassay based on Bevalley technology. Urea nitrogen [Mass/Vol] 21 mg/dL High 7 - 18 mg/dL AO ADM SS Urea nitrogen/Creatinine [Mass ratio] 21 ratio Normal 7 - 27 ratio AO ADM SS WBC (Bld) [#/Vol] 11.7 103/mcL High 4.6 - 10.8 10^3/mcL AO Workflow SS LIPon 01-07-2024 Lipase Level 46 U/L Normal 16-77 [facility] ([place]) Comment on above: Performed By: #### M ALBR #### [address] [address] TROPHSon 01-07-2024 High Sensitivity Troponin I 6 ng/L Normal 0-76 [facility] ([place]) Comment on above: Result Comment: High Sensitive Troponin I Reference Ranges: Female: 0-51 ng/L Male: 0-76 ng/L Testing performed on [employer] using a homogeneous sandwich chemiluminescent immunoassay based on Bevalley technology. Performed By: #### M ALBR #### [place] [address] XR CHEST 2 VIEWSon XR CHEST 2 [...] 01/07/2024 9:49:14 PM Ordering Provider: OVIDIO Olivas [facility] ([place]) Laboratory - Hematology and Cell countson 10-14-2023 HbA1c (Bld) [Mass fraction] 9.7 % 4.2-6.3 [facility] 08-24-2023 Ethanol Level <3 Normal 0-3 [facility] ([place]) Comment on above: Performed By: #### M ALBR #### [facility] [address] [place] [address] [id number] 08-24-2023 SARS-CoV-2 (COVID-19) RNA MALVIN+probe Ql (Unsp spec) Negative Normal Negative [facility] ([place]) Comment on above: Performed By: #### U DRUG #### [address] [address] SARS-CoV-2 (COVID-19) RNA MALVIN+probe Ql (Unsp spec) Normal [facility] ([place]) Comment on above: Result Comment: [...] Int Performed By: #### U DRUG #### [address] [address] TROPHSon 08-24-2023 Troponin I High Sensitivity <4.0 Normal 0.0-76.2 [facility] ([place]) Comment on above: Performed By: #### U DRUG #### [address] [address] UDRUGon 08-24-2023 Amphetamine (u) Negative Normal Negative [facility] ([place]) Comment on above: Performed By: #### U DRUG #### [address] [address] Barbiturate (u) Negative Normal Negative [facility] ([place]) Comment on above: Performed By: #### U DRUG #### [address] [address] Benzodiazepine (u) Positive Abnormal Negative [facility] ([place]) Comment on above: Performed By: #### U DRUG #### [address] [address] Cannabinoid (u) Negative Normal Negative [facility] ([place]) Comment on above: Performed By: #### U DRUG #### [address] [address] Cocaine Ql (U) Negative Normal Negative [facility] ([place]) Comment on above: Performed By: #### U DRUG #### [place] [address] Methadone Ql (U) Negative Normal Negative [facility] ([place]) Comment on above: Performed By: #### U DRUG #### [place] [address] Opiate (u) Negative Normal Negative [facility] ([place]) Comment on above: Performed By: #### U DRUG #### [address] [address] PCP (u) Negative Normal Negative [facility] ([place] Comment on above: Performed By: #### U DRUG #### [place] [address] Urine Drugs screened: See Below Normal [facility] ([place]) Comment on above: Result Comment: This drug [...] ONLY. Performed By: #### U DRUG #### [place] [id number] XR CHEST 1 VIEWon 08-24-2023 XR CHEST [...] 08/23/2023 10:11:33 PM Ordering Provider: SONIA Olivas [facility] ([place]) .Auto Diffon 08-23-2023 Basophil, Absolute 0.1 10 3/mcL Normal 0.0-0.2 [facility] ([place] Comment on above: Performed By: #### U DRUG #### [address] [address] Basophils/100 WBC (Bld) 0.8 % Normal 0.0-2.5 [facility] ([place] Comment on above: Performed By: #### U DRUG #### [address] [address] Eosinophil, Absolute 0.7 10 3/mcL High 0.0-0.4 [facility] ([place] Comment on above: Performed By: #### U DRUG #### [address] [address] Eosinophils/100 WBC (Bld) 4.6 % Normal 0.0-7.0 [facility] ([place] Comment on above: Performed By: #### U DRUG #### [address] [address] Lymphocyte, Absolute 5.0 10 3/mcL High 0.8-3.9 [facility] ([place] Comment on above: Performed By: #### U DRUG #### [address] [address] Lymphocytes/100 WBC (Bld) 31.0 % Normal 10.0-50.0 [facility] ([place]) Comment on above: Performed By: #### U DRUG #### [address] [address] Monocyte, Absolute 1.4 10 3/mcL High 0.2-1.0 [facility] ([place] Comment on above: Performed By: #### U DRUG #### [address] [address] Monocytes/100 WBC (Bld) 8.5 % Normal 1.7-13.0 [facility] ([place] Comment on above: Performed By: #### U DRUG #### [address] [address] Neutrophils/100 WBC (Bld) 55.1 % Normal 37.0-80.0 [facility] ([place] Comment on above: Performed By: #### U DRUG #### [address] [address] .GFRon 08-23-2023 GFR 86 ml/min/1.73sqm Normal [facility] ([place] Comment on above: Result Comment: GFR Population [...] meters Performed By: #### U DRUG #### [address] [address] GFR Non- 71 ml/min/1.73sqm Normal [facility] ([place]) Comment on above: Result Comment: GFR Population [...] meters Performed By: #### U DRUG #### [address] [address] .MDWon 08-23-2023 Monocyte Distribution Width 19.87 Normal 0.00-20.00 [facility] ([place]) Comment on above: Result Comment: For ED adult patients suspected of sepsis, MDW<=20.0 does not rule out sepsis or risk of sepsis Performed By: #### U DRUG #### [address] [address] .NEUABSon 08-23-2023 Neutrophil, Absolute 8.9 10 3/mcL High 2.9-6.2 [facility] ([place] Comment on above: Performed By: #### U DRUG #### [address] [address] CBCon 08-23-2023 Erythrocyte distribution width (RBC) [Ratio] 14.8 % High 11.5-14.5 [facility] ([place]) Comment on above: Performed By: #### U DRUG #### [address] [address] Hematocrit (Bld) [Volume fraction] 44.4 % Normal 42.0-52.0 [facility] ([place]) Comment on above: Performed By: #### U DRUG #### [address] [address] Hgb 14.6 G/dL Normal 14.0-18.0 [facility] ([place] Comment on above: Performed By: #### U DRUG #### [address] [address] MCH (RBC) [Entitic mass] 28.5 pg Normal 27.0-31.2 [facility] ([place] Comment on above: Performed By: #### U DRUG #### [address] [address] MCHC 32.8 G/dL Normal 31.8-35.4 [facility] ([place] Comment on above: Performed By: #### U DRUG #### [address] [address] MCV (RBC) [Entitic vol] 86.8 fL Normal 80.0-94.0 [facility] ([place] Comment on above: Performed By: #### U DRUG #### [address] [address] Platelet 329 10 3/mcL Normal 130-400 [facility] ([place]) Comment on above: Performed By: #### U DRUG #### [address] [address] Platelet mean volume (Bld) [Entitic vol] 7.2 fL Low 7.4-10.4 [facility] ([place] Comment on above: Performed By: #### U DRUG #### [address] [address] RBC 5.11 10 6/mcL Normal 4.04-6.13 [facility] ([place] Comment on above: Performed By: #### U DRUG #### [address] [address] WBC 16.1 10 3/mcL High 4.6-10.8 [facility] ([place] Comment on above: Performed By: #### U DRUG #### [address] [address] CMPon 08-23-2023 Albumin Level 4.0 G/dL Normal 3.5-5.0 [facility] ([place]) Comment on above: Performed By: #### U DRUG #### [address] [address] Albumin/Globulin [Mass ratio] 1.1 {ratio} Normal 1.1-2.5 [facility] ([place]) Comment on above: Performed By: #### U DRUG #### [address] [address] ALP [Catalytic activity/Vol] 110 U/L Normal 40-135 [facility] ([place] Comment on above: Performed By: #### U DRUG #### [address] [address] ALT [Catalytic activity/Vol] 42 U/L Normal 16-63 [facility] ([place] Comment on above: Performed By: #### U DRUG #### [address] [address] AST [Catalytic activity/Vol] 32 U/L Normal 10-40 [facility] ([place] Comment on above: Performed By: #### U DRUG #### [address] [address] Bili Total 0.6 mg/dL Normal 0.2-1.0 [facility] ([place]) Comment on above: Result Comment: Use of this assay is not recommended for patients undergoing treatment with eltrombopag due to the potential for falsely elevated results. Performed By: #### U DRUG #### [address] [address] BUN/Creatinine Ratio 19 ratio Normal 7-27 [facility] ([place]) Comment on above: Performed By: #### U DRUG #### [address] [address] Calcium [Mass/Vol] 9.5 mg/dL Normal 8.4-10.2 [facility] ([place]) Comment on above: Performed By: #### U DRUG #### [address] [address] Chloride [Moles/Vol] 99 mmol/L Normal 98-107 [facility] ([place]) Comment on above: Performed By: #### U DRUG #### [address] [address] CO2 [Moles/Vol] 28 mmol/L Normal 22-29 [facility] ([place] Comment on above: Performed By: #### U DRUG #### [address] [address] Creatinine [Mass/Vol] 1.08 mg/dL Normal 0.70-1.30 [facility] ([place]) Comment on above: Performed By: #### U DRUG #### [address] [address] Electrolyte Balance 7.0 mEq/L Normal 4.0-15.0 [facility] ([place]) Comment on above: Performed By: #### U DRUG #### [address] [address] Globulin 3.7 G/dL Normal [facility] ([place]) Comment on above: Performed By: #### U DRUG #### [address] [address] Glucose [Mass/Vol] 267 mg/dL High 70-105 [facility] ([place] Comment on above: Performed By: #### U DRUG #### [address] [address] Potassium [Moles/Vol] 5.2 mmol/L High 3.5-5.1 [facility] ([place]) Comment on above: Performed By: #### U DRUG #### [address] [address] Sodium [Moles/Vol] 134 mmol/L Low 136-145 [facility] ([place]) Comment on above: Performed By: #### U DRUG #### [address] [address] Total Protein 7.7 G/dL Normal 6.4-8.2 [facility] ([place]) Comment on above: Performed By: #### U DRUG #### [address] [address] Urea nitrogen [Mass/Vol] 21 mg/dL High 7-18 [facility] ([place]) Comment on above: Performed By: #### U DRUG #### [facility] [address] [place], [place] [address] LABORATORYOrdered By: Nirmala Garcia on 08-23-2023 Amphetamines [...] 08-23-2023 Magnesium [Mass/Vol] 2.0 mg/dL Normal 1.8-2.4 [facility] ([place]) Comment on above: Performed By: #### U DRUG #### [address] [address] TROPHSon 08-23-2023 Troponin I High Sensitivity 5.1 ng/L Normal 0.0-76.2 [facility] ([place]) Comment on above: Performed By: #### M ALBR #### [address] [address] .Auto Diffon 06-08-2023 Basophil, Absolute 0.1 10 3/mcL Normal 0.0-0.2 [facility] ([place]) Comment on above: Performed By: #### C MP, ANEU, TSH, GFR, LIPID, ADIFF, PSA, CBC #### [address] [address] Basophils/100 WBC (Bld) 0.6 % Normal 0.0-2.5 [facility] ([place]) Comment on above: Performed By: #### C MP, ANEU, TSH, GFR, LIPID, ADIFF, PSA, CBC #### [address] [address] Eosinophil, Absolute 0.7 10 3/mcL High 0.0-0.4 [facility] ([place]) Comment on above: Performed By: #### C MP, ANEU, TSH, GFR, LIPID, ADIFF, PSA, CBC #### [address] [address] Eosinophils/100 WBC (Bld) 3.7 % Normal 0.0-7.0 [facility] ([place]) Comment on above: Performed By: #### C MP, ANEU, TSH, GFR, LIPID, ADIFF, PSA, CBC #### [address] [address] Lymphocyte, Absolute 6.5 10 3/mcL High 0.8-3.9 [facility] ([place]) Comment on above: Performed By: #### C MP, ANEU, TSH, GFR, LIPID, ADIFF, PSA, CBC #### [address] [address] Lymphocytes/100 WBC (Bld) 34.5 % Normal 10.0-50.0 [facility] ([place]) Comment on above: Performed By: #### C MP, ANEU, TSH, GFR, LIPID, ADIFF, PSA, CBC #### [address] [address] Monocyte, Absolute 1.6 10 3/mcL High 0.2-1.0 [facility] ([place]) Comment on above: Performed By: #### C MP, ANEU, TSH, GFR, LIPID, ADIFF, PSA, CBC #### [address] [address] Monocytes/100 WBC (Bld) 8.7 % Normal 1.7-13.0 [facility] ([place]) Comment on above: Performed By: #### C MP, ANEU, TSH, GFR, LIPID, ADIFF, PSA, CBC #### [address] [address] Neutrophils/100 WBC (Bld) 52.5 %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 12-07-2024 Mental Status Orientation Oriented x 4 [facility] 08-01-2024 Mental Status Orientation Oriented x 4 [facility] 08-01-2024 Mental Status [facility] 01-07-2024 Mental Status Orientation Oriented x 4 [facility] 01-07-2024 Mental Status [facility] 08-23-2023 Mental Status Orientation Orie nted x 4, Follows simple commands [facility] 08-23-2023 Mental Status [facility] 09-22-2022 Mental Status Oriented x 4 [facility] Clinical Notes 08-10-2021 to 05-06-2025 Note Date & Type Note Facility 05-06-2025 Progress note [facility] 05-06-2025 Progress note Note Date/Time May 06, 2025 3:04pm [facility] [address] [place] [address]. [address] [place] [address] OFFICE VISIT Date of Service: 05/06/25 MR#: [id number] Acct: [id number] Name: MARGAUXSAQIB ALVAREZICK Rep #: [id number] : 1970 Provider: Dr. Daniel Granda MD Age/Sex: 55/M Location: [facility] Status: Signed Intake Vital Signs 02/04/25 08:24 [...] a divorce, he was pink slipped in [place]. 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 [...] 2 diabetes mellitus with hyperglycemia, Z79.4 - half-way (current) use of insulin Coding Level of Care Code Off vis,est,level 4 Extra Time Spent Extra Time Spent Extra Time Spent: G2211 Diagnoses Type 2 diabetes mellitus with hyperglycemia, with long-term current use of insulin E11.65; Z79.4 Diabetes mellitus complication status: with hyperglycemia Diabetes mellitus fci insulin use: with design analyst use Diabetes mellitus type: type 2 Mixed [...] - Extra Time Spent: G2211 (G2211) 05/06/25 [id number] <Electronically signed by Daniel Granda MD> Date _ Daniel Granda MD Cosigner Signature: Date (if applicable) CC: Dr. Jamaica Hogue, DO ~ [facility] Work Phone: 1(899) 532-564507-16-2025 Hospital Discharge instructions Follow Up Care 04/24/2025 18:24:42 With:JAMAICA HOGUE DO Address: [address] [place] [address] [place] [phone] When:2-4 days [facility] 07-16-2025 Note* Exam Date Time Procedure Performing Provider Status 04/24/25 8:06 PM XR Ankle and Foot 6 Views Left ADITYA JULIO MD; Auth (Verified) [id number] ORIGINAL EXAMINATION: 3XRAY VIEWS OF THE ANKLE [...] 04/24/2025 8:17:28 PM Ordering Provider: OVIDIO MEEHAN [facility]07-16-2025 Note* Exam Date Time Procedure Performing Provider Status 04/24/25 7:42 PM EKG [ED AO] - CV OVIDIO MEEHAN DO; (Verified) ECG Final Report Sinus tachycardia Right bundle branch block Baseline wander in lead(s) V1 Electronic Signature: OVIDIO MEEHAN DO 04/24/2025 20:00:37 [facility]05-02-2025 Hospital Discharge instructions Patient Education 02/07/2025 23:54:15 [...] keep having episodes of high blood sugar. 8450-5514 [employer]. [address] [place] [address], [place] [address]. All rights reserved. This information is not intended as a substitute for professional medical care. Always follow yourhealthcare professional's instructions. Follow Up Care 02/07/2025 22:49:02 With:JAMAICA HOGUE DO Address: [address] [place] [phone] When:2-4 days [facility] 05-02-2025 Note Discharge Instructions Thank you for allowing [facility] to assist you with your healthcare needs. The following is importantdischarge information regarding your hospital visit. Diagnosis from Today's Visit Diaphoresis History of diabetes mellitus Hyperglycemia What to Do Next Instructions from Your Care Team No qualifying data available. Post Acute Orders No qualifying data available. You Need to Schedule the Following Appointments Follow Up with JAMAICA HOGUE DO When:Within 2-4 days Where:[address] [place] [phone] Allergies Claritin Headache Medications Please ask your [...] Carry a medical ID card or a [address]ly[address] drive. Or wear a medical alert bracelet [...] keep having episodes of high blood sugar. [phone] [employer]. [address] [place] [address], [place] [address]. All rights reserved. This information is not intended as a substitute for professional medical care. Always follow yourhealthcare professional's instructions. Additional Information VACCINATE! IT SAVES LIVES! Members of the community who have not yet received the COVID-19 vaccine and would like to receive it can visit one of [facility] vaccine clinics. There are many vaccine clinic locations within the [facility]. For locations and available times, please visit www.gettheshot.coronavirus.[place].gov/. It is important to note that some COVID mobile vaccine clinics are held outdoors and may be canceled in rainy or stormy conditions. To learn more about pediatric vaccinations (ages 5-11), we invite you to visit the [facility] webpage. https://www.[facility].org/pages/5979-Irspe-Chzfkoysmve-Wvijhdsbpf-Lbujm-Uac stions.htmlTo learn more about the COVID-19 vaccine, we invite you to visit the CDC website for a list of frequently asked questions. https://www.cdc.gov/coronavirus/2019-ncov/vaccines/faq.html [facility] [employer] Patient Portal Access Instructions: Stay connected with your healthcare team and access your personal medical information anytime with the [facility] Patient Portal. If you would like a full copy of your medical records please contact the [facility] Medical Records Department Tuesday through Tuesday between 8a.m. and 4:30p.m. Please follow the directions below to access the portal: 1.Access the email account you provided upon registration to the [facility].2.Look for an invitation email from [facility].3.Open the email and access the invitation link: Accept Invitation to [facility] [employer] [facility] Plan4.Fill in the required sánchez to create your account. Sign into www.[email or web address] with your username and password that you [...] you will allow to register on the [facility] Patient Portal for access to your information. You can also access the [facility] Patient Portal on the Octavian jeffrey. Simply click on Health Records under [employer] and then click on the [employer] logo. [...] Call your local pharmacy or go to http://bit.ARTENCY.COM/2F3Wc6f to find one close to you.3.Make use of household items: Use cat litter or old coffee grounds to dispose medications if other options arenot available. Mix your drugs with these household products, seal them in an airtight container andthrow it into the garbage. Call [facility]: [phone] to be sure your drugs can be [...] aware that I should contact my doctor. Patient/Wellness Health Coach Signature: Date/Time: Relationship to Patient: Witness Name/Signature: Date/Time: [facility] [id number] Note* Exam Date Time Procedure Performing Provider [...] Electronic Signature: PATRICIA PEARSON DO 02/07/2025 23:19:45 [facility]04-28-2025 Evaluation note* Diagnosis Onset Date Resolution Status [...] 2025 2:23pm Obesity chronic May 06 2:23pm [facility] [place] [facility] Work Phone: 1(574) 465-426702-28-2025 Hospital Discharge instructions Patient Education 12/07/2024 21:47:44 [...] or as directed by your healthcare provider [phone] [employer]. [address] [place] [address]. All rights reserved. This information is not intended as a substitute for professional medical care. Always follow yourhealthcare professional's instructions. Follow Up Care 12/07/2024 19:31:45 With:JAMAICA HOGUE DO Address: [address] [place] [address] [place] [phone] When:2-4 days [facility] 02-28-2025 Note Discharge Instructions Thank you for allowing [facility] to assist you with your healthcare needs. The following is importantdischarge information regarding your hospital visit. What to Do Next Instructions from Your Care Team No qualifying data available. Post Acute Orders No qualifying data available. You Need to Schedule the Following Appointments Follow Up with JAMAICA HOGUE DO When:Within 2-4 days Where:[address] [facility] [place] [phone] Allergies Claritin Headache Medications Please ask your [...] or as directed by your healthcare provider [phone] [employer]. [address] [place] [address], [place] [address]. All rights reserved. This information is not intended as a substitute for professional medical care. Always follow yourhealthcare professional's instructions. Additional Information VACCINATE! IT SAVES LIVES! Members of the community who have not yet received the COVID-19 vaccine and would like to receive it can visit one of [facility] vaccine clinics. There are many vaccine clinic locations within the [facility]. For locations and available times, please visit www.gettheshot.coronavirus.[place].gov/. It is important to note that some COVID mobile vaccine clinics are held outdoors and may be canceled in rainy or stormy conditions. To learn more about pediatric vaccinations (ages 5-11), we invite you to visit the [facility] webpage. https://www.[facility].org/pages/5662-Cdaed-Dqqmjfpxjpz-Vkiikvskhn-Glilc-Opv stions.htmlTo learn more about the COVID-19 vaccine, we invite you to visit the CDC website for a list of frequently asked questions. https://www.cdc.gov/coronavirus/2019-ncov/vaccines/faq.html [facility] Patient Portal Access Instructions: Stay connected with your healthcare team and access your personal medical information anytime with the [facility] Patient Portal. If you would like a full copy of your medical records please contact the [facility] Medical Records Department Tuesday through Tuesday between 8a.m. and 4:30p.m. Please follow the directions below to access the portal: 1.Access the email account you provided upon registration to the hospital.2.Look for an invitation email from [facility].3.Open the email and access the invitation link: Accept Invitation to [facility]4.Fill in the required sánchez to create your account. Sign into www.[email or web address] with your username and password that you [...] you will allow to register on the [facility] Patient Portal for access to your information. You can also access the [facility] Patient Portal on the Octavian jeffrey. Simply click on Health Records under [employer] and then click on the [employer] logo. HOW TO SAFELY DISPOSE OF PRESCRIPTION [...] Call your local pharmacy or go to http://BloomNation.ARTENCY.COM/7E1Zt8w to find one close to you.3.Make use of household items: Use cat litter or old coffee grounds to dispose medications if other options arenot available. Mix your drugs with these household products, seal them in an airtight container andthrow it into the garbage. Call [facility]: [phone] to be sure your drugs can be [...] aware that I should contact my doctor. Patient/Wellness Health Coach Signature: Date/Time: Relationship to Patient: Witness Name/Signature: Date/Time: [facility]02-28-2025 Note* Exam Date Time Procedure Performing Provider Status 12/07/24 9:[address] Angiography Chest w/ Contrast ADITYA ROSALES MD; Auth (Verified) [id number] ORIGINAL EXAMINATION: CTA OF THE CHEST 12/07/2024 [...] Sign Date: 12/07/2024 9:31:23 PM Ordering Provider: [facility]02-28-2025 Note* Exam Date Time Procedure Performing Provider Status 12/07/24 8:30 PM XR Chest 1 View ADITYA MCGEE MD; [facility] (Verified) [id number] ORIGINAL EXAMINATION: ONE XRAY VIEW OF THE [...] Sign Date: 12/07/2024 8:35:18 PM Ordering Provider: [facility]02-28-2025 Note* Exam Date Time Procedure Performing Provider Status 12/07/24 8:04 PM EKG [ED AO] - OVIDIO BARNES DO; Au (Verified) ECG Final Report Sinus rhythm Nonspecific intraventricular conduction delay Anteroseptal infarct, age indeterminate Lateral leads are also involved Baseline wander in lead(s) I,II,aVR Compared to ECG at 01/07/2024 20:57:13 Electronic Signature: OVIDIO MEEHAN DO 12/07/2024 20:24:16 [facility] [facility]10-23-2024 Hospital Discharge instructions Patient Education 08/01/2024 11:30:21 [...] that cause groin pain. You may use nbbg-dux-aakidfr pain medicine to control pain, unless another [...] the waistline, or spreads to the back [phone] [employer]. [address] [place] [address], [place] [address]. All rights reserved. This information is not intended as a substitute for professional medical care. Always follow yourhealthcare professional's instructions. Follow Up Care 08/01/2024 09:34:02 With:JAMAICA HOGUE DO Address: [address] [place] [address] [phone] When:2-4 days [facility] 10-23-2024 Note Discharge Instructions Thank you for allowing [facility] to assist you with your healthcare needs. The following is importantdischarge information regarding your hospital visit. Diagnosis from Today's Visit Groin pain What to Do Next Instructions from Your Care Team No qualifying data available. Post Acute Orders No qualifying data available. You Need to Schedule the Following Appointments Follow Up with JAMAICA HOGUE DO When:Within 2-4 days Where:[address] [place] [address] [phone] Allergies Claritin Headache Medications Please ask your primary doctor or pharmacist before taking any other medication not listed, including over the counter drugs, herbal medications, vitamins and or supplements as they may interact withyour home medications. What How Much When Why Instructions Last Dose New acetaminophen-hydrocodone ([place] 325- 5 mg oral tablet) 1 tab(s) [...] may report side effects to FDA at [phone]. What other drugs will affect acetaminophen and [...] affect acetaminophen and hydrocodone, including prescription and qhtl-hov-qqwgney medicines, vitamins, and herbal products. Not all [...] to ensure that the information provided by [employer]. ('[employer]') is accurate, up-to-date, and complete, but no guarantee is made to that effect. Drug information contained herein may be time sensitive. [employer] information has been compiled for use by healthcare practitioners and consumers in the [place] and therefore [employer] does not warrant that uses outside of the [place] are appropriate, unless specifically indicated otherwise. [employer] drug information does not endorse drugs, diagnose patients or recommend therapy. [employer] drug information isan informational resource designed to [...] effective or appropriate for any given patient. [employer] does not assume any responsibility for any aspect of healthcare administered with the aid of information [employer] provides. The information contained herein is not intended to cover all possible uses, directions, precautions, warnings, drug interactions, allergic reactions, or adverse effects. If you have questions about the drugs you are taking, check with your doctor, nurse or pharmacist. Copyright 7277-7352 [facility] [employer]. Version: 19.02. Revision Date: 01/17/2024. Education Materials [...] that cause groin pain. You may use hjvb-krv-ebjhvuk pain medicine to control pain, unless another [...] the waistline, or spreads to the back 1434-5842 [employer]. [address] [place] [address], [place] [address]. All rights reserved. This information is not intended as a substitute for professional medical care. Always follow yourhealthcare professional's instructions. Additional Information VACCINATE! IT SAVES LIVES! Members of the community who have not yet received the COVID-19 vaccine and would like to receive it can visit one of [facility] vaccine clinics. There are many vaccine clinic locations within the [facility]. For locations and available times, please visit www.[email or web address].[place].gov/. It is important to note that some COVID mobile vaccine clinics are held outdoors and may be canceled in rainy or stormy conditions. To learn more about pediatric vaccinations (ages 5-11), we invite you to visit the [facility] webpage. https://www.[facility].org/pages/0563-Dphyf-Trivwwsnwer-Zpekvtjbbt-Esces-Jyr stions.htmlTo learn more about the COVID-19 vaccine, we invite you to visit the CDC website for a list of frequently asked questions. https://www.cdc.gov/coronavirus/2019-ncov/vaccines/faq.html [facility] Share PracticeChart Patient Portal Access Instructions: Stay connected with your healthcare team and access your personal medical information anytime with the [facility] [employer] Patient Portal. If you would like a full copy of your medical records please contact the [facility] Medical Records Department Tuesday through Tuesday between 8a.m. and 4:30p.m. Please follow the directions below to access the portal: 1.Access the email account you provided upon registration to the [facility].2.Look for an invitation email from [facility].3.Open the email and access the invitation link: Accept Invitation to [facility]4.Fill in the required sánchez to create your account. Sign into [email or web address] with your username and password that you [...] you will allow to register on the [facility] [employer] [facility] Patient Portal for access to your information. You can also access the [facility] Patient Portal on the Glo Bags. Simply click on Health Records under [employer] and then click on the Arelis [...] Call your local pharmacy or go to http://[email or web address].ARTENCY.COM/[email or web address] to find one close to you.3.Make use of household items: Use cat litter or old coffee grounds to dispose medications if other options arenot available. Mix your drugs with these household products, seal them in an airtight container andthrow it into the garbage. Call [facility]: [phone] to be sure your drugs can be [...] that I should contact my d octor. Patient/Wellness Health Coach Signature: Date/Time: Relationship to Patient: Witness Name/Signature: Date/Time: [facility]10-23-2024 Note ORIGINAL HISTORY: Pain COMPARISON: 20 Feb [...] Date: 08/01/2024 11:22:42 AM [facility]ing [facility] + Plan note Future Scheduled Tests Laboratory* Creatinine 02/14/24 Radiology* US Abdomen Complete 03/15/24 * XR Pelvis 1 or 2 Views 08/07/24 * XR Hip 2-3 Views Left 08/07/24 [facility] 04-11-2024 Note ORIGINAL EXAMINATION: TWO XRAY VIEWS [...] Date: 01/19/2024 11:58:14 AM [facility]ing [facility] Discharge instructions Patient Education 01/07/2024 21:47:11 [...] or as directed by your healthcare provider [phone] [employer]. [address] [place] [address], [place] [id number]. All rights reserved. This information is not intended as a substitute for professional medical care. Always follow yourhealthcare professional's instructions. Follow Up Care 01/07/2024 20:29:08 With:JAMAICA HGOUE DO Address: [address] [place] [address] [phone] When:2-4 days [facility] 03-30-2024 Note Discharge Instructions Thank you for allowing [facility] to assist you with your healthcare needs. The following is importantdischarge information regarding your hospital visit. Diagnosis from Today's Visit Abdominal pain Diarrhea What to Do Next Instructions from Your Care Team No qualifying data available. Post Acute Orders No qualifying data available. You Need to Schedule the Following Appointments Follow Up with JAMAICA HOGUE DO When Within 2-4 days Where: [address] [place] [address] [phone] Allergies Claritin (Headache) Medications Please ask your [...] or as directed by your healthcare provider [phone] [employer]. [address] [place] [address]. All rights reserved. This information is not intended as a substitute for professional medical care. Always follow yourhealthcare professional's instructions. Additional Information VACCINATE! IT SAVES LIVES! Members of the community who have not yet received the COVID-19 vaccine and would like to receive it can visit one of [facility] vaccine clinics. There are many vaccine clinic locations within the [facility]. For locations and available times, please visit www.[email or web address].[place].gov/. It is important to note that some COVID mobile vaccine clinics are held outdoors and may be canceled in rainy or stormy conditions. To learn more about pediatric vaccinations (ages 5-11), we invite you to visit the [facility] webpage. https://www.[facility].org/pages/5987-Nkakb-Azgbnuqmptk-Dtyshlwiwn-Znrfq-Xfa stions.htmlTo learn more about the COVID-19 vaccine, we invite you to visit the CDC website for a list of frequently asked questions. https://www.cdc.gov/coronavirus/2019-ncov/vaccines/faq.html [facility] Patient Portal Access Instructions: Stay connected with your healthcare team and access your personal medical information anytime with the [facility] Patient Portal. If you would like a full copy of your medical records please contact the [facility] Medical Records Department Tuesday through Tuesday between 8a.m. and 4:30p.m. Please follow the directions below to access the portal: 1.Access the email account you provided upon registration to the [facility].2.Look for an invitation email from [facility].3.Open the email and access the invitation link: Accept Invitation to [facility]4.Fill in the required sánchez to create your account. Sign into [email or web address] with your username and password that you [...] you will allow to register on the [facility] Patient Portal for access to your information. You can also access the [facility] Patient Portal on the Glo Bags. Simply click on Health Records under [employer] and then click on the [employer] logo. HOW TO SAFELY DISPOSE OF PRESCRIPTION [...] Call your local pharmacy or go to http://bit.ARTENCY.COM/1V1Ek4d to find one close to you.3.Make use of household items: Use cat litter or old coffee grounds to dispose medications if other options arenot available. Mix your drugs with these household products, seal them in an airtight container andthrow it into the garbage. Call [facility]: [phone] to be sure your drugs can be [...] that I should contact my d juanor. Patient/Wellness Health Coach Signature: Date/Time: Relationship to Patient: Witness Name/Signature: Date/Time: [facility]03-30-2024 Note ORIGINAL EXAMINATION: TWO XRAY VIEWS OF [...] Date: 01/07/2024 9:49:14 PM [facility] Note Sinus rhythm Right bundle branch block Compared to ECG at 08/23/2023 21:17:47 Electronic Signature: OVIDIO MEEHAN DO 01/07/2024 21:00:14[facility] 11-14-2023 Hospital Discharge instructions Follow Up Care 08/23/2023 21:13:14 With:JAMAICA HOGUE Address: [address] [place] [address] [phone]- [phone] Business (1) When:2-4 days Comments:Schedule appointment as soon as possibleReturn to ED if symptoms worsenFollow up for outpatient stress testing and echocardiagram asapTake a baby aspirin daily pending testing results [facility] 11-14-2023 SARS-CoV-2 (COVID-19) RNA MALVIN+probe Ql (Nph) Negative (08/23/23 10:43 PM)AO Auto Urine [id number] Note ORIGINAL EXAMINATION: ONE XRAY VIEW OF [...] Date: 08/23/2023 10:11:33 PM Ordering Provider[facility] NoteSinus rhythm Right bundle branch block SEE DICTATION Electronic Signature: SONIA SOSA MD 08/23/2023 21:32:40[facility] 09-21-2023 Evaluation + Plan note Future Scheduled Tests Laboratory* Complete Blood Count 06/30/23 [facility] 12-14-2022 Hospital Discharge instructions Patient Education 09/22/2022 [...] loosen secretions in the nose and lungs. Xudi-qgk-dckwsui cold medicines will not shorten the length of time you re sick, but they may be helpful for the following symptoms: cough, sore throat, and nasal and sinus congestion. If you take prescription medicines, ask your healthcare provider or pharmacist which lehx-pue-jksaumq medicines are safe to use. (Note: Don't [...] it goes along with a muffled voice [phone] [employer]. [address] [place] [address], [place] [address]. All rights reserved. This information is not intended as a substitute for professional medical care. Always follow yourhealthcare professional's instructions. Follow Up Care 09/22/2022 19:29:43 With:JAMAICA HOGUE DO Address: [address] [place] [address] [phone] When:2-4 days [facility] 12-14-2022 Note Discharge Instructions Thank you for [...] HOGUE DO When Within 2-4 days Where: [address] [place] [address] [phone] Allergies Claritin (Headache) Medications Please ask your [...] loosen secretions in the nose and lungs. Jsuk-ksb-yalwias cold medicines will not shorten the length of time you re sick, but they may be helpful for the following symptoms: cough, sore throat, and nasal and sinus congestion. If you take prescription medicines, ask your healthcare provider or pharmacist which qozo-wla-sjbipbw medicines are safe to use. (Note: Don't [...] it goes along with a muffled voice [phone] [employer]. [address] [place] [address]. All rights reserved. This information is not intended as a substitute for professional medical care. Always follow yourhealthcare professional's instructions. Additional Information VACCINATE! IT SAVES LIVES! Members of the community who have not yet received the COVID-19 vaccine and would like to receive it can visit one of [facility] vaccine clinics. There are many vaccine clinic locations within the [facility]. For locations and available times, please visit www.[email or web address]. It is important to note that some COVID mobile vaccine clinics are held outdoors and may be canceled in rainy orstormy conditions. To learn more about pediatric vaccinations (ages 5-11), we invite you to visit the [facility] webpage. https://www.[facility].org/pages/5845-Nclfe-Pyeylxeiuub-Wxysflbxcs-Dyjrw-Ywj stions.htmlTo learn more about the COVID-19 vaccine, we invite you to visit the [facility] website for a list of frequently asked questions. https://fort worthPayfirma/assets/Kbsbsujq-jrd-Tmjzhhgf/knapa-Cmvqtlr-Qmznimcmqu _Asked-Questions.pdf [facility] Patient Portal Access Instructions: Stay connected with your healthcare team and access your personal medical information anytime with the [facility] Patient [facility]. If you would like a full copy of your medical records please contact the [facility] Medical Records Department Tuesday through Tuesday between 8a.m. and 4:30p.m. Please follow the directions below to access the portal: 1.Access the email account you provided upon registration to the [facility].2.Look for an invitation email from [facility].3.Open the email and access the invitation link: Accept Invitation to [facility]4.Fill in the required sánchez to create your account. Sign into [email or web address] with your username and password that you [...] you will allow to register on the [facility] Patient Portal for access to your information. You can also access the [facility] [facility] Patient Portal on the Octavian jeffrey. Simply click on Health Records under [employer] and then click on the [employer] logo. [...] Call your local pharmacy or go to http://bit.ARTENCY.COM/5T7Tx2k to find one close to you.3.Make use of household items: Use cat litter or old coffee grounds to dispose medications if other options arenot available. Mix your drugs with these household products, seal them in an airtight container andthrow it into the garbage. Call [facility]: [phone] to be sure your drugs can be [...] aware that I should contact my doctor. Patient/Wellness Health Coach Signature: Date/Time: Relationship to Patient: Witness Name/Signature: Date/Time: [facility] Nuwbkepp17-15-2085 HCoV 229E RNA MALVIN+non-probe Ql (Nph) Not Detected *NA* (06/22/22 1:34 PM) Auto Viro/Sero [id number] Hospital Discharge instructions Patient Education 08/10/2021 05:55:14 [...] alternate ice and heat. You may use eyfd-atz-mksytan pain medicine to control pain, unless another [...] the urine Unexpected vaginal bleeding in women [phone] [employer]. [address] [place] [address], [place] [address]. All rights reserved. This information is not intended as a substitute for professional medical care. Always follow yourhealthcare professional's instructions. Follow Up Care 08/10/2021 04:18:03 With:JAMAICA HOGUE DO Address: [phone] When:2-4 days [facility] Run My Errandsation + Plan note Future Appointments Appointment Date:09/29/2021 09:30:00 AM Scheduled Provider:JAMAICA HOGUE DO Location:[facility] Appointment Type:PC OV Future Scheduled Tests Laboratory* A1C Hemoglobin 11/21/20 * Lipid Profile 11/21/20 * Complete Metabolic Panel 11/21/20 Radiology* XR Orbits Minimum 4 Views 02/20/21 * XR Shoulder Minimum 2 Views Left 02/10/21 [facility] Go Try It Onaluation + Plan note Future Appointments Appointment Date:01/20/2022 08:00:00 AM Scheduled Provider:JAMAICA HOGUE DO Location:[facility] Appointment Type:PC OV Future Scheduled Tests Laboratory* Lipid Profile 11/21/20 * Complete Metabolic Panel 11/21/20 Radiology* XR Orbits Minimum 4 Views 02/20/21 * XR Shoulder Minimum 2 Views Left 02/10/21 [facility] Go Try It Onaluation + Plan note Future Appointments Appointment Date:07/19/2022 08:00:00 AM Scheduled Provider:JAMAICA HOGUE DO Location:[facility] Appointment Type:PC OV Future Scheduled Tests Laboratory* Folate Level 05/26/22 * Iron Level 05/26/22 * Vitamin B12 Level 05/26/22 * Vitamin D Level 05/26/22 Radiology* XR Hip Minimum 2 Views Right 05/26/22 * XR Spine Lumbar AP/LAT 05/26/22 [facility] Go Try It Onaluation + Plan note Future Appointments Appointment Date:11/08/2022 08:00:00 AM Scheduled Provider:JAMAICA HOGUE DO Location:[facility] Appointment Type:PC OV Future Scheduled Tests Laboratory* Folate Level 05/26/22 * Iron Level 05/26/22 * Vitamin B12 Level 05/26/22 * Vitamin D Level 05/26/22 Radiology* XR Hip Minimum 2 Views Right 05/26/22 * XR Spine Lumbar AP/LAT 05/26/22 [facility] Evaluation + Plan note Future Appointments Appointment Date:06/06/2023 08:00:00 AM Scheduled Provider:JAMAICA HOGUE DO Location:[facility] Appointment Type:PC OV Future Scheduled Tests Laboratory* Microalbumin Level Urine 11/08/22 Radiology* XR Hip Minimum 2 Views Right 05/26/22 * XR Spine Lumbar AP/LAT 05/26/22 [facility] Evaluation + Plan note Future Appointments Appointment Date:09/05/2023 09:30:00 AM Scheduled Provider:JAMAICA HOGUE DO [facility] Appointment Type:PC OV Follow Up Future Scheduled Tests Laboratory* Microalbumin Level Urine 11/08/22 [facility] Evaluation + Plan note Future Appointments Appointment Date:09/05/2023 09:30:00 AM Scheduled Provider:JAMAICA HOGUE DO Location:[facility] Appointment Type:PC OV Follow Up Appointment Date:09/06/2023 08:30:00 AM Scheduled Provider:JAMAICA HOGUE DO Location:[facility] Appointment Type:PC OV Future Scheduled Tests Laboratory* Complete Blood Count 06/30/23 * Microalbumin Level Urine 11/08/22 [facility] Evaluation + Plan note Future Appointments Appointment Date:03/26/2024 02:30:00 PM Scheduled Provider:JAMAICA HOGUE DO [facility] Appointment Type:PC OV Follow Up Future Scheduled Tests Laboratory* Creatinine 02/14/24 * Complete Blood Count 06/30/23 [facility] Evaluation + Plan note Future Appointments Appointment Date:09/24/2024 02:30:00 PM Scheduled Provider:JAMAICA HOGUE DO Location:[facility] Appointment Type:PC OV Future Scheduled Tests Laboratory* Creatinine 02/14/24 Radiology* US Abdomen Complete 03/15/24 [facility] Evaluation + Plan note Future Appointments Appointment Date:05/15/2025 04:30:00 PM Scheduled Provider:ABISAI RODRIGUEZ Location:[facility] Appointment Type:PC OV Controlled Medication Future Scheduled Tests Radiology* XR Pelvis 1 or 2 Views 08/07/24 * XR Hip 2-3 Views Left 08/07/24 [facility] Evaluation note* Diagnosis Onset Date Resolution Status Benign essential HTN chronic Diabetes chronic HLD (hyperlipidemia) chronic Obesity chronic Benign essential HTN chronic Diabetes chronic HLD (hyperlipidemia) chronic Obesity [facility] Work Phone: Hospital course Narrative No data available for this section [facility] Hospital Discharge instructions No data available for this section [facility] Progress note No data available for this section [facility] Reason for referral (narrative)No reason for referral [facility] Work Phone: summary note* GAMALIEL Ramos: PERFORM Event Display: Patient Summary Documents Authored Date: [id number] [facility] summary note* GAMALIEL Ramos: PERFORM Event Display: Patient Summary Documents Authored Date: [id number] [facility] Summary Purpose Family History Relationship Condition Age at Onset Recorded Date/T rhoda Not Specified Severe allergy Unknown Diabetes mellitus Unknown High blood cholesterol Unknown Depression Unknown Hypertension Unknown No Family History Records Found Advance Directives No Advanced Directives Records Found Advance Directive Response Recorded Date/ Time Living Will No October 13 4:15pm Power of Podiatrist Assistant No Snoya 4th, 2 024 4:15pm Chief Complaint and [...] Member Role: Primary Care Physician Address: Address: [address] [place] [address] Care Team Related Persons Name: SHIVA DAMICO Care Team Personnel Name: JAMAICA HOGUE DO Position: P4 Physician - Primary Care Member Role: Primary Care Physician Address: Address: [address] [place] [address] Name: JANETTE AGEE DO Position: ED Physician Member Role: Attending Physician Address: Address: [address] [place] [address] Name: Jacquelyn Deleon RN Position: AO RN Member Role: ED RN Care Team Related Persons Name: SHIVA DAMICO Care Team Personnel Name: JAMAICA HOGUE DO Position: P4 Physician - Primary Care Member Role: Primary Care Physician Address: Address: [address] [place] [address] Care Team Related Persons Name: SHIVA DAMICO Patient Care team informatio n (unrecognized section and content) Team Status: Active Member Role Status Dates Dr. Amos Obrien MD Family Provider Active Dr. [place] Hogue DO Primary Care Provider Active Team Status: Inactive Member Role Status Dates Dr. [place] Hogue DO Primary Care Provider, Referri ng Provider Active Dr. Daniel Granda MD Attending Provider Active Team Status: [...] section and content) DATE CREATED AUTHOR 08/30/2023 [facility] DATE CREATED AUTHOR AUTHOR'S ORGANIZ ATION 03/04/2024 [facility] [facility] ([place] DATE CREATED AUTHOR AUTHOR'S ORGANIZ ATION 05/01/2025 [facility] DATE CREATED AUTHOR AUTHOR'S ORGANIZ ATION 05/07/2025 [facility] Goals (unrecognized section and content) Goals may [...] BE BASED ON THE PRIMARY CLINICAL RECORDS. [facility] [employer] [facility]. provides no warranty or guarantee of the accuracy or completeness of information in this document.
[2025-08-18] MEDS: 0.9% Normal Saline (1000mL) 1,000 ML 125 ML IV (23:13)
[2025-08-19] VITALS (16 sets, daily range): BP systolic 103–134; BP diastolic 54–95; PULSE 59–93; RESP 11–21; TEMP 36.4–36.9; O2SAT 91–98; BMI 43.4
[2025-08-19 00:06] LABS: Anion Gap 19 (5-15); Carbon Dioxide 12.7 mmol/L (21.0-32.0); Chloride 98 mmol/L (98-108); Magnesium 1.8 mg/dL (1.5-2.2); Potassium 3.4 mmol/L (3.3-5.1)
[2025-08-19] MEDS: Lidocaine 2% Viscous15 ML UDC 15 ML PO (03:13)
[2025-08-19 04:34] LABS: Anion Gap 14 (5-15); BUN 13 mg/dL (4-19); BUN/Creat Ratio 18.3 RATIO (10-20); Calcium,Total 9.1 mg/dL (7.6-11.0); Carbon Dioxide 17.6 mmol/L (21.0-32.0); Chloride 101 mmol/L (98-108); Estimated Creatinine Clearance 171.94 ml/min (50-250); Glucose 157 mg/dL (70-99); Magnesium 1.8 mg/dL (1.5-2.2); Potassium 3.4 mmol/L (3.3-5.1)
[2025-08-19] MEDS: Potassium Phosphate 21 MM in 0.9% Normal Saline (250mL Bag) 250 ML 84 MM IV (05:39)
[2025-08-19 06:53] LABS: BETA-HYDROXYBUTYRATE 1.6 mmol/L (0.0-0.3)
--- NOTE | 2025-08-19 07:27 | PN.HOSP_ITS ---
Reason for Visit Chief Complaint: Abdominal pain/nausea/vomiting Objective Data Objective Data Vital Signs: Vital Signs Temp Pulse Resp BP Pulse Ox O2 Del Method 97.8 F 89 18 134/74 H 95 Room Air 08/19/25 04:00 08/19/25 04:00 08/19/25 04:00 08/19/25 04:00 08/19/25 04:00 08/19/25 04:00 Oxygen Delivery Method Room Air Weight: 320 lb 1.779 oz Body Mass Index (BMI) 43.4 Intake & Output: Intake and Output for Last 24 Hours 08/17/25 08/18/25 08/19/25 23:59 23:59 23:59 Intake Total 43.03 / 43.03 Balance 43.03 / 43.03 Lab / Micro Data 08/18/25 18:20 08/19/25 03:52 Labs: Laboratory Results - last 24 hr 08/18/25 18:16: Urine Color Straw, Urine Clarity Clear, Urine pH 6.0, Ur Specific [place] 1.025, Urine Protein 30 H, Urine Glucose (UA) 1000 H, Urine Ketones 150 A*, Urine Occult Blood 10 H, Urine Nitrite Negative, Urine Bilirubin Negative, Urine Urobilinogen Normal, Ur Leukocyte Esterase Negative, Urine RBC 0-5 SEEN, Urine WBC 0-5 SEEN, Ur Squamous Epith Cells 0-5 SEEN, Amorphous Sediment 1+, Urine Bacteria 2+, Hyaline Casts 0-5 SEEN, Coarse Granular Casts 0- 5 SEEN, Urine Mucus 0 SEEN 08/18/25 18:20: WBC 13.9 H, RBC 5.80, Hgb 17.2 H, Hct 49.7, MCV 85.7, MCH 29.7, MCHC 34.6, RDW Std Deviation 42.3, RDW Coeff of Mica 13.6, Plt Count 413, MPV 9.5, Immature Gran % (Auto) 0.900, Neut % (Auto) 60.9, Lymph % (Auto) 27.7, [place] % (Auto) 8.6, Eos % (Auto) 1.2, Baso % (Auto) 0.7, Absolute Neuts (auto) 8.5 H, Absolute Lymphs (auto) 3.85, Nucleated RBC % 0, Sodium 131 L, Potassium 4.3, C hloride 94 L, Carbon Dioxide 12.9 L, Anion Gap 24 H, BUN 15, Creatinine 0.99, Estim Creat Clear Calc 121.52, Est GFR (MDRD) Non-Af 89, BUN/Creatinine Ratio 14.6, Glucose 448 H, Hemoglobin A1c 12.6 H, Calcium 9.9, Total Bilirubin 0.74, AST 13, ALT 12, Alkaline Phosphatase 95, Total Protein 8.0, Albumin 4.6, Globulin 3.4, Albumin/Globulin Ratio 1.4, Lipase 24, b-Hydroxybutyric mmol/L 6.5 H 08/18/25 20:20: Sodium 133, Potassium 4.2, Chloride 94 L, Carbon Dioxide 14.1 L, Anion Gap 25 H, Phosphorus 3.3, Magnesium 1.9 08/18/25 20:54: POC Glucose 382 H 08/18/25 21:58: POC Glucose 373 H 08/18/25 23:04: POC Glucose 253 H 08/18/25 23:30: Sodium 130 L, Potassium 3.4, Chloride 98, Carbon Dioxide 12.7 L, Anion Gap 19 H, Phosphorus 2.1 L, Magnesium 1.8 08/18/25 23:59: POC Glucose 238 H 08/19/25 00:52: POC Glucose 226 H 08/19/25 01:58: POC Glucose 187 H 08/19/25 03:09: POC Glucose 172 H 08/19/25 03:51: POC Glucose 153 H 08/19/25 03:52: Sodium 133, Potassium 3.4, Chloride 101, Carbon Dioxide 17.6 L, Anion Gap 14, BUN 13, Creatinine 0.71, Estim Creat Clear Calc 171.94, Est GFR (MDRD) Non-Af 107, BUN/Creatinine Ratio 18.3, Glucose 157 H, Calcium 9.1, Magnesium 1.8, TSH 2.340 08/19/25 05:30: POC Glucose 115 H 08/19/25 06:16: b-Hydroxybutyric mmol/L 1.6 H ABG Data ABG results: ABG 08/18/25 19:28 Specimen Type FELTON Sample Site Not entered VBG pH 7.33 VBG pO2 75 H VBG HCO3 10 L VBG Total CO2 10 L VBG O2 Sat (Calc) 94 H VBG Base Excess -16 L POC Mix VBG pCO2 Pt Tmp 18.6 L* O2 Delivery Device Room Air Crit Call To/Read Back Yes Blood Gas Notified Whom Jayy Blood Gas Notified Time 19:30:29 Physical Exam Narrative Patient does not have nausea, vomiting or headache. Denies fever or acute onset of symptoms related to infection, URI or dysuria/LUTS. Physical exam General: Alert, Oriented x3, Cooperative. BMI 43.4 kg/m?, morbid obesity HEENT: Atraumatic, PERRLA, EOMI, Normocephalic. Oral: No Gingival or Mucosal Lesions/ Ulcerations Neck: Supple, No JVD, Negative Carotid Bruits Chest wall/Lungs: Air entry diminished in bilateral lung bases. No crepitation/rhonchi Cardiovascular: Regular rate and rhythm, Normal S1,S2, No M/G/R Abdomen: Bowel Sounds Present, Soft, Non Tender, Non-Distended : No dysuria. No renal angle tenderness. No suprapubic tenderness. Extremities: No edema, Capillary Refill Less than 3 Seconds Skin: No rashes, No breakdown Musculoskeletal: No Tenderness to Palpation of Joints or Extremities Neurological: Cranial nerves II-XII grossly intact, DTR 2+/4. No acute focal neurological deficit. Psych/Mental Status: Flight of Assessment & Plan Assessment/Plan (1) DKA (diabetic ketoacidoses): (2) Leukocytosis: (3) Erythrocytosis: (4) Noncompliance with medication regimen: PLAN: Plan 55-year-old gentleman was admitted with 6 days symptoms of nausea, vomiting, thirsty/polydipsia. No diarrhea. Last BM 2 to 3 days ago DKA secondary to medication noncompliance - Mild with a serum bicarb of 12.9 on presentation, anion gap of 25 and a VBG but showed a pH of 7.33, beta hydroxybutyrate was 6.5 08/19: Patient was resuscitated aggressively with IV fluid as per DKA protocol. The patient was not started on insulin drip. Bicarb is still low 12.7-17.6, anion gap 19 and 14. Beta-hCG 1.6. TSH normal. Glucoses controlled 153. On D5 half NS 125 mL/h with insulin drip. On hypoglycemia protocol. Leukocytosis/erythrocytosis - Suspect related to volume contraction - Aggressive IV fluids per DKA protocol in place No focal signs and symptoms of infection on history taking and exam. Essential hypertension with elevated blood pressure - Continue home lisinopril BP 130/49 blood pressure is controlled DM-2 - Hold home oral agents - Hold home insulin - Will transition to subcu insulin after DKA is resolved - A1c 12.6%. - N.p.o. for now Hyperlipidemia - Continue home atorvastatin Morbid obesity with history of DM type II - BMI is 43.4 KG per square meter - Recommend weight loss - Complicates treatment, prognosis, outcomes DVT prophylaxis - Subcu Lovenox twice daily 40 mg CODE STATUS - Full code Charges/Coding Addendum Addendum: Total time of the visit including total time spent in counseling or coordination of care, (more than 50% of the total time, spent in obtaining medical information from nurses and other ancillary care providers ,explaining to the patient about labs, imaging, diagnosis and management of active complex medical conditions), management of DKA, review of labs and imaging is 35 minutes. Visit Charges Inpatient E&M: 40242 Subs Hosp L3
[2025-08-19] MEDS: Dext 5%-0.45% NS 1,000 ML 125 ML IV (07:53)
[2025-08-19] MEDS: 0.9% Saline Lock 10 ML Syringe IV ×2 (07:54→14:43)
[2025-08-19 09:08] LABS: Anion Gap 14 (5-15); Carbon Dioxide 17.3 mmol/L (21.0-32.0); Chloride 101 mmol/L (98-108); Potassium 3.2 mmol/L (3.3-5.1)
[2025-08-19] MEDS: Insulin Glargine-YFGN 100 UNIT/ML Pen 10 UNIT SC (10:09)
--- NOTE | 2025-08-19 10:38 | CASEMGMT ---
PEPITO DELGADO Assessment Face to Face with patient for initial transition planning/care coordination assessment. RN DANNY introduced self and role at [facility], pt voices understanding. Pt is A&Ox4 and is resting comfortably in bed and is calm. Care providers, pharmacy, and demographics verified. Admitting dx: DKA LACE Strata: 1 PCP: Pt states that his PCP was Dr Clyde Hogue until they retired. Pt states that he is still established with [facility] in [place] but cannot recall the name of his new PCP. Pt declines list Specialists: [facility] Preferred Pharmacy: [facility] Insurance: MMO Exchange Plan, [employer] Prescription Benefit: Yes LNOK: Staci (XW). Pt states that they recently and that he has been depressed and not taking his medications or caring for his DM as he should. Inquired if the pt would like to speak to SW. Pt declines and states that he has a counseling appt scheduled for next week. Living Arrangements: Pt lives alone in a single story home with 2 steps to enter ADLs/IADLs: Indep. 6-Click score is 24 Transportation: Self. Pt states that he will need a ride home. Pt educated about the [facility] Transportation Services. Pt states that he will be able to get in and out of the vehicle independently. CM to follow. DME: Pt states that he has a functioning glucometer with sufficient supplies including lancets, test strips, EtOH swabs, and pen needles for insulin shots. HHC/SNF: Denies hx or needs Pt?s goal: Home Plan: Home, follow for transportation needs. Pt states that he feels safe returning home alone once medically ready and denies any further questions, concerns, or needs at this time. Vika Arteaga RN, CM
[2025-08-19 11:50] LABS: Hematocrit 41.1 % (40-54); Hemoglobin 14.3 g/dL (13.0-16.5); Immature Granulocytes Count 0.070 X10^3/uL (0.0-0.0); Mean Corp Hgb Conc 34.8 g/dL (32-36); Mean Corpuscular Volume 84.9 fL (80-94); Mean Platelet Vol. 9.6 fl (6.2-12.0); NRBC Flagged by Analyzer 0 % (0-5); Platelet Count 320 K/mm3 (150-450); RBC Distribution Width CV 13.6 % (11.6-14.6); RBC Distribution Width SD 42.1 fl (35.1-43.9); Red Blood Count 4.84 M/mm3 (4.6-6.2); White Blood Count 10.9 K/mm3 (4.4-11.0)
--- NOTE | 2025-08-19 12:16 | CASEMGMT ---
Social Work SW spoke w/pt briefly, as he had indicated to CM he did not need to speak w/SW. He states he has a counseling appt at [facility] next week and is looking forward to it. Pt states he has been in counseling before and found it helpful. He informed SW that you only get out of counseling what you put into it. He states otherwise you are just wasting the counselor's time when they could be helping someone else. SW offered support to pt. Pt also does state he plans to start taking his medication regularly. SW spoke w/pt about POA/LW, he would want his brother Clyde to be HCPOA. Pt does not want to complete the documents at this time however. SW gave pt the blank forms w/the number to the SW dept, encouraged him to call to make an appt when he is ready to complete the forms. Pt states will do so. SW remains available for support to pt as needed while here in the hospital. VICK Noguera
[2025-08-19 12:20] LABS: Anion Gap 12 (5-15); BUN 12 mg/dL (4-19); BUN/Creat Ratio 17.7 RATIO (10-20); Calcium,Total 9.0 mg/dL (7.6-11.0); Carbon Dioxide 19.3 mmol/L (21.0-32.0); Chloride 102 mmol/L (98-108); Estimated Creatinine Clearance 182.21 ml/min (50-250); Glucose 181 mg/dL (70-99); Potassium 3.3 mmol/L (3.3-5.1)
[2025-08-20 02:58] VITALS: BP 102/70; PULSE 72; RESP 16; TEMP 36.7; O2SAT 95
[2025-08-20 05:30] VITALS: BMI 43.9
[2025-08-20 06:50] LABS: Hematocrit 41.5 % (40-54); Hemoglobin 14.6 g/dL (13.0-16.5); Immature Granulocytes Count 0.090 X10^3/uL (0.0-0.0); Mean Corp Hgb Conc 35.2 g/dL (32-36); Mean Corpuscular Volume 85.2 fL (80-94); Mean Platelet Vol. 10.3 fl (6.2-12.0); NRBC Flagged by Analyzer 0 % (0-5); Platelet Count 277 K/mm3 (150-450); RBC Distribution Width CV 13.7 % (11.6-14.6); RBC Distribution Width SD 42.8 fl (35.1-43.9); Red Blood Count 4.87 M/mm3 (4.6-6.2); White Blood Count 9.7 K/mm3 (4.4-11.0)
[2025-08-20 07:25] LABS: Anion Gap 14 (5-15); BUN 9 mg/dL (4-19); BUN/Creat Ratio 13.1 RATIO (10-20); Calcium,Total 9.1 mg/dL (7.6-11.0); Carbon Dioxide 20.6 mmol/L (21.0-32.0); Chloride 97 mmol/L (98-108); Estimated Creatinine Clearance 175.87 ml/min (50-250); Glucose 454 mg/dL (70-99); Potassium 4.0 mmol/L (3.3-5.1)
[2025-08-20 07:46] VITALS: O2SAT 96
--- NOTE | 2025-08-20 07:57 | PCM.PN.HOSP ---
Reason for Visit Chief Complaint: Abdominal pain/nausea/vomiting Objective Data Objective Data Vital Signs: Vital Signs Temp Pulse Resp BP Pulse Ox O2 Del Method 98.1 F 72 16 102/70 96 Room Air 08/20/25 02:58 08/20/25 02:58 08/20/25 02:58 08/20/25 02:58 08/20/25 07:46 08/20/25 07:46 Oxygen Delivery Method Room Air Weight: 324 lb 15.382 oz Body Mass Index (BMI) 43.9 Intake & Output: Intake and Output for Last 24 Hours 08/18/25 08/19/25 08/20/25 23:59 23:59 23:59 Intake Total 2355.04 / 2355.04 500 / 500 Balance 235. / 2355.04 500 / 500 Lab / Micro Data 08/20/25 06:04 08/20/25 06:04 Labs: Laboratory Results - last 24 hr 08/19/25 08:30: Sodium 132 L, Potassium 3.2 L, Chloride 101, Carbon Dioxide 17.3 L, Anion Gap 14, Phosphorus 2.6 L 08/19/25 08:33: POC Glucose 156 H 08/19/25 09:35: POC Glucose 135 H 08/19/25 10:36: POC Glucose 142 H 08/19/25 11:38: WBC 10.9, RBC 4.84, Hgb 14.3, Hct 41.1, MCV 84.9, MCH 29.5, MCHC 34.8, RDW Std Deviation 42.1, RDW Coeff of Mica 13.6, Plt Count 320, MPV 9.6, Immature Gran % (Auto) 0.600, Neut % (Auto) 51.2, Lymph % (Auto) 33.9, [place] % (Auto) 11.8 H, Eos % (Auto) 1.7, Baso % (Auto) 0.8, Absolute Neuts (auto) 5.6, Absolute Lymphs (auto) 3.70, Nucleated RBC % 0, Sodium 134, Potassium 3.3, Chloride 102, Carbon Dioxide 19.3 L, Anion Gap 12, BUN 12, Creatinine 0.67 L, Estim Creat Clear Calc 182.21, Est GFR (MDRD) Non-Af 109, BUN/Creatinine Ratio 17.7, Glucose 181 H, Calcium 9.0, POC Glucose 130 H 08/19/25 16:16: POC Glucose 291 H 08/19/25 22:59: POC Glucose 387 H 08/20/25 06:04: WBC 9.7, RBC 4.87, Hgb 14.6, Hct 41.5, MCV 85.2, MCH 30.0, MCHC 35.2, RDW Std Deviation 42.8, RDW Coeff of Mica 13.7, Plt Count 277, MPV 10.3, Immature Gran % (Auto) 0.900, Neut % (Auto) 47.7, Lymph % (Auto) 37.0, [place] % (Auto) 11.7 H, Eos % (Auto) 2.3, Baso % (Auto) 0.4, Absolute Neuts (auto) 4.6, Absolute Lymphs (auto) 3.57, Nucleated RBC % 0, Sodium 132 L, Potassium 4.0, Chloride 97 L, Carbon Dioxide 20.6 L, Anion Gap 14, BUN 9, Creatinine 0.70, Estim Creat Clear Calc 175.87, Est GFR (MDRD) Non-Af 108, BUN/Creatinine Ratio 13.1, Glucose 454 H*, Calcium 9.1 Physical Exam Narrative Patient blood sugar is still high in 300. Symptoms of nausea vomiting and headache have resolved Physical exam General: Alert, Oriented x3, Cooperative. BMI 43.4 kg/m?, morbid obesity HEENT: Atraumatic, PERRLA, EOMI, Normocephalic. Oral: No Gingival or Mucosal Lesions/ Ulcerations Neck: Supple, No JVD, Negative Carotid Bruits Chest wall/Lungs: Air entry diminished in bilateral lung bases. No crepitation/rhonchi Cardiovascular: Regular rate and rhythm, Normal S1,S2, No M/G/R Abdomen: Bowel Sounds Present, Soft, Non Tender, Non-Distended : No dysuria. No renal angle tenderness. No suprapubic tenderness. Extremities: No edema, Capillary Refill Less than 3 Seconds Skin: No rashes, No breakdown Musculoskeletal: No Tenderness to Palpation of Joints or Extremities. ROM full and intact. Neurological: Cranial nerves II-XII grossly intact, DTR 2+/4. No acute focal neurological deficit. Psych/Mental Status: Flat affect Assessment & Plan Assessment/Plan (1) DKA (diabetic ketoacidoses): (2) Leukocytosis: (3) Erythrocytosis: (4) Noncompliance with medication regimen: PLAN: Plan 55-year-old gentleman was admitted with 6 days symptoms of nausea, vomiting, thirsty/polydipsia. No diarrhea. Last BM 2 to 3 days ago DKA secondary to medication noncompliance - Mild with a serum bicarb of 12.9 on presentation, anion gap of 25 and a VBG but showed a pH of 7.33, beta hydroxybutyrate was 6.5 08/19: Patient was resuscitated aggressively with IV fluid as per DKA protocol. The patient was not started on insulin drip. Bicarb is still low 12.7-17.6, anion gap 19 and 14. Beta-hCG 1.6. TSH normal. Glucoses controlled 153. On D5 half NS 125 mL/h with insulin drip. On hypoglycemia protocol. 08/20: Insulin dose increased. Glucose 322. Lantus dose 15 subcutaneous twice daily. Humalog 15 units 3 times daily with meal. Anticipate discharge tomorrow Leukocytosis/erythrocytosis - Suspect related to volume contraction - Aggressive IV fluids per DKA protocol in place No focal signs and symptoms of infection on history taking and exam. Essential hypertension with elevated blood pressure - Continue home lisinopril BP 130/49 blood pressure is controlled DM-2 - Hold home oral agents - Hold home insulin - Will transition to subcu insulin after DKA is resolved - A1c 12.6%. - N.p.o. for now Hyperlipidemia - Continue home atorvastatin Morbid obesity with history of DM type II - BMI is 43.4 KG per square meter - Recommend weight loss - Complicates treatment, prognosis, outcomes DVT prophylaxis - Subcu Lovenox twice daily 40 mg CODE STATUS - Full code Charges/Coding Visit Charges Inpatient E&M: 45160 Subs Hosp L2
[2025-08-20 08:23] VITALS: BP 135/76; PULSE 85; RESP 18; TEMP 36.7; O2SAT 97
[2025-08-20] MEDS: Insulin Glargine-YFGN 100 UNIT/ML Pen 15 UNIT SC ×2 (08:39→22:33)
[2025-08-20 14:25] VITALS: BP 126/71; PULSE 76; RESP 16; TEMP 36.3; O2SAT 94
[2025-08-20 20:22] VITALS: BP 126/110; PULSE 56; RESP 18; TEMP 36.4; O2SAT 96
[2025-08-21 02:47] VITALS: BP 100/90; PULSE 55; RESP 18; TEMP 36.7; O2SAT 95
[2025-08-21 05:19] VITALS: BMI 43.7
[2025-08-21 06:39] LABS: Hematocrit 41.6 % (40-54); Hemoglobin 14.4 g/dL (13.0-16.5); Immature Granulocytes Count 0.100 X10^3/uL (0.0-0.0); Mean Corp Hgb Conc 34.6 g/dL (32-36); Mean Corpuscular Volume 86.0 fL (80-94); Mean Platelet Vol. 10.5 fl (6.2-12.0); NRBC Flagged by Analyzer 0 % (0-5); Platelet Count 267 K/mm3 (150-450); RBC Distribution Width CV 13.4 % (11.6-14.6); RBC Distribution Width SD 42.3 fl (35.1-43.9); Red Blood Count 4.84 M/mm3 (4.6-6.2); White Blood Count 10.0 K/mm3 (4.4-11.0)
[2025-08-21 07:15] LABS: Anion Gap 13 (5-15); BUN 7 mg/dL (4-19); BUN/Creat Ratio 11.6 RATIO (10-20); Calcium,Total 9.3 mg/dL (7.6-11.0); Carbon Dioxide 24.6 mmol/L (21.0-32.0); Chloride 97 mmol/L (98-108); Estimated Creatinine Clearance 197.96 ml/min (50-250); Glucose 393 mg/dL (70-99); Potassium 3.4 mmol/L (3.3-5.1)
[2025-08-21 07:49] VITALS: O2SAT 99
[2025-08-21 08:45] VITALS: BP 120/63; PULSE 80; RESP 18; TEMP 36.7; O2SAT 94
[2025-08-21] MEDS: Insulin Glargine-YFGN 100 UNIT/ML Pen 30 UNIT SC (09:34)
--- NOTE | 2025-08-21 10:12 | DCINST_ITS ---
Discharge Instructions DC O2, CPAP, BIPAP needs Home O2 Discharge instructions: No Follow Up Care Test Results: Test results from this visit will be discussed in further detail at your follow- up appointment, if applicable. Discharge Plan Admission Admit Date/Time: 08/18/25 20:47 Attending Provider: Jose J Parrish Primary Care Provider: Care Physician,No Primary Consulting Providers: Connie Smalls Discharge Orders/Prescriptions Prescriptions: Continued atorvastatin 20 mg tablet 20 mg PO DAILY lisinopril 20 mg tablet 20 mg PO DAILY metformin 1,000 mg tablet 1,000 mg PO BID Qty: 60 5RF trazodone 50 mg tablet 50 mg PO QHS PRN (Reason: sleep) insulin degludec [Tresiba FlexTouch U-200] 200 unit/mL (3 mL) insulin pen 100 unit subcut QDAY Qty: 45 3RF Humalog KwikPen Insulin 200 unit/mL (3 mL) insulin pen 60 unit subcut TID MDD 260 Qty: 81 2RF Rx Instructions: 30 units with snacks Sliding Scale 180 +12; 221 20 units; 260 30 units; > 300 40 units (DME) FreeStyle Sera 3 Sensor Device See Rx Instructions .Route Qty: 2 5RF Rx Instructions: 1 sensor q 14 days (DME) pen needle, diabetic 32 gauge x 5/32 needle See Rx Instructions .ROUTE .MEDSUPPLY Qty: 100 5RF Rx Instructions: tid (DME) FreeStyle Sera 3 Plus Sensor Device See Rx Instructions .Route Qty: 6 1RF Rx Instructions: 1 sensor q 15 days Changed glimepiride 4 mg tablet 4 mg PO BIDAC 30 Days Qty: 60 0RF Referrals / Follow Up: Clyde Hogue DO [Non-Staff, Family Practice] - Within 2 Weeks Care Physician,No Primary [Primary Care Provider, Medical] Disposition Disposition (needs filled in before D/C Order can be placed): Home, Self Care
--- NOTE | 2025-08-21 12:33 | CASEMGMT ---
Addendum entered by Bea Gonzalez 08/21/25 13:12: Received tc from [facility] transportation, time moved back to 3pm. Updated pt nurse as well as pt. Original Note: RN CM into pt room, pt states he does need transportation home. Pt states he has all of his medications at home including tresiba, glimeperide, metformin and humalog insulin along with pens and needles. TC to [facility] van, they can transport pt home at 1:30pm. Updated pt nurse and pt. Pt denies any further needs at this time.
[2025-08-21 12:47] VITALS: BP 125/70; PULSE 80; RESP 18; TEMP 36.7; O2SAT 95
--- NOTE | 2025-08-21 13:00 | PHA.DC.MR.R ---
Pharmacy PR Med Reconciliation Pharmacy Service has performed discharge medication reconciliation for this patient. The patient's discharge medication list was reviewed for discrepancies and discrepancies were resolved. Medications at Discharge Home Medications atorvastatin 20 mg tablet 20 mg PO DAILY 03/29/22 lisinopril 20 mg tablet 20 mg PO DAILY 03/29/22 metformin 1,000 mg tablet 1,000 mg PO BID #60 tabs 10/14/23 blood-glucose sensor (FreeStyle Sera 3 Sensor device) #2 ea 03/22/25 trazodone 50 mg tablet 50 mg PO QHS PRN sleep 05/06/25 pen needle, diabetic 32 gauge x 5/32 #100 ea 07/03/25 blood-glucose sensor (FreeStyle Sera 3 Plus Sensor device) #6 ea 07/10/25 Tresiba FlexTouch U-200 200 unit/mL (3 mL) subcutaneous pen (insulin degludec) 100 unit (0.5 mL) subcut QDAY #45 mL 08/21/25 glimepiride 4 mg tablet 4 mg PO BIDAC 30 days #60 tabs 08/21/25 insulin lispro 200 unit/mL (3 mL) subcutaneous pen (Humalog KwikPen U-200 Insulin) 60 unit (0.3 mL) subcut TID #81 mL 08/21/25
--- NOTE | 2025-08-21 17:06 | DS.PCM_ITS ---
Providers Date of Admission: 08/18/25 Date of Discharge: 08/21/25 Primary Care Physician: No Primary Care Phys Reason For Visit: DKA Diagnosis Discharge Diagnosis (1) DKA (diabetic ketoacidoses): Status: Acute Code(s): E11.10 - Type 2 diabetes mellitus with ketoacidosis without coma (2) Leukocytosis: Status: Acute Code(s): D72.829 - Elevated white blood cell count, unspecified (3) Erythrocytosis: Status: Acute Code(s): D75.1 - Secondary polycythemia (4) Noncompliance with medication regimen: Status: Acute Code(s): Z91.148 - Patient's other noncompliance with medication regimen for other reason Plan 55-year-old gentleman was admitted with 6 days symptoms of nausea, vomiting, thirsty/polydipsia. No diarrhea. Last BM 2 to 3 days ago DKA secondary to medication noncompliance - Mild with a serum bicarb of 12.9 on presentation, anion gap of 25 and a VBG but showed a pH of 7.33, beta hydroxybutyrate was 6.5 08/19: Patient was resuscitated aggressively with IV fluid as per DKA protocol. The patient was not started on insulin drip. Bicarb is still low 12.7-17.6, anion gap 19 and 14. Beta-hCG 1.6. TSH normal. Glucoses controlled 153. On D5 half NS 125 mL/h with insulin drip. On hypoglycemia protocol. 08/20: Insulin dose increased. Glucose 322. Lantus dose 15 subcutaneous twice daily. Humalog 15 units 3 times daily with meal. Anticipate discharge tomorrow 08/21: Insulin dose was subsequently increased. Patient discharged on Humalog and Lantus insulin. Patient states he has insulin at at home and refill but he was depressed therefore he was not taking it. Leukocytosis/erythrocytosis - Suspect related to volume contraction - Aggressive IV fluids per DKA protocol in place No focal signs and symptoms of infection on history taking and exam. Essential hypertension with elevated blood pressure - Continue home lisinopril BP 130/49 blood pressure is controlled DM-2 - Hold home oral agents - Hold home insulin - Will transition to subcu insulin after DKA is resolved - A1c 12.6%. - N.p.o. for now Hyperlipidemia - Continue home atorvastatin Morbid obesity with history of DM type II - BMI is 43.4 KG per square meter - Recommend weight loss - Complicates treatment, prognosis, outcomes DVT prophylaxis - Subcu Lovenox twice daily 40 mg CODE STATUS - Full code Discharge medication reconciliation done. Discharge follow-up instructions completed. Discharge process discussed with the patient and all questions were answered to patient's satisfaction. Follow with PCP in 1 to 2 weeks Total time spent, exact 35 minutes on discharge meds reconciliation, examination, coordination of care with nurses and ancillary staff, review of imaging and blood test and discussion with the patient on follow-up instructions. Medications at Discharge Home Medications atorvastatin 20 mg tablet 20 mg PO DAILY 03/29/22 lisinopril 20 mg tablet 20 mg PO DAILY 03/29/22 metformin 1,000 mg tablet 1,000 mg PO BID #60 tabs 10/14/23 blood-glucose sensor (FreeStyle Sera 3 Sensor device) #2 ea 03/22/25 trazodone 50 mg tablet 50 mg PO QHS PRN sleep 05/06/25 pen needle, diabetic 32 gauge x #100 ea 07/03/25 blood-glucose sensor (FreeStyle Sera 3 Plus Sensor device) #6 ea 07/10/25 Tresiba FlexTouch U-200 200 unit/mL (3 mL) subcutaneous pen (insulin degludec) 100 unit (0.5 mL) subcut QDAY #45 mL 08/21/25 glimepiride 4 mg tablet 4 mg PO BIDAC 30 days #60 tabs 08/21/25 insulin lispro 200 unit/mL (3 mL) subcutaneous pen (Humalog KwikPen U-200 Insulin) 60 unit (0.3 mL) subcut TID #81 mL 08/21/25 Physical Exam Narrative Glucose is elevated but better controlled in 300s. Dose of insulin increased. Symptoms of nausea vomiting and headache have resolved Physical exam General: Alert, Oriented x3, Cooperative. BMI 43.4 kg/m?, morbid obesity HEENT: Atraumatic, PERRLA, EOMI, Normocephalic. Oral: No Gingival or Mucosal Lesions/ Ulcerations Neck: Supple, No JVD, Negative Carotid Bruits Chest wall/Lungs: Air entry diminished in bilateral lung bases. No crepitation/rhonchi Cardiovascular: Regular rate and rhythm, Normal S1,S2, No M/G/R Abdomen: Bowel Sounds Present, Soft, Non Tender, Non-Distended : No dysuria. No renal angle tenderness. No suprapubic tenderness. Extremities: No edema, Capillary Refill Less than 3 Seconds Skin: No rashes, No breakdown Musculoskeletal: No Tenderness to Palpation of Joints or Extremities. ROM full and intact. Neurological: Cranial nerves II-XII grossly intact, DTR 2+/4. No acute focal neurological deficit. Psych/Mental Status: Flat affect Weight / BMI Weight Weight: 323 lb 3.163 oz Body Mass Index (BMI) 43.7 ABG / Lab / Microbiology Data 08/21/25 06:03 08/21/25 06:03 Laboratory: Laboratory Results - last 24 hr 08/20/25 22:32: POC Glucose 394 H 08/21/25 06:03: WBC 10.0, RBC 4.84, Hgb 14.4, Hct 41.6, MCV 86.0, MCH 29.8, MCHC 34.6, RDW Std Deviation 42.3, RDW Coeff of Mica 13.4, Plt Count 267, MPV 10.5, I mmature Gran % (Auto) 1.000 H, Neut % (Auto) 46.9 L, Lymph % (Auto) 37.7, [place] % (Auto) 11.2 H, Eos % (Auto) 2.6, Baso % (Auto) 0.6, Absolute Neuts (auto) 4.7, Absolute Lymphs (auto) 3.75, Nucleated RBC % 0, Sodium 135, Potassium 3.4, C hloride 97 L, Carbon Dioxide 24.6, Anion Gap 13, BUN 7, Creatinine 0.62 L, Estim Creat Clear Calc 197.96, Est GFR (MDRD) Non-Af 112, BUN/Creatinine Ratio 11.6, G lucose 393 H, Calcium 9.3 08/21/25 06:14: POC Glucose 373 H 08/21/25 11:13: POC Glucose 315 H D/C Instructions DC O2, CPAP, BIPAP Needs Home O2 Discharge instructions: No Meaningful Use Info Meaningful Use Meaningful Use Diagnoses (Choose all that apply): None applicable Discharge Plan Admission Admit Date/Time: 08/18/25 20:47 Attending Provider: Jose J Parrish Primary Care Provider: Care Physician,No Primary Consulting Providers: Connie Smalls Discharge Orders/Prescriptions Prescriptions: Continued atorvastatin 20 mg tablet 20 mg PO DAILY lisinopril 20 mg tablet 20 mg PO DAILY metformin 1,000 mg tablet 1,000 mg PO BID Qty: 60 5RF trazodone 50 mg tablet 50 mg PO QHS PRN (Reason: sleep) insulin degludec [Tresiba FlexTouch U-200] 200 unit/mL (3 mL) insulin pen 100 unit subcut QDAY Qty: 45 3RF Humalog KwikPen Insulin 200 unit/mL (3 mL) insulin pen 60 unit subcut TID MDD 260 Qty: 81 2RF Rx Instructions: 30 units with snacks Sliding Scale 180 +12; 221 20 units; 260 30 units; > 300 40 units (DME) FreeStyle Sera 3 Sensor Device See Rx Instructions .Route Qty: 2 5RF Rx Instructions: 1 sensor q 14 days (DME) pen needle, diabetic 32 gauge x 5/32 needle See Rx Instructions .ROUTE .MEDSUPPLY Qty: 100 5RF Rx Instructions: tid (DME) FreeStyle Sera 3 Plus Sensor Device See Rx Instructions .Route Qty: 6 1RF Rx Instructions: 1 sensor q 15 days Changed glimepiride 4 mg tablet 4 mg PO BIDAC 30 Days Qty: 60 0RF Referrals / Follow Up: Clyde Hogue DO [Non-Staff, Family Practice] - Within 2 Weeks Care Physician,No Primary [Primary Care Provider, Medical] Disposition Disposition (needs filled in before D/C Order can be placed): Home, Self Care Charges/Coding Visit Charges Inpatient E&M: 36453 Disch Hosp >30min
== END 2025-08-21 14:51 | disposition home or self-care (01) | DRG 638 ==
LOC: ED 20:48 → ICU 21:24 → MS3 08-19 14:33
PROVIDERS: Admitting Provider Internal Medicine; Emergency Provider Emergency Medicine; Visit Provider Internal Medicine
DX: E11.10 Type 2 diabetes mellitus with ketoacidosis without coma (principal); Z68.41 Body mass index [BMI] 40.0-44.9, adult; D72.829 Elevated white blood cell count, unspecified; I10 Essential (primary) hypertension; E66.01 Morbid (severe) obesity due to excess calories; Z79.4 Long term (current) use of insulin; E78.5 Hyperlipidemia, unspecified; D75.1 Secondary polycythemia; Z87.891 Personal history of nicotine dependence; Z91.148 Patient's other noncompliance with medication regimen for other reason; Z79.84 Long term (current) use of oral hypoglycemic drugs; Z79.899 Other long term (current) drug therapy
CPT/HCPCS: 36415; 80048; 80051; 80053; 81001; 82010; 82803; 82962; 83036; 83690; 83735; 84100; 84443; 85025; 93005; 94668; 97802; 99284; A4216; J2405

== ENCOUNTER 2025-08-23 11:01 | Emergency (ER) | payer OTHER, MEDICAID, SELFPAY ==
[2025-08-23 11:01] VITALS: BP 148/81; PULSE 73; RESP 16; TEMP 36.6; O2SAT 98; BMI 45.4
--- NOTE | 2025-08-23 11:54 | CT_ITS ---
PROCEDURE: ABDOMEN/PELVIS W IV CONT ONLY 08/23/2025 REASON FOR EXAM: CONSTIPATION TECHNIQUE: Procedure Code: [id number] Modality: CT Procedure: ABDOMEN/PELVIS W IV CONT ONLY Coronal and Sagittal reconstruction series were provided. CONTRAST: Isovue-300 VOLUME: 100 mL One or more dose reduction techniques were used (e.g., Automated exposure control, adjustment of the mA and/or kV according to patient size, use of iterative reconstruction technique. RADIATION DOSE SUMMARY: CTDlvol: 20.5 mGy DLP: 3006.09 mGycm COMPARISON: None FINDINGS: Lung bases: Lung bases are clear. Coronary artery calcification. Liver: Diffuse fatty infiltration. Gallbladder: Findings suggestive of small gallstones in the gallbladder lumen. Spleen: Normal size. Pancreas: Normal size without evidence of mass surrounding inflammation or ductal dilation. Adrenals: Findings suggestive of a small adenoma in the crux of the left adrenal gland. Kidneys: 8 mm cyst in the lateral midportion of the right kidney. Bladder: Unremarkable. Prostate is nonenlarged Bowel: Colonic diverticulosis without diverticulitis. Appendix: Unremarkable. Lymph nodes: Unremarkable. Vasculature: Mild diffuse atherosclerotic calcifications are noted. Peritoneum / Retroperitoneum: Unremarkable. Bones: Mild degenerative changes. CT/Abdomen/Pelvis W IV Cont ONLY IMPRESSION: Fatty infiltration of the liver. Findings suggestive of small gallstones. Findings suggestive of a small adenoma in the crux of the left adrenal gland. Sigmoid diverticulosis. Reading Location: [place] [address]
--- NOTE | 2025-08-23 11:58 | EX.ED.DYSGE1 ---
HPI History of Present Illness Chief Complaint: Constipation Narrative Narrative: Chief complaint and HPI: 55-year-old male with past medical history of obesity, diabetes presents for evaluation of constipation. Patient states he has no history of constipation in the past. States his bowel movements have been hard over the past 4 days. Has been taking Pepto and Imodium as he thought these both treated constipation. He endorses liquid seepage of stool at night and occasionally during the day in his underwear. He denies any fever, chills, shortness of breath, chest pain abdominal pain, nausea, vomiting, dysuria. States he drinks plenty of fluids. States he eats fruits and vegetables. Review of systems: See HPI Medications: As listed on the chart Allergies: As listed on the chart PFSH: Per chart Vital signs: As listed on the chart. Reviewed. Physical exam: Gen: A&O x3, NAD Head: Normocephalic, atraumatic Eyes: No sclera icterus, conjunctiva clear ENT: Moist mucous membranes CV: RRR, no murmurs Resp: Lungs CTA BL, no w/r/c GI: Obese, abd soft, non-distended, non-tender, no r/r/g Retal: Stool spots in the underwear. Normal external examination. No evidence of hemorrhoids or fissures. Normal tone and sensation. No masses, fluctuance, or tenderness. No pain out of proportion. Brown stool on the gloved finger. No impaction of stool felt. Musc: Full ROM, no deformity Skin: Warm, dry Neuro: Alert, oriented, grossly intact, sensation intact Psych: Cooperative, appropriate mood and affect [facility] Medical History (Updated 08/23/25 @ 15:[address] Merrill Joshua, ) Abrasion of abdominal wall, initial encounter Benign essential HTN Depression HLD (hyperlipidemia) Obesity Diabetes Other specified disorders of tendon, right hand Home Medications Medication Instructions Recorded Last Taken Type atorvastatin 20 mg tablet 20 mg PO DAILY 03/29/22 08/18/25 History lisinopril 20 mg tablet 20 mg PO DAILY 03/29/22 08/18/25 History metformin 1,000 mg tablet 1,000 mg PO BID #60 tabs 10/14/23 08/18/25 Rx blood-glucose sensor (FreeStyle #2 ea 03/22/25 Unknown Rx Sera 3 Sensor device) trazodone 50 mg tablet 50 mg PO QHS PRN sleep 05/06/25 Unknown History pen needle, diabetic 32 gauge x #100 ea 07/03/25 Unknown Rx 5/32" blood-glucose sensor (FreeStyle #6 ea 07/10/25 Unknown Rx Sera 3 Plus Sensor device) Tresiba FlexTouch U-200 200 100 unit (0.5 mL) subcut QDAY #45 08/21/25 Unknown Rx unit/mL (3 mL) subcutaneous pen mL (insulin degludec) glimepiride 4 mg tablet 4 mg PO BIDAC 30 days #60 tabs 08/21/25 Unknown Rx insulin lispro 200 unit/mL (3 mL) 60 unit (0.3 mL) subcut TID #81 mL 08/21/25 Unknown Rx subcutaneous pen (Humalog KwikPen U-200 Insulin) Allergy/AdvReac Type Severity Reaction Status Date / Time loratadine (From Claritin) AdvReac Intermediate headache Verified 08/23/25 11:02 Family History Other Depression Diabetes High cholesterol Hypertension Severe allergy Surgical History H/O facial fracture repair Social History household members: none housing: apartment current occupational status: employed 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 other: Going through divorce Smoking Status: Former smoker alcohol intake: current alcohol intake frequency: 0-2 drinks per day substance use type: does not use what type of physical activity do you participate in: other details: treadmill frequency: daily EXAM Physical Exam Const Vital Signs: 08/23/25 11:01 08/23/25 13:01 08/23/25 14:00 Temperature 98 F Temperature Source Oral Pulse Rate 73 80 80 Respiratory Rate 16 20 H Blood Pressure 148/81 H 140/68 H 140/80 H Blood Pressure Mean 103 92 100 Pulse Ox 98 97 100 Oxygen Delivery Method Room Air 08/23/25 15:25 Temperature 98.3 F Temperature Source Pulse Rate 80 Respiratory Rate 16 Blood Pressure 140/80 H Blood Pressure Mean 100 Pulse Ox 100 Oxygen Delivery Method MDM MDM MDM Narrative Medical decision making narrative: 55-year-old male with past medical history of obesity, diabetes presents for evaluation of constipation. Patient states he has no history of constipation in the past. States his bowel movements have been hard over the past 4 days. Has been taking Pepto and Imodium as he thought these both treated constipation. He endorses liquid seepage of stool at night and occasionally during the day in his underwear. On presentation, patient no acute distress. See physical exam findings. Differential diagnosis includes but is not limited to constipation, colitis, obstruction, dehydration. Given patient does not have a history of constipation we will obtain basic labs with CT abdomen pelvis. CBC unremarkable. CMP unremarkable except for hyperglycemia. Patient is a diabetic. Lipase unremarkable. CT abdomen pelvis shows fatty infiltration of the liver. Findings suggestive of small gallstones. Findings suggestive of small adenoma in the [place] of the left adrenal gland. Sigmoid diverticulosis. No significant stool burden or constipation. At this point in time, no clear reason for patient's constipation or seepage of stool. I recommended him to stop taking Pepto and Imodium. He was updated of all his results. If he feels that he is constipated at home he can take MiraLAX as needed although I did inform him that CT abdomen pelvis did not show constipation. He was updated that he is to follow-up with his primary care physician for the symptoms as well for the small adenoma. He confirmed understanding. Return precautions explained. Patient able to discharge home. Impression: 1. Reported constipation 2. History of diabetes 3. 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 Lab Data Labs: Laboratory Results - last 24 hr 08/23/25 12:05 WBC 8.8 RBC 4.60 Hgb 13.8 Hct 40.3 MCV 87.6 MCH 30.0 MCHC 34.2 RDW Std Deviation 43.6 RDW Coeff of Mica 13.5 Plt Count 262 MPV 10.3 Immature Gran % (Auto) 1.500 H Neut % (Auto) 60.3 Lymph % (Auto) 25.3 [place] % (Auto) 10.7 H Eos % (Auto) 1.6 Baso % (Auto) 0.6 Absolute Neuts (auto) 5.3 Absolute Lymphs (auto) 2.22 Nucleated RBC % 0 Sodium 133 Potassium 4.0 Chloride 96 L Carbon Dioxide 27.2 Anion Gap 10 BUN 10 Creatinine 0.59 L Estim Creat Clear Calc 212.39 Est GFR (MDRD) Non-Af 114 BUN/Creatinine Ratio 16.3 Glucose 365 H Calcium 9.3 Total Bilirubin 0.49 AST 36 ALT 30 Alkaline Phosphatase 68 Total Protein 6.3 Albumin 3.9 Globulin 2.4 Albumin/Globulin Ratio 1.6 Lipase 32 Radiography Diagnostic Testing: Clinical Impression(s) from Imaging Studies Abdomen/Pelvis CT 08/23/25 11:54 IMPRESSION: Fatty infiltration of the liver. Findings suggestive of small gallstones. Findings suggestive of a small adenoma in the crux of the left adrenal gland. Sigmoid diverticulosis. Reading Location: [place] [address] Discharge Plan Triage Chief Complaint: Constipation ED Provider: Merrill Joshua Dx/Rx/DC Orders Clinical Impression: Constipation Instructions: ED Constipation (Adult) Prescriptions: No Action atorvastatin 20 mg tablet 20 mg PO DAILY lisinopril 20 mg tablet 20 mg PO DAILY metformin 1,000 mg tablet 1,000 mg PO BID Qty: 60 5RF trazodone 50 mg tablet 50 mg PO QHS PRN (Reason: sleep) glimepiride 4 mg tablet 4 mg PO BIDAC 30 Days Qty: 60 0RF insulin degludec [Tresiba FlexTouch U-200] 200 unit/mL (3 mL) insulin pen 100 unit subcut QDAY Qty: 45 3RF Humalog KwikPen Insulin 200 unit/mL (3 mL) insulin pen 60 unit subcut TID MDD 260 Qty: 81 2RF Rx Instructions: 30 units with snacks Sliding Scale 180 +12; 221 20 units; 260 30 units; > 300 40 units (DME) FreeStyle Sera 3 Sensor Device See Rx Instructions .Route Qty: 2 5RF Rx Instructions: 1 sensor q 14 days (DME) pen needle, diabetic 32 gauge x 5/32" needle See Rx Instructions .ROUTE .MEDSUPPLY Qty: 100 5RF Rx Instructions: tid (DME) FreeStyle Sera 3 Plus Sensor Device See Rx Instructions .Route Qty: 6 1RF Rx Instructions: 1 sensor q 15 days Primary Care Provider: ABISAI RODRIGUEZ Referrals: ABISAI RODRIGUEZ, [facility] [Primary Care Provider, Family Practice] - 3-5 Days Activity Restrictions/Additional Instructions: You are not constipated on your imaging. However if you feel that you are constipated I recommend taking [id number] daily MiraLAX. Follow-up with your primary care physician. Stop taking Pepto and Imodium. Return back to ED if symptoms change or worsen. No clear reason for your symptoms at this time. Print Language: [place] Disposition Disposition: Home, Self Care Discharge Date/Time: 08/23/25 15:28
[2025-08-23] MEDS: 0.9% Normal Saline (1000mL) 1,000 ML 999 ML IV (12:09)
[2025-08-23 12:22] LABS: Hematocrit 40.3 % (40-54); Hemoglobin 13.8 g/dL (13.0-16.5); Immature Granulocytes Count 0.130 X10^3/uL (0.0-0.0); Mean Corp Hgb Conc 34.2 g/dL (32-36); Mean Corpuscular Volume 87.6 fL (80-94); Mean Platelet Vol. 10.3 fl (6.2-12.0); NRBC Flagged by Analyzer 0 % (0-5); Platelet Count 262 K/mm3 (150-450); RBC Distribution Width CV 13.5 % (11.6-14.6); RBC Distribution Width SD 43.6 fl (35.1-43.9); Red Blood Count 4.60 M/mm3 (4.6-6.2); White Blood Count 8.8 K/mm3 (4.4-11.0)
[2025-08-23 12:40] LABS: AST(SGOT) 36 U/L (<=37); Alanine Aminotransfer ALT/SGPT 30 U/L (<=46); Albumin, Serum 3.9 g/dL (3.5-5.0); Alkaline Phosphatase 68 U/L (40-129); Anion Gap 10 (5-15); BUN 10 mg/dL (4-19); BUN/Creat Ratio 16.3 RATIO (10-20); Calcium,Total 9.3 mg/dL (7.6-11.0); Carbon Dioxide 27.2 mmol/L (21.0-32.0); Chloride 96 mmol/L (98-108); Estimated Creatinine Clearance 212.39 ml/min (50-250); Globulin 2.4 g/dL (2.2-4.2); Glucose 365 mg/dL (70-99); Lipase 32 U/L (13-75); Potassium 4.0 mmol/L (3.3-5.1)
[2025-08-23 13:01] VITALS: BP 140/68; PULSE 80; RESP 20; O2SAT 97
[2025-08-23 14:00] VITALS: BP 140/80; PULSE 80; O2SAT 100
[2025-08-23 15:25] VITALS: BP 140/80; PULSE 80; RESP 16; TEMP 36.8; O2SAT 100
== END 2025-08-23 15:28 | disposition home or self-care (01) ==
PROVIDERS: Emergency Provider Surgery; PCP Nurse Practitioner Family; Visit Provider Surgery
DX: D35.02 Benign neoplasm of left adrenal gland (principal); E11.9 Type 2 diabetes mellitus without complications; Z79.4 Long term (current) use of insulin; I10 Essential (primary) hypertension; E78.5 Hyperlipidemia, unspecified; K59.00 Constipation, unspecified; K76.0 Fatty (change of) liver, not elsewhere classified; Z87.891 Personal history of nicotine dependence; E66.9 Obesity, unspecified; K57.90 Diverticulosis of intestine, part unspecified, without perforation or abscess without bleeding
CPT/HCPCS: 74177; 80053; 83690; 85025; 96360; 99283; Q9967; A4216